=== PATIENT | male | born 1935 | race Caucasian/White ===

== ENCOUNTER 2016-05-30 09:28 | Inpatient (IN) | payer MEDICARE, BC ==
[~2016-05-30] VITALS: Ht 177.8 cm; Wt 96.6 kg
[~2016-05-30 09:28] MED LIST: ALLO100T PO; AMIO200T2 PO; ASPI81TA9 PO; BECL8.7A IH; BENZ0.5T PO; BENZ1TAB5 PO; BRIM5DRO3 EACHEYE; CARB1TAB2 PO; CARB1TAB44 PO; CIPR500T94 PO; DIGO125T PO; DOCU-27 PO; DOCU100C5 PO; DONE5TAB7 PO; DOXE1CAP PO; FLUT16SP NS; FURO20TA3 PO; LATA2.5D3 EACHEYE; LEVO75TA5 PO; LOVA20TA2 PO; MEMA28CA PO; MIDO10TA PO; MULT1TAB52 PO; NIAC500C PO; POLY17PO5 PO; ROPI1TAB2 PO; SODI650T PO; TAMS0.4C2 PO; WARF3TAB PO; WARF6TAB PO
--- NOTE | 2016-05-30 10:00 | PHYS DOC ---
General Chief Complaint: WEAKNESS/GENERALIZED Stated Complaint: WEAKNESS Time Seen by MD: 09:39 Source: patient, EMS, old records Exam Limitations: no limitations Problems: History of Present Illness Initial Comments Pt is 80/M to ED via EMS from [facility] for weakness. Pt states for the past week or longer he's had worsening productive cough (clear /foamy), increasing leg swelling, and V[place]LEGAS. This morning his legs felt very heavy and weak to him so he wanted to come for evaluation. He denies chest pain , fever/myalgias, n/v, SABA, or focal weakness. ED VS: 97.4, 60, 18, 109/61, 94% RA Timing/Duration: 1 week, getting worse Severity: moderate Modifying Factors: worse with movement, improves with rest Associated Symptoms: cough, malaise, shortness of breath, weakness Allergies: Coded Allergies: No Known Drug Allergies (Unverified , 03/07/16) Past Medical History Medical History: other (HTN, HLP, CKD 3, CHF, atrial fibrillation, prostate cancer, glaucoma, SHIKHA uses CPAP, Parkinson, gout, hypothyroid, dementia, DVT, sensorineural deafness, asthma, CAD, orthostatic hypotension, BPH, COPD, osteoarthritis, anemia) Surgical History: other (TURP, AICD, pacemaker, CABG x 2 2009) Social History Smoker: quit greater than 1 year Alcohol: none Drugs: none Review of Systems Constitutional: denies chills, denies diaphoresis, denies fever, malaise Respiratory: see HPI Cardiovascular: denies chest pain, edemadenies palpitations, denies syncope Gastrointestinal: constipationdenies diarrhea, denies nausea, denies vomiting Musculoskeletal: denies back pain, denies joint swelling, denies neck pain Psychiatric/Neurological: see HPIdenies headache Hematologic/Lymphatic: see HPI Physical Exam General Appearance: no apparent distress Ear, Nose, Throat: hearing grossly normal, normal ENT inspection, normal pharynx Neck: non-tender, supple Respiratory: chest non-tender, no respiratory distress, other (decreased BS at bases with rales, fair to good air movement) Cardiovascular: normal peripheral pulses, bradycardia Gastrointestinal: non tender, soft Back: no CVA tenderness, no vertebral tenderness Extremities: non-tender, other (3+ pitting LE edema) Neurologic/Psychiatric: carding doubler II-XII nml as tested, no motor/sensory deficits, alert, normal mood/affect, oriented x 3 Skin: normal color, warm/dry Orders, Labs, Meds EKG: paced 60 bpm PATIENT: DHAVAL THOMAS ACCOUNT: [id number] : 1935 LOCATION: ER AGE: 80 SEX: M EXAM STATUS: REG ER ORD. PHYSICIAN: TAVON GREY DO REASON: weakness PROCEDURE: PORTABLE CHEST 1V Portable chest, 05/30/2016: History: Weakness and congestion Comparison is made to a study from 03/09/2016. There has been a previous median sternotomy. A left-sided transvenous pacemaker remains in place with 3 leads extending into the heart. The heart is moderately enlarged. The pulmonary vascularity appears congested with loss of vascular margination. There are moderate bibasilar opacities obscuring the hemidiaphragms. The appearance suggests pleural fluid with underlying basilar atelectasis/infiltrate. The basilar opacities have worsened since 03/09/2016. IMPRESSION: Congestive heart size with worsening bilateral pleural effusions and bibasilar atelectasis/infiltrate. DICTATED AND SIGNED BY: FRANCES GRACIA MD DATE: 05/30/16 1037 CC: HAILEY DORANTES MD; TAVON GREY DO ~ PATIENT: DHAVAL THOMAS ACCOUNT: [id number] : 1935 LOCATION: ER AGE: 80 SEX: M EXAM STATUS: REG ER ORD. PHYSICIAN: TAVON GREY DO REASON: weakness PROCEDURE: HEAD WO CONTRAST CT of the head without contrast, 05/30/2016: History: Weakness Comparison is made to a study from 03/07/2016. There is moderate cerebral atrophy. The ventricles are within normal limits in size. There is no shift of the midline structures. There is no evidence of acute intracranial hemorrhage or mass effect. IMPRESSION: 1. Cerebral atrophy. 2. No acute intracranial abnormality is detected. PQRS Compliance Statement: One or more of the following individualized dose reduction techniques were utilized for this examination: 1. Automated exposure control 2. Adjustment of the mA and/or kV according to patient size 3. Use of iterative reconstruction technique DICTATED AND SIGNED BY: FRANCES GRACIA MD DATE: 05/30/16 1019 CC: HAILEY DORANTES MD; TAVON GREY DO ~ Pertinent Labs: WBC 3.7, Hb 11.7, plt 68, INR 2.2, Trop I 0.117, lactic acid 0.5, Na 146, BUN 56, Cr 3, magnesium 3.3 1054: Pt discussed with Dr Willard Cardiology who recommends lasix IV, admit to IM, consult. Dr Willard did see pt in ED prior to transfer up to [facility]. 1100: Dr Almonte accepts inpt/ICU admission. Will follow serial CE, kidney function. IMPRESSIONS: Acute on chronic congestive heart failure Elevated troponin Pancytopenia CKD Anticoagulation/therapeutic INR Generalized weakness Departure Time of Disposition: 12:00 Disposition: 09 ADMITTED INPATIENT Diagnosis: CHF, elevated troponin, pancytopenia, CKD, weaknes Condition: STABLE Additional Instructions: ICU admission TAVON Vieira DO May 30, 2016 10:00
[2016-05-30 10:06] LABS: BASO % 1 % (0-3); EOS # 0.2 x10^3/uL (0.0-0.7); EOS % 4 % (0-3); HEMATOCRIT 36.2 % (39.0-53.0); HEMOGLOBIN 11.7 g/dL (13.0-17.5); LYMPH # 0.5 x10^3/uL (1.0-4.8); LYMPH % 14 % (24-48); MEAN CORPUSCULAR HEMOGLOBIN 35 pg (25-35); MEAN CORPUSCULAR HGB CONC 32 g/dL (31-37); MEAN CORPUSCULAR VOLUME 109 fL (79-100); MONO # 0.3 x10^3/uL (0.0-1.1); MONO % 9 % (0-9); NEUT # 2.7 x10^3uL (1.8-7.7); NEUT % 72 % (31-73); PLATELET COUNT 68 x10^3/uL (140-400); RED BLOOD COUNT 3.33 x10^6/uL (4.30-5.70); RED CELL DISTRIBUTION WIDTH 18.7 % (11.5-14.5); WHITE BLOOD COUNT 3.7 x10^3/uL (4.0-11.0)
[2016-05-30 10:21] LABS: BACTERIA,URINE 0 /HPF (0-FEW); BILIRUBIN,URINE NEG (NEG); CLARITY,URINE CLEAR; COLOR,URINE YELLOW; GLUCOSE,URINE NEG (NEG); NITRITE,URINE NEG (NEG); RBC,URINE 0 /HPF (0-2); UROBILINOGEN,URINE 0.2 mg/dL (0.2 mg/dL); WBC,URINE 0 /HPF (0-4)
[2016-05-30 10:26] LABS: ALBUMIN 3.1 g/dL (3.4-5.0); ALBUMIN/GLOBULIN RATIO 0.9 (1.0-1.7); CALCIUM 8.5 mg/dL (8.5-10.1); GFR 20.2; POTASSIUM 4.6 mmol/L (3.5-5.1); TOTAL BILIRUBIN 0.8 mg/dL (0.2-1.0); TOTAL PROTEIN 6.5 g/dL (6.4-8.2)
--- NOTE | 2016-05-30 10:29 | RAD ---
CT of the head without contrast, 05/30/2016: History: Weakness Comparison is made to a study from 03/07/2016. There is moderate cerebral atrophy. The ventricles are within normal limits in size. There is no shift of the midline structures. There is no evidence of acute intracranial hemorrhage or mass effect. IMPRESSION: 1. Cerebral atrophy. 2. No acute intracranial abnormality is detected. PQRS Compliance Statement: One or more of the following individualized dose reduction techniques were utilized for this examination: 1. Automated exposure control 2. Adjustment of the mA and/or kV according to patient size 3. Use of iterative reconstruction technique
[2016-05-30 10:31] LABS: MAGNESIUM 3.3 mg/dL (1.8-2.4)
--- NOTE | 2016-05-30 10:38 | EKG ---
[address] [address] Test Date: 2016-05-30 Test Time: 09:40:16 Pat Name: DHAVAL THOMAS Department: Room: Gender: M [employer] Assistant: HERMELINDO : 1935 Requested By: TAVON GREY Order Number: [id number] Reading MD: Measurements Intervals [place] Rate: 60 P: MD: QRS: -170 QRSD: 26 T: -59 QT: 410 QTc: 410 Interpretive Statements IRREGULAR RHYTHM, NO P-WAVE FOUND ABNORMAL RIGHT SUPERIOR AXIS DEVIATION ST & T ABNORMALITY, CONSIDER INFERIOR ISCHEMIA OR LEFT VENTRICULAR STRAIN T ABNORMALITY IN ANTERIOR LEADS LATERAL LEADS ABNORMAL ECG RI6.01 Unconfirmed report No previous ECG available for comparison
--- NOTE | 2016-05-30 10:41 | RAD ---
Portable chest, 05/30/2016: History: Weakness and congestion Comparison is made to a study from 03/09/2016. There has been a previous median sternotomy. A left-sided transvenous pacemaker remains in place with 3 leads extending into the heart. The heart is moderately enlarged. The pulmonary vascularity appears congested with loss of vascular margination. There are moderate bibasilar opacities obscuring the hemidiaphragms. The appearance suggests pleural fluid with underlying basilar atelectasis/infiltrate. The basilar opacities have worsened since 03/09/2016. IMPRESSION: Congestive heart size with worsening bilateral pleural effusions and bibasilar atelectasis/infiltrate.
[2016-05-30] MEDS: IPRATRPIUM/ALBUTEROL 0.5/2.5MG 3 ML NEBU. NEB SCH ×3 (11:28→22:04)
[2016-05-30] MEDS ORDERED: FUROSEMIDE 40 MG/4 ML VIAL IVP ONE (11:30)
--- NOTE | 2016-05-30 12:17 | PDOC2 ---
CONSULT Date of Admission DATE: 05/30/16 TIME: 12:00 Reason for Consult: Congestive heart failure Referring Physician: Requesting provider: Ernesto Solo DO Primary provider: Krupa Del Toro MD Chief Complaint Legs swollen and weak History of Present Illness He has a history of ischemic cardiomyopathy with a biventricular pacemaker placement, chronic systolic congestive heart failure, coronary artery disease with coronary bypass surgery in 2009 X 2 in 2009, paroxysmal atrial fibrillation , hyperlipidemia, stage 3 chronic kidney disease, recurrent deep venous thrombosis on chronic anticoagulation, asthma and obstructive sleep apnea on CPAP. He has presently been residing in [place] in the assisted care unit. He states that he has been having increasing lower extremity edema. He is also been having profound weakness and paresthesias in his legs. Today he felt like he could not go to the dining room for breakfast. He had his breakfast brought to his room. He told the staff about the weakness in his legs and he was brought to the emergency room for further evaluation. He always has chronic mild ankle edema but this has been getting worse. He believes he has been taking all of his medications although the nurses give the medications to him. He has chronic dyspnea on exertion which he states is unchanged. He denies any chest discomfort, paroxysmal nocturnal dyspnea, orthopnea, palpitations, lightheadedness or syncope. When he presented to the emergency room, he was felt to be in congestive heart failure. Therefore, a Cardiology consultation was requested. Past Medical History Ischemic cardiomyopathy with a biventricular pacemaker placement, chronic systolic congestive heart failure, coronary artery disease with coronary bypass surgery in 2009 X 2 in 2009, paroxysmal atrial fibrillation, hyperlipidemia, stage 3 chronic kidney disease, recurrent deep venous thrombosis on chronic anticoagulation, asthma and obstructive sleep apnea on CPAP. Past Surgical History: CABG, Pacemaker Family History He does not know of any family history of premature coronary artery disease. Social History He is presently residing in [place] in the assisted care section. He quit smoking many years ago. He denies alcohol intake. Current Medications Current Medications Furosemide (Lasix) 20 mg 1X ONCE IVP Last administered on 05/30/16 11:28; Start 05/30/16 at 11:30; Stop 05/30/16 at 11:31; Status DC Albuterol/ Ipratropium (Duoneb) 3 ml RTQID NEB Last administered on 05/30/16 11:28; Start 05/30/16 at 12:00; Stop 05/31/16 at 11:59 Active Scripts Active Reported Fluticasone Propionate Nasal Walker (Fluticasone Propionate) 16 Gm Walker.susp 2 Spr NS DAILY LAST DOSE GIVEN: DATE: TIME: NEXT DOSE DUE: DATE: TIME: Coumadin (Warfarin Sodium) 6 Mg Tablet 1 Tab PO DAILY16 LAST DOSE GIVEN: DATE: TIME: NEXT DOSE DUE: DATE: TIME: Miralax (Polyethylene Glycol 3350) 17 Gm Powd.pack 1 Packet PO DAILY PRN LAST DOSE GIVEN: DATE: TIME: NEXT DOSE DUE: DATE: TIME: Qvar 40MCG Inhaler (Beclomethasone Dipropionate) 8.7 Gm Aer.w.adap 2 Puff IH BID LAST DOSE GIVEN: DATE: TIME: NEXT DOSE DUE: DATE: TIME: Namenda Xr (Memantine Hcl) 28 Mg Cap.spr.24 28 Mg PO HS LAST DOSE GIVEN: DATE: TIME: NEXT DOSE DUE: DATE: TIME: Sodium Bicarbonate 650 Mg Tablet 1 Tab PO BID LAST DOSE GIVEN: DATE: TIME: NEXT DOSE DUE: DATE: TIME: Docusate Sodium 100 Mg Capsule 1 Cap PO DAILY LAST DOSE GIVEN: DATE: TIME: NEXT DOSE DUE: DATE: TIME: Multivitamins (Multivitamin) 1 Each Tablet 1 Tab PO DAILY LAST DOSE GIVEN: DATE: TIME: NEXT DOSE DUE: DATE: TIME: Alphagan P (Brimonidine Tartrate) 5 Ml Drops 1 Drop EACHEYE BID LAST DOSE GIVEN: DATE: TIME: NEXT DOSE DUE: DATE: TIME: Donepezil Hcl 5 Mg Tablet 1 Tab PO HS LAST DOSE GIVEN: DATE: TIME: NEXT DOSE DUE: DATE: TIME: Benztropine Mesylate 0.5 Mg Tablet 1 Tab PO QODAY LAST DOSE GIVEN: DATE: TIME: NEXT DOSE DUE: DATE: TIME: Latanoprost 2.5 Ml Drops 1 Drop EACHEYE HS LAST DOSE GIVEN: DATE: TIME: NEXT DOSE DUE: DATE: TIME: Allopurinol 100 Mg Tablet 100 Mg PO BID LAST DOSE GIVEN: DATE: TIME: NEXT DOSE DUE: DATE: TIME: Benztropine Mesylate 1 Mg Tablet 1 Mg PO QODAY LAST DOSE GIVEN: DATE: TIME: NEXT DOSE DUE: DATE: TIME: Digoxin 125 Mcg Tablet 0.5 Tab PO DAILY LAST DOSE GIVEN: DATE: TIME: NEXT DOSE DUE: DATE: TIME: Levothyroxine Sodium 75 Mcg Tablet 75 Mcg PO DAILY LAST DOSE GIVEN: DATE: TIME: NEXT DOSE DUE: DATE: TIME: Amiodarone Hcl 200 Mg Tablet 200 Mg PO DAILY LAST DOSE GIVEN: DATE: TIME: NEXT DOSE DUE: DATE: TIME: Furosemide 20 Mg Tablet 40 Mg PO DAILY LAST DOSE GIVEN: DATE: TIME: NEXT DOSE DUE: DATE: TIME: Ropinirole Hcl 1 Mg Tablet 1 Mg PO TID LAST DOSE GIVEN: DATE: TIME: NEXT DOSE DUE: DATE: TIME: Carbidopa-Levo Er 50-200 Tab (Carbidopa/Levodopa) 1 Each Tablet.er 1 Each PO TID LAST DOSE GIVEN: DATE: TIME: NEXT DOSE DUE: DATE: TIME: Lovastatin 20 Mg Tablet 20 Mg PO HS LAST DOSE GIVEN: DATE: TIME: NEXT DOSE DUE: DATE: TIME: Midodrine Hcl 10 Mg Tablet 5 Mg PO TID HOLD FOR SYS BP>120 LAST DOSE GIVEN: DATE: TIME: NEXT DOSE DUE: DATE: TIME: Tamsulosin Hcl 0.4 Mg Cap.er.24h 0.4 Mg PO HS LAST DOSE GIVEN: DATE: TIME: NEXT DOSE DUE: DATE: TIME: Colace (Docusate Sodium) 100 Mg Capsule 100 Mg PO TID PRN LAST DOSE GIVEN: DATE: TIME: NEXT DOSE DUE: DATE: TIME: Allergies: Coded Allergies: No Known Drug Allergies (Unverified , 03/07/16) Review of System Review of 10 organ systems is as per the history of present illness, otherwise negative. General: Alert, Oriented X3, Cooperative, No acute distress HEENT: Atraumatic, EOMI, Mucous membr. moist/pink Lungs: Clear to auscultation, Normal air movement Heart: Regular rate, Normal S1, Normal S2, Other (2/6 systolic ejection murmur. ) Abdomen: Normal bowel sounds, Soft, No tenderness Extremities: No clubbing, No cyanosis, Normal pulses, Other ( 1+ bilateral pretibial edema with compression stockings in place.) Skin: No breakdown, No significant lesion Neuro: Normal speech, Strength at 5/5 X4 ext, Normal tone, Cranial nerves 3-12 NL Psych/Mental Status: Mental status NL, Mood NL VITALS Vital Signs Date Time Temp Pulse Resp B/P Pulse Ox O2 Delivery O2 Flow Rate FiO2 05/30/16 11:54 60 20 114/67 100 Room Air 3/30/17 09:28 97.4 Labs Laboratory Tests Test 05/30/16 09:54 05/30/16 09:55 White Blood Count 3.7x10^3/uL (4.0-11.0) Red Blood Count 3.33x10^6/uL (4.30-5.70) Hemoglobin 11.7g/dL (13.0-17.5) Hematocrit 36.2% (39.0-53.0) Mean Corpuscular Volume 109fL (79-100) Mean Corpuscular Hemoglobin 35pg (25-35) Mean Corpuscular Hemoglobin Concent 32g/dL (31-37) Red Cell Distribution Width 18.7% (11.5-14.5) Platelet Count 68x10^3/uL (140-400) Neutrophils (%) (Auto) 72% (31-73) Lymphocytes (%) (Auto) 14% (24-48) Monocytes (%) (Auto) 9% (0-9) Eosinophils (%) (Auto) 4% (0-3) Basophils (%) (Auto) 1% (0-3) Neutrophils # (Auto) 2.7x10^3uL (1.8-7.7) Lymphocytes # (Auto) 0.5x10^3/uL (1.0-4.8) Monocytes # (Auto) 0.3x10^3/uL (0.0-1.1) Eosinophils # (Auto) 0.2x10^3/uL (0.0-0.7) Basophils # (Auto) 0.0x10^3/uL (0.0-0.2) Prothrombin Time 22.5SEC (9.4-11.4) Prothromb Time International Ratio 2.2 (0.9-1.1) Activated Partial Thromboplast Time 32SEC (23-33) Sodium Level 146mmol/L (136-145) Potassium Level 4.6mmol/L (3.5-5.1) Chloride Level 111mmol/L (98-107) Carbon Dioxide Level 28mmol/L (21-32) Anion Gap 7 (6-14) Blood Urea Nitrogen 56mg/dL (8-26) Creatinine 3.0mg/dL (0.7-1.3) Estimated GFR (Cockcroft-Gault) 20.2 BUN/Creatinine Ratio 19 (6-20) Glucose Level 93mg/dL (70-99) Lactic Acid Level 0.5mmol/L (0.4-2.0) Calcium Level 8.5mg/dL (8.5-10.1) Magnesium Level 3.3mg/dL (1.8-2.4) Total Bilirubin 0.8mg/dL (0.2-1.0) Aspartate Amino Transf (AST/SGOT) 20U/L (15-37) Alanine Aminotransferase (ALT/SGPT) 7U/L (16-63) Alkaline Phosphatase 115U/L (46-116) Creatine Kinase 60U/L (39-308) Troponin I Quantitative 0.117ng/mL (0-0.055) RU-Jtt-V-Type Natriuretic Peptide 01451yr/mL (0-449) Total Protein 6.5g/dL (6.4-8.2) Albumin 3.1g/dL (3.4-5.0) Albumin/Globulin Ratio 0.9 (1.0-1.7) Urine Collection Type Unknown Urine Color Yellow Urine Clarity Clear Urine pH 6.5 Urine Specific [place] 1.010 Urine Protein Neg (NEG-TRACE) Urine Glucose (UA) Negmg/dL (NEG) Urine Ketones (Stick) Negmg/dL (NEG) Urine Blood Neg (NEG) Urine Nitrite Neg (NEG) Urine Bilirubin Neg (NEG) Urine Urobilinogen Dipstick 0.2mg/dL (0.2 mg/dL) Urine Leukocyte Esterase Neg (NEG) Urine RBC 0/HPF (0-2) Urine WBC 0/HPF (0-4) Urine Squamous Epithelial Cells None/LPF Urine Bacteria 0/HPF (0-FEW) Images ECHOCARDIOGRAM (03/07/2016): The left ventricle is moderately dilated. There is moderate concentric left ventricular hypertrophy. The left ventricular systolic function is moderately impaired with global hypokinesis. The estimated EF is 30-35%. Unable to determine LV diastolic function. There is a pacemaker or defibrillator lead seen in the right heart chambers. The left atrium is moderately dilated. There is mild aortic valve sclerosis. There is mild aortic and mitral regurgitation. There is moderate to severe tricuspid regurgitation. The estimated pulmonary artery pressure is 67 mmHg, which is consistent with severe pulmonary hypertension. The inferior vena cava is dilated and does not respond normally with respiration , which is consistent with severely elevated right atrial pressure. There is a left pleural effusion. CAROTID DUPLEX (03/07/2016): Moderate atherosclerotic plaquing at both carotid bifurcations with underlying luminal narrowing in the 0-50% diameter range bilaterally. LEXISCAN NUCLEAR STRESS TEST IMPRESSION (08/23/2015): Hemodynamic response: There was a blunted heart rate and a normal blood pressure response to stress. Arrhythmias: None. Stress ECG: Indeterminate due to the baseline abnormality. Myocardial perfusion: The left ventricle was dilated and there was a large, intense, fixed mid-distal inferior, apical and septal defect with no ischemia. Wall motion: Wall motion analysis revealed global hypokinesis. Ejection fraction: 30%. Compared to the report (images were not available for review) from the previous study performed on 01/30/2012, there was no significant change. Assessment/Plan CHF, acute on chronic, systolic. It appears as though he has decompensation of his congestive heart failure. I recommend he come into the hospital for treatment with intravenous diuretics. We will need to watch his renal function closely. Ischemic cardiomyopathy. He has moderate left ventricular systolic dysfunction. He has a prophylactic defibrillator in place. We will continue the present medications. He is not on beta-jossue or CHUY inhibitor due to chronic hypotension. Atrial flutter, typical. He has chronic atrial flutter. We have him on warfarin for stroke prevention. He is on amiodarone for rate control. Ventricular tachycardia, nonsustained. We will continue the patient on the amiodarone. He has not had any device discharges. He has a prophylactic defibrillator in place. Hypotension. Continue Midodrine. CKD 3-4. We will need to watch his renal function closely with the IV Lasix. Problems: NITZA VALLE Jr, MD May 30, 2016 12:17
[2016-05-30 12:26] VITALS: BP 118/67
[2016-05-30] MEDS ORDERED: POLYETHYLENE GLYCOL 3350 17 GM PACKET. PO PRN (14:45)
--- NOTE | 2016-05-30 15:39 | HP ---
ADMIT DATE: 05/30/2016 HISTORY OF PRESENT ILLNESS: The patient is an 80-year-old male patient, he came to the Emergency Room complaining of increasing lower extremity edema, profound weakness, paresthesias in his legs and today he felt like he could not go to the dining room for breakfast. He had his breakfast brought to his room. He told the staff about weakness in his legs and was brought to the Emergency Room for further evaluation. He apparently has chronic mild ankle edema, but this has been getting worse. He has also some blisters. He has chronic dyspnea on exertion, which has steadying changes, but he said he had cough, which is productive. Denied any chest pain. Denied any paroxysmal nocturnal dyspnea, palpitations, lightheadedness or syncope. He was evaluated in the Emergency Room and apparently was found to be in overt congestive heart failure. The heart size is moderately enlarged. Pulmonary vascularity appears congested with loss of vascular margination. There are moderate bibasilar opacities obscuring the hemidiaphragms. The appearance suggests pleural fluid with underlying basilar atelectasis/infiltrate. These have worsened since his last x-ray on 03/09/2016. He has had lab work, which showed that his troponin has elevated at 0.117. He is known to have pancytopenia that is chronic and was admitted to do 2 more sets of cardiac enzyme and consult the cardiology team to maximize medical treatment as he apparently is known to have chronic kidney disease with creatinine of 3. PAST MEDICAL HISTORY: Significant for hypertension, hyperlipidemia, has chronic kidney disease, congestive heart failure, gout, atrial fibrillation, prostate cancer, glaucoma and obstructive sleep apnea for which he uses CPAP. PAST SURGICAL HISTORY: Significant for transurethral resection of the prostate and automated implantable cardioverter defibrillator. He is also known to have coronary artery bypass graft surgery. FAMILY HISTORY: His father at the age of 84 because of Parkinson's disease and mother at age of 95 because of old age. He has 2 brothers, the oldest brother , the cause of that is unknown. The second brother is healthy. He has 2 sisters, one of them has lymphoma, the other one is relatively healthy. SOCIAL HISTORY: He is twice. He has a son and a daughter, who both live in [place]. He quit smoking 40 years ago. He drinks alcohol occasionally. He does not use drugs. 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 REVIEW OF SYSTEMS: The patient does have glaucoma and he has also sensorineural deafness, has occasional nosebleeds. Denied any nasal stuffiness and postnasal drip. Denied any sore throat, sore tongue, toothache, hoarseness of voice or difficulty swallowing. He denied any nausea, vomiting, diarrhea or constipation. Denied any hematemesis, melena or hematochezia. Denied any dysuria, frequency or hematuria. Did complain of nocturia. He denied any chest pain. Did complain of shortness of breath. Denied any orthopnea, paroxysmal nocturnal dyspnea. Does have cough with whitish sputum with blood. He denied any chills, rigors or fever. Denied any dizziness, lightheadedness or vertigo. ALLERGIES: He has no known drug allergies. 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 He is on benztropine 0.5 mg every other day, brimonidine for Alphagan 1 drop to both eyes twice a day, carbidopa/levodopa extended release 50/200 three times a day, digoxin 0.5 mg once a day, Colace 100 mg 3 times a day, Colace 1 capsule daily. He is on Aricept 5 mg at bedtime, Flonase 2 sprays to each nostril once a day, furosemide 40 mg daily, latanoprost 1 drop to both eyes at bedtime, levothyroxine sodium 75 mcg once a day, lovastatin 20 mg at bedtime, Namenda extended release 28 mg once a day, midodrine 5 mg 3 times a day, multivitamin 1 tablet once a day, polyethylene glycol 17 grams once a day, Requip 1 mg 3 times a day and sodium bicarbonate 650 mg p.o. b.i.d. He is also on Flomax 0.4 mg at bedtime and warfarin 6 mg once a day. OBJECTIVE: GENERAL: On arrival to the Emergency Room; the patient was resting, slightly propped up in bed, in no apparent respiratory distress. He was somewhat pale, but no jaundice, cyanosis or thyromegaly. No jugular venous distension. No limb edema. VITAL SIGNS: His heart rate was 60, blood pressure was 108/67, temperature was 97.4, respiratory rate was 18 and oxygen saturation was 95%. HEAD, EYES, EARS, NOSE AND THROAT: Showed normocephalic, atraumatic. NECK: Supple. HEART: Showed normal first and second heart sounds with no gallop, rub or murmur. CHEST: Clear to auscultation. No crepitation or rhonchi. ABDOMEN: Distended, soft, nontender. No guarding or rigidity. No organomegaly. All hernial orifices intact. Bowel sounds normal. NEUROLOGIC: He is awake, alert, responding appropriately. Cranial nerves intact. He moves extremities without difficulty. He states he ambulates with a walker. He has bilateral lower extremity edema. He apparently gained about 10 pounds. LABORATORY DATA: His lab work this morning showed a serum sodium 146, potassium 4.6, chloride 111, bicarbonate 28, anion gap of 7, BUN 56, creatinine 3, estimated GFR was 20 mL per minute. His glucose was 93, calcium was 8.5, magnesium was . Total bilirubin, AST, ALT, alkaline phosphatase were normal. His first set of cardiac enzymes showed troponin to be 0.017. His beta natriuretic peptide was 18,750, total protein was 6.5, albumin 3.1. His white cell count was 3700. His hemoglobin was 11.7, hematocrit 36, MCV 109 and platelet count of 68,000. His prothrombin time was 22.5, INR of 2.2, aPTT was 32. Urinalysis showed the urine was yellow, clear with a pH of 6.5, specific gravity of 1.010. The urine was negative for protein, glucose, ketones, blood, nitrite and leukocyte esterase. There are very few rbc's, no wbc's and no bacteria. He has had a CT scan of the head, which showed that there is moderate cerebral atrophy. The ventricles are within normal limits in size. There is no shift of midline structures. There is no evidence of acute intracranial hemorrhage or mass effect. ASSESSMENT AND PLAN: In summary, this is an 80-year-old male patient, who was admitted with what seems to be acute on chronic congestive heart failure. He has slightly elevated troponin. We will obviously do 2 more sets of cardiac enzyme. He is known to have ischemic cardiomyopathy with moderate left ventricular systolic dysfunction. His ejection fraction was 30% to 35%, ventricular tachycardia, nonsustained. He is on amiodarone. He has prophylactic defibrillator in place. Hypotension, continues midodrine. Chronic kidney disease stage . We will continue all his medication and I will repeat his lab works including two sets of cardiac enzyme and decide on further management accordingly. AYESHA REED MD DR: ALESSIA/yeni JOB#: [id number] / [id number]
[2016-05-30 15:45] VITALS: BP 112/68
[2016-05-30] MEDS ORDERED: WARFARIN 6 MG TABLET. PO SCH (16:00)
[2016-05-30 16:04] VITALS: BP 112/68
[2016-05-30] MEDS ORDERED: WARF3TAB PO (16:21)
[2016-05-30] MEDS: WARFARIN 1 MG TABLET. PO SCH (17:06)
[2016-05-30] MEDS: MIDODRINE 5 MG TABLET PO SCH (17:07)
[2016-05-30] MEDS: WARFARIN 2.5 MG TABLET. PO SCH (17:07)
[2016-05-30 19:00] VITALS: BP 119/66
[2016-05-30] MEDS: rOPINIRole 1 MG TABLET. PO SCH (20:49)
[2016-05-30] MEDS: ALLOPURINOL 100 MG TABLET. PO SCH (20:50)
[2016-05-30] MEDS ORDERED: TAMSULOSIN 0.4 MG CAP.ER.24H. PO SCH (21:00)
[2016-05-30] MEDS ORDERED: ATORVASTATIN CALCIUM 10 MG TABLET. PO SCH (21:00)
[2016-05-30] MEDS ORDERED: LATANOPROST 0.005% OPHTH SOLUTION 2.5ML BOTTLE. OU SCH (21:00)
[2016-05-30] MEDS: DONEPEZIL HCL 5 MG TABLET. PO SCH (21:00)
[2016-05-30] MEDS: BRIMONIDINE 0.2% OPHTH SOLUTION 5ML BOTTLE. OU SCH (21:01)
[2016-05-30] MEDS: SODIUM BICARBONATE 650 MG TABLET PO SCH (21:01)
[2016-05-30] MEDS: CARBIDOPA/LEVODOPA CR 50/200MG TABLET.SA PO SCH (21:01)
[2016-05-30 22:00] VITALS: BP 110/66
[2016-05-30 22:27] LABS: CALCIUM 8.5 mg/dL (8.5-10.1); CREATININE 3.2 mg/dL (0.7-1.3); GFR 18.7; POTASSIUM 4.8 mmol/L (3.5-5.1)
--- NOTE | 2016-05-30 22:51 | ACF ---
Admission Criteria Forms HEART FAILURE: COMMON COMPLICATIONS Clinical Indications for Inpatient Care (Place 'X' for any and all applicable criteria): Ongoing inpatient care may be indicated for heart failure with ANY ONE of the following (1)(2)(3)(4)(5): [ ]I. Ongoing need for care for primary condition requiring frequent therapy adjustments because of changes in cardiac function (eg, drug dosage changes for drugs that are renally metabolized) [ ]II. New-onset heart failure [ ]III. Heart failure with decreased urine output not responsive to attempts to optimize volume status [ ]IV. Acute cardiac ischemia causing or associated with failure [X]V. Complications of heart failure, including ANY ONE of the following: [ ]a) Pericardial effusion [X]b) Symptomatic pleural effusion [ ]c) O2 saturation <90% or PO2 < 60 mm Hg (8.0 kPa) on room air or require baseline supplemental O2 [ ]d) Tachypnea [ ]e) Dyspnea [ ]f) Syncope [ ]g) Change in mental status [ ]h) Acute renal insufficiency that is severe (reduction of more than 50% in estimated glomerular filtration rate from baseline) or progressive reduction of more than 25% in estimated glomerular filtration rate from baseline, with creatinine continuing to rise) [ ]i) Hemodynamic instability [ ]j) Anasarca [ ]k) Clinically significant metabolic abnormalities due to heart failure (eg, new-onset metabolic acidosis) Extended stay beyond goal length of stay for primary condition may be needed until ALL of the following are present(1)(3): [ ]a) Stable and effective diuretic regimen established (or patient on stable dialysis regimen if in chronic renal failure) [ ]b) Breathing comfortably at rest [ ]c) Saturation of arterial oxygen greater than 90% or at acceptable baseline [ ]d) Pulmonary edema absent or improved [ ]e) Hemodynamic stability [ ]f) Volume status acceptable on oral medication [ ]g) Peripheral or sacral edema absent or improved [ ]h) Renal function stable and manageable at a lower level of care [ ]i) Complications (eg, pleural effusion) resolved or manageable at a lower level of care [ ]j) Patient or caregiver has received written discharge instructions or educational material addressing activity level, diet, discharge medications, follow-up appointment, weight monitoring, and what to do if symptoms worsen The original [facility] content created by [employer] has been revised. The portions of the content which have been revised are identified through the use of italic text or in bold, and [facility] has neither reviewed nor approved the modified material.All other unmodified content is copyright [facility]. Please see references footnoted in the [facility] Admission Criteria Met?: Yes NEYDA MARCOS May 30, 2016 22:51
[2016-05-31 00:01] VITALS: BP 110/61
[2016-05-31 02:00] VITALS: BP 109/62
[2016-05-31 05:00] VITALS: BP 114/65
[2016-05-31] MEDS: MIDODRINE 5 MG TABLET PO SCH ×2 (05:42→08:05)
[2016-05-31] MEDS: IPRATRPIUM/ALBUTEROL 0.5/2.5MG 3 ML NEBU. NEB SCH ×2 (05:49→10:27)
[2016-05-31] MEDS ORDERED: LEVOTHYROXINE 75 MCG TABLET PO SCH (06:00)
[2016-05-31 06:40] LABS: BASO % 1 % (0-3); EOS # 0.1 x10^3/uL (0.0-0.7); EOS % 4 % (0-3); HEMATOCRIT 36.2 % (39.0-53.0); HEMOGLOBIN 11.7 g/dL (13.0-17.5); LYMPH # 0.6 x10^3/uL (1.0-4.8); LYMPH % 16 % (24-48); MEAN CORPUSCULAR HEMOGLOBIN 35 pg (25-35); MEAN CORPUSCULAR HGB CONC 32 g/dL (31-37); MEAN CORPUSCULAR VOLUME 109 fL (79-100); MONO # 0.3 x10^3/uL (0.0-1.1); MONO % 9 % (0-9); NEUT # 2.6 x10^3uL (1.8-7.7); NEUT % 71 % (31-73); PLATELET COUNT 66 x10^3/uL (140-400); RED BLOOD COUNT 3.33 x10^6/uL (4.30-5.70); RED CELL DISTRIBUTION WIDTH 18.9 % (11.5-14.5); WHITE BLOOD COUNT 3.6 x10^3/uL (4.0-11.0)
[2016-05-31 07:02] LABS: ALBUMIN 3.1 g/dL (3.4-5.0); ALBUMIN/GLOBULIN RATIO 0.9 (1.0-1.7); CALCIUM 8.7 mg/dL (8.5-10.1); GFR 20.2; POTASSIUM 4.3 mmol/L (3.5-5.1); TOTAL BILIRUBIN 0.7 mg/dL (0.2-1.0); TOTAL PROTEIN 6.5 g/dL (6.4-8.2)
[2016-05-31 07:45] VITALS: BP 112/62
[2016-05-31] MEDS: DONEPEZIL HCL 5 MG TABLET. PO SCH (08:03)
[2016-05-31] MEDS: BRIMONIDINE 0.2% OPHTH SOLUTION 5ML BOTTLE. OU SCH (08:03)
[2016-05-31] MEDS: SODIUM BICARBONATE 650 MG TABLET PO SCH (08:04)
[2016-05-31] MEDS: CARBIDOPA/LEVODOPA CR 50/200MG TABLET.SA PO SCH ×2 (08:04→14:11)
[2016-05-31] MEDS: rOPINIRole 1 MG TABLET. PO SCH ×2 (08:04→14:11)
[2016-05-31] MEDS: ALLOPURINOL 100 MG TABLET. PO SCH (08:05)
[2016-05-31] MEDS ORDERED: FLUTICASONE 50MCG/NASAL SPRAY 16GM BOTTLE. NS SCH (09:00)
[2016-05-31] MEDS ORDERED: DIGOXIN 125 MCG TABLET PO SCH (09:00)
[2016-05-31] MEDS ORDERED: AMIODARONE HCL 200 MG TABLET PO SCH (09:00)
[2016-05-31] MEDS ORDERED: DOCUSATE SODIUM 100 MG CAPSULE PO SCH (09:00)
[2016-05-31] MEDS ORDERED: MEMANTINE 10 MG TABLET. PO SCH (09:00)
[2016-05-31] MEDS ORDERED: MULTIVITAMIN with MINERAL TABLET. PO SCH (09:00)
--- NOTE | 2016-05-31 09:45 | PDOC ---
PROGRESS NOTES Diagnosis DIAGNOSIS 1. Acute CHF, systolic, improving 2. Ischemic cardiomyopathy s/p BiV ICD 3. Permanent atrial flutter, on amiodarone and chronic anticoagulation with warfarin 4. NSVT, stable 5. Hypotension, stable 6. CKD, stage 4 7. Weakness, multifactorial Assessment Mr. Magana is doing reasonably well this morning. He has diuresed appropriately with IV Lasix on admission. On examination, he does appear somewhat more euvolemic today, but continues to have noticable lower extremity pitting edema. This is a difficult situation as the patient has advanced renal failure, and his serum creatinine is up-trending with IV Lasix. Therefore, I have suggested that he go back to his home Lasix dose at this point. The patient would likely benefit from a nephrology evaluation. From a cardiac standpoint, I agree with continuing the rest of his medications as prescribed. He is currently not on an ACEI or BB due to prior hypotension. I do note that he is on amiodarone therapy , and I will defer to his primary advocacy director for management of his antiarrhythmic therapy. I would hold off on any cardiac diagnostic testing at this point. Agree with current plans of care. Subjective Mr. Magana is doing well this morning. He denies any chest pain or shortness of breath. He denies any palpitations or lightheadedness. Objective Vital Signs Date Time Temp Pulse Resp B/P Pulse Ox O2 Delivery O2 Flow Rate FiO2 05/31/16 08:05 80 05/31/16 07:45 18 112/62 96 Room Air 05/31/16 05:00 97.6 Intake and Output 05/31/16 07:00 Intake Total 1020 ml Output Total 1950 ml Balance -930 ml Intake Oral 1020 ml Output Urine Total 1950 ml Physical Exam Gen: AAOX3, no apparent distress HEENT: Normal Neck: Supple, no JVD Lungs: CTAB, no wheezes or crackles. Heart: Irregular, 2/6 systolic murmur, no rubs or gallops. Abd: Soft, nontender Ext: 1+ pitting edema Neuro: Generalized weakness. Review of Relevant I have reviewed the following items michael (where applicable) has been applied. Labs Laboratory Tests Test 05/30/16 09:54 05/30/16 09:55 05/30/16 12:53 3/30/17 16:05 White Blood Count 3.7x10^3/uL (4.0-11.0) Red Blood Count 3.33x10^6/uL (4.30-5.70) Hemoglobin 11.7g/dL (13.0-17.5) Hematocrit 36.2% (39.0-53.0) Mean Corpuscular Volume 109fL (79-100) Mean Corpuscular Hemoglobin 35pg (25-35) Mean Corpuscular Hemoglobin Concent 32g/dL (31-37) Red Cell Distribution Width 18.7% (11.5-14.5) Platelet Count 68x10^3/uL (140-400) Neutrophils (%) (Auto) 72% (31-73) Lymphocytes (%) (Auto) 14% (24-48) Monocytes (%) (Auto) 9% (0-9) Eosinophils (%) (Auto) 4% (0-3) Basophils (%) (Auto) 1% (0-3) Neutrophils # (Auto) 2.7x10^3uL (1.8-7.7) Lymphocytes # (Auto) 0.5x10^3/uL (1.0-4.8) Monocytes # (Auto) 0.3x10^3/uL (0.0-1.1) Eosinophils # (Auto) 0.2x10^3/uL (0.0-0.7) Basophils # (Auto) 0.0x10^3/uL (0.0-0.2) Prothrombin Time 22.5SEC (9.4-11.4) Prothromb Time International Ratio 2.2 (0.9-1.1) Activated Partial Thromboplast Time 32SEC (23-33) Sodium Level 146mmol/L (136-145) Potassium Level 4.6mmol/L (3.5-5.1) Chloride Level 111mmol/L (98-107) Carbon Dioxide Level 28mmol/L (21-32) Anion Gap 7 (6-14) Blood Urea Nitrogen 56mg/dL (8-26) Creatinine 3.0mg/dL (0.7-1.3) Estimated GFR (Cockcroft-Gault) 20.2 BUN/Creatinine Ratio 19 (6-20) Glucose Level 93mg/dL (70-99) Lactic Acid Level 0.5mmol/L (0.4-2.0) Calcium Level 8.5mg/dL (8.5-10.1) Magnesium Level 3.3mg/dL (1.8-2.4) Total Bilirubin 0.8mg/dL (0.2-1.0) Aspartate Amino Transf (AST/SGOT) 20U/L (15-37) Alanine Aminotransferase (ALT/SGPT) 7U/L (16-63) Alkaline Phosphatase 115U/L (46-116) Creatine Kinase 60U/L (39-308) Troponin I Quantitative 0.117ng/mL (0-0.055) 0.115ng/mL (0-0.055) WF-Efc-H-Type Natriuretic Peptide 36505uy/mL (0-449) Total Protein 6.5g/dL (6.4-8.2) Albumin 3.1g/dL (3.4-5.0) Albumin/Globulin Ratio 0.9 (1.0-1.7) Urine Collection Type Unknown Urine Color Yellow Urine Clarity Clear Urine pH 6.5 Urine Specific [place] 1.010 Urine Protein Neg (NEG-TRACE) Urine Glucose (UA) Negmg/dL (NEG) Urine Ketones (Stick) Negmg/dL (NEG) Urine Blood Neg (NEG) Urine Nitrite Neg (NEG) Urine Bilirubin Neg (NEG) Urine Urobilinogen Dipstick 0.2mg/dL (0.2 mg/dL) Urine Leukocyte Esterase Neg (NEG) Urine RBC 0/HPF (0-2) Urine WBC 0/HPF (0-4) Urine Squamous Epithelial Cells None/LPF Urine Bacteria 0/HPF (0-FEW) Nasal Screen MRSA (PCR) Negative (Negative) Test 05/30/16 22:00 05/31/16 05:48 Sodium Level 147mmol/L (136-145) 147mmol/L (136-145) Potassium Level 4.8mmol/L (3.5-5.1) 4.3mmol/L (3.5-5.1) Chloride Level 112mmol/L (98-107) 111mmol/L (98-107) Carbon Dioxide Level 28mmol/L (21-32) 27mmol/L (21-32) Anion Gap 7 (6-14) 9 (6-14) Blood Urea Nitrogen 57mg/dL (8-26) 54mg/dL (8-26) Creatinine 3.2mg/dL (0.7-1.3) 3.0mg/dL (0.7-1.3) Estimated GFR (Cockcroft-Gault) 18.7 20.2 Glucose Level 104mg/dL (70-99) 84mg/dL (70-99) Calcium Level 8.5mg/dL (8.5-10.1) 8.7mg/dL (8.5-10.1) Troponin I Quantitative 0.122ng/mL (0-0.055) White Blood Count 3.6x10^3/uL (4.0-11.0) Red Blood Count 3.33x10^6/uL (4.30-5.70) Hemoglobin 11.7g/dL (13.0-17.5) Hematocrit 36.2% (39.0-53.0) Mean Corpuscular Volume 109fL (79-100) Mean Corpuscular Hemoglobin 35pg (25-35) Mean Corpuscular Hemoglobin Concent 32g/dL (31-37) Red Cell Distribution Width 18.9% (11.5-14.5) Platelet Count 66x10^3/uL (140-400) Neutrophils (%) (Auto) 71% (31-73) Lymphocytes (%) (Auto) 16% (24-48) Monocytes (%) (Auto) 9% (0-9) Eosinophils (%) (Auto) 4% (0-3) Basophils (%) (Auto) 1% (0-3) Neutrophils # (Auto) 2.6x10^3uL (1.8-7.7) Lymphocytes # (Auto) 0.6x10^3/uL (1.0-4.8) Monocytes # (Auto) 0.3x10^3/uL (0.0-1.1) Eosinophils # (Auto) 0.1x10^3/uL (0.0-0.7) Basophils # (Auto) 0.0x10^3/uL (0.0-0.2) Prothrombin Time 23.5SEC (9.4-11.4) Prothromb Time International Ratio 2.3 (0.9-1.1) BUN/Creatinine Ratio 18 (6-20) Total Bilirubin 0.7mg/dL (0.2-1.0) Aspartate Amino Transf (AST/SGOT) 20U/L (15-37) Alanine Aminotransferase (ALT/SGPT) 9U/L (16-63) Alkaline Phosphatase 109U/L (46-116) Total Protein 6.5g/dL (6.4-8.2) Albumin 3.1g/dL (3.4-5.0) Albumin/Globulin Ratio 0.9 (1.0-1.7) Medications Current Medications Furosemide (Lasix) 20 mg 1X ONCE IVP Last administered on 05/30/16 11:28; Start 05/30/16 at 11:30; Stop 05/30/16 at 11:31; Status DC Albuterol/ Ipratropium (Duoneb) 3 ml RTQID NEB Last administered on 05/31/16 05:49; Start 05/30/16 at 12:00; Stop 05/31/16 at 11:59 Allopurinol (Zyloprim) 100 mg BID PO Last administered on 05/31/16 08:05; Start 05/30/16 at 21:00 Amiodarone HCl (Cordarone) 200 mg DAILY PO Last administered on 05/31/16 08:04 ; Start 05/31/16 at 09:00 Benztropine Mesylate (Cogentin) 0.5 mg QODAY PO ; Start 06/01/16 at 09:00 Benztropine Mesylate (Cogentin) 1 mg QODAY PO ; Start 06/01/16 at 09:00 Carbidopa/Levodopa (Sinemet Cr) 1 tab.sa TID PO Last administered on 05/31/16 08:04; Start 05/30/16 at 21:00 Digoxin (Lanoxin) 62.5 mcg DAILY PO Last administered on 05/31/16 08:04; Start 05/31/16 at 09:00 Docusate Sodium (Colace) 100 mg DAILY PO Last administered on 05/31/16 08:04; Start 05/31/16 at 09:00 Donepezil HCl (Aricept) 5 mg HS PO Last administered on 05/31/16 08:03; Start 05/30/16 at 21:00 Fluticasone Propionate (Flonase) 2 spray DAILY NS Last administered on 08:03; Start 05/31/16 at 09:00 Latanoprost (Xalatan) 1 drop HS OU Last administered on 05/30/16 21:01; Start 05/30/16 at 21:00 Levothyroxine Sodium (Synthroid) 75 mcg DAILY06 PO Last administered on 05:37; Start 05/31/16 at 06:00 Polyethylene Glycol (miraLAX) 17 gm PRN DAILY PRN PO CONSTIPATION Last administered on 05/31/16 08:03; Start 05/30/16 at 14:45 Ropinirole HCl (Requip) 1 mg TID PO Last administered on 05/31/16 08:04; Start 05/30/16 at 21:00 Sodium Bicarbonate 650 mg BID PO Last administered on 05/31/16 08:04; Start at 21:00 Tamsulosin HCl (Flomax) 0.4 mg HS PO Last administered on 05/30/16 20:49; Start 05/30/16 at 21:00 Warfarin Sodium (Coumadin) 6 mg DAILY16 PO ; Start 05/30/16 at 16:00; Stop 05/30 at 16:22; Status DC Brimonidine Tartrate (Alphagan) 1 drop BID OU Last administered on 05/31/16 08 :03; Start 05/30/16 at 21:00 Atorvastatin Calcium (Lipitor) 5 mg QHS PO Last administered on 05/30/16 20:50 ; Start 05/30/16 at 21:00 Memantine (Namenda) 10 mg BID PO Last administered on 05/31/16 08:04; Start at 09:00 Midodrine (Proamatine) 5 mg [id number] PO Last administered on 05/31/16 08:05; Start 05/30/16 at 18:00 Multivitamins/ Calcium (Thera-M Plus) 1 tab DAILY PO Last administered on 08:05; Start 05/31/16 at 09:00 Warfarin Sodium (Coumadin) 2.5 mg DAILY16 PO Last administered on 05/30/16 17: 06; Start 3/31/17 at 16:00; Stop 05/31/16 at 16:00; Status DC Warfarin Sodium (Coumadin) 1 mg DAILY16 PO ; Start 05/31/16 at 16:00; Stop 05/31 at 16:00; Status DC Warfarin Sodium (Coumadin) 1 mg DAILY16 PO Last administered on 05/30/16 17:06 ; Start 05/30/16 at 17:00 Warfarin Sodium (Coumadin) 2.5 mg DAILY16 PO Last administered on 05/30/16 17: 07; Start 05/30/16 at 17:00 Warfarin Sodium (Coumadin Per Physician) 1 each PRN DAILY PRN MC SEE COMMENTS; Start 05/30/16 at 17:15 Active Scripts Active Reported Coumadin (Warfarin Sodium) 3 Mg Tablet 3.5 Mg PO DAILY Fluticasone Propionate Nasal [place] (Fluticasone Propionate) 16 Gm [place].susp 2 Spr NS DAILY LAST DOSE GIVEN: DATE: TIME: NEXT DOSE DUE: DATE: TIME: Miralax (Polyethylene Glycol 3350) 17 Gm Powd.pack 1 Packet PO DAILY PRN LAST DOSE GIVEN: DATE: TIME: NEXT DOSE DUE: DATE: TIME: Qvar 40MCG Inhaler (Beclomethasone Dipropionate) 8.7 Gm Aer.w.adap 2 Puff IH BID LAST DOSE GIVEN: DATE: TIME: NEXT DOSE DUE: DATE: TIME: Namenda Xr (Memantine Hcl) 28 Mg Cap.spr.24 28 Mg PO HS LAST DOSE GIVEN: DATE: TIME: NEXT DOSE DUE: DATE: TIME: Sodium Bicarbonate 650 Mg Tablet 1 Tab PO BID LAST DOSE GIVEN: DATE: TIME: NEXT DOSE DUE: DATE: TIME: Docusate Sodium 100 Mg Capsule 1 Cap PO DAILY LAST DOSE GIVEN: DATE: TIME: NEXT DOSE DUE: DATE: TIME: Multivitamins (Multivitamin) 1 Each Tablet 1 Tab PO DAILY LAST DOSE GIVEN: DATE: TIME: NEXT DOSE DUE: DATE: TIME: Alphagan P (Brimonidine Tartrate) 5 Ml Drops 1 Drop EACHEYE BID LAST DOSE GIVEN: DATE: TIME: NEXT DOSE DUE: DATE: TIME: Donepezil Hcl 5 Mg Tablet 1 Tab PO HS LAST DOSE GIVEN: DATE: TIME: NEXT DOSE DUE: DATE: TIME: Benztropine Mesylate 0.5 Mg Tablet 1 Tab PO QODAY LAST DOSE GIVEN: DATE: TIME: NEXT DOSE DUE: DATE: TIME: Latanoprost 2.5 Ml Drops 1 Drop EACHEYE HS LAST DOSE GIVEN: DATE: TIME: NEXT DOSE DUE: DATE: TIME: Allopurinol 100 Mg Tablet 100 Mg PO BID LAST DOSE GIVEN: DATE: TIME: NEXT DOSE DUE: DATE: TIME: Benztropine Mesylate 1 Mg Tablet 1 Mg PO QODAY LAST DOSE GIVEN: DATE: TIME: NEXT DOSE DUE: DATE: TIME: Digoxin 125 Mcg Tablet 0.5 Tab PO DAILY LAST DOSE GIVEN: DATE: TIME: NEXT DOSE DUE: DATE: TIME: Levothyroxine Sodium 75 Mcg Tablet 75 Mcg PO DAILY LAST DOSE GIVEN: DATE: TIME: NEXT DOSE DUE: DATE: TIME: Amiodarone Hcl 200 Mg Tablet 200 Mg PO DAILY LAST DOSE GIVEN: DATE: TIME: NEXT DOSE DUE: DATE: TIME: Furosemide 20 Mg Tablet 40 Mg PO DAILY LAST DOSE GIVEN: DATE: TIME: NEXT DOSE DUE: DATE: TIME: Ropinirole Hcl 1 Mg Tablet 1 Mg PO TID LAST DOSE GIVEN: DATE: TIME: NEXT DOSE DUE: DATE: TIME: Carbidopa-Levo Er 50-200 Tab (Carbidopa/Levodopa) 1 Each Tablet.er 1 Each PO TID LAST DOSE GIVEN: DATE: TIME: NEXT DOSE DUE: DATE: TIME: Lovastatin 20 Mg Tablet 20 Mg PO HS LAST DOSE GIVEN: DATE: TIME: NEXT DOSE DUE: DATE: TIME: Midodrine Hcl 10 Mg Tablet 5 Mg PO TID HOLD FOR SYS BP>120 LAST DOSE GIVEN: DATE: TIME: NEXT DOSE DUE: DATE: TIME: Tamsulosin Hcl 0.4 Mg Cap.er.24h 0.4 Mg PO HS LAST DOSE GIVEN: DATE: TIME: NEXT DOSE DUE: DATE: TIME: Colace (Docusate Sodium) 100 Mg Capsule 100 Mg PO TID PRN LAST DOSE GIVEN: DATE: TIME: NEXT DOSE DUE: DATE: TIME: Vitals/I & O Vital Sign - Last 24 Hours 05/30/16 05/30/16 05/30/16 05/30/16 10:33 11:54 12:26 15:40 Temp 97.5 Pulse 60 60 60 Resp 18 20 22 B/P 108/67 114/67 118/67 Pulse Ox 95 100 98 97 O2 Delivery Room Air Room Air Room Air Room Air 05/30/16 05/30/16 05/30/16 05/30/16 15:45 16:04 17:07 19:00 Temp 97.5 97.9 97.4 Pulse 60 53 59 60 Resp 18 B/P 112/68 112/68 119/66 Pulse Ox 98 98 98 O2 Delivery Room Air Room Air Room Air 05/30/16 05/30/16 05/31/16 05/31/16 22:00 22:05 00:01 02:00 Pulse 60 60 60 Resp 18 B/P 110/66 110/61 109/62 Pulse Ox 98 O2 Delivery Room Air Room Air Room Air Room Air 05/31/16 05/31/16 05/31/16 05/31/16 05:00 05:42 05:50 07:45 Temp 97.6 Pulse 60 60 60 Resp 18 B/P 114/65 114/65 112/62 Pulse Ox 96 97 96 O2 Delivery Room Air Room Air Room Air 05/31/16 05/31/16 05/31/16 08:04 08:04 08:05 Pulse 80 90 80 Intake and Output 05/30/16 05/30/16 05/31/16 15:00 23:00 07:00 Intake Total 750 ml 270 ml Output Total 600 ml 900 ml 450 ml Balance -600 ml -150 ml -180 ml SURAJ RIVAS MD May 31, 2016 09:45
[2016-05-31] MEDS ORDERED: FUROSEMIDE 40 MG/4 ML VIAL IVP SCH (10:30)
[2016-05-31] MEDS ORDERED: FUROSEMIDE 40 MG TABLET PO SCH (11:15)
[2016-05-31] MEDS ORDERED: MAGNESIUM HYDROXIDE 2,400 MG/30 ML ORAL.SUSP. PO PRN (13:45)
[2016-05-31 15:16] VITALS: BP 111/68
[2016-05-31] MEDS ORDERED: WARFARIN 2.5 MG TABLET. PO SCH (16:00)
[2016-05-31] MEDS ORDERED: WARFARIN 1 MG TABLET. PO SCH (16:00)
[2016-05-31] MEDS: WARFARIN 2.5 MG TABLET. PO SCH (16:22)
[2016-05-31] MEDS: WARFARIN 1 MG TABLET. PO SCH (16:22)
--- NOTE | 2016-05-31 21:48 | DS ---
DATE OF DISCHARGE: 05/31/2016 HOSPITAL COURSE: This is an 80-year-old male patient who was admitted with acute on chronic congestive heart failure, left ventricular dysfunction. He is known to have ischemic cardiomyopathy with moderate left ventricular systolic dysfunction. Ejection fraction was only 30-35%. He has episodes of nonsustained ventricular tachycardia for which he has a biventricular pacemaker. He was started on IV Lasix at 40 mg daily. He basically did well and the patient himself said that he is now able to walk around and go back to his assisted living. He was seen by the custodian athletic equipment, who basically agreed with the plan and a decision was made to discharge him back to [facility] to continue on his current medications. PHYSICAL EXAMINATION: GENERAL: When I examined him this afternoon, he was resting, slightly propped up in bed, in no apparent respiratory distress, slightly pale, but not jaundiced, cyanosed. No lymphadenopathy or thyromegaly. No jugular venous distention. No limb edema. VITAL SIGNS: His heart rate was 59, blood pressure was 111/68, temperature was 98.4, respiratory rate was 18 and oxygen saturation was 96%. HEAD, EYES, EARS, NOSE AND THROAT: Showed normocephalic, atraumatic. NECK: Supple. HEART: Showed normal first and second heart sounds with no gallop, rub or murmur. CHEST: Clear to auscultation. No crepitation or rhonchi. ABDOMEN: Distended, soft, nontender. No guarding or rigidity. No organomegaly. Hernial orifices intact. Bowel sounds normal. NEUROLOGIC: He was awake, alert, responding appropriately. Cranial nerves intact. EXTREMITIES: He moves extremities without difficulty. He ambulates with a walker. LABORATORY DATA: This morning showed that his white cell count was 3600, hemoglobin 11.7, hematocrit 36.2, MCV 109 and platelet count of 66,000. His chemistry showed a serum sodium 147, potassium 4.3, chloride 111, bicarbonate 27, anion gap of 9, BUN 54, creatinine 3, estimated GFR was 20 mL per minute, his glucose was 84, calcium was 8.7. Total bilirubin, AST, ALT, alkaline phosphatase were normal. His total protein was 6.5, albumin 3.1. His TSH is extremely high at 148. His prothrombin time was 23.5, INR of 2.3. His urinalysis is unremarkable. His nasal screen for MRSA by PCR was negative. DISCHARGE MEDICATIONS: He was discharged back to assisted living to continue on allopurinol 100 mg twice a day, amiodarone 200 mg daily, beclomethasone dipropionate for QVAR 40 mcg 2 puffs twice a day, benztropine mesylate 1 mg every other day, benztropine mesylate 0.5 mg every other day, brimonidine tartrate for Alphagan one drop to both eyes twice a day, carbidopa/levodopa extended release 50/200 one tablet times a day, digoxin 125 mcg once a day, docusate sodium 100 mg 3 times a day, Aricept 5 mg at bedtime, Flonase 2 sprays to each nostril once a day, furosemide 40 mg once a day, latanoprost 1 drop to both eyes at bedtime, levothyroxine sodium 75 mcg once a day, lovastatin 20 mg tablet at bedtime, Namenda XR 28 mg once a day, midodrine 10 mg 3 times a day, multivitamin 1 tablet once a day, polyethylene glycol 17 grams once a day, ropinirole 1 mg 3 times a day, sodium bicarbonate 650 mg b.i.d. and Flomax 0.4 mg once a day and Coumadin 3.5 mg once a day. FINAL DISCHARGE DIAGNOSES: Acute congestive heart failure, systolic, improved with ischemic cardiomyopathy, status post biventricular implantable cardioverter defibrillator, permanent atrial fibrillation on amiodarone and chronic anticoagulation with warfarin, the INR is in therapeutic range; nonsustained ventricular tachycardia, stable; hypertension, stable; chronic kidney disease, stage 4; hypothyroidism on Synthroid 75 mcg. AYESHA REED MD DR: ALESSIA/yeni JOB#: [id number] / [id number]
[2016-06-01] MEDS ORDERED: FUROSEMIDE 40 MG TABLET PO SCH (09:00)
[2016-06-01] MEDS ORDERED: BENZTROPINE MESYLATE 1 MG TABLET PO SCH (09:00)
[2016-06-01] MEDS ORDERED: BENZTROPINE MESYLATE 0.5 MG TABLET PO SCH (09:00)
== END 2016-05-31 17:00 | disposition home or self-care (01) | DRG 291 ==
LOC: ER 09:28 → ICU 12:05
PROVIDERS: ADMIT Internal Medicine; ATTEND Internal Medicine
DX: I13.0 Hypertensive heart and chronic kidney disease with heart failure and stage 1 through stage 4 chronic kidney disease, or unspecified chronic kidney disease (principal); I50.23 Acute on chronic systolic (congestive) heart failure; D61.818 Other pancytopenia; I47.2 Ventricular tachycardia; I48.3 Typical atrial flutter; N18.4 Chronic kidney disease, stage 4 (severe); Z95.810 Presence of automatic (implantable) cardiac defibrillator; I25.10 Atherosclerotic heart disease of native coronary artery without angina pectoris; G47.33 Obstructive sleep apnea (adult) (pediatric); F03.90 Unspecified dementia, unspecified severity, without behavioral disturbance, psychotic disturbance, mood disturbance, and anxiety; E78.5 Hyperlipidemia, unspecified; E03.9 Hypothyroidism, unspecified; G20 Parkinson's disease; H40.9 Unspecified glaucoma; H90.5 Unspecified sensorineural hearing loss; I25.5 Ischemic cardiomyopathy; I48.0 Paroxysmal atrial fibrillation; I95.89 Other hypotension; J44.9 Chronic obstructive pulmonary disease, unspecified; I48.2 Chronic atrial fibrillation; I95.1 Orthostatic hypotension; M19.90 Unspecified osteoarthritis, unspecified site; J45.909 Unspecified asthma, uncomplicated; M10.9 Gout, unspecified; N40.0 Benign prostatic hyperplasia without lower urinary tract symptoms; Z79.01 Long term (current) use of anticoagulants; Z80.7 Family history of other malignant neoplasms of lymphoid, hematopoietic and related tissues; Z82.0 Family history of epilepsy and other diseases of the nervous system; Z85.46 Personal history of malignant neoplasm of prostate; Z87.891 Personal history of nicotine dependence; Z95.1 Presence of aortocoronary bypass graft
CPT/HCPCS: 36415; 70450; 71010; 80048; 80053; 81001; 82550; 83605; 83735; 83880; 84443; 84484; 85027; 85610; 85730; 87040; 87641; 93005; 94640; 96374; J1940; J7620; 99285-25

== ENCOUNTER 2016-06-15 20:58 | Emergency (ER) | payer MEDICARE, BC ==
[~2016-06-15] VITALS: Ht 177.8 cm; Wt 91.8 kg
[2016-06-15 21:01] VITALS: BP 111/68
--- NOTE | 2016-06-15 21:24 | PHYS DOC ---
General Chief Complaint: LACERATION/AVULSION Time Seen by MD: 21:15 Source: patient, EMS Problems: History of Present Illness Initial Comments Patient here by EMS after a fall. Patient states that he was seen earlier today , where he 1 $300 playing cards, and had 3 beers which she says is limited. He says when he got home he felt a little lightheaded and a little numb in a general sense, which she attributed to his beer, and apparently slipped on a rug and fell, landing on his left side. Reports no other antecedent symptoms prior to the fall other than feeling somewhat lightheaded. There is no syncopal type sensation. There's no chest pain shortness of breath or arrhythmia. There is no headache visual change or speech change. There is no focal extremity or neurologic plates other than a generalized feeling of being somewhat lightheaded and numb, in which he attributes to his excess beer. He did not hit his head when he fell. There is no loss of consciousness seizure activity or incontinence noted. He was unable to get up by himself, and so he called for assistance at the independent living facility where he lives. He actually did not want to come to the hospital, but facility insisted, and EMS was apparently called on his behalf. At this time, the patient has no complaints whatsoever. He denies any headache visual change or speech change. He has no neck or back pain. He's had no fever chills URI symptoms, shortness of breath, or chest pain. He says he has somewhat of a chronic cough but this is not acutely changed or different. No nausea vomiting today. There is no abdominal pain. There is no change amount or bladder habits and as noted, no calmness. He does have some skin tears over the left upper extremity but denies any other acute focal extremity or neurologic complaints. Other than being brought here for care tonight has been nothing done for this prior to arrival in the ER no factors noted increase or decrease any symptoms might have. Patient's past medical history is remarkable for AICD placement as well as pacemaker. He says he has CHF. He has a chronic cough as previous described. He says he is on Coumadin for past history of blood clots in the legs in the lung. He is a nonsmoker and an occasional user of ethanol. He gets about normally with a walker. He says his last tetanus shot was within the last several years. Allergies: Coded Allergies: No Known Drug Allergies (Unverified , 03/07/16) Past Medical History Medical History: deep vein thrombosis, heart disease, other Surgical History: pacemaker, other Social History Smoker: non-smoker Alcohol: occasionally Review of Systems All Other Systems: Reviewed and Negative Physical Exam General Appearance: WD/WN, no apparent distress Eyes: bilateral eye EOMI, bilateral eye PERRL, bilateral eye normal inspection Ear, Nose, Throat: normal ENT inspection, normal pharynx Neck: full range of motion, supple, normal inspection Respiratory: lungs clear, normal breath sounds, no respiratory distress Cardiovascular: regular rate, rhythm, no edema Gastrointestinal: non tender, soft, no organomegaly Back: no CVA tenderness, no vertebral tenderness Extremities: non-tender, no pedal edema, other Neurologic/Psychiatric: author II-XII nml as tested, no motor/sensory deficits, alert, normal mood/affect, oriented x 3 Skin: normal color Lymphatic: no adenopathy Comments Generally this is a moderately obese white male in no acute distress. Vitals are as noted. Pertinent findings on physical exam shows a head atraumatic normocephalic. Pupils are equal reactive light accommodation. Extra ocular movements are intact. Ears and throat are clear. The neck is supple without adenopathy or JVD. No meningeal signs. There is no bony cervical spine tenderness. Chest is clear to auscultation bilaterally. Vascular exam shows regular rate and rhythm without murmur. Abdomen is soft and nontender without masses or megaly. There is no perineal findings. Back shows no CVA tenderness. There is no bony thoracic or lumbar tenderness as well. Externally show no rashes cyanosis. His chronic discoloration the bilateral lower extremities under compression stockings. There is 1+ edema bilaterally. There is no asymmetry or signs of DVT. He does have some small skin tears over the lateral aspect of left forearm. He is not actively bleeding. He is awake alert oriented 4. Cranial nerves II through XII grossly intact. Strength 5 over 5 equal sites tested. There are no gross sensory deficits. He is initially not ambulated in the ER. Remainder of physical exam is clinically unremarkable. Orders, Labs, Meds Old charts note patient was recently admitted hospital in May of this year acute exacerbation of CHF. He was also admitted in March for a TIA. He been seen in the ER previously for renal failure with CHF as well as for nosebleed. I discussed with the patient at this time, his exam is really benign. He doesn' t have any factors that would suggest there is anything more than a simple mechanical slip and fall, he freely admits that he probably had one beer to many tonight. We will try to get him up on his feet, but he is able to get around appropriately using a walker or wheelchair support as he was home, think it's reasonable to send him home. The patient himself didn't want to come here in the first place, and have been noted to be only ambulate from the ambulance got to the bed without difficulty. He is quite comfortable with discharge at this time. He lives at independent living and will be able to summon help as needed. As noted, there is nothing to suggest this is anything other than a mechanical fall, he has no head hit or any high risk signs or symptoms suggest a neurologic injury. He does voice understanding need to follow-up with primary care or return to the ER sooner as needed if worsening anyway. We'll of course provide appropriate wound care instructions for him. He looks well, in no acute discomfort distress, okay for discharge home at this time. HANDY KENT MD Jun 15, 2016 21:24
== END 2016-06-15 21:56 | disposition home or self-care (01) ==
LOC: ER 20:58
DX: S51.812A Laceration without foreign body of left forearm, initial encounter (principal); R42 Dizziness and giddiness; I50.9 Heart failure, unspecified; Z86.718 Personal history of other venous thrombosis and embolism; Z95.810 Presence of automatic (implantable) cardiac defibrillator; Z95.0 Presence of cardiac pacemaker; W18.09XA Striking against other object with subsequent fall, initial encounter; Y93.89 Activity, other specified; Y92.89 Other specified places as the place of occurrence of the external cause; Y99.8 Other external cause status
CPT/HCPCS: 99284

== ENCOUNTER 2016-06-24 18:41 | Inpatient (IN) | payer MEDICARE, BC ==
[~2016-06-24] VITALS: Ht 177.8 cm; Wt 87.3 kg
--- NOTE | 2016-06-24 18:51 | ED.ADGEN ---
Past History Past Medical History: A-Fib, Anemia, CAD, CHF, Constipation, COPD, Dementia, DVT, High Cholesterol, Hypertension, Hypothyroid, Renal Disease, Other Past Surgical History: Coronary Bypass Surgery, Pacemaker Smoking: Non-smoker Alcohol Use: Occasionally Drug Use: None Adult General Chief Complaint Chief Complaint ".. Dr. Del Toro dropped me off at the front door.. she said I should come in and get checked out..." HPI HPI ` Patient is a 80 year old male who presents with above hx and complaints of increased dyspnea and weight gain. Pt. patient has long standing history of CHF with diastolic dysfunction. Patient's had 2 placements of cardiac pacers and defibrillators. Patient has undergone cardiac bypass. Patient has been diagnosed with end-stage cardiomyopathy and CHF. Patient also has diagnosis of chronic renal failure. Patient advised he has been compliant with his meds. Patient advised he has been compliant with his support stockings. Patient states current symptoms of dyspnea and generalized weakness and increased after gambling at the boats. Pt. states he won $ 500 last week. Pt. normally follows with Dr. Del Toro and Laxmi Stiles for his cardiology complaints. Review of Systems Review of Systems Constitutional: Denies fever or chills [] Eyes: Denies change in visual acuity, redness, or eye pain [] HENT: Denies nasal congestion or sore throat [] Respiratory: Complains of increased shortness of breath [] Cardiovascular: No additional information not addressed in HPI [] GI: Denies abdominal pain, nausea, vomiting, bloody stools or diarrhea [] : Denies dysuria or hematuria [] Musculoskeletal: Complains of generalized weakness Integument: Denies rash or skin lesions [] Neurologic: Denies headache, focal weakness or sensory changes [] Endocrine: Denies polyuria or polydipsia [] Family History Family History Noncontributory Current Medications Current Medications Current Medications Medications (Trade) Dose Ordered Sig/Gerry Start Time Stop Time Status Last Admin Dose Admin Aspirin (Jean Aspirin) 325 mg 1X ONCE 06/24/16 19:45 06/24/16 19:46 DC 06/24/16 19:45 325 MG Bumetanide (Bumex) 2.5 mg 1X ONCE 06/24/16 21:15 06/24/16 21:16 DC 06/24/16 21:15 2.5 MG Furosemide (Lasix) 40 mg 1X ONCE 06/24/16 21:15 06/24/16 21:16 DC 06/24/16 21:15 40 MG Ondansetron HCl (Zofran) 4 mg PRN Q4HRS PRN 06/24/16 21:15 06/25/16 21:14 See nursing for home meds Allergies Allergies Allergies Coded Allergies Type Severity Reaction Last Updated Verified No Known Drug Allergies 03/07/16 No Physical Exam Physical Exam Constitutional: Mild distress, non-toxic appearance. [] HENT: Normocephalic, atraumatic, bilateral external ears normal, oropharynx moist, no oral exudates, nose normal. Poor dentition Eyes: PERRLA, EOMI, conjunctiva normal, no discharge. [] Neck: Normal range of motion, no tenderness, supple, no stridor. JVD Cardiovascular: Irregular Heart rate and rhythm, no murmur. PMI to the left Lungs & Thorax: Bilateral breath sounds equal at apexes on auscultation. Findings of prior bypass surgery. Does have a pacer/defibrillator on left chest wall. Scattered wheezes and rhonchi. Basilar crackles. Abdomen: Bowel sounds normal, soft, no tenderness, no masses, no pulsatile masses. [] Skin: Warm, dry, no erythema, no rash. Poor turgor Back: No tenderness, no CVA tenderness. [] Extremities: No marked tenderness, no cyanosis, no clubbing, ROM intact, marked lower leg edema. [Some generalized weakness needs assistance in walking Neurologic: Alert and oriented X 3, normal motor function, normal sensory function, no focal deficits noted. [] Psychologic: Affect normal, judgement normal, mood normal. [] Current Patient Data Vital Signs Vital Signs Date Time Temp Pulse Resp B/P Pulse Ox O2 Delivery O2 Flow Rate FiO2 06/24/16 21:19 93 26 118/72 96 Nasal Cannula 2 06/24/16 19:23 97.5 Lab Results Laboratory Tests Test 06/24/16 19:28 06/24/16 19:55 White Blood Count 5.0x10^3/uL (4.0-11.0) Red Blood Count 3.41x10^6/uL (4.30-5.70) L Hemoglobin 11.9g/dL (13.0-17.5) L Hematocrit 36.9% (39.0-53.0) L Mean Corpuscular Volume 108fL (79-100) H Mean Corpuscular Hemoglobin 35pg (25-35) Mean Corpuscular Hemoglobin Concent 32g/dL (31-37) Red Cell Distribution Width 18.6% (11.5-14.5) H Platelet Count 63x10^3/uL (140-400) L Neutrophils (%) (Auto) 84% (31-73) H Lymphocytes (%) (Auto) 6% (24-48) L Monocytes (%) (Auto) 8% (0-9) Eosinophils (%) (Auto) 1% (0-3) Basophils (%) (Auto) 1% (0-3) Neutrophils # (Auto) 4.2x10^3uL (1.8-7.7) Lymphocytes # (Auto) 0.3x10^3/uL (1.0-4.8) L Monocytes # (Auto) 0.4x10^3/uL (0.0-1.1) Eosinophils # (Auto) 0.1x10^3/uL (0.0-0.7) Basophils # (Auto) 0.0x10^3/uL (0.0-0.2) Platelet Estimate Decreased (ADEQUATE) Anisocytosis Slight Macrocytosis Slight Ovalocytes Few Prothrombin Time 24.0SEC (9.4-11.4) H Prothrombin Time INR 2.3 (0.9-1.1) H PTT 30SEC (23-33) Sodium Level 146mmol/L (136-145) H Potassium Level 4.4mmol/L (3.5-5.1) Chloride Level 109mmol/L (98-107) H Carbon Dioxide Level 27mmol/L (21-32) Anion Gap 10 (6-14) Blood Urea Nitrogen 65mg/dL (8-26) H Creatinine 3.3mg/dL (0.7-1.3) H Estimated GFR (Cockcroft-Gault) 18.1 Glucose Level 130mg/dL (70-99) H Calcium Level 8.5mg/dL (8.5-10.1) Magnesium Level 3.3mg/dL (1.8-2.4) H Total Bilirubin 0.9mg/dL (0.2-1.0) Direct Bilirubin 0.4mg/dL (0.0-0.2) H Aspartate Amino Transferase (AST) 23U/L (15-37) Alanine Aminotransferase (ALT) 7U/L (16-63) L Alkaline Phosphatase 125U/L (46-116) H Creatine Kinase 86U/L (39-308) Creatine Kinase MB (Mass) 3.2ng/mL (0.0-3.6) Creatine Kinase MB Relative Index 3.7% (0-4) Troponin I Quantitative 0.169ng/mL (0-0.055) H HC-Xia-O-Type Natriuretic Peptide 14667nc/mL (0-449) H Total Protein 6.3g/dL (6.4-8.2) L Albumin 3.4g/dL (3.4-5.0) Lipase 84U/L (73-393) Lactic Acid Level 1.1mmol/L (0.4-2.0) EKG EKG I interpretation of EKG shows a accelerated paced junctional rhythm at 94 bpm. There is right axis deviation. There is marked conduction delay. (Large wide paced complexes) Radiology/Procedures Radiology/Procedures My interpretation of chest x-ray shows bilateral pleural effusions. Increased cephalization. Any joint changes. A few scattered air-fluid levels in the upper abdomen. Findings of bypass surgery. Findings of pacer. Findings of marked degenerative joint changes. [] Course & Med Decision Making Course & Med Decision Making Pertinent Labs and Imaging studies reviewed. (See chart for details) Pt. insistent if admitted, he wants to be admitted here. Refusing transfer to any other hospital. Discussed presentation, testing and tx. plan with Dr. Almonte- will accept pt for admission. Reviewed pt. code status again. Advised he will take meds, oxygen, but does not want any CPR, Compressions, Shocks, Intubations, Hemodialysis or any machines. We can give him meds, oxygen and IV's. No aggressive measures. [] Final Impression Final Impression 1. Acute on chronic heart failure and diastolic dysfunction 2. Thrombocytopenia 3. Hypernatremia 4. Acute on chronic renal failure -elevated BUN/creatinine and creatinine 5. Elevated troponin 6. Elevated magnesium 7. End-stage cardiomyopathy 8. History of hypertension 9. History of elevated cholesterol [] Problems: Dragon Disclaimer Dragon Disclaimer This electronic medical record was generated, in whole or in part, using a voice recognition dictation system. KIARA KO MD Jun 24, 2016 18:51
--- NOTE | 2016-06-24 19:38 | EKG ---
[address] [address] Test Date: 2016-06-24 Test Time: 19:36:57 Pat Name: DHAVAL THOMAS Department: Room: Gender: M General Surgeon: DARCI : 1935 Requested By: KIARA KO Order Number: [id number] Reading MD: Pantera Goodson Measurements Intervals [place] Rate: 94 P: [place]: QRS: 155 QRSD: 24 T: -61 QT: 254 QTc: 318 Interpretive Statements V-PACED RHYTHM Electronically Signed On 06-25-2016 15:57:59 CDT by Pantera Goodson
[2016-06-24] MEDS ORDERED: ASPIRIN 325 MG TABLET PO ONE (19:45)
[2016-06-24 19:46] LABS: BASO % 1 % (0-3); EOS # 0.1 x10^3/uL (0.0-0.7); EOS % 1 % (0-3); HEMATOCRIT 36.9 % (39.0-53.0); HEMOGLOBIN 11.9 g/dL (13.0-17.5); LYMPH # 0.3 x10^3/uL (1.0-4.8); LYMPH % 6 % (24-48); MEAN CORPUSCULAR HEMOGLOBIN 35 pg (25-35); MEAN CORPUSCULAR HGB CONC 32 g/dL (31-37); MEAN CORPUSCULAR VOLUME 108 fL (79-100); MONO # 0.4 x10^3/uL (0.0-1.1); MONO % 8 % (0-9); NEUT # 4.2 x10^3uL (1.8-7.7); NEUT % 84 % (31-73); PLATELET COUNT 63 x10^3/uL (140-400); RED BLOOD COUNT 3.41 x10^6/uL (4.30-5.70); RED CELL DISTRIBUTION WIDTH 18.6 % (11.5-14.5)
[2016-06-24 20:11] LABS: ALBUMIN 3.4 g/dL (3.4-5.0); CALCIUM 8.5 mg/dL (8.5-10.1); CREATININE 3.3 mg/dL (0.7-1.3); DIRECT BILIRUBIN 0.4 mg/dL (0.0-0.2); GFR 18.1; MAGNESIUM 3.3 mg/dL (1.8-2.4); POTASSIUM 4.4 mmol/L (3.5-5.1); TOTAL BILIRUBIN 0.9 mg/dL (0.2-1.0); TOTAL PROTEIN 6.3 g/dL (6.4-8.2)
[2016-06-24] MEDS ORDERED: FUROSEMIDE 40 MG/4 ML VIAL IVP ONE (21:15)
[2016-06-24] MEDS ORDERED: BUMETANIDE 2.5 MG/10 ML VIAL. IVP ONE (21:15)
[2016-06-24] MEDS ORDERED: ONDANSETRON PF 4 MG/2 ML VIAL. IV PRN (21:15)
--- NOTE | 2016-06-24 22:08 | NUR ---
The patient, DHAVAL THOMAS, 80 y/o, M admitted by AYESAH REED MD, was given written information regarding hospital policies, unit procedures and contact persons. MRSA swab collected and sent to lab per protocol due to patient living in [facility] at [place]. Call light within reach. Will CTM.
[2016-06-24 22:16] VITALS: BP 112/74
--- NOTE | 2016-06-24 22:37 | ACF ---
Admission Criteria Forms HEART FAILURE Clinical Indications for Admission to Inpatient Care (Place 'X' for any and all applicable criteria): Admission is indicated by ANY ONE of the following(1)(2)(3)(4): [ ]I. Severe electrolyte abnormalities requiring inpatient care(9) [ ]II. Hemodynamic instability [ ]III. Anasarca [ ]IV. Acute cardiac ischemia causing or associated with failure (Also use Angina or Myocardial Infarction as appropriate) [ ]V. Cardiac arrhythmias of immediate concern [ ]. Precipitating cause for acute decompensation (eg, pneumonia, pulmonary embolism) requires inpatient care [ ]VII. Pulmonary edema that is very severe (eg, mechanical ventilation needed, imminent or likely, need for 100% oxygen to keep oxygen saturation above 90%) [X]VIII. Inpatient admission required rather than observation care (Also use Heart Failure: Observation Care as appropriate) because of ANY ONE of the following: [ ]a) Pulmonary edema that is severe or worsening as indicated by ALL of the following: [ ]i) New need for oxygen therapy to keep oxygen saturation above 90% (or increased FiO2 need from baseline) [ ]ii) Has not improved sufficiently with emergency department or observation care IV diuretics or other heart failure treatments[C] [ ]b) Cognitive impairment that is severe or persistent [ ]c) Increased creatinine (new on laboratory test) with reduction of more than 50% in estimated glomerular filtration rate from baseline. [ ]d) Acute renal insufficiency (progressively (ongoing) rising creatinine (known from past laboratory test) with reduction of more than 25% in estimated glomerular filtration rate from baseline) [ ]e) Acute peripheral ischemia (eg, pulseless, cool, mottled, or cyanotic extremity) [X]f) Acute renal failure [ ]g) Supplemental O2 or respiratory treatment for >24 hr that are performable only in acute inpatient setting [ ]h) Pulmonary artery catheter monitoring [ ]i) Other condition, treatment or monitoring requiring inpatient admission [ ]IX. Contraindications and/or Inappropriate clinical situations for Observational Care in patients with Heart Failure, when ANY ONE of the following is required: [ ]a) Patient with High risk of cardiac embolism (e.g, patients with previous cardiac embolism, LVEF < 40%, age >75 and patients with prosthetic valve) 18 [ ]b) Patient with Moderate risk including DM patient, CAD and patient aged 65-75 [ ]c) Patient with any change in cardiac biomarker especially troponin should be managed as high risk in an inpatient setting 19 [ ]d) Physician judgement irrespective of ECG and other diagnostic findings 20 [ ]e) Patients with hyponatremia have high risk for mortality and require more extensive care and length of stay 21 [ ]f) Need for large volume diuresis 21 [ ]g) Presence of renal insufficiency or hypotension limiting speed of diuresis 21 [ ]h) Acute cardiac Ischemia in the elderly 21 [ ]i) Patients with a 30 day risk of mortality based on a multidimensional prognostic index (MPI) [J,]21 [ ]X. General contraindications and/or Inappropriate clinical situations for Observational Care in patients with Heart Failure, when ANY ONE of the following is required: [ ]a) Prediction of prolongation of LOS based on ANY ONE of the following may be considered as a contraindication for observational care 2, 3, 4, 5, 6, 7, 8 , 9, 10, 11 [ ]i) Age > 65 yrs. [ ]ii) Patient arriving by ambulance [ ]iii) Patient with high acuity [ ]iv) Patient requiring vital sign monitoring [ ]v) Patient on IV medication [ ]b) Systolic blood pressures 180mmHg 3,12 [ ]c) Patient with altered mental status including delirium and other alteration of consciousness, (3) [ ]d) Patient whose discharge disposition will be to a chcf home or rehabilitation home should not be managed in Emergency Department Observation Unit. CMS rule requires 3 days hospital stay before such placement.3,13 [ ]e) Patient with failure to thrive due to broad array of etiologies 3,16,17 [ ]f) Inability to ambulate 3,14 Extended stay beyond goal length of stay may be needed for(1)(3)(21)(25): [ ]a) Cardiac ischemia, confirmed or suspected as precipitant [ ]b) Cardiogenic shock or refractory pulmonary edema [ ]c) Acute kidney injury or renal failure [ ]d) Respiratory failure (eg, need for noninvasive or invasive mechanical ventilation) (23) [ ]e) Concomitant pneumonia or significant electrolyte abnormality (eg, severe hyponatremia) [ ]f) Newly diagnosed (new onset) atrial fibrillation [ ]g) Stage IV chronic kidney disease (estimated glomerular filtration rate of less than 30 mL/min/1.73m2 (0.50 mL/sec/1.73m2), and not previously on chronic dialysis The original [facility] content created by [facility] has been revised. The portions of the content which have been revised are identified through the use of italic text or in bold, and [facility] has neither reviewed nor approved the modified material. All other unmodified content is copyright [facility]. Please see references footnoted in the original [facility] edition 2016 Admission Criteria Met?: Yes NEYDA MARCOS. Jun 24, 2016 22:37
[2016-06-24 22:46] LABS: ANISOCYTOSIS SLIGHT; OVALOCYTES FEW; PLT ESTIMATE DECREASED (ADEQUATE)
[2016-06-24 23:58] LABS: BARBITURATES NEG (NEG); BENZODIAZEPINES NEG (NEG); CANNABINOIDS NEG (NEG); COCAINE NEG (NEG); METHADONE NEG (NEG); OPIATES NEG (NEG); PHENCYCLIDINE NEG (NEG)
[2016-06-25 00:07] LABS: AMPHETAMINE/METHAMPHETAMINE NEG (NEG); BILIRUBIN,URINE NEG (NEG); CLARITY,URINE CLEAR; COLOR,URINE YELLOW; GLUCOSE,URINE NEG (NEG)
[2016-06-25 00:08] LABS: BACTERIA,URINE 0 /HPF (0-FEW); HYALINE CASTS, URINE OCC /HPF; NITRITE,URINE NEG (NEG); RBC,URINE 0 /HPF (0-2); SQUAMOUS EPITHELIAL CELL,UR OCC /LPF; UROBILINOGEN,URINE 0.2 mg/dL (0.2 mg/dL); WBC,URINE RARE /HPF (0-4)
[2016-06-25 05:08] VITALS: BP 102/69
[2016-06-25] MEDS: LEVOTHYROXINE 75 MCG TABLET PO SCH (05:25)
[2016-06-25 06:54] LABS: BASO % 1 % (0-3); EOS # 0.1 x10^3/uL (0.0-0.7); EOS % 4 % (0-3); HEMATOCRIT 34.6 % (39.0-53.0); HEMOGLOBIN 11.4 g/dL (13.0-17.5); LYMPH # 0.4 x10^3/uL (1.0-4.8); LYMPH % 10 % (24-48); MEAN CORPUSCULAR HEMOGLOBIN 36 pg (25-35); MEAN CORPUSCULAR HGB CONC 33 g/dL (31-37); MEAN CORPUSCULAR VOLUME 109 fL (79-100); MONO # 0.4 x10^3/uL (0.0-1.1); MONO % 9 % (0-9); NEUT % 76 % (31-73); PLATELET COUNT 63 x10^3/uL (140-400); RED BLOOD COUNT 3.17 x10^6/uL (4.30-5.70); RED CELL DISTRIBUTION WIDTH 18.4 % (11.5-14.5); WHITE BLOOD COUNT 3.9 x10^3/uL (4.0-11.0)
[2016-06-25 07:06] LABS: ALBUMIN 3.2 g/dL (3.4-5.0); CALCIUM 8.4 mg/dL (8.5-10.1); CREATININE 3.4 mg/dL (0.7-1.3); GFR 17.5; POTASSIUM 4.1 mmol/L (3.5-5.1); TOTAL BILIRUBIN 0.8 mg/dL (0.2-1.0); TOTAL PROTEIN 6.4 g/dL (6.4-8.2)
[2016-06-25 08:00] VITALS: BP 115/76
--- NOTE | 2016-06-25 08:22 | RAD ---
Exam: PA and lateral chest radiograph History: Dyspnea, cough, congestion. Comparison: 05/30/2016. Findings: Cardiac silhouette remains enlarged. Median sternotomy wires are present. AICD by left subclavian approach is seen. Aortic atherosclerosis present. Small left and small-moderate right pleural effusions are seen, may be larger since previous study. Pulmonary vascularity is increased, compatible with ongoing congestive heart failure. Bibasilar parenchymal densities are seen, probably atelectasis, although it would be difficult to exclude airspace disease. Impression: Persistent congestive heart failure. Right greater than left pleural effusions.
[2016-06-25] MEDS: DOCUSATE SODIUM 100 MG CAPSULE PO SCH (08:30)
[2016-06-25] MEDS: SODIUM BICARBONATE 650 MG TABLET PO SCH ×2 (08:30→21:06)
[2016-06-25] MEDS: DIGOXIN 125 MCG TABLET PO SCH (08:31)
[2016-06-25] MEDS: AMIODARONE HCL 200 MG TABLET PO SCH (08:32)
[2016-06-25] MEDS: ALLOPURINOL 100 MG TABLET. PO SCH ×2 (08:32→21:07)
[2016-06-25] MEDS: MIDODRINE 5 MG TABLET PO SCH ×3 (08:32→17:30)
[2016-06-25] MEDS: CARBIDOPA/LEVODOPA CR 50/200MG TABLET.SA PO SCH ×3 (08:32→21:07)
[2016-06-25] MEDS: FLUTICASONE 50MCG/NASAL SPRAY 16GM BOTTLE. NS SCH (08:33)
[2016-06-25] MEDS: MEMANTINE 10 MG TABLET. PO SCH ×2 (08:45→21:07)
[2016-06-25] MEDS: rOPINIRole 1 MG TABLET. PO SCH ×3 (08:45→21:07)
[2016-06-25] MEDS ORDERED: FUROSEMIDE 40 MG TABLET PO SCH (09:00)
[2016-06-25] MEDS ORDERED: BRIMONIDINE 0.2% OPHTH SOLUTION 5ML BOTTLE. OU SCH (10:00)
[2016-06-25] MEDS ORDERED: FUROSEMIDE INJ 100 MG in IV NORMAL SALINE 100ML 90 ML IV PRN (10:00)
[2016-06-25 11:00] VITALS: BP 90/57
[2016-06-25] MEDS: BUDESONIDE 0.5 MG/2 ML NEBU NEB SCH ×2 (11:01→20:21)
--- NOTE | 2016-06-25 11:06 | NUR ---
I agree with assessment\documentation done and in progress today by SN Silver from [facility].
[2016-06-25 12:43] LABS: CALCIUM 8.4 mg/dL (8.5-10.1); CREATININE 3.4 mg/dL (0.7-1.3); GFR 17.5; POTASSIUM 4.2 mmol/L (3.5-5.1)
[2016-06-25 15:37] VITALS: BP 92/68
[2016-06-25] MEDS: WARFARIN 1 MG TABLET. PO SCH (16:13)
[2016-06-25] MEDS: WARFARIN 2.5 MG TABLET. PO SCH (16:14)
--- NOTE | 2016-06-25 16:18 | PDOC2 ---
CORINNE STILES WAX PU[employer]ER 06/25/16 1618: CONSULT Date of Admission DATE: 06/25/16 TIME: 16:04 Reason for Consult: Acute heart failure Problem List Problems Medical Problems: (1) Congestive heart failure Status: Acute History of Present Illness History of present illness - HPI This is a pleasant 80 year old male who presented to the emergency room with chief complaint of dyspnea and edema.He has a history of ischemic cardiomyopathy with a biventricular pacemaker placement, chronic systolic congestive heart failure, coronary artery disease with coronary bypass surgery in 2010 X 2 in 2010, chronic atrial fibrillation, hyperlipidemia, stage 4 chronic kidney disease, recurrent deep venous thrombosis on chronic anticoagulation, asthma and obstructive sleep apnea on CPAP. The last several weeks he noticed that his weight had been progressively increasing and this last 4 days he has had severe shortness of breath. His lower extremities have been more swollen but he states that his medications were adjusted after Dr. Tavera was trying to help him prevent going on dialysis. Positive PND, positive orthopnea with nonproductive cough. He denies any chest pain or palpitations. He is drinking tea and not much water he does not think he has been drinking more than normal. Over the last week he has missed his medications in the evening maybe once or twice when he did not stay tonight at [facility]. His diet has been fairly stable and he does not feel like there has been an increase in sodium. Past medical history Coronary arteriosclerosis in [place] artery Chronic systolic heart failure Cardiomyopathy - Biventricular automatic implantable cardioverter defibrillator in situ Nonsustained ventricular tachycardia - Chronic atrial fibrillation Hyperlipidemia - Chronic kidney disease stage 4 - Deep venous thrombosis - bilateral - right leg first then 3 years later left- on coumadin History of carcinoma - Prostate- had radiation Gout Family History Brother - Coronary artery bypass graft - Myocardial infarction - one brotherx2- another brother x1 Mother - Deep venous thrombosis Unspecified Relation - Deep venous thrombosis Social History 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 No apparent distress. SKIN: Warm and dry with normal skin turgor. Negative for pallor. No lesions or rashes noted. EYES: Conjunctiva are clear. Extraocular movements are intact. No xanthelasma. HEAD AND NECK: Oral mucosa is moist. There is no cyanosis. Neck is supple. Jugular venous pressure is flat. Carotid pulses are 2/2 bilaterally. No carotid bruits. There is no obvious thyromegaly. HEART: Regular rate and rhythm. Normal S1 and S2. No S3. No S4. Soft diastolic murmur LUNGS: Effort is good. There is symmetric expansion bilaterally. Crackles bilaterally. ABDOMEN: Normal active bowel sounds. Soft. Nontender. EXTREMITIES: No clubbing. No cyanosis. + edema of lower extremities. Palpable pedal pulses. MUSCULOSKELETAL: No kyphosis. No scoliosis. No localized tenderness or stiffness. Gait appears normal. NEUROLOGIC: Alert and oriented times three. Cranial nerves III-XII are grossly intact. Good motor tone and strength in the upper and lower extremities bilaterally. PSYCHOLOGIC: This is a pleasant patient with a normal affect. Procedure Documentation ECHOCARDIOGRAM 03/07/16: The left ventricule is moderately dilated. There is moderate concentric left ventricular hypertrophy. The left ventricular systolic function is moderately impaired with global hypokinesis. The estimated EF is 30-35%. Unable to determine LV diastolic function. There is a pacemaker or defibrillator lead seen in the right heart chambers. The left atrium is moderately dilated. There is mild aortic valve sclerosis. There is mild aortic and mitral regurgitation. There is moderate to severe tricuspid regurgitation. The estimated pulmonary artery pressure is 67 mmHg, which is consistent with severe pulmomary hypertension. The inferior vena cava is dilated and does not respond normally with respiration , which is consisten with severely elevated right atrial pressure. There is a left pleural effusion. CAROTID DUPLEX 03/07/16: Moderate atherosclerotic plaquing at both carotid bifurcations with underlying luminal narrowing in the 0-50% diameter range bilaterally. LEXISCAN NUCLEAR STRESS TEST IMPRESSION (08/23/2015): Hemodynamic response: There was a blunted heart rate and a normal blood pressure response to stress. Arrhythmias: None. Stress ECG: Indeterminate due to the baseline abnormality. Myocardial perfusion: The left ventricle was dilated and there was a large, intense, fixed mid-distal inferior, apical and septal defect with no ischemia. Wall motion: Wall motion analysis revealed global hypokinesis. Ejection fraction: 30%. Compared to the report (images were not available for review) from the previous study performed on 01/30/2012, there was no significant change. ECHOCARDIOGRAM IMPRESSION (07/11/2015):. The left ventricle is normal in size. There is moderate concentric left ventricular hypertrophy. There is severe left ventricular systolic dysfunction with an estimated ejection fraction of 20-25% with global hypokinesis. There is evidence of left ventricular pseudonormalization suggestive of stage II diastolic dysfunction. The right ventricle appears severely dilated with mildly reduced function. There is a pacemaker or defibrillator lead seen in the right heart chambers. The left atrium appears severely dilated. The right atrium appears mildly dilated. The aortic root appears mildly dilated at 3.8 cm. The proximal ascending aorta appears moderately dilated at 4 cm. There is mild aortic valve sclerosis. There is mild aortic and mitral regurgitation.T There is moderate tricuspid regurgitation. The estimated pulmonary artery systolic pressure is 44 mmHg, consistent with mild pulmonary hypertension. Compared to the report (images were not available for review) of the study dated 06/07/2014, the dilatation of the aortic root and proximal ascending aorta is a new finding. Assessment / Plan Acute on chronic congestive heart failure, systolic dysfunction EF 30 -35% 2016 and stage IV CKD - Start lasix gtt and follow labs and xray - He is very sensitive to increasing diuretics because of his history of orthostatic hypotension - monitor closely. He is not on beta jossue or CHUY/ARB due to low blood pressures. Coronary artery disease, status post revascularization S/P CABG x 2, PARIKH to left anterior descending on 03/08/09 Right coronary artery mid 60% stenosis. The patient is doing well without any angina. We will continue optimal medical therapy. Paroxysmal ventricular tachycardia - ICM s/p BiV/AICD placement Atrial fibrillation/flutter, chronic. Evaluated by EP. They recommended to leave him in atrial flutter with rate control. CHADS2 score is 3. He is on Warfarin. He is on digoxin and Amiodarone for rate control. His blood pressure has not been able to support beta jossue. Chronic kidney disease, Stage IV - Follows with renal - Dr Tavera - Avoid dehydration - drink plenty of water. Avoid Motrin, Ibprofen, Advil, Naprosyn or Alieve and take Tylenol for pain. Aggressive blood pressure control with goal of less than 130/85 mmHg.. Hyperlipidemia. His goal LDL is < 70 mg/dL. Continue statin therapy Current Medications Current Medications Aspirin (Jean Aspirin) 325 mg 1X ONCE PO Last administered on 06/24/16 19:45 ; Start 06/24/16 at 19:45; Stop 06/24/16 at 19:46; Status DC Bumetanide (Bumex) 2.5 mg 1X ONCE IVP Last administered on 06/24/16 21:15; Start 06/24/16 at 21:15; Stop 06/24/16 at 21:16; Status DC Furosemide (Lasix) 40 mg 1X ONCE IVP Last administered on 06/24/16 21:15; Start 06/24/16 at 21:15; Stop 06/24/16 at 21:16; Status DC Ondansetron HCl (Zofran) 4 mg PRN Q4HRS PRN IV NAUSEA/VOMITING; Start 06/24/16 at 21:15; Stop 06/25/16 at 21:14 Allopurinol (Zyloprim) 100 mg BID PO Last administered on 06/25/16 08:32; Start 06/25/16 at 09:00 Amiodarone HCl (Cordarone) 200 mg DAILY PO Last administered on 06/25/16 08:32 ; Start 06/25/16 at 09:00 Benztropine Mesylate (Cogentin) 0.5 mg QODAY PO ; Start 06/26/16 at 09:00 Benztropine Mesylate (Cogentin) 1 mg QODAY PO ; Start 06/26/16 at 09:00 Carbidopa/Levodopa (Sinemet Cr) 1 tab.sa TID PO Last administered on 06/25/16 13:27; Start 06/25/16 at 09:00 Digoxin (Lanoxin) 125 mcg DAILY PO Last administered on 06/25/16 08:31; Start 06/25/16 at 09:00 Docusate Sodium (Colace) 100 mg DAILY PO Last administered on 06/25/16 08:30; Start 06/25/16 at 09:00 Donepezil HCl (Aricept) 5 mg HS PO ; Start 06/25/16 at 21:00 Fluticasone Propionate (Flonase) 2 spray DAILY NS Last administered on 08:33; Start 06/25/16 at 09:00 Furosemide (Lasix) 40 mg DAILY PO Last administered on 06/25/16 08:34; Start 06/25/16 at 09:00; Stop 06/25/16 at 09:41; Status DC Latanoprost (Xalatan) 1 drop HS OU ; Start 06/25/16 at 21:00 Levothyroxine Sodium (Synthroid) 75 mcg DAILY06 PO Last administered on 05:25; Start 06/25/16 at 06:00 Polyethylene Glycol (miraLAX) 17 gm DAILY PRN PO CONSTIPATION; Start 06/24/16 at 23:30 Ropinirole HCl (Requip) 1 mg TID PO Last administered on 06/25/16 13:26; Start 06/25/16 at 09:00 Tamsulosin HCl (Flomax) 0.4 mg HS PO ; Start 06/25/16 at 21:00 Warfarin Sodium (Coumadin) 2.5 mg DAILY16 PO ; Start 06/25/16 at 16:00 Budesonide (Pulmicort) 0.5 mg RTBID NEB Last administered on 06/25/16 11:01; Start 06/25/16 at 08:00 Brimonidine Tartrate (Alphagan) 1 drop BID OU Last administered on 06/25/16 08 :45; Start 06/25/16 at 10:00; Stop 06/25/16 at 14:28; Status DC Atorvastatin Calcium (Lipitor) 5 mg HS PO HIGH CHOLESTEROL; Start 06/25/16 at 21 :00 Memantine (Namenda) 10 mg BID PO Last administered on 06/25/16 08:45; Start at 09:00 Midodrine (Proamatine) 5 mg TIDPC PO Last administered on 06/25/16 13:27; Start 06/25/16 at 09:00 Sodium Bicarbonate 650 mg BID PO ACIDOSIS Last administered on 06/25/16 08:30; Start 06/25/16 at 09:00 Warfarin Sodium (Coumadin) 1 mg DAILY16 PO ; Start 06/25/16 at 16:00 Warfarin Sodium 1 each 1 each PRN DAILY PRN MC SEE COMMENTS; Start 06/25/16 at 08:00 Furosemide/Sodium Chloride (Lasix/Iv Sodium Chloride 0.9% 100ml) 100 ml @ 0 mls/ hr CONT PRN IV SEE I/O RECORD; Start 06/25/16 at 10:00 Brimonidine Tartrate (Alphagan) 1 drop BID OU ; Start 06/25/16 at 14:28 Active Scripts Active Reported Coumadin (Warfarin Sodium) 3 Mg Tablet 3.5 Mg PO DAILY Fluticasone Propionate Nasal [place] (Fluticasone Propionate) 16 Gm [place].susp 2 Spr NS DAILY LAST DOSE GIVEN: DATE: TIME: NEXT DOSE DUE: DATE: TIME: Miralax (Polyethylene Glycol 3350) 17 Gm Powd.pack 1 Packet PO DAILY PRN LAST DOSE GIVEN: DATE: TIME: NEXT DOSE DUE: DATE: TIME: Qvar 40MCG Inhaler (Beclomethasone Dipropionate) 8.7 Gm Aer.w.adap 2 Puff IH BID LAST DOSE GIVEN: DATE: TIME: NEXT DOSE DUE: DATE: TIME: Namenda Xr (Memantine Hcl) 28 Mg Cap.spr.24 28 Mg PO HS LAST DOSE GIVEN: DATE: TIME: NEXT DOSE DUE: DATE: TIME: Sodium Bicarbonate 650 Mg Tablet 1 Tab PO BID LAST DOSE GIVEN: DATE: TIME: NEXT DOSE DUE: DATE: TIME: Docusate Sodium 100 Mg Capsule 1 Cap PO DAILY LAST DOSE GIVEN: DATE: TIME: NEXT DOSE DUE: DATE: TIME: Multivitamins (Multivitamin) 1 Each Tablet 1 Tab PO DAILY LAST DOSE GIVEN: DATE: TIME: NEXT DOSE DUE: DATE: TIME: Alphagan P (Brimonidine Tartrate) 5 Ml Drops 1 Drop EACHEYE BID LAST DOSE GIVEN: DATE: TIME: NEXT DOSE DUE: DATE: TIME: Donepezil Hcl 5 Mg Tablet 1 Tab PO HS LAST DOSE GIVEN: DATE: TIME: NEXT DOSE DUE: DATE: TIME: Benztropine Mesylate 0.5 Mg Tablet 1 Tab PO QODAY LAST DOSE GIVEN: DATE: TIME: NEXT DOSE DUE: DATE: TIME: Latanoprost 2.5 Ml Drops 1 Drop EACHEYE HS LAST DOSE GIVEN: DATE: TIME: NEXT DOSE DUE: DATE: TIME: Allopurinol 100 Mg Tablet 100 Mg PO BID LAST DOSE GIVEN: DATE: TIME: NEXT DOSE DUE: DATE: TIME: Benztropine Mesylate 1 Mg Tablet 1 Mg PO QODAY LAST DOSE GIVEN: DATE: TIME: NEXT DOSE DUE: DATE: TIME: Digoxin 125 Mcg Tablet 0.5 Tab PO DAILY LAST DOSE GIVEN: DATE: TIME: NEXT DOSE DUE: DATE: TIME: Levothyroxine Sodium 75 Mcg Tablet 75 Mcg PO DAILY LAST DOSE GIVEN: DATE: TIME: NEXT DOSE DUE: DATE: TIME: Amiodarone Hcl 200 Mg Tablet 200 Mg PO DAILY LAST DOSE GIVEN: DATE: TIME: NEXT DOSE DUE: DATE: TIME: Furosemide 20 Mg Tablet 40 Mg PO DAILY LAST DOSE GIVEN: DATE: TIME: NEXT DOSE DUE: DATE: TIME: Ropinirole Hcl 1 Mg Tablet 1 Mg PO TID LAST DOSE GIVEN: DATE: TIME: NEXT DOSE DUE: DATE: TIME: Carbidopa-Levo Er 50-200 Tab (Carbidopa/Levodopa) 1 Each Tablet.er 1 Each PO TID LAST DOSE GIVEN: DATE: TIME: NEXT DOSE DUE: DATE: TIME: Lovastatin 20 Mg Tablet 20 Mg PO HS LAST DOSE GIVEN: DATE: TIME: NEXT DOSE DUE: DATE: TIME: Midodrine Hcl 10 Mg Tablet 5 Mg PO TID HOLD FOR SYS BP>120 LAST DOSE GIVEN: DATE: TIME: NEXT DOSE DUE: DATE: TIME: Tamsulosin Hcl 0.4 Mg Cap.er.24h 0.4 Mg PO HS LAST DOSE GIVEN: DATE: TIME: NEXT DOSE DUE: DATE: TIME: Colace (Docusate Sodium) 100 Mg Capsule 100 Mg PO TID PRN LAST DOSE GIVEN: DATE: TIME: NEXT DOSE DUE: DATE: TIME: Allergies: Coded Allergies: No Known Drug Allergies (Unverified , 03/07/16) VITALS Vital Signs Date Time Temp Pulse Resp B/P Pulse Ox O2 Delivery O2 Flow Rate FiO2 06/25/16 15:37 98.5 91 22 92/68 98 Nasal Cannula 06/25/16 05:08 2.0 Labs Laboratory Tests Test 06/24/16 19:28 06/24/16 19:55 06/24/16 23:30 06/25/16 06:11 White Blood Count 5.0x10^3/uL (4.0-11.0) 3.9x10^3/uL (4.0-11.0) Red Blood Count 3.41x10^6/uL (4.30-5.70) 3.17x10^6/uL (4.30-5.70) Hemoglobin 11.9g/dL (13.0-17.5) 11.4g/dL (13.0-17.5) Hematocrit 36.9% (39.0-53.0) 34.6% (39.0-53.0) Mean Corpuscular Volume 108fL (79-100) 109fL (79-100) Mean Corpuscular Hemoglobin 35pg (25-35) 36pg (25-35) Mean Corpuscular Hemoglobin Concent 32g/dL (31-37) 33g/dL (31-37) Red Cell Distribution Width 18.6% (11.5-14.5) 18.4% (11.5-14.5) Platelet Count 63x10^3/uL (140-400) 63x10^3/uL (140-400) Neutrophils (%) (Auto) 84% (31-73) 76% (31-73) Lymphocytes (%) (Auto) 6% (24-48) 10% (24-48) Monocytes (%) (Auto) 8% (0-9) 9% (0-9) Eosinophils (%) (Auto) 1% (0-3) 4% (0-3) Basophils (%) (Auto) 1% (0-3) 1% (0-3) Neutrophils # (Auto) 4.2x10^3uL (1.8-7.7) 3.0x10^3uL (1.8-7.7) Lymphocytes # (Auto) 0.3x10^3/uL (1.0-4.8) 0.4x10^3/uL (1.0-4.8) Monocytes # (Auto) 0.4x10^3/uL (0.0-1.1) 0.4x10^3/uL (0.0-1.1) Eosinophils # (Auto) 0.1x10^3/uL (0.0-0.7) 0.1x10^3/uL (0.0-0.7) Basophils # (Auto) 0.0x10^3/uL (0.0-0.2) 0.0x10^3/uL (0.0-0.2) Platelet Estimate Decreased (ADEQUATE) Anisocytosis Slight Macrocytosis Slight Ovalocytes Few Prothrombin Time 24.0SEC (9.4-11.4) Prothromb Time International Ratio 2.3 (0.9-1.1) Activated Partial Thromboplast Time 30SEC (23-33) Sodium Level 146mmol/L (136-145) 145mmol/L (136-145) Potassium Level 4.4mmol/L (3.5-5.1) 4.1mmol/L (3.5-5.1) Chloride Level 109mmol/L (98-107) 109mmol/L (98-107) Carbon Dioxide Level 27mmol/L (21-32) 28mmol/L (21-32) Anion Gap 10 (6-14) 8 (6-14) Blood Urea Nitrogen 65mg/dL (8-26) 63mg/dL (8-26) Creatinine 3.3mg/dL (0.7-1.3) 3.4mg/dL (0.7-1.3) Estimated GFR (Cockcroft-Gault) 18.1 17.5 Glucose Level 130mg/dL (70-99) 84mg/dL (70-99) Calcium Level 8.5mg/dL (8.5-10.1) 8.4mg/dL (8.5-10.1) Magnesium Level 3.3mg/dL (1.8-2.4) Total Bilirubin 0.9mg/dL (0.2-1.0) 0.8mg/dL (0.2-1.0) Direct Bilirubin 0.4mg/dL (0.0-0.2) Aspartate Amino Transf (AST/SGOT) 23U/L (15-37) 21U/L (15-37) Alanine Aminotransferase (ALT/SGPT) 7U/L (16-63) 8U/L (16-63) Alkaline Phosphatase 125U/L (46-116) 111U/L (46-116) Creatine Kinase 86U/L (39-308) Creatine Kinase MB (Mass) 3.2ng/mL (0.0-3.6) Creatine Kinase MB Relative Index 3.7% (0-4) Troponin I Quantitative 0.169ng/mL (0-0.055) JN-Ssm-L-Type Natriuretic Peptide 06372yd/mL (0-449) Total Protein 6.3g/dL (6.4-8.2) 6.4g/dL (6.4-8.2) Albumin 3.4g/dL (3.4-5.0) 3.2g/dL (3.4-5.0) Lipase 84U/L (73-393) Thyroid Stimulating Hormone (TSH) 82.668uIU/mL (0.358-3.740) Lactic Acid Level 1.1mmol/L (0.4-2.0) Urine Collection Type Unknown Urine Color Yellow Urine Clarity Clear Urine pH 5.5 Urine Specific Jeff 1.010 Urine Protein 30 mg/dl (NEG-TRACE) Urine Glucose (UA) Negmg/dL (NEG) Urine Ketones (Stick) Negmg/dL (NEG) Urine Blood Neg (NEG) Urine Nitrite Neg (NEG) Urine Bilirubin Neg (NEG) Urine Urobilinogen Dipstick 0.2mg/dL (0.2 mg/dL) Urine Leukocyte Esterase Neg (NEG) Urine RBC 0/HPF (0-2) Urine WBC Rare/HPF (0-4) Urine Squamous Epithelial Cells Occ/LPF Urine Bacteria 0/HPF (0-FEW) Urine Hyaline Casts Occ/HPF Urine Opiates Screen Neg (NEG) Urine Methadone Screen Neg (NEG) Urine Barbiturates Neg (NEG) Urine Phencyclidine Screen Neg (NEG) Urine Amphetamine/Methamphetamine Neg (NEG) Urine Benzodiazepines Screen Neg (NEG) Urine Cocaine Screen Neg (NEG) Urine Cannabinoids Screen Neg (NEG) Urine Ethyl Alcohol Neg (NEG) BUN/Creatinine Ratio 19 (6-20) Albumin/Globulin Ratio 1.0 (1.0-1.7) Test 06/25/16 12:10 Sodium Level 145mmol/L (136-145) Potassium Level 4.2mmol/L (3.5-5.1) Chloride Level 109mmol/L (98-107) Carbon Dioxide Level 29mmol/L (21-32) Anion Gap 7 (6-14) Blood Urea Nitrogen 64mg/dL (8-26) Creatinine 3.4mg/dL (0.7-1.3) Estimated GFR (Cockcroft-Gault) 17.5 Glucose Level 95mg/dL (70-99) Calcium Level 8.4mg/dL (8.5-10.1) NITZA VALLE Jr, MD 06/27/16 0445: CONSULT Allergies: Coded Allergies: No Known Drug Allergies (Unverified , 03/07/16) Assessment/Plan The patient was seen by Corinne Stiles APRN, and I have reviewed her findings and plan and agree with above. Due to staffing constraints, we did not have an attending available on this day to see the patient. Problems: CORINNE STILES APRN Jun 25, 2016 16:18 NITZA VALLE Jr, MD Jun 27, 2016 04:45
[2016-06-25 19:58] VITALS: BP 104/61
--- NOTE | 2016-06-25 20:58 | HP ---
ADMIT DATE: 06/25/2016 HISTORY OF PRESENT ILLNESS: The patient is an 80-year-old male patient who came to the Emergency Room complaining of shortness of breath, bilateral lower limb edema and weight gain. He stated that he gained about 15 pounds. He also complained of what seemed to be orthopnea, although denied any paroxysmal nocturnal dyspnea. He was extensively evaluated and he apparently has slightly elevated troponin at 0.169. He also has chronic kidney disease creatinine of 2.3. His beta natriuretic peptide was 27,815. He continued to have marked hypothyroidism with TSH is high at 82.6. However, his prothrombin time and INR are within therapeutic range and was admitted for further adjustment to his medications and optimize his medical management and to consult to the [facility] for assistance in his management. PAST MEDICAL HISTORY: Significant for coronary atherosclerosis ___ arteries, chronic systolic congestive heart failure, ischemic cardiomyopathy, biventricular automatic implantable cardioverter distributor in place. He has nonsustained ventricular tachycardia, chronic atrial fibrillation, hyperlipidemia, chronic kidney disease, stage 4, has a history of bilateral lower extremity deep vein thrombosis, right leg was first and then 3 years later left Coumadin, has history of prostate cancer treated with radiation therapy has also history of gout. PAST SURGICAL HISTORY: Significant for transurethral resection of the prostate and automatic implantable cardioverter defibrillator placement. He is also known to have coronary bypass graft surgery. FAMILY HISTORY: His father at age of 84 because of Parkinson's disease and mother at age of 95 because of old age, has 2 brothers the oldest brother , the cause of that is unknown. The second brother is healthy. He has two sisters, one of them has lymphoma the other one is relatively healthy. SOCIAL HISTORY: He is twice. He has a son and a daughter, both of home living in [place]. He quit smoking 40 years ago. He drinks alcohol occasionally. He does not use drugs. 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 REVIEW OF SYSTEMS: The patient denied any blurring of vision, but he is known to have glaucoma. He also has sensorineural deafness and occasional nosebleed. He denied any nasal stuffiness or postnasal drip. Denied any sore throat, sore tongue, toothache, hoarseness of voice or difficulty swallowing. Denied any nausea, vomiting, diarrhea or constipation. Denied any hematemesis, melena or hematochezia. Denied any dysuria, frequency or hematuria. Did complain of shortness of breath, but denied any chest pain. Denied any orthopnea or paroxysmal nocturnal dyspnea. Does complain of cough with whitish to yellowish sputum. Denied any hemoptysis. Denied any chills, rigors, or fever. Denied any dizziness, lightheadedness, or vertigo. ALLERGIES: He has no known drug allergies. MEDICATIONS: He is currently on following medications: Allopurinol 100 mg twice a day, amiodarone 200 mg once a day, beclomethasone dipropionate QVAR 40 mcg inhaler 2 puffs twice a day, benztropine mesylate 1 mg every other day, benztropine mesylate 0.5 mg every other day, brimonidine tartrate for Alphagan 1 drop to both eyes twice a day, carbidopa/levodopa extended release 50-200 one tablet 3 times a day, digoxin 125 mcg once a day, docusate sodium 100 mg 3 times a day, docusate sodium 1 capsule once a day, Aricept 5 mg at bedtime, Flonase 2 sprays to each nostril once a day, furosemide 40 mg daily, latanoprost 1 drop to both eyes at bedtime, levothyroxine sodium 75 mcg once a day, lovastatin 20 mg at bedtime, Namenda extended release 28 mg once a day, midodrine 5 mg 3 times a day, multivitamin 1 tablet once a day, polyethylene glycol 17 grams in 8 ounces of water daily p.r.n. for constipation, Requip 1 mg 3 times a day, sodium bicarbonate 650 mg p.o. b.i.d., tamsulosin 0.4 mg at bedtime and warfarin 3.5 mg once a day. PHYSICAL EXAMINATION: GENERAL: On arrival to the Emergency Room, the patient was clearly tachypneic, pale, but no jaundice, cyanosis, or thyromegaly. No jugular distention with marked bilateral lower limb edema. VITAL SIGNS: His heart rate was 93, blood pressure was 126/82, temperature was 97.5, respiratory rate 26, and oxygen saturation was 96% on 2 liters of oxygen by nasal cannula. HEAD, EYES, EARS, NOSE AND THROAT: Showed normocephalic, atraumatic. NECK: Supple. HEART: Showed normal first and second heart sounds with no gallop, rub or murmur. CHEST: Shows central trachea, equal bilateral crepitation. I could not appreciate any rhonchi. ABDOMEN: Distended, soft, nontender. No guarding or rigidity. No organomegaly. Hernial orifices intact. Bowel sounds normal. NEUROLOGIC: He is awake, alert, very hard of hearing, but all cranial nerves intact. EXTREMITIES: He moves extremities without difficulty. LABORATORY DATA: While in the Emergency Room, he has had lab work done, which showed a white cell count of 5000, hemoglobin 11.9, hematocrit 37, MCV 108 and platelet count of 63,000 with normal manual differential. His prothrombin time was 24, INR of 2.3. His chemistry showed a serum sodium 146, potassium 4.4, chloride 109, bicarbonate 27, anion gap of 10, BUN 65, creatinine 3.3, estimated GFR was 18.1, glucose 130, calcium was 8.5, magnesium was 3.3. Total bilirubin, AST, ALT, alkaline phosphatase were normal. His beta natriuretic peptide was 27,815, total protein was 6.3, albumin 3.4. Serum lipase was 84. Urinalysis was essentially unremarkable and his toxic screen was negative. He has had a chest x-ray, which showed that the cardiac silhouette remains enlarged. Median sternotomy wires are present. AICD by the left subclavian approach is seen, aortic atherosclerosis present, [id number] right-sided pleural effusion are seen may be larger since previous study. Pulmonary vascularity is increased compatible with ongoing congestive heart failure, bibasilar parenchymal densities are seen, probably atelectasis, although it would be difficult to exclude airspace disease. ASSESSMENT AND PLAN: The patient was admitted to do 2 more sets of cardiac enzymes, consult the collection development librarian and was started on Lasix drip. We will monitor his lab works closely, daily weight, and decide on further management accordingly. It may be that it is time for the hemodialysis. Dr. Tavera is his negotiator sales and given multiple times that he has been admitted here and a stage 4 kidney disease as his estimated GFR was only 18.1, which is probably overestimated. AYESHA REED MD DR: ALESSIA/yeni JOB#: [id number] / [id number]
[2016-06-25] MEDS: BRIMONIDINE 0.2% OPHTH SOLUTION 5ML BOTTLE. OU SCH (21:06)
[2016-06-25] MEDS: LATANOPROST 0.005% OPHTH SOLUTION 2.5ML BOTTLE. OU SCH (21:06)
[2016-06-25] MEDS: TAMSULOSIN 0.4 MG CAP.ER.24H. PO SCH (21:07)
[2016-06-25] MEDS: DONEPEZIL HCL 5 MG TABLET. PO SCH (21:07)
[2016-06-25] MEDS: ATORVASTATIN CALCIUM 10 MG TABLET. PO SCH (21:07)
[2016-06-25 22:51] VITALS: BP 92/67
[2016-06-26 05:07] VITALS: BP 117/75
[2016-06-26] MEDS: LEVOTHYROXINE 75 MCG TABLET PO SCH (05:19)
[2016-06-26 06:35] LABS: BASO % 1 % (0-3); EOS # 0.1 x10^3/uL (0.0-0.7); EOS % 4 % (0-3); HEMATOCRIT 35.9 % (39.0-53.0); HEMOGLOBIN 11.8 g/dL (13.0-17.5); LYMPH # 0.4 x10^3/uL (1.0-4.8); LYMPH % 11 % (24-48); MEAN CORPUSCULAR HEMOGLOBIN 36 pg (25-35); MEAN CORPUSCULAR HGB CONC 33 g/dL (31-37); MEAN CORPUSCULAR VOLUME 109 fL (79-100); MONO # 0.3 x10^3/uL (0.0-1.1); MONO % 9 % (0-9); NEUT # 2.7 x10^3uL (1.8-7.7); NEUT % 76 % (31-73); PLATELET COUNT 63 x10^3/uL (140-400); RED BLOOD COUNT 3.29 x10^6/uL (4.30-5.70); RED CELL DISTRIBUTION WIDTH 18.7 % (11.5-14.5); WHITE BLOOD COUNT 3.6 x10^3/uL (4.0-11.0)
[2016-06-26 06:48] LABS: ALBUMIN 3.1 g/dL (3.4-5.0); ALBUMIN/GLOBULIN RATIO 0.9 (1.0-1.7); CALCIUM 8.5 mg/dL (8.5-10.1); CREATININE 3.3 mg/dL (0.7-1.3); GFR 18.1; MAGNESIUM 3.1 mg/dL (1.8-2.4); POTASSIUM 4.3 mmol/L (3.5-5.1); TOTAL BILIRUBIN 0.7 mg/dL (0.2-1.0); TOTAL PROTEIN 6.4 g/dL (6.4-8.2)
[2016-06-26] MEDS: BUDESONIDE 0.5 MG/2 ML NEBU NEB SCH ×2 (08:00→21:04)
--- NOTE | 2016-06-26 08:23 | PN ---
DATE: 06/25/2016 SUBJECTIVE: The patient is sitting comfortably in his chair in no apparent respiratory distress. On questioning him, he continues to complain of cough with whitish to yellowish sputum. Denied any chest pain, but did continue to complain of shortness breath, although he denied any orthopnea or paroxysmal nocturnal dyspnea. Denied any chills, rigors, or fever. PHYSICAL EXAMINATION: GENERAL: When I examined him this afternoon, he looked well and was less tachypneic than yesterday. He is mildly pale, but no jaundice, cyanosis, or thyromegaly. No jugular distention, but mild bilateral limb edema. VITAL SIGNS: His heart rate was 92, blood pressure was 115/76, temperature was 97.5, respiratory rate 22, and oxygen saturation was 99% on 2 liters of oxygen. HEENT: Showed normocephalic and atraumatic. NECK: Supple. HEART: Showed normal first and second heart sounds with no gallop, rub, or murmur. CHEST: Clear to auscultation. No crepitation or rhonchi. The chest shows central trachea, equal bilateral expansion and air entry. Vesicular sounds with bilateral basal crepitation. I could not appreciate any rhonchi. ABDOMEN: Distended, soft, and nontender. NEUROLOGIC: He was hard of hearing. Otherwise, his cranial nerves intact. He moves extremities without difficulty. His intake over the last 24 hours was 450 and output was 750. LABORATORY DATA: His lab work this morning showed a white cell count of 3900, hemoglobin 11.4, hematocrit 34.6, MCV 109, and platelet count of 63,000. His serum sodium was 145, potassium 4.2, chloride 109, bicarbonate 29, anion gap of 7, BUN 63, and creatinine 3.4. Estimated GFR was 17.5 mL per minute. His glucose was 95 and calcium was 8.5. Total bilirubin, AST, ALT, and alkaline phosphatase were normal. Total protein was 6.4 and albumin 3.2. His TSH is still high at 82, although much lower than the last admission. His prothrombin time was 24 and INR of 2.3. ASSESSMENT: 1. Acute on chronic congestive heart failure with an ejection fraction of 30-35%. 2. Stage 4 chronic kidney disease. 3. Coronary artery disease status post revascularization status post CABG x 2, paroxysmal ventricular tachycardia status post biventricular automated implantable cardioverter-defibrillator placement, atrial fibrillation flutter chronic, hyperlipidemia, and marked hypothyroidism. PLAN: Plan is to continue with Lasix drip. Continue to monitor his lab work and daily weight and decide on further management according to his response. AYESHA REED MD DR: ALESSIA/yeni JOB#: [id number] / [id number]
[2016-06-26] MEDS: MIDODRINE 5 MG TABLET PO SCH ×3 (09:00→16:54)
[2016-06-26] MEDS: FLUTICASONE 50MCG/NASAL SPRAY 16GM BOTTLE. NS SCH (09:01)
[2016-06-26] MEDS: BRIMONIDINE 0.2% OPHTH SOLUTION 5ML BOTTLE. OU SCH ×2 (09:06→20:41)
[2016-06-26] MEDS: SODIUM BICARBONATE 650 MG TABLET PO SCH ×2 (09:06→20:34)
[2016-06-26] MEDS: BENZTROPINE MESYLATE 1 MG TABLET PO SCH (09:07)
[2016-06-26] MEDS: BENZTROPINE MESYLATE 0.5 MG TABLET PO SCH (09:07)
[2016-06-26] MEDS: DOCUSATE SODIUM 100 MG CAPSULE PO SCH (09:08)
[2016-06-26] MEDS: DIGOXIN 125 MCG TABLET PO SCH (09:09)
[2016-06-26] MEDS: AMIODARONE HCL 200 MG TABLET PO SCH (09:09)
[2016-06-26] MEDS: rOPINIRole 1 MG TABLET. PO SCH ×3 (09:10→20:34)
[2016-06-26] MEDS: MEMANTINE 10 MG TABLET. PO SCH ×2 (09:10→20:34)
[2016-06-26] MEDS: CARBIDOPA/LEVODOPA CR 50/200MG TABLET.SA PO SCH ×3 (09:11→20:34)
[2016-06-26] MEDS: ALLOPURINOL 100 MG TABLET. PO SCH ×2 (09:11→20:34)
[2016-06-26] MEDS: POLYETHYLENE GLYCOL 3350 17 GM PACKET. PO PRN (09:12)
--- NOTE | 2016-06-26 09:57 | RAD ---
Exam: PA and lateral chest radiograph History: Congestive heart failure, cough. Comparison: 06/24/2016. Findings: Cardiac silhouette remains enlarged. AICD by left subclavian approach is unchanged. Median sternotomy wires are present. Small left and small-moderate right pleural effusions are fairly similar to previous study. Bibasilar densities are favored to be atelectasis. Pulmonary vascularity appears borderline. Impression: 1. Continued borderline congestive heart failure. 2. No interval change in bilateral pleural effusions.
[2016-06-26 10:46] VITALS: BP 108/69
[2016-06-26] MEDS: FUROSEMIDE INJ 100 MG in IV NORMAL SALINE 100ML 90 ML IV PRN (10:55)
--- NOTE | 2016-06-26 11:02 | NUR ---
Vitals taken and started Lasix drip at 5ml/hr per Dr. Willard.
--- NOTE | 2016-06-26 11:45 | PDOC ---
PROGRESS NOTES Diagnosis Problem Problems Medical Problems: (1) Congestive heart failure Status: Acute Assessment Problems Medical Problems: (1) Congestive heart failure Status: Acute CHF, acute on chronic, systolic. His symptoms are improving but not completely back to baseline. He received oral Lasix yesterday. His creatinine is slightly better today. I will start him on a Lasix infusion. We will need to watch his kidney function closely. He is not on the typical medications due to low blood pressures. Coronary artery disease. He is not having any angina. He is on warfarin due to his atrial fibrillation and therefore is not on aspirin. As above, he is not on beta-jossue due to low blood pressures. We will continue statin. Atrial fibrillation, chronic. Heart rates appear to be controlled with Digoxin only. We will continue warfarin for stroke prevention. Ventricular tachycardia, paroxysmal. He has a prophylactic defibrillator in place. He is on amiodarone. We will continue the amiodarone. Hypercholesterolemia. We will continue the patient on statin medication. Problems: Subjective We are seeing him for CHF. S: His shortness of breath is improved but not back to baseline. He still has a slight cough productive of whitish sputum. He denies chest pain, palpitations or syncope. He has trivial lower extremity edema which is chronic and unchanged Objective Vital Signs Date Time Temp Pulse Resp B/P Pulse Ox O2 Delivery O2 Flow Rate FiO2 06/26/16 10:46 97.4 82 18 108/69 92 Room Air 06/26/16 05:07 2.0 Intake and Output 06/26/16 07:00 Intake Total 1660 ml Output Total 1150 ml Balance 510 ml Intake Oral 1660 ml Output Urine Total 1150 ml Abdomen: Normal bowel sounds, Soft, No tenderness Heart: Normal S1, Normal S2 (Iirregular rate and rhythm.), No murmurs Extremities: No clubbing, No cyanosis, Normal pulses, Other (Trace bilateral pretibial edema.) General: Alert, Oriented X3, Cooperative, No acute distress HEENT: Atraumatic, EOMI, Mucous membr. moist/pink Lungs: Clear to auscultation, Normal air movement Neck: No JVD, +2 carotid pulse wo bruit Neuro: Normal speech, Strength at 5/5 X4 ext, Cranial nerves 3-12 NL Psych/Mental Status: Mental status NL, Mood NL Skin: No rashes, No breakdown Review of Relevant I have reviewed the following items michael (where applicable) has been applied. Labs Laboratory Tests Test 06/24/16 19:28 06/24/16 19:55 06/24/16 23:30 06/25/16 00:01 White Blood Count 5.0x10^3/uL (4.0-11.0) Red Blood Count 3.41x10^6/uL (4.30-5.70) Hemoglobin 11.9g/dL (13.0-17.5) Hematocrit 36.9% (39.0-53.0) Mean Corpuscular Volume 108fL (79-100) Mean Corpuscular Hemoglobin 35pg (25-35) Mean Corpuscular Hemoglobin Concent 32g/dL (31-37) Red Cell Distribution Width 18.6% (11.5-14.5) Platelet Count 63x10^3/uL (140-400) Neutrophils (%) (Auto) 84% (31-73) Lymphocytes (%) (Auto) 6% (24-48) Monocytes (%) (Auto) 8% (0-9) Eosinophils (%) (Auto) 1% (0-3) Basophils (%) (Auto) 1% (0-3) Neutrophils # (Auto) 4.2x10^3uL (1.8-7.7) Lymphocytes # (Auto) 0.3x10^3/uL (1.0-4.8) Monocytes # (Auto) 0.4x10^3/uL (0.0-1.1) Eosinophils # (Auto) 0.1x10^3/uL (0.0-0.7) Basophils # (Auto) 0.0x10^3/uL (0.0-0.2) Platelet Estimate Decreased (ADEQUATE) Anisocytosis Slight Macrocytosis Slight Ovalocytes Few Prothrombin Time 24.0SEC (9.4-11.4) Prothromb Time International Ratio 2.3 (0.9-1.1) Activated Partial Thromboplast Time 30SEC (23-33) Sodium Level 146mmol/L (136-145) Potassium Level 4.4mmol/L (3.5-5.1) Chloride Level 109mmol/L (98-107) Carbon Dioxide Level 27mmol/L (21-32) Anion Gap 10 (6-14) Blood Urea Nitrogen 65mg/dL (8-26) Creatinine 3.3mg/dL (0.7-1.3) Estimated GFR (Cockcroft-Gault) 18.1 Glucose Level 130mg/dL (70-99) Calcium Level 8.5mg/dL (8.5-10.1) Magnesium Level 3.3mg/dL (1.8-2.4) Total Bilirubin 0.9mg/dL (0.2-1.0) Direct Bilirubin 0.4mg/dL (0.0-0.2) Aspartate Amino Transf (AST/SGOT) 23U/L (15-37) Alanine Aminotransferase (ALT/SGPT) 7U/L (16-63) Alkaline Phosphatase 125U/L (46-116) Creatine Kinase 86U/L (39-308) Creatine Kinase MB (Mass) 3.2ng/mL (0.0-3.6) Creatine Kinase MB Relative Index 3.7% (0-4) Troponin I Quantitative 0.169ng/mL (0-0.055) XT-Xsq-H-Type Natriuretic Peptide 48199yk/mL (0-449) Total Protein 6.3g/dL (6.4-8.2) Albumin 3.4g/dL (3.4-5.0) Lipase 84U/L (73-393) Thyroid Stimulating Hormone (TSH) 82.668uIU/mL (0.358-3.740) Lactic Acid Level 1.1mmol/L (0.4-2.0) Urine Collection Type Unknown Urine Color Yellow Urine Clarity Clear Urine pH 5.5 Urine Specific [place] 1.010 Urine Protein 30 mg/dl (NEG-TRACE) Urine Glucose (UA) Negmg/dL (NEG) Urine Ketones (Stick) Negmg/dL (NEG) Urine Blood Neg (NEG) Urine Nitrite Neg (NEG) Urine Bilirubin Neg (NEG) Urine Urobilinogen Dipstick 0.2mg/dL (0.2 mg/dL) Urine Leukocyte Esterase Neg (NEG) Urine RBC 0/HPF (0-2) Urine WBC Rare/HPF (0-4) Urine Squamous Epithelial Cells Occ/LPF Urine Bacteria 0/HPF (0-FEW) Urine Hyaline Casts Occ/HPF Urine Opiates Screen Neg (NEG) Urine Methadone Screen Neg (NEG) Urine Barbiturates Neg (NEG) Urine Phencyclidine Screen Neg (NEG) Urine Amphetamine/Methamphetamine Neg (NEG) Urine Benzodiazepines Screen Neg (NEG) Urine Cocaine Screen Neg (NEG) Urine Cannabinoids Screen Neg (NEG) Urine Ethyl Alcohol Neg (NEG) Nasal Screen MRSA (PCR) Negative (Negative) Test 06/25/16 06:11 06/25/16 12:10 06/26/16 06:15 White Blood Count 3.9x10^3/uL (4.0-11.0) 3.6x10^3/uL (4.0-11.0) Red Blood Count 3.17x10^6/uL (4.30-5.70) 3.29x10^6/uL (4.30-5.70) Hemoglobin 11.4g/dL (13.0-17.5) 11.8g/dL (13.0-17.5) Hematocrit 34.6% (39.0-53.0) 35.9% (39.0-53.0) Mean Corpuscular Volume 109fL (79-100) 109fL (79-100) Mean Corpuscular Hemoglobin 36pg (25-35) 36pg (25-35) Mean Corpuscular Hemoglobin Concent 33g/dL (31-37) 33g/dL (31-37) Red Cell Distribution Width 18.4% (11.5-14.5) 18.7% (11.5-14.5) Platelet Count 63x10^3/uL (140-400) 63x10^3/uL (140-400) Neutrophils (%) (Auto) 76% (31-73) 76% (31-73) Lymphocytes (%) (Auto) 10% (24-48) 11% (24-48) Monocytes (%) (Auto) 9% (0-9) 9% (0-9) Eosinophils (%) (Auto) 4% (0-3) 4% (0-3) Basophils (%) (Auto) 1% (0-3) 1% (0-3) Neutrophils # (Auto) 3.0x10^3uL (1.8-7.7) 2.7x10^3uL (1.8-7.7) Lymphocytes # (Auto) 0.4x10^3/uL (1.0-4.8) 0.4x10^3/uL (1.0-4.8) Monocytes # (Auto) 0.4x10^3/uL (0.0-1.1) 0.3x10^3/uL (0.0-1.1) Eosinophils # (Auto) 0.1x10^3/uL (0.0-0.7) 0.1x10^3/uL (0.0-0.7) Basophils # (Auto) 0.0x10^3/uL (0.0-0.2) 0.0x10^3/uL (0.0-0.2) Sodium Level 145mmol/L (136-145) 145mmol/L (136-145) 145mmol/L (136-145) Potassium Level 4.1mmol/L (3.5-5.1) 4.2mmol/L (3.5-5.1) 4.3mmol/L (3.5-5.1) Chloride Level 109mmol/L (98-107) 109mmol/L (98-107) 108mmol/L (98-107) Carbon Dioxide Level 28mmol/L (21-32) 29mmol/L (21-32) 32mmol/L (21-32) Anion Gap 8 (6-14) 7 (6-14) 5 (6-14) Blood Urea Nitrogen 63mg/dL (8-26) 64mg/dL (8-26) 63mg/dL (8-26) Creatinine 3.4mg/dL (0.7-1.3) 3.4mg/dL (0.7-1.3) 3.3mg/dL (0.7-1.3) Estimated GFR (Cockcroft-Gault) 17.5 17.5 18.1 BUN/Creatinine Ratio 19 (6-20) 19 (6-20) Glucose Level 84mg/dL (70-99) 95mg/dL (70-99) 105mg/dL (70-99) Calcium Level 8.4mg/dL (8.5-10.1) 8.4mg/dL (8.5-10.1) 8.5mg/dL (8.5-10.1) Total Bilirubin 0.8mg/dL (0.2-1.0) 0.7mg/dL (0.2-1.0) Aspartate Amino Transf (AST/SGOT) 21U/L (15-37) 19U/L (15-37) Alanine Aminotransferase (ALT/SGPT) 8U/L (16-63) 7U/L (16-63) Alkaline Phosphatase 111U/L (46-116) 115U/L (46-116) Total Protein 6.4g/dL (6.4-8.2) 6.4g/dL (6.4-8.2) Albumin 3.2g/dL (3.4-5.0) 3.1g/dL (3.4-5.0) Albumin/Globulin Ratio 1.0 (1.0-1.7) 0.9 (1.0-1.7) Prothrombin Time 23.1SEC (9.4-11.4) Prothromb Time International Ratio 2.2 (0.9-1.1) Magnesium Level 3.1mg/dL (1.8-2.4) Troponin I Quantitative 0.143ng/mL (0-0.055) JG-Igc-L-Type Natriuretic Peptide 82364gf/mL (0-449) Microbiology 06/24/16 Blood Culture - Preliminary, Resulted NO GROWTH AFTER 1 DAY Medications Current Medications Aspirin (Jean Aspirin) 325 mg 1X ONCE PO Last administered on 06/24/16 19:45 ; Start 06/24/16 at 19:45; Stop 06/24/16 at 19:46; Status DC Bumetanide (Bumex) 2.5 mg 1X ONCE IVP Last administered on 06/24/16 21:15; Start 06/24/16 at 21:15; Stop 06/24/16 at 21:16; Status DC Furosemide (Lasix) 40 mg 1X ONCE IVP Last administered on 06/24/16 21:15; Start 06/24/16 at 21:15; Stop 06/24/16 at 21:16; Status DC Ondansetron HCl (Zofran) 4 mg PRN Q4HRS PRN IV NAUSEA/VOMITING; Start 06/24/16 at 21:15; Stop 06/25/16 at 21:14; Status DC Allopurinol (Zyloprim) 100 mg BID PO Last administered on 06/26/16 09:11; Start 06/25/16 at 09:00 Amiodarone HCl (Cordarone) 200 mg DAILY PO Last administered on 06/26/16 09:09 ; Start 06/25/16 at 09:00 Benztropine Mesylate (Cogentin) 0.5 mg QODAY PO Last administered on 06/26/16 09:07; Start 06/26/16 at 09:00 Benztropine Mesylate (Cogentin) 1 mg QODAY PO Last administered on 06/26/16 09 :07; Start 06/26/16 at 09:00 Carbidopa/Levodopa (Sinemet Cr) 1 tab.sa TID PO Last administered on 06/26/16 09:11; Start 06/25/16 at 09:00 Digoxin (Lanoxin) 125 mcg DAILY PO Last administered on 06/26/16 09:09; Start 06/25/16 at 09:00 Docusate Sodium (Colace) 100 mg DAILY PO Last administered on 06/26/16 09:08; Start 06/25/16 at 09:00 Donepezil HCl (Aricept) 5 mg HS PO Last administered on 06/25/16 21:07; Start 06/25/16 at 21:00 Fluticasone Propionate (Flonase) 2 spray DAILY NS Last administered on 09:01; Start 06/25/16 at 09:00 Furosemide (Lasix) 40 mg DAILY PO Last administered on 06/25/16 08:34; Start 06/25/16 at 09:00; Stop 06/25/16 at 09:41; Status DC Latanoprost (Xalatan) 1 drop HS OU Last administered on 06/25/16 21:06; Start 06/25/16 at 21:00 Levothyroxine Sodium (Synthroid) 75 mcg DAILY06 PO Last administered on 05:19; Start 06/25/16 at 06:00 Polyethylene Glycol (miraLAX) 17 gm DAILY PRN PO CONSTIPATION Last administered on 06/26/16 09:12; Start 06/24/16 at 23:30 Ropinirole HCl (Requip) 1 mg TID PO Last administered on 06/26/16 09:10; Start 06/25/16 at 09:00 Tamsulosin HCl (Flomax) 0.4 mg HS PO Last administered on 06/25/16 21:07; Start 06/25/16 at 21:00 Warfarin Sodium (Coumadin) 2.5 mg DAILY16 PO Last administered on 06/25/16 16: 14; Start 06/25/16 at 16:00 Budesonide (Pulmicort) 0.5 mg RTBID NEB Last administered on 06/25/16 20:21; Start 06/25/16 at 08:00 Brimonidine Tartrate (Alphagan) 1 drop BID OU Last administered on 06/25/16 08 :45; Start 06/25/16 at 10:00; Stop 06/25/16 at 14:28; Status DC Atorvastatin Calcium (Lipitor) 5 mg HS PO HIGH CHOLESTEROL Last administered on 06/25/16 21:07; Start 06/25/16 at 21:00 Memantine (Namenda) 10 mg BID PO Last administered on 06/26/16 09:10; Start at 09:00 Midodrine (Proamatine) 5 mg TIDPC PO Last administered on 06/26/16 09:00; Start 06/25/16 at 09:00 Sodium Bicarbonate 650 mg BID PO ACIDOSIS Last administered on 06/26/16 09:06; Start 06/25/16 at 09:00 Warfarin Sodium (Coumadin) 1 mg DAILY16 PO Last administered on 06/25/16 16:13 ; Start 06/25/16 at 16:00 Warfarin Sodium 1 each 1 each PRN DAILY PRN MC SEE COMMENTS; Start 06/25/16 at 08:00 Furosemide/Sodium Chloride (Lasix/Iv Sodium Chloride 0.9% 100ml) 100 ml @ 0 mls/ hr CONT PRN IV SEE I/O RECORD; Start 06/25/16 at 10:00; Stop 06/26/16 at 09:57 ; Status DC Brimonidine Tartrate 1 drop 1 drop BID OU Last administered on 06/26/16 09:06 ; Start 06/25/16 at 14:28 Furosemide/Sodium Chloride (Lasix/Iv Sodium Chloride 0.9% 100ml) 100 ml @ 0 mls/ hr CONT PRN IV SEE I/O RECORD Last administered on 06/26/16t 10:55; Start 06/26 at 10:00 Active Scripts Active Reported Coumadin (Warfarin Sodium) 3 Mg Tablet 3.5 Mg PO DAILY Fluticasone Propionate Nasal [place] (Fluticasone Propionate) 16 Gm [place].susp 2 Spr NS DAILY LAST DOSE GIVEN: DATE: TIME: NEXT DOSE DUE: DATE: TIME: Miralax (Polyethylene Glycol 3350) 17 Gm Powd.pack 1 Packet PO DAILY PRN LAST DOSE GIVEN: DATE: TIME: NEXT DOSE DUE: DATE: TIME: Qvar 40MCG Inhaler (Beclomethasone Dipropionate) 8.7 Gm Aer.w.adap 2 Puff IH BID LAST DOSE GIVEN: DATE: TIME: NEXT DOSE DUE: DATE: TIME: Namenda Xr (Memantine Hcl) 28 Mg Cap.spr.24 28 Mg PO HS LAST DOSE GIVEN: DATE: TIME: NEXT DOSE DUE: DATE: TIME: Sodium Bicarbonate 650 Mg Tablet 1 Tab PO BID LAST DOSE GIVEN: DATE: TIME: NEXT DOSE DUE: DATE: TIME: Docusate Sodium 100 Mg Capsule 1 Cap PO DAILY LAST DOSE GIVEN: DATE: TIME: NEXT DOSE DUE: DATE: TIME: Multivitamins (Multivitamin) 1 Each Tablet 1 Tab PO DAILY LAST DOSE GIVEN: DATE: TIME: NEXT DOSE DUE: DATE: TIME: Alphagan P (Brimonidine Tartrate) 5 Ml Drops 1 Drop EACHEYE BID LAST DOSE GIVEN: DATE: TIME: NEXT DOSE DUE: DATE: TIME: Donepezil Hcl 5 Mg Tablet 1 Tab PO HS LAST DOSE GIVEN: DATE: TIME: NEXT DOSE DUE: DATE: TIME: Benztropine Mesylate 0.5 Mg Tablet 1 Tab PO QODAY LAST DOSE GIVEN: DATE: TIME: NEXT DOSE DUE: DATE: TIME: Latanoprost 2.5 Ml Drops 1 Drop EACHEYE HS LAST DOSE GIVEN: DATE: TIME: NEXT DOSE DUE: DATE: TIME: Allopurinol 100 Mg Tablet 100 Mg PO BID LAST DOSE GIVEN: DATE: TIME: NEXT DOSE DUE: DATE: TIME: Benztropine Mesylate 1 Mg Tablet 1 Mg PO QODAY LAST DOSE GIVEN: DATE: TIME: NEXT DOSE DUE: DATE: TIME: Digoxin 125 Mcg Tablet 0.5 Tab PO DAILY LAST DOSE GIVEN: DATE: TIME: NEXT DOSE DUE: DATE: TIME: Levothyroxine Sodium 75 Mcg Tablet 75 Mcg PO DAILY LAST DOSE GIVEN: DATE: TIME: NEXT DOSE DUE: DATE: TIME: Amiodarone Hcl 200 Mg Tablet 200 Mg PO DAILY LAST DOSE GIVEN: DATE: TIME: NEXT DOSE DUE: DATE: TIME: Furosemide 20 Mg Tablet 40 Mg PO DAILY LAST DOSE GIVEN: DATE: TIME: NEXT DOSE DUE: DATE: TIME: Ropinirole Hcl 1 Mg Tablet 1 Mg PO TID LAST DOSE GIVEN: DATE: TIME: NEXT DOSE DUE: DATE: TIME: Carbidopa-Levo Er 50-200 Tab (Carbidopa/Levodopa) 1 Each Tablet.er 1 Each PO TID LAST DOSE GIVEN: DATE: TIME: NEXT DOSE DUE: DATE: TIME: Lovastatin 20 Mg Tablet 20 Mg PO HS LAST DOSE GIVEN: DATE: TIME: NEXT DOSE DUE: DATE: TIME: Midodrine Hcl 10 Mg Tablet 5 Mg PO TID HOLD FOR SYS BP>120 LAST DOSE GIVEN: DATE: TIME: NEXT DOSE DUE: DATE: TIME: Tamsulosin Hcl 0.4 Mg Cap.er.24h 0.4 Mg PO HS LAST DOSE GIVEN: DATE: TIME: NEXT DOSE DUE: DATE: TIME: Colace (Docusate Sodium) 100 Mg Capsule 100 Mg PO TID PRN LAST DOSE GIVEN: DATE: TIME: NEXT DOSE DUE: DATE: TIME: Vitals/I & O Vital Sign - Last 24 Hours 06/25/16 06/25/16 06/25/16 06/25/16 13:27 15:37 17:30 19:50 Temp 98.5 Pulse 93 91 91 Resp 22 B/P 90/57 92/68 92/68 Pulse Ox 98 O2 Delivery Nasal Cannula Room Air 06/25/16 06/25/16 06/25/16 06/26/16 19:58 20:22 22:51 05:07 Temp 97.4 97.4 97.5 Pulse 94 93 95 Resp 20 20 22 B/P 104/61 92/67 117/75 Pulse Ox 94 95 97 96 O2 Delivery Nasal Cannula Room Air Nasal Cannula Nasal Cannula O2 Flow Rate 2.0 2.0 2.0 06/26/16 06/26/16 06/26/16 06/26/16 09:00 09:09 09:09 10:46 Temp 97.4 Pulse 95 95 95 82 Resp 18 B/P 117/75 117/75 117/75 108/69 Pulse Ox 92 O2 Delivery Room Air Intake and Output 06/25/16 06/25/16 06/26/16 15:00 23:00 07:00 Intake Total 960 ml 600 ml 100 ml Output Total 500 ml 150 ml 500 ml Balance 460 ml 450 ml -400 ml NITZA VALLE Jr, MD Jun 26, 2016 11:45
[2016-06-26 15:38] VITALS: BP 112/77
[2016-06-26] MEDS: WARFARIN 1 MG TABLET. PO SCH (16:53)
[2016-06-26] MEDS: WARFARIN 2.5 MG TABLET. PO SCH (16:54)
--- NOTE | 2016-06-26 17:32 | NUR ---
Encouraging patient to get up to chair for meals and use walker when ambulating, he has done well today. Is currently in the chair eating dinner. Frustrated to not be going home but reminded him of IV Lasix and trying to remove fluid to help him feel better and breathe easier and he is understanding. Notified him there will be lab again in the morning and then could be reevaluated. IV pump cleared and documented, Lasix continues to infuse at 5ml/hr in LFA, site looks good. No BM this shift. PT has no complaints of pain or further needs, call light within reach.
[2016-06-26 20:13] VITALS: BP 105/71
[2016-06-26] MEDS: ATORVASTATIN CALCIUM 10 MG TABLET. PO SCH (20:34)
[2016-06-26] MEDS: TAMSULOSIN 0.4 MG CAP.ER.24H. PO SCH (20:34)
[2016-06-26] MEDS: DONEPEZIL HCL 5 MG TABLET. PO SCH (20:34)
[2016-06-26] MEDS: LATANOPROST 0.005% OPHTH SOLUTION 2.5ML BOTTLE. OU SCH (20:41)
[2016-06-26] MEDS ORDERED: BISACODYL 10 MG SUPP.RECT PR ONE (22:30)
[2016-06-26 23:53] VITALS: BP 100/72
[2016-06-27 05:18] VITALS: BP 108/76
[2016-06-27] MEDS: LEVOTHYROXINE 75 MCG TABLET PO SCH (05:44)
[2016-06-27 06:35] LABS: CALCIUM 8.8 mg/dL (8.5-10.1); GFR 20.2; POTASSIUM 4.5 mmol/L (3.5-5.1)
[2016-06-27] MEDS: MIDODRINE 5 MG TABLET PO SCH ×3 (08:15→16:32)
[2016-06-27] MEDS: SODIUM BICARBONATE 650 MG TABLET PO SCH ×2 (08:15→20:46)
[2016-06-27] MEDS: DOCUSATE SODIUM 100 MG CAPSULE PO SCH (08:15)
[2016-06-27] MEDS: AMIODARONE HCL 200 MG TABLET PO SCH (08:16)
[2016-06-27] MEDS: DIGOXIN 125 MCG TABLET PO SCH (08:18)
[2016-06-27] MEDS: MEMANTINE 10 MG TABLET. PO SCH ×2 (08:18→20:46)
[2016-06-27] MEDS: CARBIDOPA/LEVODOPA CR 50/200MG TABLET.SA PO SCH ×3 (08:19→20:45)
[2016-06-27] MEDS: rOPINIRole 1 MG TABLET. PO SCH ×3 (08:19→20:46)
[2016-06-27] MEDS: ALLOPURINOL 100 MG TABLET. PO SCH ×2 (08:19→20:46)
[2016-06-27] MEDS: POLYETHYLENE GLYCOL 3350 17 GM PACKET. PO PRN (08:20)
--- NOTE | 2016-06-27 08:22 | NUR ---
Patient sitting up in chair eating breakfast. IV Lasix drip completed, notified [employer]IDD[employer] ATTENDANT Winnie, will hold until seeing patient. Site flushed. Patient denies any pain, frustrated with not being able to get sputum up, has intermittent cough. Assessment completed. Oxygen off and denies being short of air. 1+ pitting edema bilaterally, will apply SUSI hose after breakfast. Denies further needs at this time, call light within reach. Addendum: 06/27/16 at 0858 by SAMI SUTHERLAND RN Legs have some small fluid filled blisters that are seeping. Not red or hot to touch. Going to take shower and will put SUSI hose on and monitor.
--- NOTE | 2016-06-27 08:47 | PN ---
DATE: 06/26/2016 SUBJECTIVE: The patient is resting, slightly propped up in bed, in no apparent distress. On questioning him, he denied any chest pain or shortness of breath. Cough is much less and feels generally much better. PHYSICAL EXAMINATION: GENERAL: When I examined him, he looked slightly pale, but no jaundice, cyanosis, lymphadenopathy, or thyromegaly. No jugular distension, no limb edema. VITAL SIGNS: Her heart rate was 82, blood pressure was 108/69, temperature was 97.4, respiratory rate was 18 and oxygen saturation was 93% on room air. HEENT: Showed normocephalic, atraumatic. NECK: Supple. HEART: Showed normal first and second heart sounds with no gallop, rub or murmur. CHEST: Clear to auscultation. No crepitation or rhonchi. ABDOMEN: Distended, soft, nontender. No guarding or rigidity. No organomegaly. Hernial orifices intact. Bowel sounds normal. NEUROLOGIC: He was awake, alert. All his cranial nerves are intact. He moves extremities without difficulty. His intake over the last 24 hours was 450, output 750. LABORATORY DATA: As of this morning showed a serum sodium of 145, potassium 4.3, chloride 108, bicarbonate 32, anion gap of 5, BUN 63, creatinine 3.3, estimated GFR was 18 mL per minute. His glucose 105, calcium was 8.5, magnesium was 3.1. Total bilirubin, AST, ALT, alkaline phosphatase were normal. His total protein was 6.4, albumin 3.1. His troponins are elevated; however, the patient himself is asymptomatic and has no chest pain. ASSESSMENT: 1. Acute on chronic systolic congestive heart failure. To continue with Lasix drip. 2. Coronary artery disease. The patient is asymptomatic with no evidence of angina. 3. Atrial fibrillation, chronic, on warfarin. 4. Ventricular tachycardia, paroxysmal. He has a prophylactic defibrillator in place. He is on amiodarone. 5. Hypercholesterolemia. Continue with statin. PLAN: Obviously to continue with Lasix drip. Continue with his Coumadin and monitor his prothrombin time, INR and adjust Coumadin to maintain INR between 2 to 2.5. As of this morning, his prothrombin time was 23.1, INR of 2.2. Continue strict intake and output. Repeat his labs tomorrow. AYESHA REED MD DR: Zay JOB#: [id number] / [id number]
--- NOTE | 2016-06-27 08:50 | PDOC ---
CORINNE STILES CURRICULUM ASSISTANT PRINCIPAL 06/27/16 0850: PROGRESS NOTES Diagnosis Problem Problems Medical Problems: (1) Congestive heart failure Status: Acute Assessment We are seeing the patient for congestive heart failure Acute on chronic congestive heart failure, systolic dysfunction EF 30 -35% 2016 by echocardiogram with stage IV CKD - Slowly improving with lasix gtt - continue 24 more hours. Follow labs and xray - He is very sensitive to increasing diuretics because of his history of orthostatic hypotension - monitor closely. He is not on beta jossue or CHUY/ARB due to low blood pressures. Coronary artery disease, status post revascularization S/P CABG x 2, PARIKH to left anterior descending on 03/08/09 Right coronary artery mid 60% stenosis. The patient is doing well without any angina. We will continue optimal medical therapy. Paroxysmal ventricular tachycardia - ICM s/p BiV/AICD placement Continue Amiodarone Atrial fibrillation/flutter, chronic. Evaluated by EP. They recommended to leave him in atrial flutter with rate control. CHADS2 score is 3. He is on Warfarin with theraputic INR. He is on digoxin for rate control. His blood pressure has not been able to support beta jossue. Chronic kidney disease, Stage IV - Follows with renal - Dr Tavera - Hyperlipidemia. His goal LDL is < 70 mg/dL. Continue statin therapy Problems: Subjective He is making slow progress. Continues to be short of breath when up in the room. Denies chest pain or palpitations. Objective Vital Signs Date Time Temp Pulse Resp B/P Pulse Ox O2 Delivery O2 Flow Rate FiO2 06/27/16 08:18 97 108/76 06/27/16 05:18 97.5 18 93 Nasal Cannula 2.0 Intake and Output 06/27/16 07:00 Intake Total 753.92 ml Output Total 1600 ml Balance -846.08 ml Intake Oral 660 ml IV Total 93.92 ml Output Urine Total 1600 ml # Bowel Movements 1 Abdomen: Normal bowel sounds, Soft, No tenderness Heart: Regular rate, Normal S1, Normal S2 Extremities: Other (+ edema) General: Alert, Oriented X3, Cooperative HEENT: EOMI, Mucous membr. moist/pink Lungs: Other (few crackles) Psych/Mental Status: Mental status NL, Mood NL Review of Relevant I have reviewed the following items michael (where applicable) has been applied. Labs Laboratory Tests Test 06/25/16 12:10 06/26/16 06:15 06/27/16 05:57 Sodium Level 145mmol/L (136-145) 145mmol/L (136-145) 146mmol/L (136-145) Potassium Level 4.2mmol/L (3.5-5.1) 4.3mmol/L (3.5-5.1) 4.5mmol/L (3.5-5.1) Chloride Level 109mmol/L (98-107) 108mmol/L (98-107) 108mmol/L (98-107) Carbon Dioxide Level 29mmol/L (21-32) 32mmol/L (21-32) 30mmol/L (21-32) Anion Gap 7 (6-14) 5 (6-14) 8 (6-14) Blood Urea Nitrogen 64mg/dL (8-26) 63mg/dL (8-26) 62mg/dL (8-26) Creatinine 3.4mg/dL (0.7-1.3) 3.3mg/dL (0.7-1.3) 3.0mg/dL (0.7-1.3) Estimated GFR (Cockcroft-Gault) 17.5 18.1 20.2 Glucose Level 95mg/dL (70-99) 105mg/dL (70-99) 82mg/dL (70-99) Calcium Level 8.4mg/dL (8.5-10.1) 8.5mg/dL (8.5-10.1) 8.8mg/dL (8.5-10.1) White Blood Count 3.6x10^3/uL (4.0-11.0) Red Blood Count 3.29x10^6/uL (4.30-5.70) Hemoglobin 11.8g/dL (13.0-17.5) Hematocrit 35.9% (39.0-53.0) Mean Corpuscular Volume 109fL (79-100) Mean Corpuscular Hemoglobin 36pg (25-35) Mean Corpuscular Hemoglobin Concent 33g/dL (31-37) Red Cell Distribution Width 18.7% (11.5-14.5) Platelet Count 63x10^3/uL (140-400) Neutrophils (%) (Auto) 76% (31-73) Lymphocytes (%) (Auto) 11% (24-48) Monocytes (%) (Auto) 9% (0-9) Eosinophils (%) (Auto) 4% (0-3) Basophils (%) (Auto) 1% (0-3) Neutrophils # (Auto) 2.7x10^3uL (1.8-7.7) Lymphocytes # (Auto) 0.4x10^3/uL (1.0-4.8) Monocytes # (Auto) 0.3x10^3/uL (0.0-1.1) Eosinophils # (Auto) 0.1x10^3/uL (0.0-0.7) Basophils # (Auto) 0.0x10^3/uL (0.0-0.2) Prothrombin Time 23.1SEC (9.4-11.4) 23.1SEC (9.4-11.4) Prothromb Time International Ratio 2.2 (0.9-1.1) 2.2 (0.9-1.1) BUN/Creatinine Ratio 19 (6-20) Magnesium Level 3.1mg/dL (1.8-2.4) 2.9mg/dL (1.8-2.4) Total Bilirubin 0.7mg/dL (0.2-1.0) Aspartate Amino Transf (AST/SGOT) 19U/L (15-37) Alanine Aminotransferase (ALT/SGPT) 7U/L (16-63) Alkaline Phosphatase 115U/L (46-116) Troponin I Quantitative 0.143ng/mL (0-0.055) NZ-Glh-L-Type Natriuretic Peptide 89747qu/mL (0-449) Total Protein 6.4g/dL (6.4-8.2) Albumin 3.1g/dL (3.4-5.0) Albumin/Globulin Ratio 0.9 (1.0-1.7) Microbiology 06/24/16 Blood Culture - Preliminary, Resulted NO GROWTH AFTER 2 DAYS Medications Current Medications Aspirin (Jean Aspirin) 325 mg 1X ONCE PO Last administered on 06/24/16t 19:45 ; Start 06/24/16 at 19:45; Stop 06/24/16 at 19:46; Status DC Bumetanide (Bumex) 2.5 mg 1X ONCE IVP Last administered on 06/24/16 21:15; Start 06/24/16 at 21:15; Stop 06/24/16 at 21:16; Status DC Furosemide (Lasix) 40 mg 1X ONCE IVP Last administered on 06/24/16 21:15; Start 06/24/16 at 21:15; Stop 06/24/16 at 21:16; Status DC Ondansetron HCl (Zofran) 4 mg PRN Q4HRS PRN IV NAUSEA/VOMITING; Start 06/24/16 at 21:15; Stop 06/25/16 at 21:14; Status DC Allopurinol (Zyloprim) 100 mg BID PO Last administered on 06/27/16 08:19; Start 06/25/16 at 09:00 Amiodarone HCl (Cordarone) 200 mg DAILY PO Last administered on 06/27/16 08:16 ; Start 06/25/16 at 09:00 Benztropine Mesylate (Cogentin) 0.5 mg QODAY PO Last administered on 06/26/16 09:07; Start 06/26/16 at 09:00 Benztropine Mesylate (Cogentin) 1 mg QODAY PO Last administered on 06/26/16 09 :07; Start 06/26/16 at 09:00 Carbidopa/Levodopa (Sinemet Cr) 1 tab.sa TID PO Last administered on 06/27/16 08:19; Start 06/25/16 at 09:00 Digoxin (Lanoxin) 125 mcg DAILY PO Last administered on 06/27/16 08:18; Start 06/25/16 at 09:00 Docusate Sodium (Colace) 100 mg DAILY PO Last administered on 06/27/16 08:15; Start 06/25/16 at 09:00 Donepezil HCl (Aricept) 5 mg HS PO Last administered on 06/26/16 20:34; Start 06/25/16 at 21:00 Fluticasone Propionate (Flonase) 2 spray DAILY NS Last administered on 09:01; Start 06/25/16 at 09:00 Furosemide (Lasix) 40 mg DAILY PO Last administered on 06/25/16 08:34; Start 06/25/16 at 09:00; Stop 06/25/16 at 09:41; Status DC Latanoprost (Xalatan) 1 drop HS OU Last administered on 06/26/16 20:41; Start 06/25/16 at 21:00 Levothyroxine Sodium (Synthroid) 75 mcg DAILY06 PO Last administered on 05:44; Start 06/25/16 at 06:00 Polyethylene Glycol (miraLAX) 17 gm DAILY PRN PO CONSTIPATION Last administered on 06/27/16 08:20; Start 06/24/16 at 23:30 Ropinirole HCl (Requip) 1 mg TID PO Last administered on 06/27/16 08:19; Start 06/25/16 at 09:00 Tamsulosin HCl (Flomax) 0.4 mg HS PO Last administered on 06/26/16 20:34; Start 06/25/16 at 21:00 Warfarin Sodium (Coumadin) 2.5 mg DAILY16 PO Last administered on 06/26/16 16: 54; Start 06/25/16 at 16:00 Budesonide (Pulmicort) 0.5 mg RTBID NEB Last administered on 06/26/16 21:04; Start 06/25/16 at 08:00 Brimonidine Tartrate (Alphagan) 1 drop BID OU Last administered on 06/25/16 08 :45; Start 06/25/16 at 10:00; Stop 06/25/16 at 14:28; Status DC Atorvastatin Calcium (Lipitor) 5 mg HS PO HIGH CHOLESTEROL Last administered on 06/26/16 20:34; Start 06/25/16 at 21:00 Memantine (Namenda) 10 mg BID PO Last administered on 06/27/16 08:18; Start at 09:00 Midodrine (Proamatine) 5 mg TIDPC PO Last administered on 06/27/16 08:15; Start 06/25/16 at 09:00 Sodium Bicarbonate 650 mg BID PO ACIDOSIS Last administered on 06/27/16 08:15; Start 06/25/16 at 09:00 Warfarin Sodium (Coumadin) 1 mg DAILY16 PO Last administered on 06/26/16 16:53 ; Start 06/25/16 at 16:00 Warfarin Sodium 1 each 1 each PRN DAILY PRN MC SEE COMMENTS; Start 06/25/16 at 08:00 Furosemide/Sodium Chloride (Lasix/Iv Sodium Chloride 0.9% 100ml) 100 ml @ 0 mls/ hr CONT PRN IV SEE I/O RECORD; Start 06/25/16 at 10:00; Stop 06/26/16 at 09:57 ; Status DC Brimonidine Tartrate 1 drop 1 drop BID OU Last administered on 06/26/16 20:41 ; Start 06/25/16 at 14:28 Furosemide/Sodium Chloride (Lasix/Iv Sodium Chloride 0.9% 100ml) 100 ml @ 0 mls/ hr CONT PRN IV SEE I/O RECORD Last administered on 06/26/16 10:55; Start 06/26 at 10:00 Bisacodyl (Dulcolax Supp) 10 mg 1X ONCE MD Last administered on 06/26/16 22: 29; Start 06/26/16 at 22:30; Stop 06/26/16 at 22:31; Status DC Active Scripts Active Reported Coumadin (Warfarin Sodium) 3 Mg Tablet 3.5 Mg PO DAILY Fluticasone Propionate Nasal Anthony (Fluticasone Propionate) 16 Gm Anthony.susp 2 Spr NS DAILY LAST DOSE GIVEN: DATE: TIME: NEXT DOSE DUE: DATE: TIME: Miralax (Polyethylene Glycol 3350) 17 Gm Powd.pack 1 Packet PO DAILY PRN LAST DOSE GIVEN: DATE: TIME: NEXT DOSE DUE: DATE: TIME: Qvar 40MCG Inhaler (Beclomethasone Dipropionate) 8.7 Gm Aer.w.adap 2 Puff IH BID LAST DOSE GIVEN: DATE: TIME: NEXT DOSE DUE: DATE: TIME: Namenda Xr (Memantine Hcl) 28 Mg Cap.spr.24 28 Mg PO HS LAST DOSE GIVEN: DATE: TIME: NEXT DOSE DUE: DATE: TIME: Sodium Bicarbonate 650 Mg Tablet 1 Tab PO BID LAST DOSE GIVEN: DATE: TIME: NEXT DOSE DUE: DATE: TIME: Docusate Sodium 100 Mg Capsule 1 Cap PO DAILY LAST DOSE GIVEN: DATE: TIME: NEXT DOSE DUE: DATE: TIME: Multivitamins (Multivitamin) 1 Each Tablet 1 Tab PO DAILY LAST DOSE GIVEN: DATE: TIME: NEXT DOSE DUE: DATE: TIME: Alphagan P (Brimonidine Tartrate) 5 Ml Drops 1 Drop EACHEYE BID LAST DOSE GIVEN: DATE: TIME: NEXT DOSE DUE: DATE: TIME: Donepezil Hcl 5 Mg Tablet 1 Tab PO HS LAST DOSE GIVEN: DATE: TIME: NEXT DOSE DUE: DATE: TIME: Benztropine Mesylate 0.5 Mg Tablet 1 Tab PO QODAY LAST DOSE GIVEN: DATE: TIME: NEXT DOSE DUE: DATE: TIME: Latanoprost 2.5 Ml Drops 1 Drop EACHEYE HS LAST DOSE GIVEN: DATE: TIME: NEXT DOSE DUE: DATE: TIME: Allopurinol 100 Mg Tablet 100 Mg PO BID LAST DOSE GIVEN: DATE: TIME: NEXT DOSE DUE: DATE: TIME: Benztropine Mesylate 1 Mg Tablet 1 Mg PO QODAY LAST DOSE GIVEN: DATE: TIME: NEXT DOSE DUE: DATE: TIME: Digoxin 125 Mcg Tablet 0.5 Tab PO DAILY LAST DOSE GIVEN: DATE: TIME: NEXT DOSE DUE: DATE: TIME: Levothyroxine Sodium 75 Mcg Tablet 75 Mcg PO DAILY LAST DOSE GIVEN: DATE: TIME: NEXT DOSE DUE: DATE: TIME: Amiodarone Hcl 200 Mg Tablet 200 Mg PO DAILY LAST DOSE GIVEN: DATE: TIME: NEXT DOSE DUE: DATE: TIME: Furosemide 20 Mg Tablet 40 Mg PO DAILY LAST DOSE GIVEN: DATE: TIME: NEXT DOSE DUE: DATE: TIME: Ropinirole Hcl 1 Mg Tablet 1 Mg PO TID LAST DOSE GIVEN: DATE: TIME: NEXT DOSE DUE: DATE: TIME: Carbidopa-Levo Er 50-200 Tab (Carbidopa/Levodopa) 1 Each Tablet.er 1 Each PO TID LAST DOSE GIVEN: DATE: TIME: NEXT DOSE DUE: DATE: TIME: Lovastatin 20 Mg Tablet 20 Mg PO HS LAST DOSE GIVEN: DATE: TIME: NEXT DOSE DUE: DATE: TIME: Midodrine Hcl 10 Mg Tablet 5 Mg PO TID HOLD FOR SYS BP>120 LAST DOSE GIVEN: DATE: TIME: NEXT DOSE DUE: DATE: TIME: Tamsulosin Hcl 0.4 Mg Cap.er.24h 0.4 Mg PO HS LAST DOSE GIVEN: DATE: TIME: NEXT DOSE DUE: DATE: TIME: Colace (Docusate Sodium) 100 Mg Capsule 100 Mg PO TID PRN LAST DOSE GIVEN: DATE: TIME: NEXT DOSE DUE: DATE: TIME: Vitals/I & O Vital Sign - Last 24 Hours 06/26/16 06/26/16 06/26/16 06/26/16 09:00 09:09 09:09 10:46 Temp 97.4 Pulse 95 95 95 82 Resp 18 B/P 117/75 117/75 117/75 108/69 Pulse Ox 92 O2 Delivery Room Air 06/26/16 06/26/16 06/26/16 06/26/16 11:40 13:26 15:38 16:54 Temp 97.6 Pulse 82 95 95 Resp 20 B/P 108/69 112/77 112/77 Pulse Ox 93 93 O2 Delivery Room Air Room Air 06/26/16 06/26/16 06/26/16 06/26/16 20:13 20:52 21:05 23:53 Temp 97.0 Pulse 96 96 Resp 18 20 B/P 105/71 100/72 Pulse Ox 94 97 95 O2 Delivery Room Air Room Air Nasal Cannula Nasal Cannula O2 Flow Rate 2.0 2.0 06/27/16 06/27/16 06/27/16 06/27/16 03:40 05:18 08:15 08:16 Temp 97.5 Pulse 96 97 97 97 Resp 18 18 B/P 108/76 108/76 108/76 Pulse Ox 93 O2 Delivery Nasal Cannula Nasal Cannula O2 Flow Rate 2.0 2.0 06/27/16 08:18 Pulse 97 B/P 108/76 Intake and Output 06/26/16 06/26/16 06/27/16 15:00 23:00 07:00 Intake Total 120 ml 372.92 ml 261 ml Output Total 250 ml 800 ml 550 ml Balance -130 ml -427.08 ml -289 ml NITZA VALLE Jr, MD 07/03/16 9027: PROGRESS NOTES Assessment The patient was seen by Corinne Stiles APRN. I have reviewed her findings and plan and agree with the above. Due to staffing constraints, we did not have an attending available on this day to see the patient. Problems: CORINNE STILES APRN Jun 27, 2016 08:50 NITZA VALLE Jr, MD July 03, 2016 18:43
--- NOTE | 2016-06-27 09:20 | NUR ---
PHILIP Zhou was here to see patient, will restart Lasix drip at 5ml/hr. Notified of legs seeping and will keep another day. Pt is short of breath after shower. Sitting in chair with legs elevated now.
[2016-06-27] MEDS: FUROSEMIDE INJ 100 MG in IV NORMAL SALINE 100ML 90 ML IV PRN (09:52)
[2016-06-27] MEDS: BRIMONIDINE 0.2% OPHTH SOLUTION 5ML BOTTLE. OU SCH ×2 (09:53→20:53)
[2016-06-27] MEDS: FLUTICASONE 50MCG/NASAL SPRAY 16GM BOTTLE. NS SCH (09:53)
[2016-06-27 11:13] VITALS: BP 101/70
[2016-06-27 14:06] VITALS: BP 102/66
[2016-06-27] MEDS: BUDESONIDE 0.5 MG/2 ML NEBU NEB SCH ×2 (16:27→21:24)
[2016-06-27] MEDS: WARFARIN 1 MG TABLET. PO SCH (16:30)
[2016-06-27] MEDS: WARFARIN 2.5 MG TABLET. PO SCH (16:31)
[2016-06-27 18:27] VITALS: BP 100/69
[2016-06-27] MEDS: ATORVASTATIN CALCIUM 10 MG TABLET. PO SCH (20:46)
[2016-06-27] MEDS: DONEPEZIL HCL 5 MG TABLET. PO SCH (20:46)
[2016-06-27] MEDS: TAMSULOSIN 0.4 MG CAP.ER.24H. PO SCH (20:46)
[2016-06-27] MEDS: LATANOPROST 0.005% OPHTH SOLUTION 2.5ML BOTTLE. OU SCH (20:53)
--- NOTE | 2016-06-27 21:21 | PN ---
DATE: 06/27/2016 SUBJECTIVE: The patient is resting slightly propped up in bed, in no apparent respiratory distress. He is awake, alert, denied any chest pain, denied any cough, phlegm or hemoptysis. He said he has not slept well last night because he continued to go to the bathroom as he is already on Lasix drip and apparently the slicing machine operator recommended that he stay one more day on Lasix drip. No mention of any hemodialysis yet. PHYSICAL EXAMINATION: GENERAL: When I saw him today, he looked well and was clearly in no apparent respiratory distress, slightly pale, but not jaundiced, cyanosed. No lymphadenopathy or thyromegaly. No jugular venous distention, but bilateral lower limb edema. VITAL SIGNS: His heart rate this afternoon was 99, blood pressure was 101/70, temperature was 97.5, respiratory rate was 20 and oxygen saturation was 96%. HEAD, EYES, EARS, NOSE AND THROAT: Showed normocephalic, atraumatic. NECK: Supple. HEART: Showed normal first and second heart sounds with no gallop, rub or murmur. CHEST: Clear to auscultation. No crepitation or rhonchi. ABDOMEN: Distended, soft, nontender. No guarding or rigidity. No organomegaly. All hernial orifices intact. Bowel sounds normal. NEUROLOGIC: He is awake, alert, responding appropriately. Cranial nerves are intact. He moves extremities without difficulty. He ambulates with walker. His intake was 750, output was 1600. LABORATORY DATA: As of yesterday showed a white cell count of 3600, hemoglobin 11.8, hematocrit 35.9, MCV 109 and platelet count of 63,000. His prothrombin time was 23.1, INR of 2.2. His chemistry this morning showed serum sodium 146, potassium 4.5, chloride 108, bicarbonate 30, anion gap of 8, BUN 62, creatinine 3, estimated GFR was 20 mL per minute. His glucose was 82. Calcium was 8.8, magnesium was 2.9. Total bilirubin, AST, ALT, alkaline phosphatase were normal. ASSESSMENT: Acute on chronic congestive heart failure due to left ventricular systolic dysfunction, ejection fraction of 30-35% with stage 4 chronic kidney disease, slowly improving with Lasix drip; coronary artery disease status post coronary artery bypass graft x 2, paroxysmal atrial fibrillation, rate controlled, well anticoagulated; ischemic cardiomyopathy, status post biventricular AICD placement, he continues to be on amiodarone; atrial fibrillation flutter, chronic, he is currently on Coumadin. He is on digoxin to control the heart rate. His blood pressure has not been able to support beta blockers, hyperlipidemia. PLAN: To continue with the Lasix drip. We will repeat his lab work again tomorrow and we will decide on further management accordingly. AYESHA REED MD DR: ALESSIA/yeni JOB#: [id number] / [id number]
[2016-06-27 22:40] VITALS: BP 106/68
[2016-06-28] MEDS: LEVOTHYROXINE 75 MCG TABLET PO SCH (05:01)
[2016-06-28] MEDS ORDERED: IV NORMAL SALINE 100ML 100 ML ONE ×2 (05:04→23:52)
[2016-06-28] MEDS ORDERED: FUROSEMIDE 100 MG/10 ML VIAL ONE ×2 (05:05→23:52)
[2016-06-28] MEDS: FUROSEMIDE INJ 100 MG in IV NORMAL SALINE 100ML 90 ML IV PRN (05:09)
[2016-06-28 05:30] VITALS: BP 102/70
[2016-06-28 06:13] LABS: BASO % 1 % (0-3); EOS # 0.1 x10^3/uL (0.0-0.7); EOS % 3 % (0-3); HEMATOCRIT 37.4 % (39.0-53.0); HEMOGLOBIN 12.1 g/dL (13.0-17.5); LYMPH # 0.4 x10^3/uL (1.0-4.8); LYMPH % 10 % (24-48); MEAN CORPUSCULAR HEMOGLOBIN 35 pg (25-35); MEAN CORPUSCULAR HGB CONC 32 g/dL (31-37); MEAN CORPUSCULAR VOLUME 109 fL (79-100); MONO # 0.3 x10^3/uL (0.0-1.1); MONO % 9 % (0-9); NEUT # 2.9 x10^3uL (1.8-7.7); NEUT % 78 % (31-73); PLATELET COUNT 66 x10^3/uL (140-400); RED BLOOD COUNT 3.42 x10^6/uL (4.30-5.70); RED CELL DISTRIBUTION WIDTH 18.6 % (11.5-14.5); WHITE BLOOD COUNT 3.8 x10^3/uL (4.0-11.0)
[2016-06-28 06:30] LABS: ALBUMIN 3.1 g/dL (3.4-5.0); ALBUMIN/GLOBULIN RATIO 0.9 (1.0-1.7); CALCIUM 8.5 mg/dL (8.5-10.1); GFR 20.2; POTASSIUM 4.5 mmol/L (3.5-5.1); TOTAL BILIRUBIN 0.7 mg/dL (0.2-1.0); TOTAL PROTEIN 6.5 g/dL (6.4-8.2)
[2016-06-28] MEDS: POLYETHYLENE GLYCOL 3350 17 GM PACKET. PO PRN (08:50)
[2016-06-28] MEDS: BENZTROPINE MESYLATE 1 MG TABLET PO SCH (08:51)
[2016-06-28] MEDS: AMIODARONE HCL 200 MG TABLET PO SCH (08:51)
[2016-06-28] MEDS: BENZTROPINE MESYLATE 0.5 MG TABLET PO SCH (08:51)
[2016-06-28] MEDS: DOCUSATE SODIUM 100 MG CAPSULE PO SCH (08:51)
[2016-06-28] MEDS: rOPINIRole 1 MG TABLET. PO SCH ×3 (08:51→20:38)
[2016-06-28] MEDS: MEMANTINE 10 MG TABLET. PO SCH ×2 (08:51→20:38)
[2016-06-28] MEDS: SODIUM BICARBONATE 650 MG TABLET PO SCH ×2 (08:51→20:36)
[2016-06-28] MEDS: ALLOPURINOL 100 MG TABLET. PO SCH ×2 (08:51→20:38)
[2016-06-28] MEDS: MIDODRINE 5 MG TABLET PO SCH ×3 (08:51→17:27)
[2016-06-28] MEDS: CARBIDOPA/LEVODOPA CR 50/200MG TABLET.SA PO SCH ×3 (08:52→20:38)
[2016-06-28] MEDS: BRIMONIDINE 0.2% OPHTH SOLUTION 5ML BOTTLE. OU SCH ×2 (08:52→20:36)
[2016-06-28] MEDS: DIGOXIN 125 MCG TABLET PO SCH (08:52)
[2016-06-28] MEDS: FLUTICASONE 50MCG/NASAL SPRAY 16GM BOTTLE. NS SCH (08:53)
[2016-06-28] MEDS: BUDESONIDE 0.5 MG/2 ML NEBU NEB SCH ×2 (11:08→20:32)
[2016-06-28 11:37] VITALS: BP 97/66
--- NOTE | 2016-06-28 13:16 | PDOC ---
CORINNE STILES TANKER SERVICE ATTENDANT 06/28/16 1316: PROGRESS NOTES Diagnosis Problem Problems Medical Problems: (1) Congestive heart failure Status: Acute Assessment We are seeing the patient for congestive heart failure Acute on chronic congestive heart failure, systolic dysfunction EF 30 -35% 2016 by echocardiogram with stage IV CKD - Slowly improving with lasix gtt - Crackles have improved but he is still feeling significantly short of breath with productive cough. Ambulate with PT and check O2 sats to assess oxygen needs. He is not on beta jossue or CHUY/ARB due to low blood pressures. . Coronary artery disease, status post revascularization S/P CABG x 2, PARIKH to left anterior descending on 03/08/09 Right coronary artery mid 60% stenosis. The patient is doing well without any angina. We will continue optimal medical therapy. Paroxysmal ventricular tachycardia - ICM s/p BiV/AICD placement Continue Amiodarone Atrial fibrillation/flutter, chronic. Evaluated by EP. They recommended to leave him in atrial flutter with rate control. CHADS2 score is 3. He is on Warfarin with theraputic INR. He is on digoxin for rate control. His blood pressure has not been able to support beta jossue. Chronic kidney disease, Stage IV - Follows with renal - Dr Tavera - He is open to dialysis if needed. Hyperlipidemia. His goal LDL is < 70 mg/dL. Continue statin therapy Problems: Subjective He has been trying to cough up thick yellow sputum. After last coughing episode the breathing was slight improved. But is wearing on him. He appears more frail today. Denies any chest pain or palpitations. He is getting up to ambulate with PT. Objective Vital Signs Date Time Temp Pulse Resp B/P Pulse Ox O2 Delivery O2 Flow Rate FiO2 06/28/16 13:07 98 97/66 06/28/16 11:37 97.4 22 100 Nasal Cannula 06/28/16 10:17 2.0 Intake and Output 06/28/16 07:00 Intake Total 1699.18 ml Output Total 2300 ml Balance -600.82 ml Intake Oral 1600 ml IV Total 99.18 ml Output Urine Total 2300 ml # Voids 1 Abdomen: Normal bowel sounds, Soft, No tenderness Heart: Regular rate, Normal S1, Normal S2, No murmurs Extremities: Other (+ edema) General: Alert, Oriented X3, Cooperative HEENT: EOMI, Mucous membr. moist/pink Lungs: Other (labored breathing, improved crackles ) Psych/Mental Status: Mental status NL, Mood NL Review of Relevant I have reviewed the following items michael (where applicable) has been applied. Labs Laboratory Tests Test 06/27/16 05:57 06/28/16 05:38 Prothrombin Time 23.1SEC (9.4-11.4) 24.1SEC (9.4-11.4) Prothromb Time International Ratio 2.2 (0.9-1.1) 2.4 (0.9-1.1) Sodium Level 146mmol/L (136-145) 144mmol/L (136-145) Potassium Level 4.5mmol/L (3.5-5.1) 4.5mmol/L (3.5-5.1) Chloride Level 108mmol/L (98-107) 108mmol/L (98-107) Carbon Dioxide Level 30mmol/L (21-32) 30mmol/L (21-32) Anion Gap 8 (6-14) 6 (6-14) Blood Urea Nitrogen 62mg/dL (8-26) 63mg/dL (8-26) Creatinine 3.0mg/dL (0.7-1.3) 3.0mg/dL (0.7-1.3) Estimated GFR (Cockcroft-Gault) 20.2 20.2 Glucose Level 82mg/dL (70-99) 84mg/dL (70-99) Calcium Level 8.8mg/dL (8.5-10.1) 8.5mg/dL (8.5-10.1) Magnesium Level 2.9mg/dL (1.8-2.4) White Blood Count 3.8x10^3/uL (4.0-11.0) Red Blood Count 3.42x10^6/uL (4.30-5.70) Hemoglobin 12.1g/dL (13.0-17.5) Hematocrit 37.4% (39.0-53.0) Mean Corpuscular Volume 109fL (79-100) Mean Corpuscular Hemoglobin 35pg (25-35) Mean Corpuscular Hemoglobin Concent 32g/dL (31-37) Red Cell Distribution Width 18.6% (11.5-14.5) Platelet Count 66x10^3/uL (140-400) Neutrophils (%) (Auto) 78% (31-73) Lymphocytes (%) (Auto) 10% (24-48) Monocytes (%) (Auto) 9% (0-9) Eosinophils (%) (Auto) 3% (0-3) Basophils (%) (Auto) 1% (0-3) Neutrophils # (Auto) 2.9x10^3uL (1.8-7.7) Lymphocytes # (Auto) 0.4x10^3/uL (1.0-4.8) Monocytes # (Auto) 0.3x10^3/uL (0.0-1.1) Eosinophils # (Auto) 0.1x10^3/uL (0.0-0.7) Basophils # (Auto) 0.0x10^3/uL (0.0-0.2) BUN/Creatinine Ratio 21 (6-20) Total Bilirubin 0.7mg/dL (0.2-1.0) Aspartate Amino Transf (AST/SGOT) 20U/L (15-37) Alanine Aminotransferase (ALT/SGPT) 7U/L (16-63) Alkaline Phosphatase 117U/L (46-116) Total Protein 6.5g/dL (6.4-8.2) Albumin 3.1g/dL (3.4-5.0) Albumin/Globulin Ratio 0.9 (1.0-1.7) Microbiology 06/24/16 Blood Culture - Preliminary, Resulted NO GROWTH AFTER 3 DAYS Medications Current Medications Aspirin (3DLT.com Aspirin) 325 mg 1X ONCE PO Last administered on 06/24/16 19:45 ; Start 06/24/16 at 19:45; Stop 06/24/16 at 19:46; Status DC Bumetanide (Bumex) 2.5 mg 1X ONCE IVP Last administered on 06/24/16 21:15; Start 06/24/16 at 21:15; Stop 06/24/16 at 21:16; Status DC Furosemide (Lasix) 40 mg 1X ONCE IVP Last administered on 06/24/16 21:15; Start 06/24/16 at 21:15; Stop 06/24/16 at 21:16; Status DC Ondansetron HCl (Zofran) 4 mg PRN Q4HRS PRN IV NAUSEA/VOMITING; Start 06/24/16 at 21:15; Stop 06/25/16 at 21:14; Status DC Allopurinol (Zyloprim) 100 mg BID PO Last administered on 06/28/16 08:51; Start 06/25/16 at 09:00 Amiodarone HCl (Cordarone) 200 mg DAILY PO Last administered on 06/28/16 08:51 ; Start 06/25/16 at 09:00 Benztropine Mesylate (Cogentin) 0.5 mg QODAY PO Last administered on 06/28/16 08:51; Start 06/26/16 at 09:00 Benztropine Mesylate (Cogentin) 1 mg QODAY PO Last administered on 06/28/16 08 :51; Start 06/26/16 at 09:00 Carbidopa/Levodopa (Sinemet Cr) 1 tab.sa TID PO Last administered on 06/28/16 13:07; Start 06/25/16 at 09:00 Digoxin (Lanoxin) 125 mcg DAILY PO Last administered on 06/28/16 08:52; Start 06/25/16 at 09:00 Docusate Sodium (Colace) 100 mg DAILY PO Last administered on 06/28/16 08:51; Start 06/25/16 at 09:00 Donepezil HCl (Aricept) 5 mg HS PO Last administered on 06/27/16 20:46; Start 06/25/16 at 21:00 Fluticasone Propionate (Flonase) 2 spray DAILY NS Last administered on 08:53; Start 06/25/16 at 09:00 Furosemide (Lasix) 40 mg DAILY PO Last administered on 06/25/16 08:34; Start 06/25/16 at 09:00; Stop 06/25/16 at 09:41; Status DC Latanoprost (Xalatan) 1 drop HS OU Last administered on 06/27/16 20:53; Start 06/25/16 at 21:00 Levothyroxine Sodium (Synthroid) 75 mcg DAILY06 PO Last administered on 05:01; Start 06/25/16 at 06:00 Polyethylene Glycol (miraLAX) 17 gm DAILY PRN PO CONSTIPATION Last administered on 06/28/16 08:50; Start 06/24/16 at 23:30 Ropinirole HCl (Requip) 1 mg TID PO Last administered on 06/28/16 13:07; Start 06/25/16 at 09:00 Tamsulosin HCl (Flomax) 0.4 mg HS PO Last administered on 06/27/16 20:46; Start 06/25/16 at 21:00 Warfarin Sodium (Coumadin) 2.5 mg DAILY16 PO Last administered on 06/27/16 16: 31; Start 06/25/16 at 16:00 Budesonide (Pulmicort) 0.5 mg RTBID NEB Last administered on 06/28/16 11:08; Start 06/25/16 at 08:00 Brimonidine Tartrate (Alphagan) 1 drop BID OU Last administered on 06/25/16 08 :45; Start 06/25/16 at 10:00; Stop 06/25/16 at 14:28; Status DC Atorvastatin Calcium (Lipitor) 5 mg HS PO HIGH CHOLESTEROL Last administered on 06/27/16 20:46; Start 06/25/16 at 21:00 Memantine (Namenda) 10 mg BID PO Last administered on 06/28/16 08:51; Start at 09:00 Midodrine (Proamatine) 5 mg TIDPC PO Last administered on 06/28/16 13:07; Start 06/25/16 at 09:00 Sodium Bicarbonate 650 mg BID PO ACIDOSIS Last administered on 06/28/16 08:51; Start 06/25/16 at 09:00 Warfarin Sodium (Coumadin) 1 mg DAILY16 PO Last administered on 06/27/16 16:30 ; Start 06/25/16 at 16:00 Warfarin Sodium 1 each 1 each PRN DAILY PRN MC SEE COMMENTS; Start 06/25/16 at 08:00 Furosemide/Sodium Chloride (Lasix/Iv Sodium Chloride 0.9% 100ml) 100 ml @ 0 mls/ hr CONT PRN IV SEE I/O RECORD; Start 06/25/16 at 10:00; Stop 06/26/16 at 09:57 ; Status DC Brimonidine Tartrate 1 drop 1 drop BID OU Last administered on 06/28/16 08:52 ; Start 06/25/16 at 14:28 Furosemide/Sodium Chloride (Lasix/Iv Sodium Chloride 0.9% 100ml) 100 ml @ 0 mls/ hr CONT PRN IV SEE I/O RECORD Last administered on 06/28/16 05:09; Start 06/26 at 10:00 Bisacodyl 10 mg 10 mg 1X ONCE [place] Last administered on 06/26/16 22:29; Start 06/26/16 at 22:30; Stop 06/26/16 at 22:31; Status DC Sodium Chloride (Iv Sodium Chloride 0.9% 100ml) 100 ml @ As Directed STK-MED ONCE .ROUTE ; Start 06/28/16 at 05:04; Stop 06/28/16 at 05:05; Status DC Furosemide (Lasix) 100 mg STK-MED ONCE .ROUTE ; Start 06/28/16 at 05:05; Stop at 05:06; Status DC Active Scripts Active Reported Coumadin (Warfarin Sodium) 3 Mg Tablet 3.5 Mg PO DAILY Fluticasone Propionate Nasal [place] (Fluticasone Propionate) 16 Gm [place].susp 2 Spr NS DAILY LAST DOSE GIVEN: DATE: TIME: NEXT DOSE DUE: DATE: TIME: Miralax (Polyethylene Glycol 3350) 17 Gm Powd.pack 1 Packet PO DAILY PRN LAST DOSE GIVEN: DATE: TIME: NEXT DOSE DUE: DATE: TIME: Qvar 40MCG Inhaler (Beclomethasone Dipropionate) 8.7 Gm Aer.w.adap 2 Puff IH BID LAST DOSE GIVEN: DATE: TIME: NEXT DOSE DUE: DATE: TIME: Namenda Xr (Memantine Hcl) 28 Mg Cap.spr.24 28 Mg PO HS LAST DOSE GIVEN: DATE: TIME: NEXT DOSE DUE: DATE: TIME: Sodium Bicarbonate 650 Mg Tablet 1 Tab PO BID LAST DOSE GIVEN: DATE: TIME: NEXT DOSE DUE: DATE: TIME: Docusate Sodium 100 Mg Capsule 1 Cap PO DAILY LAST DOSE GIVEN: DATE: TIME: NEXT DOSE DUE: DATE: TIME: Multivitamins (Multivitamin) 1 Each Tablet 1 Tab PO DAILY LAST DOSE GIVEN: DATE: TIME: NEXT DOSE DUE: DATE: TIME: Alphagan P (Brimonidine Tartrate) 5 Ml Drops 1 Drop EACHEYE BID LAST DOSE GIVEN: DATE: TIME: NEXT DOSE DUE: DATE: TIME: Donepezil Hcl 5 Mg Tablet 1 Tab PO HS LAST DOSE GIVEN: DATE: TIME: NEXT DOSE DUE: DATE: TIME: Benztropine Mesylate 0.5 Mg Tablet 1 Tab PO QODAY LAST DOSE GIVEN: DATE: TIME: NEXT DOSE DUE: DATE: TIME: Latanoprost 2.5 Ml Drops 1 Drop EACHEYE HS LAST DOSE GIVEN: DATE: TIME: NEXT DOSE DUE: DATE: TIME: Allopurinol 100 Mg Tablet 100 Mg PO BID LAST DOSE GIVEN: DATE: TIME: NEXT DOSE DUE: DATE: TIME: Benztropine Mesylate 1 Mg Tablet 1 Mg PO QODAY LAST DOSE GIVEN: DATE: TIME: NEXT DOSE DUE: DATE: TIME: Digoxin 125 Mcg Tablet 0.5 Tab PO DAILY LAST DOSE GIVEN: DATE: TIME: NEXT DOSE DUE: DATE: TIME: Levothyroxine Sodium 75 Mcg Tablet 75 Mcg PO DAILY LAST DOSE GIVEN: DATE: TIME: NEXT DOSE DUE: DATE: TIME: Amiodarone Hcl 200 Mg Tablet 200 Mg PO DAILY LAST DOSE GIVEN: DATE: TIME: NEXT DOSE DUE: DATE: TIME: Furosemide 20 Mg Tablet 40 Mg PO DAILY LAST DOSE GIVEN: DATE: TIME: NEXT DOSE DUE: DATE: TIME: Ropinirole Hcl 1 Mg Tablet 1 Mg PO TID LAST DOSE GIVEN: DATE: TIME: NEXT DOSE DUE: DATE: TIME: Carbidopa-Levo Er 50-200 Tab (Carbidopa/Levodopa) 1 Each Tablet.er 1 Each PO TID LAST DOSE GIVEN: DATE: TIME: NEXT DOSE DUE: DATE: TIME: Lovastatin 20 Mg Tablet 20 Mg PO HS LAST DOSE GIVEN: DATE: TIME: NEXT DOSE DUE: DATE: TIME: Midodrine Hcl 10 Mg Tablet 5 Mg PO TID HOLD FOR SYS BP>120 LAST DOSE GIVEN: DATE: TIME: NEXT DOSE DUE: DATE: TIME: Tamsulosin Hcl 0.4 Mg Cap.er.24h 0.4 Mg PO HS LAST DOSE GIVEN: DATE: TIME: NEXT DOSE DUE: DATE: TIME: Colace (Docusate Sodium) 100 Mg Capsule 100 Mg PO TID PRN LAST DOSE GIVEN: DATE: TIME: NEXT DOSE DUE: DATE: TIME: Vitals/I & O Vital Sign - Last 24 Hours 06/27/16 06/27/16 06/27/16 06/27/16 13:20 14:06 16:27 16:32 Temp 97.4 Pulse 99 97 97 Resp 20 B/P 101/70 102/66 102/66 Pulse Ox 94 92 O2 Delivery Room Air Room Air 06/27/16 06/27/16 06/27/16 06/27/16 18:27 20:00 21:25 22:40 Temp 97.4 97.5 Pulse 97 95 Resp 20 20 B/P 100/69 106/68 Pulse Ox 94 92 96 O2 Delivery Room Air Nasal Cannula Room Air Nasal Cannula O2 Flow Rate 2.0 2.0 06/28/16 06/28/16 06/28/16 06/28/16 05:30 08:00 08:51 08:51 Temp 97.9 Pulse 98 98 98 Resp 22 B/P 102/70 102/70 102/70 Pulse Ox 97 O2 Delivery Room Air Nasal Cannula O2 Flow Rate 2.0 06/28/16 06/28/16 06/28/16 06/28/16 08:52 10:17 11:08 11:37 Temp 97.4 Pulse 98 98 Resp 22 B/P 102/70 97/66 Pulse Ox 100 100 O2 Delivery Nasal Cannula Room Air Nasal Cannula O2 Flow Rate 2.0 06/28/16 13:07 Pulse 98 B/P 97/66 Intake and Output 06/27/16 06/27/16 06/28/16 15:00 23:00 07:00 Intake Total 720 ml 532.78 ml 446.4 ml Output Total 700 ml 850 ml 750 ml Balance 20 ml -317.22 ml -303.6 ml NITZA VALLE Jr, MD 07/03/16 0766: PROGRESS NOTES Assessment The patient was seen by Corinne Stiles APRN. I have reviewed her findings and plan and agree with the above. Due to staffing constraints, we did not have an attending available on this day to see the patient. Problems: CORINNE STILES APRN Jun 28, 2016 13:16 NITZA VALLE Jr, MD July 03, 2016 18:44
[2016-06-28] MEDS: GUAIFENESIN ER 600 MG TABLET.ER PO SCH ×2 (14:22→20:38)
[2016-06-28 15:57] VITALS: BP 112/76
[2016-06-28] MEDS ORDERED: FUROSEMIDE INJ 100 MG in IV NORMAL SALINE 100ML 90 ML IV PRN (16:00)
--- NOTE | 2016-06-28 16:30 | NUR ---
wound care patient seen per wound care consult. see wound assessment, patient has a skin tear to the right wrist, the wound has no drainage, recommendations of non-adherent gauze with tape, change every other day. patient has a red blanchable coccyx, recommendations of Calazime cream, prn. wound was cleaned and dressing applied. notified MARK Gentile about the POC, wound care will continue to f/u for possible changes.
--- NOTE | 2016-06-28 16:56 | RAD ---
Portable chest, 06/28/2016: History: Shortness of breath Comparison is made to a study from 06/26/2016. There has been a previous median sternotomy. A left-sided transvenous pacing device remains in place. The heart is enlarged. There are moderate ongoing bibasilar opacities compatible with pleural fluid. Underlying basilar atelectasis/infiltrate is greatest on the right. These basilar opacities have shown no improvement. The upper lung courtney are clear. IMPRESSION: Ongoing moderate bibasilar pleural effusions and underlying atelectasis/infiltrate, unchanged since 06/26/2016.
--- NOTE | 2016-06-28 17:22 | NUR ---
Increase Lasix drip to 7mg/hr per Dr. Almonte.
[2016-06-28] MEDS: WARFARIN 2.5 MG TABLET. PO SCH (17:26)
[2016-06-28] MEDS: WARFARIN 1 MG TABLET. PO SCH (17:26)
[2016-06-28 19:09] LABS: THYROXINE 5.6 ug/dL (4.5-12.0)
[2016-06-28 19:46] VITALS: BP 106/69
[2016-06-28] MEDS: DONEPEZIL HCL 5 MG TABLET. PO SCH (20:38)
[2016-06-28] MEDS: TAMSULOSIN 0.4 MG CAP.ER.24H. PO SCH (20:38)
[2016-06-28] MEDS: ATORVASTATIN CALCIUM 10 MG TABLET. PO SCH (20:38)
[2016-06-28] MEDS: LATANOPROST 0.005% OPHTH SOLUTION 2.5ML BOTTLE. OU SCH (20:44)
--- NOTE | 2016-06-29 01:44 | NUR ---
Nursing Note: 0904 IV Lasix and NS pulled under stocked med r/t system downtime.
[2016-06-29 03:00] VITALS: BP 103/71
[2016-06-29 06:28] VITALS: BP 108/72
[2016-06-29] MEDS: LEVOTHYROXINE 75 MCG TABLET PO SCH (06:32)
[2016-06-29 06:56] LABS: CALCIUM 8.7 mg/dL (8.5-10.1); CREATININE 3.1 mg/dL (0.7-1.3); GFR 19.4; POTASSIUM 4.3 mmol/L (3.5-5.1)
[2016-06-29 10:00] VITALS: BP 99/61
[2016-06-29] MEDS: FLUTICASONE 50MCG/NASAL SPRAY 16GM BOTTLE. NS SCH (10:06)
[2016-06-29] MEDS: BRIMONIDINE 0.2% OPHTH SOLUTION 5ML BOTTLE. OU SCH ×2 (10:06→21:00)
[2016-06-29] MEDS: MIDODRINE 5 MG TABLET PO SCH ×3 (10:06→16:46)
[2016-06-29] MEDS: SODIUM BICARBONATE 650 MG TABLET PO SCH ×2 (10:07→21:00)
[2016-06-29] MEDS: POLYETHYLENE GLYCOL 3350 17 GM PACKET. PO PRN (10:08)
[2016-06-29] MEDS: MEMANTINE 10 MG TABLET. PO SCH ×2 (10:08→20:59)
[2016-06-29] MEDS: rOPINIRole 1 MG TABLET. PO SCH ×3 (10:08→20:59)
[2016-06-29] MEDS: GUAIFENESIN ER 600 MG TABLET.ER PO SCH ×2 (10:09→21:00)
[2016-06-29] MEDS: ALLOPURINOL 100 MG TABLET. PO SCH ×2 (10:09→20:59)
[2016-06-29] MEDS: CARBIDOPA/LEVODOPA CR 50/200MG TABLET.SA PO SCH ×3 (10:09→20:59)
[2016-06-29] MEDS: DIGOXIN 125 MCG TABLET PO SCH (10:10)
[2016-06-29] MEDS: DOCUSATE SODIUM 100 MG CAPSULE PO SCH (10:10)
[2016-06-29] MEDS: AMIODARONE HCL 200 MG TABLET PO SCH (10:10)
[2016-06-29] MEDS: BUDESONIDE 0.5 MG/2 ML NEBU NEB SCH ×2 (10:46→20:51)
--- NOTE | 2016-06-29 12:03 | PN ---
DATE: 06/28/2016 SUBJECTIVE: The patient is resting, slightly propped up in bed, clearly still somewhat tachypneic and congested. Apparently, he has had an episode of cough this morning bringing up thick yellow sputum. He continued to clearly be fluid overloaded and I did speak with the Cardiology nurse practitioner the plan is to increase his Lasix to 7 mg per hour and see how he does tomorrow as he probably is nearing the time for hemodialysis. PHYSICAL EXAMINATION: GENERAL: When I examined him this afternoon, he was resting slightly propped up in bed, somewhat tachypneic, pale, but no jaundice, cyanosis, or thyromegaly. No jugular venous distention. No limb edema. VITAL SIGNS: His heart rate was 98, blood pressure was 97/66, temperature was 97.4, respiratory rate was 22, and oxygen saturation was 100% on 2 liters of oxygen by nasal cannula. HEENT: Showed normocephalic and atraumatic. NECK: Supple. HEART: Showed normal first and second heart sounds with no gallop, rub, or murmur. CHEST: Clear to auscultation. No crepitation or rhonchi. ABDOMEN: Distended, soft, and nontender. No guarding or rigidity. No organomegaly. Hernial orifices are intact. Bowel sounds normal. NEUROLOGIC: He was awake, alert, and responding appropriately. All his cranial nerves are intact. He moves extremities without difficulty. His intake over the last 24 hours was 750 and output was 1600. LABORATORY DATA: His lab work this morning showed a serum sodium 144, potassium 4.5, chloride 108, bicarbonate 30, anion gap of 6, BUN 63, creatinine 3, and estimated GFR was 20 mL per minute. His glucose was 84 and calcium was 8.5. Total bilirubin, AST, ALT, and alkaline phosphatase were normal. Total protein 6.5, albumin was 0.9, and free T4 was normal at 0.83. ASSESSMENT AND PLAN: 1. Acute on chronic congestive heart failure. 2. Left ventricular systolic dysfunction with ejection fraction of 35%. 3. Stage 4 chronic kidney disease 4. Coronary artery disease status post coronary artery bypass graft surgery x 2. 5. Paroxysmal atrial fibrillation, rate controlled, well anticoagulated. 6. Ischemic cardiomyopathy status post biventricular automated implantable cardioverter-defibrillator placement. Plan is to obviously continue with amiodarone for atrial flutter fibrillation. Continue with Coumadin. He is also on digoxin to control the heart rate. His blood pressure has not been able to support any beta blockers. 7. Hyperlipidemia. The plan is to increase the Lasix drip to 7 mg per hour. We will repeat his lab work tomorrow and chest x-ray and decide on further management accordingly. AYESHA REED MD DR: ALESSIA/yeni JOB#: [id number] / [id number]
--- NOTE | 2016-06-29 12:48 | NUR ---
Vineet from [facility] called to advise that PT's 06/28 PT lab 24.1 was actually 25.1, lab made correction to EMR
--- NOTE | 2016-06-29 15:00 | NUR ---
Increase Lasix Drip to 10cc/Hr per Dr. Almonte
[2016-06-29 15:15] VITALS: BP 104/68
[2016-06-29] MEDS: WARFARIN 2.5 MG TABLET. PO SCH (16:44)
[2016-06-29] MEDS: WARFARIN 1 MG TABLET. PO SCH (16:44)
[2016-06-29 19:00] VITALS: BP 107/70
[2016-06-29] MEDS ORDERED: FUROSEMIDE 100 MG/10 ML VIAL ONE (19:40)
[2016-06-29] MEDS ORDERED: IV NORMAL SALINE 100ML 100 ML ONE (19:40)
[2016-06-29] MEDS: TAMSULOSIN 0.4 MG CAP.ER.24H. PO SCH (20:59)
[2016-06-29] MEDS: DONEPEZIL HCL 5 MG TABLET. PO SCH (20:59)
[2016-06-29] MEDS: ATORVASTATIN CALCIUM 10 MG TABLET. PO SCH (20:59)
[2016-06-29] MEDS: LATANOPROST 0.005% OPHTH SOLUTION 2.5ML BOTTLE. OU SCH (21:00)
[2016-06-30 04:23] VITALS: BP 97/63
[2016-06-30] MEDS ORDERED: IV NORMAL SALINE 100ML 100 ML ONE ×2 (05:29→20:25)
[2016-06-30] MEDS ORDERED: FUROSEMIDE 100 MG/10 ML VIAL ONE ×2 (05:29→20:25)
[2016-06-30] MEDS: LEVOTHYROXINE 75 MCG TABLET PO SCH (05:34)
[2016-06-30 06:48] LABS: CALCIUM 8.8 mg/dL (8.5-10.1); CREATININE 3.1 mg/dL (0.7-1.3); GFR 19.4; MAGNESIUM 2.6 mg/dL (1.8-2.4); POTASSIUM 4.1 mmol/L (3.5-5.1)
[2016-06-30] MEDS: BENZTROPINE MESYLATE 1 MG TABLET PO SCH (08:21)
[2016-06-30] MEDS: GUAIFENESIN ER 600 MG TABLET.ER PO SCH ×2 (08:21→20:16)
[2016-06-30] MEDS: DOCUSATE SODIUM 100 MG CAPSULE PO SCH (08:21)
[2016-06-30] MEDS: AMIODARONE HCL 200 MG TABLET PO SCH (08:21)
[2016-06-30] MEDS: ALLOPURINOL 100 MG TABLET. PO SCH ×2 (08:21→20:16)
[2016-06-30] MEDS: MIDODRINE 5 MG TABLET PO SCH ×3 (08:21→16:47)
[2016-06-30] MEDS: DIGOXIN 125 MCG TABLET PO SCH (08:21)
[2016-06-30] MEDS: FLUTICASONE 50MCG/NASAL SPRAY 16GM BOTTLE. NS SCH (08:22)
[2016-06-30] MEDS: POLYETHYLENE GLYCOL 3350 17 GM PACKET. PO PRN (08:22)
[2016-06-30] MEDS: MEMANTINE 10 MG TABLET. PO SCH ×2 (08:22→20:15)
[2016-06-30] MEDS: BRIMONIDINE 0.2% OPHTH SOLUTION 5ML BOTTLE. OU SCH ×2 (08:22→20:18)
[2016-06-30] MEDS: CARBIDOPA/LEVODOPA CR 50/200MG TABLET.SA PO SCH ×3 (08:22→20:15)
[2016-06-30] MEDS: rOPINIRole 1 MG TABLET. PO SCH ×3 (08:23→20:15)
[2016-06-30] MEDS: SODIUM BICARBONATE 650 MG TABLET PO SCH ×2 (08:23→20:15)
[2016-06-30] MEDS: BENZTROPINE MESYLATE 0.5 MG TABLET PO SCH (08:24)
--- NOTE | 2016-06-30 09:29 | RAD ---
Two-view chest x-ray History: Worsening shortness of breath for days. Comparison: June 28, 2016. Findings: Again seen are bilateral pleural effusions and associated bibasilar lung consolidation or compressive atelectasis which is stable. No new parahilar pulmonary edema is seen. No pneumothorax is seen. Pacemaker and sternotomy are again noted. The heart size and mediastinum are stable. IMPRESSION: Stable bilateral pleural effusions and associated bibasilar lung infiltrates or compressive atelectasis.
[2016-06-30 10:26] VITALS: BP 97/70
[2016-06-30] MEDS: BUDESONIDE 0.5 MG/2 ML NEBU NEB SCH ×2 (10:26→20:28)
[2016-06-30] MEDS: NYSTATIN TOPICAL POWDER 15GM BOTTLE. TP SCH ×2 (11:58→20:17)
[2016-06-30 14:20] VITALS: BP 109/68
--- NOTE | 2016-06-30 16:00 | NUR ---
Pt's daughter Rylee Thomson requested a call from hospitalist, Dr. Almonte left voicemail message for pt's daugther.
[2016-06-30] MEDS: WARFARIN 2.5 MG TABLET. PO SCH (16:10)
[2016-06-30] MEDS: WARFARIN 1 MG TABLET. PO SCH (16:10)
--- NOTE | 2016-06-30 16:45 | NUR ---
Administer D5 at 50cc/Hr, pt will transfer to [facility] under the care of Dr. Avila tomorrow 07/[address] Almonte
[2016-06-30] MEDS: IV DEXTROSE 5% 1,000 ML IV SCH (17:18)
[2016-06-30 19:40] VITALS: BP 98/67
[2016-06-30] MEDS: DONEPEZIL HCL 5 MG TABLET. PO SCH (20:16)
[2016-06-30] MEDS: ATORVASTATIN CALCIUM 10 MG TABLET. PO SCH (20:16)
[2016-06-30] MEDS: TAMSULOSIN 0.4 MG CAP.ER.24H. PO SCH (20:16)
[2016-06-30] MEDS: LATANOPROST 0.005% OPHTH SOLUTION 2.5ML BOTTLE. OU SCH (20:17)
[2016-07-01] MEDS: LEVOTHYROXINE 75 MCG TABLET PO SCH (05:36)
[2016-07-01] MEDS ORDERED: IV NORMAL SALINE 100ML 0 ML ONE (05:42)
[2016-07-01] MEDS ORDERED: FUROSEMIDE 100 MG/10 ML VIAL ONE (05:43)
[2016-07-01 06:16] VITALS: BP 99/65
[2016-07-01 06:46] LABS: CALCIUM 8.7 mg/dL (8.5-10.1); GFR 20.2; POTASSIUM 3.9 mmol/L (3.5-5.1)
[2016-07-01] MEDS: POLYETHYLENE GLYCOL 3350 17 GM PACKET. PO PRN (08:33)
[2016-07-01] MEDS: SODIUM BICARBONATE 650 MG TABLET PO SCH ×2 (08:33→20:20)
[2016-07-01] MEDS: DOCUSATE SODIUM 100 MG CAPSULE PO SCH (08:34)
[2016-07-01] MEDS: CARBIDOPA/LEVODOPA CR 50/200MG TABLET.SA PO SCH ×3 (08:34→20:19)
[2016-07-01] MEDS: GUAIFENESIN ER 600 MG TABLET.ER PO SCH ×2 (08:34→20:19)
[2016-07-01] MEDS: DIGOXIN 125 MCG TABLET PO SCH (08:34)
[2016-07-01] MEDS: MEMANTINE 10 MG TABLET. PO SCH ×2 (08:34→20:18)
[2016-07-01] MEDS: ALLOPURINOL 100 MG TABLET. PO SCH ×2 (08:34→20:20)
[2016-07-01] MEDS: rOPINIRole 1 MG TABLET. PO SCH ×3 (08:34→20:18)
[2016-07-01] MEDS: MIDODRINE 5 MG TABLET PO SCH ×3 (08:35→17:08)
[2016-07-01] MEDS: FLUTICASONE 50MCG/NASAL SPRAY 16GM BOTTLE. NS SCH (08:35)
[2016-07-01] MEDS: BRIMONIDINE 0.2% OPHTH SOLUTION 5ML BOTTLE. OU SCH ×2 (08:35→20:22)
[2016-07-01] MEDS: AMIODARONE HCL 200 MG TABLET PO SCH (08:38)
[2016-07-01] MEDS: NYSTATIN TOPICAL POWDER 15GM BOTTLE. TP SCH ×2 (08:45→20:21)
--- NOTE | 2016-07-01 09:53 | PDOC ---
PROGRESS NOTES Diagnosis Problem Problems Medical Problems: (1) Congestive heart failure Status: Acute Assessment We are seeing the patient for congestive heart failure Acute on chronic congestive heart failure, systolic dysfunction EF 30 -35% 2016 by echocardiogram with stage IV CKD - Slowly improving with lasix gtt - He is not on beta jossue or CHUY/ARB due to low blood pressures. Coronary artery disease, status post revascularization S/P CABG x 2, PARIKH to left anterior descending on 03/08/09 Right coronary artery mid 60% stenosis. The patient is doing well without any angina. We will continue optimal medical therapy. Paroxysmal ventricular tachycardia - ICM s/p BiV/AICD placement Continue Amiodarone Atrial fibrillation/flutter, chronic. Evaluated by EP. They recommended to leave him in atrial flutter with rate control. CHADS2 score is 3. He is on Warfarin with theraputic INR. He is on digoxin for rate control. His blood pressure has not been able to support beta jossue. Chronic kidney disease, Stage IV - Follows with renal - Dr Tavera - He is open to dialysis if needed. Hyperlipidemia. His goal LDL is < 70 mg/dL. Continue statin therapy Problems: Subjective He is sleeping this morning and breathing is better than Friday. Objective Vital Signs Date Time Temp Pulse Resp B/P Pulse Ox O2 Delivery O2 Flow Rate FiO2 07/01/16 08:38 95 99/65 07/01/16 06:16 98.3 20 94 Nasal Cannula 2.0 Intake and Output 07/01/16 07:00 Intake Total 1359 ml Output Total 4200 ml Balance -2841 ml Intake Oral 1040 ml IV Total 319 ml Output Urine Total 4200 ml Abdomen: Normal bowel sounds, Soft, No tenderness Heart: Regular rate, Normal S1, Normal S2 Extremities: No tenderness/swelling, Other (improved edema) Lungs: Other (crackles right) Review of Relevant I have reviewed the following items michael (where applicable) has been applied. Labs Laboratory Tests Test 06/30/16 06:14 07/01/16 06:20 Prothrombin Time 29.0SEC (9.4-11.4) Prothromb Time International Ratio 2.8 (0.9-1.1) Sodium Level 148mmol/L (136-145) 148mmol/L (136-145) Potassium Level 4.1mmol/L (3.5-5.1) 3.9mmol/L (3.5-5.1) Chloride Level 107mmol/L (98-107) 107mmol/L (98-107) Carbon Dioxide Level 33mmol/L (21-32) 32mmol/L (21-32) Anion Gap 8 (6-14) 9 (6-14) Blood Urea Nitrogen 63mg/dL (8-26) 58mg/dL (8-26) Creatinine 3.1mg/dL (0.7-1.3) 3.0mg/dL (0.7-1.3) Estimated GFR (Cockcroft-Gault) 19.4 20.2 Glucose Level 90mg/dL (70-99) 94mg/dL (70-99) Calcium Level 8.8mg/dL (8.5-10.1) 8.7mg/dL (8.5-10.1) Magnesium Level 2.6mg/dL (1.8-2.4) Microbiology 06/24/16 Blood Culture - Final, Complete NO GROWTH AFTER 5 DAYS Medications Current Medications Aspirin (Skuid Aspirin) 325 mg 1X ONCE PO Last administered on 06/24/16 19:45 ; Start 06/24/16 at 19:45; Stop 06/24/16 at 19:46; Status DC Bumetanide (Bumex) 2.5 mg 1X ONCE IVP Last administered on 06/24/16 21:15; Start 06/24/16 at 21:15; Stop 06/24/16 at 21:16; Status DC Furosemide (Lasix) 40 mg 1X ONCE IVP Last administered on 06/24/16 21:15; Start 06/24/16 at 21:15; Stop 06/24/16 at 21:16; Status DC Ondansetron HCl (Zofran) 4 mg PRN Q4HRS PRN IV NAUSEA/VOMITING; Start 06/24/16 at 21:15; Stop 06/25/16 at 21:14; Status DC Allopurinol (Zyloprim) 100 mg BID PO Last administered on 07/01/16 08:34; Start 06/25/16 at 09:00 Amiodarone HCl (Cordarone) 200 mg DAILY PO Last administered on 07/01/16 08:38 ; Start 06/25/16 at 09:00 Benztropine Mesylate (Cogentin) 0.5 mg QODAY PO Last administered on 06/30/16 08:24; Start 06/26/16 at 09:00 Benztropine Mesylate (Cogentin) 1 mg QODAY PO Last administered on 06/30/16 08 :21; Start 06/26/16 at 09:00 Carbidopa/Levodopa (Sinemet Cr) 1 tab.sa TID PO Last administered on 07/01/16 08:34; Start 06/25/16 at 09:00 Digoxin (Lanoxin) 125 mcg DAILY PO Last administered on 07/01/16 08:34; Start 06/25/16 at 09:00 Docusate Sodium (Colace) 100 mg DAILY PO Last administered on 07/01/16 08:34; Start 06/25/16 at 09:00 Donepezil HCl (Aricept) 5 mg HS PO Last administered on 06/30/16 20:16; Start 06/25/16 at 21:00 Fluticasone Propionate (Flonase) 2 spray DAILY NS Last administered on 08:35; Start 06/25/16 at 09:00 Furosemide (Lasix) 40 mg DAILY PO Last administered on 06/25/16 08:34; Start 06/25/16 at 09:00; Stop 06/25/16 at 09:41; Status DC Latanoprost (Xalatan) 1 drop HS OU Last administered on 06/30/16 20:17; Start 06/25/16 at 21:00 Levothyroxine Sodium (Synthroid) 75 mcg DAILY06 PO Last administered on 05:36; Start 06/25/16 at 06:00 Polyethylene Glycol (miraLAX) 17 gm DAILY PRN PO CONSTIPATION Last administered on 07/01/16 08:33; Start 06/24/16 at 23:30 Ropinirole HCl (Requip) 1 mg TID PO Last administered on 07/01/16 08:34; Start 06/25/16 at 09:00 Tamsulosin HCl (Flomax) 0.4 mg HS PO Last administered on 06/30/16 20:16; Start 06/25/16 at 21:00 Warfarin Sodium (Coumadin) 2.5 mg DAILY16 PO Last administered on 06/30/16 16: 10; Start 06/25/16 at 16:00 Budesonide (Pulmicort) 0.5 mg RTBID NEB Last administered on 06/30/16 20:28; Start 06/25/16 at 08:00 Brimonidine Tartrate (Alphagan) 1 drop BID OU Last administered on 06/25/16 08 :45; Start 06/25/16 at 10:00; Stop 06/25/16 at 14:28; Status DC Atorvastatin Calcium (Lipitor) 5 mg HS PO HIGH CHOLESTEROL Last administered on 06/30/16 20:16; Start 06/25/16 at 21:00 Memantine (Namenda) 10 mg BID PO Last administered on 07/01/16 08:34; Start at 09:00 Midodrine (Proamatine) 5 mg TIDPC PO Last administered on 07/01/16 08:35; Start 06/25/16 at 09:00 Sodium Bicarbonate 650 mg BID PO ACIDOSIS Last administered on 07/01/16 08:33; Start 06/25/16 at 09:00 Warfarin Sodium (Coumadin) 1 mg DAILY16 PO Last administered on 06/30/16 16:10 ; Start 06/25/16 at 16:00 Warfarin Sodium 1 each 1 each PRN DAILY PRN MC SEE COMMENTS; Start 06/25/16 at 08:00 Furosemide/Sodium Chloride (Lasix/Iv Sodium Chloride 0.9% 100ml) 100 ml @ 0 mls/ hr CONT PRN IV SEE I/O RECORD; Start 06/25/16 at 10:00; Stop 06/26/16 at 09:57 ; Status DC Brimonidine Tartrate 1 drop 1 drop BID OU Last administered on 07/01/16 08:35; Start 06/25/16 at 14:28 Furosemide/Sodium Chloride (Lasix/Iv Sodium Chloride 0.9% 100ml) 100 ml @ 0 mls/ hr CONT PRN IV SEE I/O RECORD Last administered on 06/28/16 05:09; Start 06/26 at 10:00; Stop 06/28/16 at 16:01; Status DC Bisacodyl 10 mg 10 mg 1X ONCE VT Last administered on 4/26/17at 22:29; Start 06/26/16 at 22:30; Stop 06/26/16 at 22:31; Status DC Sodium Chloride (Iv Sodium Chloride 0.9% 100ml) 100 ml @ As Directed STK-MED ONCE .ROUTE ; Start 06/28/16 at 05:04; Stop 06/28/16 at 05:05; Status DC Furosemide (Lasix) 100 mg STK-MED ONCE .ROUTE ; Start 06/28/16 at 05:05; Stop at 05:06; Status DC Guaifenesin 1200 mg 1,200 mg BID PO Last administered on 07/01/16 08:34; Start 06/28/16 at 14:15 Furosemide 100 mg/ Sodium Chloride 100 ml @ 7 mls/hr CONT PRN IV SEE I/O RECORD ; Start 06/28/16 at 16:00; Stop 06/29/16 at 15:54; Status DC Sodium Chloride (Iv Sodium Chloride 0.9% 100ml) 100 ml @ As Directed STK-MED ONCE .ROUTE ; Start 06/28/16 at 23:52; Stop 06/29/16 at 01:39; Status DC Furosemide 100 mg 100 mg STK-MED ONCE .ROUTE ; Start 06/28/16 at 23:52; Stop at 01:39; Status DC Furosemide 100 mg/ Sodium Chloride 100 ml @ 10 mls/hr CONT PRN IV SEE I/O RECORD; Start 06/29/16 at 16:00 Sodium Chloride (Iv Sodium Chloride 0.9% 100ml) 100 ml @ As Directed STK-MED ONCE .ROUTE Last administered on 06/29/16 19:45; Start 06/29/16 at 19:40; Stop 06/29/16 at 19:41; Status DC Furosemide 100 mg 100 mg STK-MED ONCE .ROUTE Last administered on 06/29/16 19: 45; Start 06/29/16 at 19:40; Stop 06/29/16 at 19:41; Status DC Sodium Chloride (Iv Sodium Chloride 0.9% 100ml) 100 ml @ As Directed STK-MED ONCE .ROUTE Last administered on 06/30/16 05:34; Start 06/30/16 at 05:29; Stop 06/30/16 at 05:30; Status DC Furosemide (Lasix) 100 mg STK-MED ONCE .ROUTE Last administered on 06/30/16 05 :34; Start 06/30/16 at 05:29; Stop 06/30/16 at 05:30; Status DC Nystatin 1 cameron 1 cameron BID TP Last administered on 07/01/16 08:45; Start at 11:00 Dextrose 1,000 ml @ 50 mls/hr Q20H IV Last administered on 06/30/16 17:18; Start 06/30/16 at 17:00 Sodium Chloride (Iv Sodium Chloride 0.9% 100ml) 100 ml @ As Directed STK-MED ONCE .ROUTE Last administered on 06/30/16 20:25; Start 06/30/16 at 20:25; Stop 06/30/16 at 20:26; Status DC Furosemide 100 mg 100 mg STK-MED ONCE .ROUTE Last administered on 06/30/16 20: 25; Start 06/30/16 at 20:25; Stop 06/30/16 at 20:26; Status DC Sodium Chloride (Iv Sodium Chloride 0.9% 100ml) 0 ml @ As Directed STK-MED ONCE .ROUTE Last administered on 07/01/16 05:42; Start 07/01/16 at 05:42; Stop at 05:43; Status DC Furosemide (Lasix) 100 mg STK-MED ONCE .ROUTE Last administered on 07/01/16 05: 43; Start 07/01/16 at 05:43; Stop 07/01/16 at 05:44; Status DC Active Scripts Active Reported Coumadin (Warfarin Sodium) 3 Mg Tablet 3.5 Mg PO DAILY Fluticasone Propionate Nasal [place] (Fluticasone Propionate) 16 Gm [place].susp 2 Spr NS DAILY LAST DOSE GIVEN: DATE: TIME: NEXT DOSE DUE: DATE: TIME: Miralax (Polyethylene Glycol 3350) 17 Gm Powd.pack 1 Packet PO DAILY PRN LAST DOSE GIVEN: DATE: TIME: NEXT DOSE DUE: DATE: TIME: Qvar 40MCG Inhaler (Beclomethasone Dipropionate) 8.7 Gm Aer.w.adap 2 Puff IH BID LAST DOSE GIVEN: DATE: TIME: NEXT DOSE DUE: DATE: TIME: Namenda Xr (Memantine Hcl) 28 Mg Cap.spr.24 28 Mg PO HS LAST DOSE GIVEN: DATE: TIME: NEXT DOSE DUE: DATE: TIME: Sodium Bicarbonate 650 Mg Tablet 1 Tab PO BID LAST DOSE GIVEN: DATE: TIME: NEXT DOSE DUE: DATE: TIME: Docusate Sodium 100 Mg Capsule 1 Cap PO DAILY LAST DOSE GIVEN: DATE: TIME: NEXT DOSE DUE: DATE: TIME: Multivitamins (Multivitamin) 1 Each Tablet 1 Tab PO DAILY LAST DOSE GIVEN: DATE: TIME: NEXT DOSE DUE: DATE: TIME: Alphagan P (Brimonidine Tartrate) 5 Ml Drops 1 Drop EACHEYE BID LAST DOSE GIVEN: DATE: TIME: NEXT DOSE DUE: DATE: TIME: Donepezil Hcl 5 Mg Tablet 1 Tab PO HS LAST DOSE GIVEN: DATE: TIME: NEXT DOSE DUE: DATE: TIME: Benztropine Mesylate 0.5 Mg Tablet 1 Tab PO QODAY LAST DOSE GIVEN: DATE: TIME: NEXT DOSE DUE: DATE: TIME: Latanoprost 2.5 Ml Drops 1 Drop EACHEYE HS LAST DOSE GIVEN: DATE: TIME: NEXT DOSE DUE: DATE: TIME: Allopurinol 100 Mg Tablet 100 Mg PO BID LAST DOSE GIVEN: DATE: TIME: NEXT DOSE DUE: DATE: TIME: Benztropine Mesylate 1 Mg Tablet 1 Mg PO QODAY LAST DOSE GIVEN: DATE: TIME: NEXT DOSE DUE: DATE: TIME: Digoxin 125 Mcg Tablet 0.5 Tab PO DAILY LAST DOSE GIVEN: DATE: TIME: NEXT DOSE DUE: DATE: TIME: Levothyroxine Sodium 75 Mcg Tablet 75 Mcg PO DAILY LAST DOSE GIVEN: DATE: TIME: NEXT DOSE DUE: DATE: TIME: Amiodarone Hcl 200 Mg Tablet 200 Mg PO DAILY LAST DOSE GIVEN: DATE: TIME: NEXT DOSE DUE: DATE: TIME: Furosemide 20 Mg Tablet 40 Mg PO DAILY LAST DOSE GIVEN: DATE: TIME: NEXT DOSE DUE: DATE: TIME: Ropinirole Hcl 1 Mg Tablet 1 Mg PO TID LAST DOSE GIVEN: DATE: TIME: NEXT DOSE DUE: DATE: TIME: Carbidopa-Levo Er 50-200 Tab (Carbidopa/Levodopa) 1 Each Tablet.er 1 Each PO TID LAST DOSE GIVEN: DATE: TIME: NEXT DOSE DUE: DATE: TIME: Lovastatin 20 Mg Tablet 20 Mg PO HS LAST DOSE GIVEN: DATE: TIME: NEXT DOSE DUE: DATE: TIME: Midodrine Hcl 10 Mg Tablet 5 Mg PO TID HOLD FOR SYS BP>120 LAST DOSE GIVEN: DATE: TIME: NEXT DOSE DUE: DATE: TIME: Tamsulosin Hcl 0.4 Mg Cap.er.24h 0.4 Mg PO HS LAST DOSE GIVEN: DATE: TIME: NEXT DOSE DUE: DATE: TIME: Colace (Docusate Sodium) 100 Mg Capsule 100 Mg PO TID PRN LAST DOSE GIVEN: DATE: TIME: NEXT DOSE DUE: DATE: TIME: Vitals/I & O Vital Sign - Last 24 Hours 06/30/16 06/30/16 06/30/16 06/30/16 10:26 10:26 11:58 14:20 Temp 97.6 97.3 Pulse 99 70 100 Resp 20 20 B/P 97/70 109/68 Pulse Ox 94 94 97 O2 Delivery Room Air Room Air Room Air 06/30/16 06/30/16 06/30/16 06/30/16 16:47 19:40 19:51 20:30 Temp 97.8 Pulse 100 98 Resp 20 B/P 109/68 98/67 Pulse Ox 96 88 O2 Delivery Room Air Nasal Cannula Room Air O2 Flow Rate 2.0 06/30/16 07/01/16 07/01/16 07/01/16 23:00 06:16 08:34 08:35 Temp 98.3 Pulse 99 95 95 95 Resp 18 20 B/P 99/65 99/65 99/65 Pulse Ox 94 O2 Delivery Nasal Cannula O2 Flow Rate 2.0 07/01/16 08:38 Pulse 95 B/P 99/65 Intake and Output 06/30/16 06/30/16 07/01/16 15:00 23:00 07:00 Intake Total 600 ml 559 ml 200 ml Output Total 1400 ml 500 ml 2300 ml Balance -800 ml 59 ml -2100 ml CORINNE WARREN [employer] July 01, 2016 09:53
[2016-07-01 10:17] LABS: DIG 2.1 ng/dL (0.9-2.0)
[2016-07-01 10:41] VITALS: BP 95/63
[2016-07-01] MEDS ORDERED: LEVOTHYROXINE 100 MCG TABLET PO ONE (11:00)
[2016-07-01] MEDS: BUDESONIDE 0.5 MG/2 ML NEBU NEB SCH ×2 (11:03→21:08)
[2016-07-01] MEDS ORDERED: LEVOTHYROXINE 25 MCG TABLET. PO ONE (11:30)
[2016-07-01] MEDS: IV DEXTROSE 5% 1,000 ML IV SCH ×2 (11:36→12:44)
[2016-07-01 14:46] VITALS: BP 94/67
[2016-07-01] MEDS: WARFARIN 1 MG TABLET. PO SCH (17:07)
[2016-07-01] MEDS: WARFARIN 2.5 MG TABLET. PO SCH (17:08)
[2016-07-01] MEDS: FUROSEMIDE INJ 100 MG in IV NORMAL SALINE 100ML 90 ML IV PRN (18:26)
[2016-07-01 19:00] VITALS: BP 95/62
[2016-07-01] MEDS: LATANOPROST 0.005% OPHTH SOLUTION 2.5ML BOTTLE. OU SCH (20:18)
[2016-07-01] MEDS: TAMSULOSIN 0.4 MG CAP.ER.24H. PO SCH (20:19)
[2016-07-01] MEDS: DONEPEZIL HCL 5 MG TABLET. PO SCH (20:20)
[2016-07-01] MEDS: ATORVASTATIN CALCIUM 10 MG TABLET. PO SCH (20:20)
[2016-07-01 22:22] VITALS: BP 93/66
[2016-07-02 05:20] VITALS: BP 95/63
[2016-07-02] MEDS: FUROSEMIDE INJ 100 MG in IV NORMAL SALINE 100ML 90 ML IV PRN (06:00)
[2016-07-02] MEDS ORDERED: LEVOTHYROXINE 100 MCG TABLET PO SCH (06:00)
[2016-07-02 06:13] LABS: BASO % 1 % (0-3); EOS # 0.2 x10^3/uL (0.0-0.7); EOS % 5 % (0-3); HEMATOCRIT 37.8 % (39.0-53.0); HEMOGLOBIN 12.3 g/dL (13.0-17.5); LYMPH # 0.5 x10^3/uL (1.0-4.8); LYMPH % 13 % (24-48); MEAN CORPUSCULAR HEMOGLOBIN 35 pg (25-35); MEAN CORPUSCULAR HGB CONC 33 g/dL (31-37); MEAN CORPUSCULAR VOLUME 109 fL (79-100); MONO # 0.4 x10^3/uL (0.0-1.1); MONO % 10 % (0-9); NEUT # 2.6 x10^3uL (1.8-7.7); NEUT % 71 % (31-73); PLATELET COUNT 74 x10^3/uL (140-400); RED BLOOD COUNT 3.48 x10^6/uL (4.30-5.70); RED CELL DISTRIBUTION WIDTH 18.4 % (11.5-14.5); WHITE BLOOD COUNT 3.7 x10^3/uL (4.0-11.0)
[2016-07-02 06:31] LABS: ALBUMIN 3.1 g/dL (3.4-5.0); ALBUMIN/GLOBULIN RATIO 0.9 (1.0-1.7); CALCIUM 8.6 mg/dL (8.5-10.1); CREATININE 2.9 mg/dL (0.7-1.3); MAGNESIUM 2.2 mg/dL (1.8-2.4); POTASSIUM 3.9 mmol/L (3.5-5.1); TOTAL PROTEIN 6.4 g/dL (6.4-8.2)
[2016-07-02] MEDS: FLUTICASONE 50MCG/NASAL SPRAY 16GM BOTTLE. NS SCH (08:07)
[2016-07-02] MEDS: NYSTATIN TOPICAL POWDER 15GM BOTTLE. TP SCH (08:07)
[2016-07-02] MEDS: BRIMONIDINE 0.2% OPHTH SOLUTION 5ML BOTTLE. OU SCH (08:07)
[2016-07-02] MEDS: POLYETHYLENE GLYCOL 3350 17 GM PACKET. PO PRN (08:07)
[2016-07-02] MEDS: GUAIFENESIN ER 600 MG TABLET.ER PO SCH (08:08)
[2016-07-02] MEDS: SODIUM BICARBONATE 650 MG TABLET PO SCH (08:08)
[2016-07-02] MEDS: MEMANTINE 10 MG TABLET. PO SCH (08:09)
[2016-07-02] MEDS: CARBIDOPA/LEVODOPA CR 50/200MG TABLET.SA PO SCH ×2 (08:09→13:57)
[2016-07-02] MEDS: BENZTROPINE MESYLATE 1 MG TABLET PO SCH (08:09)
[2016-07-02] MEDS: DOCUSATE SODIUM 100 MG CAPSULE PO SCH (08:09)
[2016-07-02] MEDS: rOPINIRole 1 MG TABLET. PO SCH ×2 (08:09→13:57)
[2016-07-02] MEDS: DIGOXIN 125 MCG TABLET PO SCH (08:10)
[2016-07-02] MEDS: ALLOPURINOL 100 MG TABLET. PO SCH (08:10)
[2016-07-02] MEDS: MIDODRINE 5 MG TABLET PO SCH ×2 (08:11→12:40)
[2016-07-02] MEDS: AMIODARONE HCL 200 MG TABLET PO SCH (08:12)
[2016-07-02] MEDS: BENZTROPINE MESYLATE 0.5 MG TABLET PO SCH (08:17)
[2016-07-02 08:24] VITALS: BP 130/66
--- NOTE | 2016-07-02 09:08 | PN ---
DATE: 07/01/2016 PROBLEMS: 1. [id number] congestive heart failure with systolic dysfunction. 2. Stage 4 kidney disease. 3. Coronary artery disease. 4. Paroxysmal ventricular tachycardia have ICM. 5. Severe hypothyroidism. 6. Atrial flutter. 7. Hyperlipidemia. 8. Chronic kidney disease stage 4. 9. Macrocytic anemia. 10. Mildly digoxin toxic. SUBJECTIVE: An 80-year-old male who was admitted for shortness of breath, bilateral lower leg edema. I am assuming his care today. He has been cared for by Dr. Catrina Almonte. He has been on Lasix drip and still mildly tachypneic. He has been diuresing nicely according to, although his weight appears unchanged. OBJECTIVE: VITAL SIGNS: Blood pressure is 95/63, pulse 96, respirations 24, pulse ox is 98% on 2 liters. He is mildly tachypneic. His intake 1359, output 4200 with -2841 deficit. Not recorded weight today. HEENT: Tongue is slightly dry. NECK: Supple. LUNGS: With some crackles in the bases. CARDIOVASCULAR: Slightly irregular rhythm and rate. 2/6 systolic murmur. ABDOMEN: Large, mildly distended. Good bowel sounds, nontender. EXTREMITIES: With trace to 1+ edema. LABORATORY DATA: Again his TSH was 82.668. His digoxin level was 2.1. INR is 2.8. His sodium 148 today, BUN 58, creatinine 3.0 about the same. PLAN: Increase his levothyroxine to 100 mcg a day as 75 mcg as his home dose. He was seen by the tile grader. They will continue with Lasix drip for one more day. We will hold off on transferring him. We will continue to monitor and will let Cardiology know about this slightly elevated digoxin level. FERNANDO ALLEN DO DR: IDALMIS/yeni JOB#: [id number] / [id number]
[2016-07-02] MEDS: BUDESONIDE 0.5 MG/2 ML NEBU NEB SCH (09:51)
[2016-07-02 10:29] VITALS: BP 94/64
[2016-07-02] MEDS ORDERED: ATOR10TA60 PO (11:23)
[2016-07-02] MEDS ORDERED: BUDE0.5A IH (11:27)
[2016-07-02] MEDS ORDERED: FURO40TA4 IVP (11:34)
[2016-07-02] MEDS ORDERED: GUAI600T38 PO (11:36)
[2016-07-02] MEDS ORDERED: LEVO100T5 PO (11:39)
[2016-07-02] MEDS ORDERED: MEMA10TA PO (11:42)
[2016-07-02] MEDS ORDERED: NYST30PO9 TP (11:46)
--- NOTE | 2016-07-02 11:55 | PDOC ---
CORINNE STILES [employer] 07/02/16 1155: PROGRESS NOTES Diagnosis Problem Problems Medical Problems: (1) Congestive heart failure Status: Acute Assessment We are seeing the patient for congestive heart failure Acute on chronic congestive heart failure, systolic dysfunction EF 30 -35% 2016 by echocardiogram with stage IV CKD - His weight is down 26# and his breathing has significantly improved. He remains with 1+ pitting edema. Will plan to change Lasix drip to IV push so that we can change his status to acute skilled and continue to monitor. He is not on beta jossue or CHUY/ARB due to low blood pressure Coronary artery disease, status post revascularization S/P CABG x 2, PARIKH to left anterior descending on 03/08/09 Right coronary artery mid 60% stenosis. The patient is doing well without any angina. We will continue optimal medical therapy. Paroxysmal ventricular tachycardia - ICM s/p BiV/AICD placement Continue Amiodarone Atrial fibrillation/flutter, chronic. Evaluated by EP. They recommended to leave him in atrial flutter with rate control. CHADS2 score is 3. He is on Warfarin with theraputic INR. He is on digoxin for rate control. His blood pressure has not been able to support beta jossue. Chronic kidney disease, Stage IV - Follows with renal - Dr Tavera - He is open to dialysis if needed. GFR stayed stable this morning is 21 Hyperlipidemia. His goal LDL is < 70 mg/dL. Continue statin therapy Problems: Subjective His breathing is significantly better and his cough has improved. He continues to bring up sputum and this morning he reports was brown. His swelling has improved and he denies any chest pain or palpitations. He is using his walker when he is up in the room and his arms to feel slightly weak. Objective Vital Signs Date Time Temp Pulse Resp B/P Pulse Ox O2 Delivery O2 Flow Rate FiO2 07/02/16 10:29 97.7 96 20 94/64 92 Nasal Cannula 1.0 Intake and Output 07/02/16 07:00 Intake Total 2353.06 ml Output Total 3850 ml Balance -1496.94 ml Intake Oral 1070 ml IV Total 1283.06 ml Output Urine Total 3850 ml # Bowel Movements 1 Abdomen: Normal bowel sounds, Soft, No tenderness Heart: Regular rate, Normal S1, Normal S2 Extremities: Other (Plus one) General: Alert, Oriented X3, Cooperative HEENT: EOMI, Mucous membr. moist/pink Lungs: Clear to auscultation Psych/Mental Status: Mental status NL, Mood NL Review of Relevant I have reviewed the following items michael (where applicable) has been applied. Labs Laboratory Tests Test 07/01/16 06:20 07/02/16 05:47 Sodium Level 148mmol/L (136-145) 147mmol/L (136-145) Potassium Level 3.9mmol/L (3.5-5.1) 3.9mmol/L (3.5-5.1) Chloride Level 107mmol/L (98-107) 107mmol/L (98-107) Carbon Dioxide Level 32mmol/L (21-32) 36mmol/L (21-32) Anion Gap 9 (6-14) 4 (6-14) Blood Urea Nitrogen 58mg/dL (8-26) 58mg/dL (8-26) Creatinine 3.0mg/dL (0.7-1.3) 2.9mg/dL (0.7-1.3) Estimated GFR (Cockcroft-Gault) 20.2 21.0 Glucose Level 94mg/dL (70-99) 82mg/dL (70-99) Calcium Level 8.7mg/dL (8.5-10.1) 8.6mg/dL (8.5-10.1) Digoxin Level 2.1ng/dL (0.9-2.0) Digoxin Last Dose Date 07/01/16 Digoxin Last Dose Time 0900 White Blood Count 3.7x10^3/uL (4.0-11.0) Red Blood Count 3.48x10^6/uL (4.30-5.70) Hemoglobin 12.3g/dL (13.0-17.5) Hematocrit 37.8% (39.0-53.0) Mean Corpuscular Volume 109fL (79-100) Mean Corpuscular Hemoglobin 35pg (25-35) Mean Corpuscular Hemoglobin Concent 33g/dL (31-37) Red Cell Distribution Width 18.4% (11.5-14.5) Platelet Count 74x10^3/uL (140-400) Neutrophils (%) (Auto) 71% (31-73) Lymphocytes (%) (Auto) 13% (24-48) Monocytes (%) (Auto) 10% (0-9) Eosinophils (%) (Auto) 5% (0-3) Basophils (%) (Auto) 1% (0-3) Neutrophils # (Auto) 2.6x10^3uL (1.8-7.7) Lymphocytes # (Auto) 0.5x10^3/uL (1.0-4.8) Monocytes # (Auto) 0.4x10^3/uL (0.0-1.1) Eosinophils # (Auto) 0.2x10^3/uL (0.0-0.7) Basophils # (Auto) 0.0x10^3/uL (0.0-0.2) BUN/Creatinine Ratio 20 (6-20) Magnesium Level 2.2mg/dL (1.8-2.4) Total Bilirubin 1.0mg/dL (0.2-1.0) Aspartate Amino Transf (AST/SGOT) 19U/L (15-37) Alanine Aminotransferase (ALT/SGPT) 7U/L (16-63) Alkaline Phosphatase 110U/L (46-116) Total Protein 6.4g/dL (6.4-8.2) Albumin 3.1g/dL (3.4-5.0) Albumin/Globulin Ratio 0.9 (1.0-1.7) Microbiology 06/24/16 Blood Culture - Final, Complete NO GROWTH AFTER 5 DAYS Medications Current Medications Aspirin (Jean Aspirin) 325 mg 1X ONCE PO Last administered on 06/24/16 19:45 ; Start 06/24/16 at 19:45; Stop 06/24/16 at 19:46; Status DC Bumetanide (Bumex) 2.5 mg 1X ONCE IVP Last administered on 06/24/16 21:15; Start 06/24/16 at 21:15; Stop 06/24/16 at 21:16; Status DC Furosemide (Lasix) 40 mg 1X ONCE IVP Last administered on 06/24/16 21:15; Start 06/24/16 at 21:15; Stop 06/24/16 at 21:16; Status DC Ondansetron HCl (Zofran) 4 mg PRN Q4HRS PRN IV NAUSEA/VOMITING; Start 06/24/16 at 21:15; Stop 06/25/16 at 21:14; Status DC Allopurinol (Zyloprim) 100 mg BID PO Last administered on 07/02/16 08:10; Start 06/25/16 at 09:00 Amiodarone HCl (Cordarone) 200 mg DAILY PO Last administered on 07/02/16 08:12 ; Start 06/25/16 at 09:00 Benztropine Mesylate (Cogentin) 0.5 mg QODAY PO Last administered on 07/02/16 08:17; Start 06/26/16 at 09:00 Benztropine Mesylate (Cogentin) 1 mg QODAY PO Last administered on 07/02/16 08: 09; Start 06/26/16 at 09:00 Carbidopa/Levodopa (Sinemet Cr) 1 tab.sa TID PO Last administered on 07/02/16 08:09; Start 06/25/16 at 09:00 Digoxin (Lanoxin) 125 mcg DAILY PO Last administered on 07/02/16 08:10; Start 06/25/16 at 09:00 Docusate Sodium (Colace) 100 mg DAILY PO Last administered on 07/02/16 08:09; Start 06/25/16 at 09:00 Donepezil HCl (Aricept) 5 mg HS PO Last administered on 07/01/16 20:20; Start 06/25/16 at 21:00 Fluticasone Propionate (Flonase) 2 spray DAILY NS Last administered on 08:07; Start 06/25/16 at 09:00 Furosemide (Lasix) 40 mg DAILY PO Last administered on 06/25/16 08:34; Start 06/25/16 at 09:00; Stop 06/25/16 at 09:41; Status DC Latanoprost (Xalatan) 1 drop HS OU Last administered on 07/01/16 20:18; Start 06/25/16 at 21:00 Levothyroxine Sodium (Synthroid) 75 mcg DAILY06 PO Last administered on 05:36; Start 06/25/16 at 06:00; Stop 07/01/16 at 09:52; Status DC Polyethylene Glycol (miraLAX) 17 gm DAILY PRN PO CONSTIPATION Last administered on 07/02/16 08:07; Start 06/24/16 at 23:30 Ropinirole HCl (Requip) 1 mg TID PO Last administered on 07/02/16 08:09; Start 06/25/16 at 09:00 Tamsulosin HCl (Flomax) 0.4 mg HS PO Last administered on 07/01/16 20:19; Start 06/25/16 at 21:00 Warfarin Sodium (Coumadin) 2.5 mg DAILY16 PO Last administered on 07/01/16 17: 08; Start 06/25/16 at 16:00 Budesonide (Pulmicort) 0.5 mg RTBID NEB Last administered on 07/02/16 09:51; Start 06/25/16 at 08:00 Brimonidine Tartrate (Alphagan) 1 drop BID OU Last administered on 06/25/16 08 :45; Start 06/25/16 at 10:00; Stop 06/25/16 at 14:28; Status DC Atorvastatin Calcium (Lipitor) 5 mg HS PO HIGH CHOLESTEROL Last administered on 07/01/16 20:20; Start 06/25/16 at 21:00 Memantine (Namenda) 10 mg BID PO Last administered on 07/02/16 08:09; Start at 09:00 Midodrine (Proamatine) 5 mg TIDPC PO Last administered on 07/02/16 08:11; Start 06/25/16 at 09:00 Sodium Bicarbonate 650 mg BID PO ACIDOSIS Last administered on 07/02/16 08:08; Start 06/25/16 at 09:00 Warfarin Sodium (Coumadin) 1 mg DAILY16 PO Last administered on 07/01/16 17:07 ; Start 06/25/16 at 16:00 Warfarin Sodium 1 each 1 each PRN DAILY PRN MC SEE COMMENTS; Start 06/25/16 at 08:00 Furosemide/Sodium Chloride (Lasix/Iv Sodium Chloride 0.9% 100ml) 100 ml @ 0 mls/ hr CONT PRN IV SEE I/O RECORD; Start 06/25/16 at 10:00; Stop 06/26/16 at 09:57 ; Status DC Brimonidine Tartrate 1 drop 1 drop BID OU Last administered on 07/02/16 08:07; Start 06/25/16 at 14:28 Furosemide/Sodium Chloride (Lasix/Iv Sodium Chloride 0.9% 100ml) 100 ml @ 0 mls/ hr CONT PRN IV SEE I/O RECORD Last administered on 06/28/16 05:09; Start 06/26 at 10:00; Stop 06/28/16 at 16:01; Status DC Bisacodyl 10 mg 10 mg 1X ONCE NM Last administered on 06/26/16 22:29; Start 06/26/16 at 22:30; Stop 06/26/16 at 22:31; Status DC Sodium Chloride (Iv Sodium Chloride 0.9% 100ml) 100 ml @ As Directed STK-MED ONCE .ROUTE ; Start 06/28/16 at 05:04; Stop 06/28/16 at 05:05; Status DC Furosemide (Lasix) 100 mg STK-MED ONCE .ROUTE ; Start 06/28/16 at 05:05; Stop at 05:06; Status DC Guaifenesin 1200 mg 1,200 mg BID PO Last administered on 07/02/16 08:08; Start 06/28/16 at 14:15 Furosemide 100 mg/ Sodium Chloride 100 ml @ 7 mls/hr CONT PRN IV SEE I/O RECORD ; Start 06/28/16 at 16:00; Stop 06/29/16 at 15:54; Status DC Sodium Chloride (Iv Sodium Chloride 0.9% 100ml) 100 ml @ As Directed STK-MED ONCE .ROUTE ; Start 06/28/16 at 23:52; Stop 06/29/16 at 01:39; Status DC Furosemide 100 mg 100 mg STK-MED ONCE .ROUTE ; Start 06/28/16 at 23:52; Stop at 01:39; Status DC Furosemide 100 mg/ Sodium Chloride 100 ml @ 10 mls/hr CONT PRN IV SEE I/O RECORD Last administered on 07/02/16 06:00; Start 06/29/16 at 16:00; Stop at 10:08; Status DC Sodium Chloride (Iv Sodium Chloride 0.9% 100ml) 100 ml @ As Directed STK-MED ONCE .ROUTE Last administered on 06/29/16 19:45; Start 06/29/16 at 19:40; Stop 06/29/16 at 19:41; Status DC Furosemide 100 mg 100 mg STK-MED ONCE .ROUTE Last administered on 06/29/16 19: 45; Start 06/29/16 at 19:40; Stop 06/29/16 at 19:41; Status DC Sodium Chloride (Iv Sodium Chloride 0.9% 100ml) 100 ml @ As Directed STK-MED ONCE .ROUTE Last administered on 06/30/16 05:34; Start 06/30/16 at 05:29; Stop 06/30/16 at 05:30; Status DC Furosemide (Lasix) 100 mg STK-MED ONCE .ROUTE Last administered on 06/30/16 05 :34; Start 06/30/16 at 05:29; Stop 06/30/16 at 05:30; Status DC Nystatin 1 jordana 1 jordana BID TP Last administered on 07/02/16 08:07; Start at 11:00 Dextrose 1,000 ml @ 50 mls/hr Q20H IV Last administered on 06/30/16 17:18; Start 06/30/16 at 17:00; Stop 07/01/16 at 12:46; Status DC Sodium Chloride (Iv Sodium Chloride 0.9% 100ml) 100 ml @ As Directed STK-MED ONCE .ROUTE Last administered on 06/30/16 20:25; Start 06/30/16 at 20:25; Stop 06/30/16 at 20:26; Status DC Furosemide 100 mg 100 mg STK-MED ONCE .ROUTE Last administered on 06/30/16 20: 25; Start 06/30/16 at 20:25; Stop 06/30/16 at 20:26; Status DC Sodium Chloride (Iv Sodium Chloride 0.9% 100ml) 0 ml @ As Directed STK-MED ONCE .ROUTE Last administered on 07/01/16 05:42; Start 07/01/16 at 05:42; Stop at 05:43; Status DC Furosemide (Lasix) 100 mg STK-MED ONCE .ROUTE Last administered on 07/01/16 05: 43; Start 07/01/16 at 05:43; Stop 07/01/16 at 05:44; Status DC Levothyroxine Sodium (Synthroid) 100 mcg DAILY06 PO Last administered on 5/2/ 17at 05:59; Start 07/02/16 at 06:00 Levothyroxine Sodium (Synthroid) 25 mcg 1X ONCE PO ; Start 07/01/16 at 11:00; Stop 07/01/16 at 11:01; Status DC Levothyroxine Sodium (Synthroid) 25 mcg 1X ONCE PO Last administered on t 11:35; Start 07/01/16 at 11:30; Stop 07/01/16 at 11:31; Status DC Furosemide (Lasix) 40 mg TID IVP ; Start 07/02/16 at 12:00 Active Scripts Active Reported Nystatin 15 Gm Powder 1 Jordana TP BID Namenda (Memantine Hcl) 10 Mg Tablet 10 Mg PO BID Levothyroxine Sodium 100 Mcg Tablet 100 Mcg PO DAILY06 Mucinex (Guaifenesin) 600 Mg Tablet.er 1,200 Mg PO BID Furosemide 40 Mg Tablet 40 Mg IVP TID Budesonide 0.5 Mg/2 Ml Ampul.neb 0.5 Mg IH BID Atorvastatin Calcium 10 Mg Tablet 5 Mg PO QHS Coumadin (Warfarin Sodium) 3 Mg Tablet 3.5 Mg PO DAILY Fluticasone Propionate Nasal [place] (Fluticasone Propionate) 16 Gm [place].susp 2 Spr NS DAILY LAST DOSE GIVEN: DATE: TIME: NEXT DOSE DUE: DATE: TIME: Miralax (Polyethylene Glycol 3350) 17 Gm Powd.pack 1 Packet PO DAILY PRN LAST DOSE GIVEN: DATE: TIME: NEXT DOSE DUE: DATE: TIME: Qvar 40MCG Inhaler (Beclomethasone Dipropionate) 8.7 Gm Aer.w.adap 2 Puff IH BID LAST DOSE GIVEN: DATE: TIME: NEXT DOSE DUE: DATE: TIME: Sodium Bicarbonate 650 Mg Tablet 1 Tab PO BID LAST DOSE GIVEN: DATE: TIME: NEXT DOSE DUE: DATE: TIME: Multivitamins (Multivitamin) 1 Each Tablet 1 Tab PO DAILY LAST DOSE GIVEN: DATE: TIME: NEXT DOSE DUE: DATE: TIME: Alphagan P (Brimonidine Tartrate) 5 Ml Drops 1 Drop EACHEYE BID LAST DOSE GIVEN: DATE: TIME: NEXT DOSE DUE: DATE: TIME: Donepezil Hcl 5 Mg Tablet 1 Tab PO HS LAST DOSE GIVEN: DATE: TIME: NEXT DOSE DUE: DATE: TIME: Benztropine Mesylate 0.5 Mg Tablet 1 Tab PO QODAY LAST DOSE GIVEN: DATE: TIME: NEXT DOSE DUE: DATE: TIME: Latanoprost 2.5 Ml Drops 1 Drop EACHEYE HS LAST DOSE GIVEN: DATE: TIME: NEXT DOSE DUE: DATE: TIME: Allopurinol 100 Mg Tablet 100 Mg PO BID LAST DOSE GIVEN: DATE: TIME: NEXT DOSE DUE: DATE: TIME: Benztropine Mesylate 1 Mg Tablet 1 Mg PO QODAY LAST DOSE GIVEN: DATE: TIME: NEXT DOSE DUE: DATE: TIME: Digoxin 125 Mcg Tablet 0.5 Tab PO DAILY LAST DOSE GIVEN: DATE: TIME: NEXT DOSE DUE: DATE: TIME: Amiodarone Hcl 200 Mg Tablet 200 Mg PO DAILY LAST DOSE GIVEN: DATE: TIME: NEXT DOSE DUE: DATE: TIME: Ropinirole Hcl 1 Mg Tablet 1 Mg PO TID LAST DOSE GIVEN: DATE: TIME: NEXT DOSE DUE: DATE: TIME: Carbidopa-Levo Er 50-200 Tab (Carbidopa/Levodopa) 1 Each Tablet.er 1 Each PO TID LAST DOSE GIVEN: DATE: TIME: NEXT DOSE DUE: DATE: TIME: Midodrine Hcl 10 Mg Tablet 5 Mg PO TID HOLD FOR SYS BP>120 LAST DOSE GIVEN: DATE: TIME: NEXT DOSE DUE: DATE: TIME: Tamsulosin Hcl 0.4 Mg Cap.er.24h 0.4 Mg PO HS LAST DOSE GIVEN: DATE: TIME: NEXT DOSE DUE: DATE: TIME: Colace (Docusate Sodium) 100 Mg Capsule 100 Mg PO DAILY PRN LAST DOSE GIVEN: DATE: TIME: NEXT DOSE DUE: DATE: TIME: Vitals/I & O Vital Sign - Last 24 Hours 07/01/16 07/01/16 07/01/16 07/01/16 14:46 17:08 19:00 19:10 Temp 97.4 97.6 Pulse 98 98 98 Resp 20 18 B/P 94/67 94/67 95/62 Pulse Ox 94 94 O2 Delivery Room Air Room Air Nasal Cannula O2 Flow Rate 2.0 07/01/16 07/01/16 07/02/16 07/02/16 21:10 22:22 05:20 08:10 Temp 97.3 97.6 Pulse 96 97 70 Resp 20 20 B/P 93/66 95/63 130/66 Pulse Ox 92 98 95 O2 Delivery Room Air Nasal Cannula Nasal Cannula O2 Flow Rate 0.0 2.0 2.0 07/02/16 07/02/16 07/02/16 07/02/16 08:11 08:12 08:24 08:57 Temp 97.8 Pulse 70 70 70 Resp 20 B/P 130/66 130/66 130/66 Pulse Ox 99 O2 Delivery Room Air Room Air 07/02/16 07/02/16 09:51 10:29 Temp 97.7 Pulse 96 Resp 20 B/P 94/64 Pulse Ox 91 92 O2 Delivery Room Air Nasal Cannula O2 Flow Rate 1.0 Intake and Output 07/01/16 07/01/16 07/02/16 15:00 23:00 07:00 Intake Total 1194.48 ml 822.58 ml 336 ml Output Total 1100 ml 950 ml 1800 ml Balance 94.48 ml -127.42 ml -1464 ml NITZA VALLE Jr, MD 07/03/16 1844: PROGRESS NOTES Assessment The patient was seen by Corinne Stiels APRN. I have reviewed her findings and plan and agree with the above. Due to staffing constraints, we did not have an attending available on this day to see the patient. Problems: CORINNE STILES APRN July 02, 2016 11:55 NITZA VALLE Jr, MD July 03, 2016 18:44
[2016-07-02] MEDS: FUROSEMIDE 40 MG/4 ML VIAL IVP SCH ×2 (12:39→12:43)
--- NOTE | 2016-07-02 13:55 | NUR ---
Discharge: patient discharged as in patient and will be re-admitted as Swing Bed for PT/OT. Patient transferred to room 132. Patient ambulated to room with walker accompanied by staff. Patients family at bedside.
--- NOTE | 2016-07-02 20:29 | DS ---
DATE OF DISCHARGE: 07/02/2016 DISPOSITION: Swing bed status. DISCHARGE DIAGNOSES: 1. Acute on chronic systolic and diastolic heart failure 2. Coronary artery disease. 3. Paroxysmal of ventricular tachycardia. 4. Atrial fibrillation/flutter -- chronic. 5. Chronic kidney disease stage 4. 6. Hypothyroidism, currently not controlled, current TSH is 82. 7. Hyperlipidemia. 8. Microcytic anemia. 9. Slightly elevated digoxin level. 10. Long-term use of anticoagulants. 11. Hypernatremia secondary to Lasix. HOSPITAL COURSE: This is an 80-year-old male who was admitted with congestive heart failure. He is on Lasix drip during this hospital stay and had significant weight loss greater than 20 pounds. He became less and less short of breath and was also found to have a TSH still elevated at 82 and his levothyroxine was increased. PHYSICAL EXAMINATION: VITAL SIGNS: On the day of discharge, blood pressure 130/66, pulse 70, respirations 20 and pulse ox 99% on room air. GENERAL: Elderly male in no acute distress. He is much less tachypneic than yesterday. His color is good. HEENT: His tongue was moist. NECK: Supple. LUNGS: Clear in all courtney. CARDIOVASCULAR: Irregular rhythm and rate. ABDOMEN: Soft, nontender. EXTREMITIES: Just a trace of edema. LABORATORY DATA: His INR is 2.8 today. PLAN: The patient will be discharged to swing bed, medicines have been reconciled and we will keep an eye on his labs and also Cardiology saw him. FERNANDO ALLEN DO DR: IDALMIS/yeni JOB#: [id number] / [id number]
== END 2016-07-02 13:40 | disposition swing bed (61) | DRG 291 ==
LOC: ER 18:41 → 1 SOUTH 21:27
PROVIDERS: ADMIT Internal Medicine; ATTEND Internal Medicine
DX: I13.0 Hypertensive heart and chronic kidney disease with heart failure and stage 1 through stage 4 chronic kidney disease, or unspecified chronic kidney disease (principal); I50.43 Acute on chronic combined systolic (congestive) and diastolic (congestive) heart failure; N18.4 Chronic kidney disease, stage 4 (severe); E87.0 Hyperosmolality and hypernatremia; I48.92 Unspecified atrial flutter; I47.2 Ventricular tachycardia; N17.9 Acute kidney failure, unspecified; D50.9 Iron deficiency anemia, unspecified; D53.9 Nutritional anemia, unspecified; E03.9 Hypothyroidism, unspecified; E78.00 Pure hypercholesterolemia, unspecified; E78.5 Hyperlipidemia, unspecified; F03.90 Unspecified dementia, unspecified severity, without behavioral disturbance, psychotic disturbance, mood disturbance, and anxiety; G47.33 Obstructive sleep apnea (adult) (pediatric); I25.10 Atherosclerotic heart disease of native coronary artery without angina pectoris; I25.5 Ischemic cardiomyopathy; I48.0 Paroxysmal atrial fibrillation; I48.2 Chronic atrial fibrillation; J44.9 Chronic obstructive pulmonary disease, unspecified; J45.909 Unspecified asthma, uncomplicated; I95.1 Orthostatic hypotension; R63.4 Abnormal weight loss; D69.6 Thrombocytopenia, unspecified; M10.9 Gout, unspecified; T50.1X5A Adverse effect of loop [high-ceiling] diuretics, initial encounter; Z79.01 Long term (current) use of anticoagulants; Z80.7 Family history of other malignant neoplasms of lymphoid, hematopoietic and related tissues; Z82.0 Family history of epilepsy and other diseases of the nervous system; Z82.49 Family history of ischemic heart disease and other diseases of the circulatory system; Z85.46 Personal history of malignant neoplasm of prostate; Z86.718 Personal history of other venous thrombosis and embolism; Z87.891 Personal history of nicotine dependence; Z92.3 Personal history of irradiation; Z95.1 Presence of aortocoronary bypass graft; Z95.810 Presence of automatic (implantable) cardiac defibrillator; Z68.27 Body mass index [BMI] 27.0-27.9, adult
CPT/HCPCS: 36415; 71010; 71020; 80048; 80053; 80076; 80162; 81001; 82553; 82607; 82746; 83605; 83690; 83735; 83880; 84436; 84439; 84443; 84480; 84484; 85008; 85027; 85610; 85730; 87040; 87641; 93005; 94640; 94760; 96374; 96375; G0238; G0481; J1940; J7626; 97110; 97530; 97535; 99285-25

== ENCOUNTER 2016-07-02 11:57 | Inpatient (IN) | payer MEDICARE, BC ==
[~2016-07-02] VITALS: Ht 177.8 cm; Wt 87.3 kg
[~2016-07-02 11:57] MED LIST changes: +ASPI-612 PO; -ASPI81TA9 PO; +ATOR10TA60 PO; -BECL8.7A IH; +BECL8.7A7 IH; +BUDE0.5A11 IH; +DOCU-109 PO; -DOCU-27 PO; +DOCU100C28 PO; -DOCU100C5 PO; -FLUT16SP NS; +FLUT16SP21 NS; +FURO40TA4 PO; +GUAI600T47 PO; +LEVO100T5 PO; +MEMA10TA PO; +NYST15PO9 TP; -WARF3TAB PO; +WARF3TAB54 PO
[2016-07-02] MEDS ORDERED: POLYETHYLENE GLYCOL 3350 17 GM PACKET. PO PRN (15:00)
[2016-07-02 15:14] VITALS: BP 108/68
[2016-07-02] MEDS ORDERED: WARFARIN 2.5 MG TABLET. PO SCH ×2 (16:00)
[2016-07-02] MEDS ORDERED: WARFARIN 1 MG TABLET. PO SCH (16:00)
[2016-07-02] MEDS: MIDODRINE 5 MG TABLET PO SCH (17:37)
[2016-07-02 19:45] VITALS: BP 92/64
[2016-07-02] MEDS: BUDESONIDE 0.5 MG/2 ML NEBU NEB SCH (20:00)
[2016-07-02] MEDS: TAMSULOSIN 0.4 MG CAP.ER.24H. PO SCH (20:53)
[2016-07-02] MEDS: MEMANTINE 10 MG TABLET. PO SCH (20:54)
[2016-07-02] MEDS: DONEPEZIL HCL 5 MG TABLET. PO SCH (20:54)
[2016-07-02] MEDS: ALLOPURINOL 100 MG TABLET. PO SCH (20:54)
[2016-07-02] MEDS: FUROSEMIDE 40 MG/4 ML VIAL IVP SCH (20:54)
[2016-07-02] MEDS: ATORVASTATIN CALCIUM 10 MG TABLET. PO SCH (20:54)
[2016-07-02] MEDS: CARBIDOPA/LEVODOPA CR 50/200MG TABLET.SA PO SCH (20:55)
[2016-07-02] MEDS: BRIMONIDINE 0.2% OPHTH SOLUTION 5ML BOTTLE. OU SCH (20:56)
[2016-07-02] MEDS: rOPINIRole 1 MG TABLET. PO SCH (20:56)
[2016-07-02] MEDS: SODIUM BICARBONATE 650 MG TABLET PO SCH (20:56)
[2016-07-02] MEDS: LATANOPROST 0.005% OPHTH SOLUTION 2.5ML BOTTLE. OU SCH (20:56)
[2016-07-02] MEDS ORDERED: BECLOMETHASONE DIPROPIONATE IH SCH (21:00)
[2016-07-02] MEDS: NYSTATIN TOPICAL POWDER 15GM BOTTLE. TP SCH (21:14)
[2016-07-02 22:52] VITALS: BP 97/66
[2016-07-03 06:16] VITALS: BP 92/67
[2016-07-03] MEDS: LEVOTHYROXINE 100 MCG TABLET PO SCH (06:18)
[2016-07-03 07:17] LABS: ALBUMIN/GLOBULIN RATIO 0.9 (1.0-1.7); CALCIUM 8.6 mg/dL (8.5-10.1); CREATININE 2.9 mg/dL (0.7-1.3); POTASSIUM 3.9 mmol/L (3.5-5.1); TOTAL BILIRUBIN 0.9 mg/dL (0.2-1.0); TOTAL PROTEIN 6.3 g/dL (6.4-8.2)
[2016-07-03] MEDS: BUDESONIDE 0.5 MG/2 ML NEBU NEB SCH ×2 (08:00→21:34)
[2016-07-03] MEDS: AMIODARONE HCL 200 MG TABLET PO SCH (08:39)
[2016-07-03] MEDS: DIGOXIN 125 MCG TABLET PO SCH (08:40)
[2016-07-03] MEDS: ALLOPURINOL 100 MG TABLET. PO SCH ×2 (08:41→19:26)
[2016-07-03] MEDS: MIDODRINE 5 MG TABLET PO SCH ×3 (08:41→16:49)
[2016-07-03] MEDS: FUROSEMIDE 40 MG/4 ML VIAL IVP SCH ×2 (08:42→13:27)
[2016-07-03] MEDS: MEMANTINE 10 MG TABLET. PO SCH ×2 (08:42→19:25)
[2016-07-03] MEDS: BRIMONIDINE 0.2% OPHTH SOLUTION 5ML BOTTLE. OU SCH ×2 (08:43→19:27)
[2016-07-03] MEDS: FLUTICASONE 50MCG/NASAL SPRAY 16GM BOTTLE. NS SCH (08:43)
[2016-07-03] MEDS: SODIUM BICARBONATE 650 MG TABLET PO SCH ×2 (08:44→19:26)
[2016-07-03] MEDS: CARBIDOPA/LEVODOPA CR 50/200MG TABLET.SA PO SCH ×3 (08:45→19:25)
[2016-07-03] MEDS: BENZTROPINE MESYLATE 0.5 MG TABLET PO SCH (08:45)
[2016-07-03] MEDS: NYSTATIN TOPICAL POWDER 15GM BOTTLE. TP SCH ×2 (09:07→19:30)
[2016-07-03] MEDS: rOPINIRole 1 MG TABLET. PO SCH ×3 (09:08→19:27)
--- NOTE | 2016-07-03 13:09 | PDOC ---
PROGRESS NOTES Assessment CHF, acute on chronic, systolic. He is probably at his baseline at this point in time. He seems to be tolerating physical rehab in the swing unit. We should probably change his diuretic back to oral. He is not on beta-jossue or the other usual medications due to chronic low blood pressures. Coronary artery disease. He is not having any angina at this point time. We will continue the present medications. As above, no beta-jossue due to low blood pressures. Ventricular tachycardia, paroxysmal. He has not had any defibrillator discharges. We will continue him on amiodarone. Atrial fibrillation, chronic. His INR is therapeutic. We will continue warfarin. Problems: Subjective We are seeing him for CHF. S: He is now in the swing unit. He started physical rehab yesterday. Denies chest pain, shortness of breath at rest, palpitations, syncope or ankle edema. He does feel better. Objective Vital Signs Date Time Temp Pulse Resp B/P Pulse Ox O2 Delivery O2 Flow Rate FiO2 07/03/16 12:12 92/67 07/03/16 10:06 96 Room Air 07/03/16 08:41 67 07/03/16 06:16 98.3 18 2.0 Intake and Output 07/03/16 07:00 Intake Total 780 ml Balance 780 ml Intake Oral 780 ml # Voids 7 # Bowel Movements 2 Abdomen: Normal bowel sounds, Soft, No tenderness Heart: Normal S1, Normal S2 ( irregular rate and rhythm. 2/6 systolic ejection murmur.) Extremities: No clubbing, No cyanosis, No edema, Normal pulses General: Alert, Oriented X3, Cooperative, No acute distress HEENT: Atraumatic, EOMI, Mucous membr. moist/pink Lungs: Clear to auscultation, Other ( Decreased breath sounds at the bases bilaterally) Neck: No JVD, +2 carotid pulse wo bruit Neuro: Normal speech, Cranial nerves 3-12 NL Psych/Mental Status: Mental status NL, Mood NL Skin: No rashes, No breakdown Review of Relevant I have reviewed the following items michael (where applicable) has been applied. Labs Laboratory Tests Test 07/03/16 06:18 Prothrombin Time 30.5SEC (9.4-11.4) Prothromb Time International Ratio 3.0 (0.9-1.1) Sodium Level 148mmol/L (136-145) Potassium Level 3.9mmol/L (3.5-5.1) Chloride Level 107mmol/L (98-107) Carbon Dioxide Level 36mmol/L (21-32) Anion Gap 5 (6-14) Blood Urea Nitrogen 60mg/dL (8-26) Creatinine 2.9mg/dL (0.7-1.3) Estimated GFR (Cockcroft-Gault) 21.0 BUN/Creatinine Ratio 21 (6-20) Glucose Level 82mg/dL (70-99) Calcium Level 8.6mg/dL (8.5-10.1) Total Bilirubin 0.9mg/dL (0.2-1.0) Aspartate Amino Transf (AST/SGOT) 21U/L (15-37) Alanine Aminotransferase (ALT/SGPT) 7U/L (16-63) Alkaline Phosphatase 107U/L (46-116) CU-Bwi-[id number]-Type Natriuretic Peptide 32482vh/mL (0-449) Total Protein 6.3g/dL (6.4-8.2) Albumin 3.0g/dL (3.4-5.0) Albumin/Globulin Ratio 0.9 (1.0-1.7) Medications Current Medications Allopurinol (Zyloprim) 100 mg BID PO Last administered on 07/03/16 08:41; Start 07/02/16 at 21:00 Amiodarone HCl (Cordarone) 200 mg DAILY PO Last administered on 07/03/16 08:39 ; Start 07/03/16 at 09:00 Atorvastatin Calcium (Lipitor) 5 mg QHS PO Last administered on 07/02/16 20:54 ; Start 07/02/16 at 21:00 Benztropine Mesylate (Cogentin) 0.5 mg QODAY PO Last administered on 07/03/16 08:45; Start 07/03/16 at 09:00 Benztropine Mesylate (Cogentin) 1 mg QODAY PO ; Start 07/04/16 at 09:00 Budesonide (Pulmicort) 0.5 mg RTBID NEB Last administered on 07/03/16 08:00; Start 07/02/16 at 20:00 Carbidopa/Levodopa (Sinemet Cr) 1 tab.sa TID PO Last administered on 07/03/16 08:45; Start 07/02/16 at 21:00 Digoxin (Lanoxin) 125 mcg DAILY PO Last administered on 07/03/16 08:40; Start 07/03/16 at 09:00 Docusate Sodium (Colace) 100 mg PRN DAILY PRN PO CONSTIPATION; Start 07/02/16 at 15:00 Donepezil HCl (Aricept) 5 mg HS PO Last administered on 07/02/16 20:54; Start 07/02/16 at 21:00 Fluticasone Propionate (Flonase) 2 spray DAILY NS Last administered on 08:43; Start 07/03/16 at 09:00 Guaifenesin (Mucinex Er) 1,200 mg BID PO Last administered on 07/03/16 08:39; Start 07/02/16 at 21:00 Latanoprost (Xalatan) 1 drop HS OU Last administered on 07/02/16 20:56; Start 07/02/16 at 21:00 Levothyroxine Sodium (Synthroid) 100 mcg DAILY06 PO Last administered on 06:18; Start 07/03/16 at 06:00 Memantine (Namenda) 10 mg BID PO Last administered on 07/03/16 08:42; Start 07/02/16 at 21:00 Nystatin (Nystop) 1 jordana BID TP Last administered on 07/03/16 09:07; Start at 21:00 Polyethylene Glycol (miraLAX) 17 gm PRN DAILY PRN PO CONSTIPATION; Start at 15:00 Ropinirole HCl (Requip) 1 mg TID PO Last administered on 07/03/16 09:08; Start 07/02/16 at 21:00 Tamsulosin HCl (Flomax) 0.4 mg HS PO Last administered on 07/02/16 20:53; Start 07/02/16 at 21:00 Warfarin Sodium (Coumadin) 2.5 mg DAILY16 PO Last administered on 07/02/16 17: 37; Start 07/02/16 at 16:00; Stop 07/03/16 at 10:15; Status DC Non-Formulary Medication 2 puff BID IH ALLERGIES; Start 07/02/16 at 21:00; Status UNV Brimonidine Tartrate (Alphagan) 1 drop BID OU Last administered on 07/03/16 08: 43; Start 07/02/16 at 21:00 Midodrine (Proamatine) 5 mg TIDPC PO Last administered on 07/03/16 12:12; Start 07/02/16 at 17:30 Sodium Bicarbonate 650 mg BID PO Last administered on 07/03/16 08:44; Start 07/02/16 at 21:00 Furosemide (Lasix) 40 mg TID IVP Last administered on 07/03/16 08:42; Start 07/02/16 at 21:00 Warfarin Sodium (Coumadin Per Pharmacy) 1 each PRN DAILY PRN MC SEE COMMENTS Last administered on 07/03/16 10:19; Start 07/02/16 at 15:45 Warfarin Sodium (Coumadin) 1 mg DAILY16 PO Last administered on 07/02/16 17:37 ; Start 07/02/16 at 16:00; Stop 07/03/16 at 10:16; Status DC Warfarin Sodium (Coumadin Per Physician) 1 each PRN DAILY PRN MC SEE COMMENTS; Start 07/02/16 at 15:45; Status Cancel Warfarin Sodium (Coumadin) 2.5 mg DAILY16 PO ; Start 07/02/16 at 16:00; Status Cancel Warfarin Sodium (Coumadin) 3 mg 1X WARF ONCE PO ; Start 07/03/16 at 16:00; Stop 07/03/16 at 16:01 Active Scripts Active Reported Nystatin 15 Gm Powder 1 Jordana TP BID Namenda (Memantine Hcl) 10 Mg Tablet 10 Mg PO BID Levothyroxine Sodium 100 Mcg Tablet 100 Mcg PO DAILY06 Mucinex (Guaifenesin) 600 Mg Tablet.er 1,200 Mg PO BID Furosemide 40 Mg Tablet 40 Mg IVP TID Budesonide 0.5 Mg/2 Ml Ampul.neb 0.5 Mg IH BID Atorvastatin Calcium 10 Mg Tablet 5 Mg PO QHS Coumadin (Warfarin Sodium) 3 Mg Tablet 3.5 Mg PO DAILY Fluticasone Propionate Nasal [place] (Fluticasone Propionate) 16 Gm [place].susp 2 Spr NS DAILY LAST DOSE GIVEN: DATE: TIME: NEXT DOSE DUE: DATE: TIME: Miralax (Polyethylene Glycol 3350) 17 Gm Powd.pack 1 Packet PO DAILY PRN LAST DOSE GIVEN: DATE: TIME: NEXT DOSE DUE: DATE: TIME: Qvar 40MCG Inhaler (Beclomethasone Dipropionate) 8.7 Gm Aer.w.adap 2 Puff IH BID LAST DOSE GIVEN: DATE: TIME: NEXT DOSE DUE: DATE: TIME: Sodium Bicarbonate 650 Mg Tablet 1 Tab PO BID LAST DOSE GIVEN: DATE: TIME: NEXT DOSE DUE: DATE: TIME: Alphagan P (Brimonidine Tartrate) 5 Ml Drops 1 Drop EACHEYE BID LAST DOSE GIVEN: DATE: TIME: NEXT DOSE DUE: DATE: TIME: Donepezil Hcl 5 Mg Tablet 1 Tab PO HS LAST DOSE GIVEN: DATE: TIME: NEXT DOSE DUE: DATE: TIME: Benztropine Mesylate 0.5 Mg Tablet 1 Tab PO QODAY LAST DOSE GIVEN: DATE: TIME: NEXT DOSE DUE: DATE: TIME: Latanoprost 2.5 Ml Drops 1 Drop EACHEYE HS LAST DOSE GIVEN: DATE: TIME: NEXT DOSE DUE: DATE: TIME: Allopurinol 100 Mg Tablet 100 Mg PO BID LAST DOSE GIVEN: DATE: TIME: NEXT DOSE DUE: DATE: TIME: Benztropine Mesylate 1 Mg Tablet 1 Mg PO QODAY LAST DOSE GIVEN: DATE: TIME: NEXT DOSE DUE: DATE: TIME: Digoxin 125 Mcg Tablet 1 Tab PO DAILY LAST DOSE GIVEN: DATE: TIME: NEXT DOSE DUE: DATE: TIME: Amiodarone Hcl 200 Mg Tablet 200 Mg PO DAILY LAST DOSE GIVEN: DATE: TIME: NEXT DOSE DUE: DATE: TIME: Ropinirole Hcl 1 Mg Tablet 1 Mg PO TID LAST DOSE GIVEN: DATE: TIME: NEXT DOSE DUE: DATE: TIME: Carbidopa-Levo Er 50-200 Tab (Carbidopa/Levodopa) 1 Each Tablet.er 1 Each PO TID LAST DOSE GIVEN: DATE: TIME: NEXT DOSE DUE: DATE: TIME: Midodrine Hcl 10 Mg Tablet 5 Mg PO TID HOLD FOR SYS BP>120 LAST DOSE GIVEN: DATE: TIME: NEXT DOSE DUE: DATE: TIME: Tamsulosin Hcl 0.4 Mg Cap.er.24h 0.4 Mg PO HS LAST DOSE GIVEN: DATE: TIME: NEXT DOSE DUE: DATE: TIME: Colace (Docusate Sodium) 100 Mg Capsule 100 Mg PO DAILY PRN LAST DOSE GIVEN: DATE: TIME: NEXT DOSE DUE: DATE: TIME: Vitals/I & O Vital Sign - Last 24 Hours 07/02/16 07/02/16 07/02/16 07/02/16 14:57 15:14 17:37 19:45 Temp 97.6 97.4 Pulse 101 101 100 Resp 20 20 B/P 108/68 92/64 Pulse Ox 96 95 O2 Delivery Room Air Room Air Room Air 07/02/16 07/02/16 07/03/16 07/03/16 20:00 22:52 06:16 08:00 Temp 97.5 98.3 Pulse 99 97 Resp 20 18 B/P 97/66 92/67 Pulse Ox 96 100 O2 Delivery Nasal Cannula Room Air Nasal Cannula Room Air O2 Flow Rate 2.0 2.0 07/03/16 07/03/16 07/03/16 07/03/16 08:15 08:39 08:40 08:41 Pulse 97 97 67 B/P 92/67 O2 Delivery Room Air 07/03/16 07/03/16 10:06 12:12 B/P 92/67 Pulse Ox 96 O2 Delivery Room Air Intake and Output 07/02/16 07/02/16 07/03/16 15:00 23:00 07:00 Intake Total 480 ml 300 ml Balance 480 ml 300 ml NITZA VALLE Jr, MD July 03, 2016 13:09
[2016-07-03] MEDS ORDERED: WARFARIN 3 MG TABLET. PO ONE (16:00)
[2016-07-03 16:13] VITALS: BP 92/61
[2016-07-03] MEDS: DONEPEZIL HCL 5 MG TABLET. PO SCH (19:25)
[2016-07-03] MEDS: ATORVASTATIN CALCIUM 10 MG TABLET. PO SCH (19:26)
[2016-07-03] MEDS: TAMSULOSIN 0.4 MG CAP.ER.24H. PO SCH (19:26)
[2016-07-03 19:27] VITALS: BP 103/67
[2016-07-03] MEDS: LATANOPROST 0.005% OPHTH SOLUTION 2.5ML BOTTLE. OU SCH (19:27)
[2016-07-04] MEDS: LEVOTHYROXINE 100 MCG TABLET PO SCH (06:00)
[2016-07-04 07:28] LABS: CALCIUM 8.7 mg/dL (8.5-10.1); GFR 20.2; POTASSIUM 3.8 mmol/L (3.5-5.1)
[2016-07-04 07:41] VITALS: BP 102/73
[2016-07-04] MEDS: BRIMONIDINE 0.2% OPHTH SOLUTION 5ML BOTTLE. OU SCH ×2 (09:14→20:42)
[2016-07-04] MEDS: NYSTATIN TOPICAL POWDER 15GM BOTTLE. TP SCH ×2 (09:14→20:41)
[2016-07-04] MEDS: FLUTICASONE 50MCG/NASAL SPRAY 16GM BOTTLE. NS SCH (09:14)
[2016-07-04] MEDS: rOPINIRole 1 MG TABLET. PO SCH ×3 (09:15→20:41)
[2016-07-04] MEDS: FUROSEMIDE 40 MG TABLET PO SCH (09:15)
[2016-07-04] MEDS: DIGOXIN 125 MCG TABLET PO SCH (09:15)
[2016-07-04] MEDS: SODIUM BICARBONATE 650 MG TABLET PO SCH ×2 (09:15→20:41)
[2016-07-04] MEDS: CARBIDOPA/LEVODOPA CR 50/200MG TABLET.SA PO SCH ×3 (09:15→20:41)
[2016-07-04] MEDS: BENZTROPINE MESYLATE 1 MG TABLET PO SCH (09:15)
[2016-07-04] MEDS: ALLOPURINOL 100 MG TABLET. PO SCH ×2 (09:15→20:41)
[2016-07-04] MEDS: MIDODRINE 5 MG TABLET PO SCH ×3 (09:16→17:02)
[2016-07-04] MEDS: MEMANTINE 10 MG TABLET. PO SCH ×2 (09:16→20:41)
[2016-07-04] MEDS: AMIODARONE HCL 200 MG TABLET PO SCH (09:16)
--- NOTE | 2016-07-04 09:22 | PDOC ---
CORINNE STILES PATIENT ACCESS ASSOCIATE 07/04/16 0922: PROGRESS NOTES Assessment We are seeing the patient for heart failure Chronic congestive heart failure, systolic dysfunction EF 30 -35% 03/2016 and stage IV CKD - Back to baseline on oral lasix. - He is very sensitive to increasing diuretics because of his history of orthostatic hypotension - monitor closely. He is not on beta jossue or CHUY/ARB due to low blood pressures. Coronary artery disease, status post revascularization S/P CABG x 2, PARIKH to left anterior descending on 03/08/09 Right coronary artery mid 60% stenosis. The patient is doing well without any angina. We will continue optimal medical therapy. Paroxysmal ventricular tachycardia - ICM s/p BiV/AICD placement Atrial fibrillation/flutter, chronic. Evaluated by EP. They recommended to leave him in atrial flutter with rate control. CHADS2 score is 3. He is on Warfarin. He is on digoxin and Amiodarone for rate control. His blood pressure has not been able to support beta jossue. Chronic kidney disease, Stage IV - Follows with renal - Dr Tavera Hyperlipidemia. His goal LDL is < 70 mg/dL. Continue statin therapy Problems: Subjective Breathing is back to baseline and he is getting around the hallways and doing well. He denies any chest pain or palpitations. Objective Vital Signs Date Time Temp Pulse Resp B/P (MAP) Pulse Ox O2 Delivery O2 Flow Rate FiO2 07/04/16 07:41 97.6 98 20 102/73 (83) 98 Nasal Cannula 2.0 Intake and Output 07/04/16 06:59 Intake Total 1260 ml Balance 1260 ml Intake Oral 1260 ml # Voids 3 Abdomen: Normal bowel sounds, Soft, No hepatospenomegaly Heart: Regular rate, Normal S1, Normal S2 Extremities: Other (improved edema) General: Alert, Oriented X3, Cooperative HEENT: EOMI, Mucous membr. moist/pink Lungs: Clear to auscultation Psych/Mental Status: Mental status NL, Mood NL Review of Relevant I have reviewed the following items michael (where applicable) has been applied. Labs Laboratory Tests Test 07/03/16 06:18 07/04/16 05:50 Prothrombin Time 30.5 SEC (9.4-11.4) 33.4 SEC (9.4-11.4) Prothromb Time International Ratio 3.0 (0.9-1.1) 3.2 (0.9-1.1) Sodium Level 148 mmol/L (136-145) 148 mmol/L (136-145) Potassium Level 3.9 mmol/L (3.5-5.1) 3.8 mmol/L (3.5-5.1) Chloride Level 107 mmol/L (98-107) 106 mmol/L (98-107) Carbon Dioxide Level 36 mmol/L (21-32) 37 mmol/L (21-32) Anion Gap 5 (6-14) 5 (6-14) Blood Urea Nitrogen 60 mg/dL (8-26) 61 mg/dL (8-26) Creatinine 2.9 mg/dL (0.7-1.3) 3.0 mg/dL (0.7-1.3) Estimated GFR (Cockcroft-Gault) 21.0 20.2 BUN/Creatinine Ratio 21 (6-20) Glucose Level 82 mg/dL (70-99) 83 mg/dL (70-99) Calcium Level 8.6 mg/dL (8.5-10.1) 8.7 mg/dL (8.5-10.1) Total Bilirubin 0.9 mg/dL (0.2-1.0) Aspartate Amino Transf (AST/SGOT) 21 U/L (15-37) Alanine Aminotransferase (ALT/SGPT) 7 U/L (16-63) Alkaline Phosphatase 107 U/L (46-116) [id number]-[id number]-Type Natriuretic Peptide 58107 pg/mL (0-449) Total Protein 6.3 g/dL (6.4-8.2) Albumin 3.0 g/dL (3.4-5.0) Albumin/Globulin Ratio 0.9 (1.0-1.7) Medications Current Medications Allopurinol (Zyloprim) 100 mg BID PO Last administered on 07/03/16 19:26; Start 07/02/16 at 21:00 Amiodarone HCl (Cordarone) 200 mg DAILY PO Last administered on 07/03/16 08:39 ; Start 07/03/16 at 09:00 Atorvastatin Calcium (Lipitor) 5 mg QHS PO Last administered on 07/03/16 19:26 ; Start 07/02/16 at 21:00 Benztropine Mesylate (Cogentin) 0.5 mg QODAY PO Last administered on 07/03/16 08:45; Start 07/03/16 at 09:00 Benztropine Mesylate (Cogentin) 1 mg QODAY PO ; Start 07/04/16 at 09:00 Budesonide (Pulmicort) 0.5 mg RTBID NEB Last administered on 07/03/16 21:34; Start 07/02/16 at 20:00 Carbidopa/Levodopa (Sinemet Cr) 1 tab.sa TID PO Last administered on 07/03/16 19:25; Start 07/02/16 at 21:00 Digoxin (Lanoxin) 125 mcg DAILY PO Last administered on 07/03/16 08:40; Start 07/03/16 at 09:00 Docusate Sodium (Colace) 100 mg PRN DAILY PRN PO CONSTIPATION; Start 07/02/16 at 15:00 Donepezil HCl (Aricept) 5 mg HS PO Last administered on 07/03/16 19:25; Start 07/02/16 at 21:00 Fluticasone Propionate (Flonase) 2 spray DAILY NS Last administered on 08:43; Start 07/03/16 at 09:00 Guaifenesin (Mucinex Er) 1,200 mg BID PO Last administered on 07/03/16 19:26; Start 07/02/16 at 21:00 Latanoprost (Xalatan) 1 drop HS OU Last administered on 07/03/16 19:27; Start 07/02/16 at 21:00 Levothyroxine Sodium (Synthroid) 100 mcg DAILY06 PO Last administered on 06:00; Start 07/03/16 at 06:00 Memantine (Namenda) 10 mg BID PO Last administered on 07/03/16 19:25; Start 07/02/16 at 21:00 Nystatin (Nystop) 1 jordana BID TP Last administered on 07/03/16 19:30; Start at 21:00 Polyethylene Glycol (miraLAX) 17 gm PRN DAILY PRN PO CONSTIPATION; Start at 15:00 Ropinirole HCl (Requip) 1 mg TID PO Last administered on 07/03/16 19:27; Start 07/02/16 at 21:00 Tamsulosin HCl (Flomax) 0.4 mg HS PO Last administered on 07/03/16 19:26; Start 07/02/16 at 21:00 Warfarin Sodium (Coumadin) 2.5 mg DAILY16 PO Last administered on 07/02/16 17: 37; Start 07/02/16 at 16:00; Stop 07/03/16 at 10:15; Status DC Non-Formulary Medication 2 puff BID IH ALLERGIES; Start 07/02/16 at 21:00; Status UNV Brimonidine Tartrate (Alphagan) 1 drop BID OU Last administered on 07/03/16 19: 27; Start 07/02/16 at 21:00 Midodrine (Proamatine) 5 mg TIDPC PO Last administered on 07/03/16 16:49; Start 07/02/16 at 17:30 Sodium Bicarbonate 650 mg BID PO Last administered on 07/03/16 19:26; Start 07/02/16 at 21:00 Furosemide (Lasix) 40 mg TID IVP Last administered on 07/03/16 13:27; Start 07/02/16 at 21:00; Stop 07/03/16 at 13:53; Status DC Warfarin Sodium (Coumadin Per Pharmacy) 1 each PRN DAILY PRN MC SEE COMMENTS Last administered on 07/04/16 08:21; Start 07/02/16 at 15:45 Warfarin Sodium (Coumadin) 1 mg DAILY16 PO Last administered on 07/02/16 17:37 ; Start 07/02/16 at 16:00; Stop 07/03/16 at 10:16; Status DC Warfarin Sodium (Coumadin Per Physician) 1 each PRN DAILY PRN MC SEE COMMENTS; Start 07/02/16 at 15:45; Status Cancel Warfarin Sodium (Coumadin) 2.5 mg DAILY16 PO ; Start 07/02/16 at 16:00; Status Cancel Warfarin Sodium (Coumadin) 3 mg 1X WARF ONCE PO Last administered on 07/03/16 16:50; Start 07/03/16 at 16:00; Stop 07/03/16 at 16:02; Status DC Furosemide (Lasix) 40 mg DAILY PO ; Start 07/04/16 at 09:00 Warfarin Sodium (Coumadin) 2.5 mg 1X WARF ONCE PO ; Start 07/04/16 at 16:00; Stop 07/04/16 at 16:01 Active Scripts Active Reported Nystatin 15 Gm Powder 1 Jordana TP BID Namenda (Memantine Hcl) 10 Mg Tablet 10 Mg PO BID Levothyroxine Sodium 100 Mcg Tablet 100 Mcg PO DAILY06 Mucinex (Guaifenesin) 600 Mg Tablet.er 1,200 Mg PO BID Furosemide 40 Mg Tablet 40 Mg IVP TID Budesonide 0.5 Mg/2 Ml Ampul.neb 0.5 Mg IH BID Atorvastatin Calcium 10 Mg Tablet 5 Mg PO QHS Coumadin (Warfarin Sodium) 3 Mg Tablet 3.5 Mg PO DAILY Fluticasone Propionate Nasal [place] (Fluticasone Propionate) 16 Gm [place].susp 2 Spr NS DAILY LAST DOSE GIVEN: DATE: TIME: NEXT DOSE DUE: DATE: TIME: Miralax (Polyethylene Glycol 3350) 17 Gm Powd.pack 1 Packet PO DAILY PRN LAST DOSE GIVEN: DATE: TIME: NEXT DOSE DUE: DATE: TIME: Qvar 40MCG Inhaler (Beclomethasone Dipropionate) 8.7 Gm Aer.w.adap 2 Puff IH BID LAST DOSE GIVEN: DATE: TIME: NEXT DOSE DUE: DATE: TIME: Sodium Bicarbonate 650 Mg Tablet 1 Tab PO BID LAST DOSE GIVEN: DATE: TIME: NEXT DOSE DUE: DATE: TIME: Alphagan P (Brimonidine Tartrate) 5 Ml Drops 1 Drop EACHEYE BID LAST DOSE GIVEN: DATE: TIME: NEXT DOSE DUE: DATE: TIME: Donepezil Hcl 5 Mg Tablet 1 Tab PO HS LAST DOSE GIVEN: DATE: TIME: NEXT DOSE DUE: DATE: TIME: Benztropine Mesylate 0.5 Mg Tablet 1 Tab PO QODAY LAST DOSE GIVEN: DATE: TIME: NEXT DOSE DUE: DATE: TIME: Latanoprost 2.5 Ml Drops 1 Drop EACHEYE HS LAST DOSE GIVEN: DATE: TIME: NEXT DOSE DUE: DATE: TIME: Allopurinol 100 Mg Tablet 100 Mg PO BID LAST DOSE GIVEN: DATE: TIME: NEXT DOSE DUE: DATE: TIME: Benztropine Mesylate 1 Mg Tablet 1 Mg PO QODAY LAST DOSE GIVEN: DATE: TIME: NEXT DOSE DUE: DATE: TIME: Digoxin 125 Mcg Tablet 1 Tab PO DAILY LAST DOSE GIVEN: DATE: TIME: NEXT DOSE DUE: DATE: TIME: Amiodarone Hcl 200 Mg Tablet 200 Mg PO DAILY LAST DOSE GIVEN: DATE: TIME: NEXT DOSE DUE: DATE: TIME: Ropinirole Hcl 1 Mg Tablet 1 Mg PO TID LAST DOSE GIVEN: DATE: TIME: NEXT DOSE DUE: DATE: TIME: Carbidopa-Levo Er 50-200 Tab (Carbidopa/Levodopa) 1 Each Tablet.er 1 Each PO TID LAST DOSE GIVEN: DATE: TIME: NEXT DOSE DUE: DATE: TIME: Midodrine Hcl 10 Mg Tablet 5 Mg PO TID HOLD FOR SYS BP>120 LAST DOSE GIVEN: DATE: TIME: NEXT DOSE DUE: DATE: TIME: Tamsulosin Hcl 0.4 Mg Cap.er.24h 0.4 Mg PO HS LAST DOSE GIVEN: DATE: TIME: NEXT DOSE DUE: DATE: TIME: Colace (Docusate Sodium) 100 Mg Capsule 100 Mg PO DAILY PRN LAST DOSE GIVEN: DATE: TIME: NEXT DOSE DUE: DATE: TIME: Vitals/I & O Vital Sign - Last 24 Hours 07/03/16 07/03/16 07/03/16 07/03/16 10:06 12:12 16:13 16:49 Temp 97.5 Pulse 99 Resp 20 B/P (MAP) 92/67 92/61 (71) 92/61 Pulse Ox 96 95 O2 Delivery Room Air Room Air 07/03/16 07/03/16 07/03/16 07/04/16 19:27 20:00 21:36 07:41 Temp 97.4 97.6 Pulse 96 98 Resp 18 20 B/P (MAP) 103/67 (79) 102/73 (83) Pulse Ox 94 95 98 O2 Delivery Room Air Nasal Cannula Room Air Nasal Cannula O2 Flow Rate 2.0 2.0 Intake and Output 07/03/16 07/03/16 07/04/16 14:59 22:59 06:59 Intake Total 480 ml 580 ml 200 ml Balance 480 ml 580 ml 200 ml NITZA VALLE Jr, MD 07/06/16 1010: PROGRESS NOTES Assessment The patient was seen by Corinne Stiles APRN and I agree with her assessment and plan. Due to staffing constraints, we did not have an attending available on this day to see the patient. Problems: CORINNE STILES APRN July 04, 2016 09:22 NITZA VALLE Jr, MD July 06, 2016 10:10
[2016-07-04] MEDS: BUDESONIDE 0.5 MG/2 ML NEBU NEB SCH ×2 (12:25→21:42)
[2016-07-04] MEDS ORDERED: WARFARIN 2.5 MG TABLET. PO ONE (16:00)
[2016-07-04 18:41] VITALS: BP 99/61
[2016-07-04] MEDS: TAMSULOSIN 0.4 MG CAP.ER.24H. PO SCH (20:41)
[2016-07-04] MEDS: DONEPEZIL HCL 5 MG TABLET. PO SCH (20:41)
[2016-07-04] MEDS: ATORVASTATIN CALCIUM 10 MG TABLET. PO SCH (20:42)
[2016-07-04] MEDS: LATANOPROST 0.005% OPHTH SOLUTION 2.5ML BOTTLE. OU SCH (20:42)
[2016-07-05 05:10] VITALS: BP 91/57
[2016-07-05] MEDS: LEVOTHYROXINE 100 MCG TABLET PO SCH (05:29)
[2016-07-05] MEDS: BRIMONIDINE 0.2% OPHTH SOLUTION 5ML BOTTLE. OU SCH ×2 (07:59→20:29)
[2016-07-05] MEDS: MIDODRINE 5 MG TABLET PO SCH ×3 (07:59→18:07)
[2016-07-05] MEDS: SODIUM BICARBONATE 650 MG TABLET PO SCH ×2 (07:59→20:29)
[2016-07-05] MEDS: FLUTICASONE 50MCG/NASAL SPRAY 16GM BOTTLE. NS SCH (07:59)
[2016-07-05] MEDS: BENZTROPINE MESYLATE 0.5 MG TABLET PO SCH (08:00)
[2016-07-05] MEDS: FUROSEMIDE 40 MG TABLET PO SCH (08:01)
[2016-07-05] MEDS: AMIODARONE HCL 200 MG TABLET PO SCH (08:01)
[2016-07-05] MEDS: DIGOXIN 125 MCG TABLET PO SCH (08:01)
[2016-07-05] MEDS: rOPINIRole 1 MG TABLET. PO SCH ×3 (08:02→20:30)
[2016-07-05] MEDS: ALLOPURINOL 100 MG TABLET. PO SCH ×2 (08:02→20:28)
[2016-07-05] MEDS: CARBIDOPA/LEVODOPA CR 50/200MG TABLET.SA PO SCH ×3 (08:02→20:29)
[2016-07-05] MEDS: MEMANTINE 10 MG TABLET. PO SCH ×2 (08:02→20:28)
[2016-07-05] MEDS: NYSTATIN TOPICAL POWDER 15GM BOTTLE. TP SCH ×2 (08:03→20:30)
[2016-07-05] MEDS: BUDESONIDE 0.5 MG/2 ML NEBU NEB SCH ×2 (10:10→20:36)
[2016-07-05 11:17] VITALS: BP 97/67
[2016-07-05] MEDS ORDERED: WARFARIN 2 MG TABLET. PO ONE (16:00)
[2016-07-05 17:08] VITALS: BP 105/66
[2016-07-05] MEDS: ATORVASTATIN CALCIUM 10 MG TABLET. PO SCH (20:28)
[2016-07-05] MEDS: TAMSULOSIN 0.4 MG CAP.ER.24H. PO SCH (20:28)
[2016-07-05] MEDS: LATANOPROST 0.005% OPHTH SOLUTION 2.5ML BOTTLE. OU SCH (20:29)
[2016-07-05] MEDS: DONEPEZIL HCL 5 MG TABLET. PO SCH (20:29)
[2016-07-06] MEDS: LEVOTHYROXINE 100 MCG TABLET PO SCH (06:07)
[2016-07-06 08:00] VITALS: BP 87/53
[2016-07-06] MEDS: BENZTROPINE MESYLATE 1 MG TABLET PO SCH (08:32)
[2016-07-06] MEDS: FLUTICASONE 50MCG/NASAL SPRAY 16GM BOTTLE. NS SCH (08:32)
[2016-07-06] MEDS: ALLOPURINOL 100 MG TABLET. PO SCH ×2 (08:32→20:19)
[2016-07-06] MEDS: MEMANTINE 10 MG TABLET. PO SCH ×2 (08:32→20:19)
[2016-07-06] MEDS: SODIUM BICARBONATE 650 MG TABLET PO SCH ×2 (08:32→20:20)
[2016-07-06] MEDS: BRIMONIDINE 0.2% OPHTH SOLUTION 5ML BOTTLE. OU SCH ×2 (08:32→20:20)
[2016-07-06] MEDS: FUROSEMIDE 40 MG TABLET PO SCH (08:32)
[2016-07-06] MEDS: MIDODRINE 5 MG TABLET PO SCH ×3 (08:33→17:11)
[2016-07-06] MEDS: NYSTATIN TOPICAL POWDER 15GM BOTTLE. TP SCH ×2 (08:34→20:21)
[2016-07-06] MEDS: DIGOXIN 125 MCG TABLET PO SCH (08:34)
[2016-07-06] MEDS: CARBIDOPA/LEVODOPA CR 50/200MG TABLET.SA PO SCH ×3 (08:34→20:19)
[2016-07-06] MEDS: AMIODARONE HCL 200 MG TABLET PO SCH (08:34)
[2016-07-06] MEDS: rOPINIRole 1 MG TABLET. PO SCH ×3 (08:39→20:20)
[2016-07-06] MEDS: BUDESONIDE 0.5 MG/2 ML NEBU NEB SCH ×3 (11:36→20:31)
[2016-07-06] MEDS ORDERED: WARFARIN 2.5 MG TABLET. PO ONE (16:00)
[2016-07-06 16:25] VITALS: BP 99/64
[2016-07-06] MEDS: TAMSULOSIN 0.4 MG CAP.ER.24H. PO SCH (20:19)
[2016-07-06] MEDS: DONEPEZIL HCL 5 MG TABLET. PO SCH (20:19)
[2016-07-06] MEDS: LATANOPROST 0.005% OPHTH SOLUTION 2.5ML BOTTLE. OU SCH (20:20)
[2016-07-06] MEDS: ATORVASTATIN CALCIUM 10 MG TABLET. PO SCH (20:20)
[2016-07-07] MEDS: LEVOTHYROXINE 100 MCG TABLET PO SCH (05:42)
[2016-07-07 08:00] VITALS: BP 94/53
[2016-07-07] MEDS: DOCUSATE SODIUM 100 MG CAPSULE PO PRN (09:06)
[2016-07-07] MEDS: BENZTROPINE MESYLATE 1 MG TABLET PO SCH (09:06)
[2016-07-07] MEDS: FUROSEMIDE 40 MG TABLET PO SCH (09:07)
[2016-07-07] MEDS: MEMANTINE 10 MG TABLET. PO SCH ×2 (09:07→19:36)
[2016-07-07] MEDS: AMIODARONE HCL 200 MG TABLET PO SCH (09:07)
[2016-07-07] MEDS: ALLOPURINOL 100 MG TABLET. PO SCH ×2 (09:07→19:36)
[2016-07-07] MEDS: DIGOXIN 125 MCG TABLET PO SCH (09:09)
[2016-07-07] MEDS: CARBIDOPA/LEVODOPA CR 50/200MG TABLET.SA PO SCH ×3 (09:09→19:36)
[2016-07-07] MEDS: MIDODRINE 5 MG TABLET PO SCH ×3 (09:10→17:38)
[2016-07-07] MEDS: rOPINIRole 1 MG TABLET. PO SCH ×3 (09:50→19:35)
[2016-07-07] MEDS: BRIMONIDINE 0.2% OPHTH SOLUTION 5ML BOTTLE. OU SCH ×2 (09:50→19:37)
[2016-07-07] MEDS: FLUTICASONE 50MCG/NASAL SPRAY 16GM BOTTLE. NS SCH (09:51)
[2016-07-07] MEDS: BENZTROPINE MESYLATE 0.5 MG TABLET PO SCH (09:51)
[2016-07-07] MEDS: SODIUM BICARBONATE 650 MG TABLET PO SCH ×2 (09:51→19:35)
[2016-07-07] MEDS: NYSTATIN TOPICAL POWDER 15GM BOTTLE. TP SCH ×2 (09:52→19:35)
[2016-07-07] MEDS: BUDESONIDE 0.5 MG/2 ML NEBU NEB SCH ×2 (11:32→20:44)
[2016-07-07] MEDS ORDERED: WARFARIN 2.5 MG TABLET. PO ONE (16:00)
[2016-07-07 19:20] VITALS: BP 97/64
[2016-07-07] MEDS: LATANOPROST 0.005% OPHTH SOLUTION 2.5ML BOTTLE. OU SCH (19:35)
[2016-07-07] MEDS: ATORVASTATIN CALCIUM 10 MG TABLET. PO SCH (19:36)
[2016-07-07] MEDS: TAMSULOSIN 0.4 MG CAP.ER.24H. PO SCH (19:36)
[2016-07-07] MEDS: DONEPEZIL HCL 5 MG TABLET. PO SCH (19:36)
[2016-07-08 05:05] VITALS: BP 104/71
[2016-07-08] MEDS: LEVOTHYROXINE 100 MCG TABLET PO SCH (05:11)
[2016-07-08] MEDS: DIGOXIN 125 MCG TABLET PO SCH (08:13)
[2016-07-08] MEDS: FLUTICASONE 50MCG/NASAL SPRAY 16GM BOTTLE. NS SCH (08:13)
[2016-07-08] MEDS: AMIODARONE HCL 200 MG TABLET PO SCH (08:13)
[2016-07-08] MEDS: BRIMONIDINE 0.2% OPHTH SOLUTION 5ML BOTTLE. OU SCH ×2 (08:14→19:24)
[2016-07-08] MEDS: CARBIDOPA/LEVODOPA CR 50/200MG TABLET.SA PO SCH ×3 (08:14→19:24)
[2016-07-08] MEDS: MEMANTINE 10 MG TABLET. PO SCH ×2 (08:14→19:24)
[2016-07-08] MEDS: MIDODRINE 5 MG TABLET PO SCH ×3 (08:14→17:30)
[2016-07-08] MEDS: ALLOPURINOL 100 MG TABLET. PO SCH ×2 (08:14→19:24)
[2016-07-08] MEDS: NYSTATIN TOPICAL POWDER 15GM BOTTLE. TP SCH ×2 (08:14→19:24)
[2016-07-08] MEDS: SODIUM BICARBONATE 650 MG TABLET PO SCH ×2 (08:14→19:23)
[2016-07-08] MEDS: rOPINIRole 1 MG TABLET. PO SCH ×3 (08:14→19:24)
[2016-07-08] MEDS: FUROSEMIDE 40 MG TABLET PO SCH (08:14)
[2016-07-08] MEDS: BUDESONIDE 0.5 MG/2 ML NEBU NEB SCH ×2 (09:50→21:07)
[2016-07-08] MEDS ORDERED: WARFARIN 2.5 MG TABLET. PO ONE (16:00)
[2016-07-08 18:06] VITALS: BP 96/64
[2016-07-08] MEDS: LATANOPROST 0.005% OPHTH SOLUTION 2.5ML BOTTLE. OU SCH (19:24)
[2016-07-08] MEDS: ATORVASTATIN CALCIUM 10 MG TABLET. PO SCH (19:25)
[2016-07-08] MEDS: TAMSULOSIN 0.4 MG CAP.ER.24H. PO SCH (19:25)
[2016-07-08] MEDS: DONEPEZIL HCL 5 MG TABLET. PO SCH (19:25)
[2016-07-09 05:12] VITALS: BP 102/67
[2016-07-09] MEDS: LEVOTHYROXINE 100 MCG TABLET PO SCH (05:16)
[2016-07-09 07:38] VITALS: BP 100/73
[2016-07-09] MEDS: DIGOXIN 125 MCG TABLET PO SCH (07:41)
[2016-07-09] MEDS: FUROSEMIDE 40 MG TABLET PO SCH (07:41)
[2016-07-09] MEDS: MEMANTINE 10 MG TABLET. PO SCH (07:46)
[2016-07-09] MEDS: SODIUM BICARBONATE 650 MG TABLET PO SCH (07:47)
[2016-07-09] MEDS: rOPINIRole 1 MG TABLET. PO SCH ×2 (07:47→13:31)
[2016-07-09] MEDS: CARBIDOPA/LEVODOPA CR 50/200MG TABLET.SA PO SCH ×2 (07:48→13:31)
[2016-07-09] MEDS: BENZTROPINE MESYLATE 0.5 MG TABLET PO SCH (07:48)
[2016-07-09] MEDS: ALLOPURINOL 100 MG TABLET. PO SCH (07:48)
[2016-07-09] MEDS: AMIODARONE HCL 200 MG TABLET PO SCH (07:48)
[2016-07-09] MEDS: BRIMONIDINE 0.2% OPHTH SOLUTION 5ML BOTTLE. OU SCH (07:49)
[2016-07-09] MEDS: NYSTATIN TOPICAL POWDER 15GM BOTTLE. TP SCH (07:49)
[2016-07-09] MEDS: FLUTICASONE 50MCG/NASAL SPRAY 16GM BOTTLE. NS SCH (07:49)
[2016-07-09] MEDS: MIDODRINE 5 MG TABLET PO SCH ×3 (07:50→16:35)
[2016-07-09] MEDS: DOCUSATE SODIUM 100 MG CAPSULE PO PRN (08:50)
[2016-07-09] MEDS: BUDESONIDE 0.5 MG/2 ML NEBU NEB SCH (11:50)
--- NOTE | 2016-07-09 12:50 | DS ---
DATE OF DISCHARGE: 07/09/2016 HOSPITAL COURSE: The patient is an 80-year-old male patient who was admitted with increasing shortness of breath and marked bilateral lower limb edema. He was started initially on Lasix drip at 5 mg, was increased to 7 and eventually 10 mg and at that time, his serum sodium has risen to 148 and initially there was a plan for him to be transferred to [facility]; however, a decision was made to admit him to swing bed to continue medical treatment. 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 PHYSICAL EXAMINATION: GENERAL: When I examined today, he looked well and was clearly in no apparent respiratory distress, pale, but no jaundice, cyanosis, no thyromegaly. No jugular venous distention. No limb edema. VITAL SIGNS: His heart rate was 70, blood pressure was 100/73, temperature was 97.4, respiratory rate was 16 and oxygen saturation was 93% on room air. HEAD, EYES, EARS, NOSE AND THROAT: Showed normocephalic, atraumatic. NECK: Supple. HEART: Showed normal first and second heart sounds with no gallop, rub or murmur. CHEST: Clear to auscultation. No crepitation or rhonchi. ABDOMEN: Distended, soft, nontender. No guarding or rigidity. No organomegaly. All hernial orifices intact. Bowel sounds normal. NEUROLOGIC: He is awake, alert, responding appropriately. Cranial nerves are intact. He moves extremities without difficulty, ambulates with a walker. His intake was 780, no output was recorded. LABORATORY DATA: His most recent lab work was on 07/04/2016, at that time his serum sodium 148, potassium 3.8, chloride 106, bicarbonate 37, anion gap of 5, BUN 61, creatinine 3, estimated GFR was 20 mL per minute. His glucose was 83 and calcium was 8.7. As of this morning, his prothrombin time was 23.4, INR of 2.3. DISCHARGE MEDICATIONS: The patient was discharged home to continue on following medications: Allopurinol 100 mg twice a day, amiodarone 200 mg once a day, atorvastatin calcium 10 mg at bedtime, beclomethasone dipropionate or QVAR 40 mcg inhaler 2 puffs twice a day, benztropine mesylate 1 mg every other day, benztropine 0.5 mg every other day, brimonidine tartrate or [place] one drop to both eyes twice a day, budesonide 0.5 mg in 2 mL by nebulizer twice a day, carbidopa/levodopa extended release 50/200 one tablet 3 times a day, digoxin 125 mcg once a day, docusate sodium 100 mg once a day, Aricept 10 mg at bedtime, Flonase 2 sprays to each nostril once a day, furosemide 40 mg 3 times a day, guaifenesin or Mucinex 1200 mg twice a day, latanoprost 1 drop for both eyes at bedtime for glaucoma, levothyroxine sodium 100 mcg once a day, Namenda 10 mg twice a day, midodrine 5 mg 3 times a day, nystatin 15 gram powder applied topically twice a day, polyethylene glycol 17 grams in 8 ounces of water daily p.r.n. for constipation, ReQuip 1 mg 3 times a day, sodium bicarbonate 650 mg twice a day, tamsulosin 0.4 mg at bedtime and warfarin sodium 3 mg tablet p.o. daily. FINAL DISCHARGE DIAGNOSES: 1. Acute on chronic systolic congestive heart failure with an ejection fraction of 35%, back to baseline oral Lasix. 2. Coronary artery disease status post revascularization, status post CABG x 2, PARIKH to left anterior descending on 03/08/2009. Right coronary artery is with 60% stenosis. The patient is doing well without angina. To continue with medical therapy. 3. Paroxysmal ventricular tachycardia with ischemic cardiomyopathy, status post biventricular AICD placement, atrial fibrillation and flutter, chronic, evaluated by electrophysiologists. They have recommended to leave him in atrial flutter with rate control. His CHADS score is 3. He is on warfarin. He is on digoxin and amiodarone for rate control. His blood pressure has not been able support beta blockers. 4. Chronic kidney disease, stage 4. 5. Hyperlipidemia with his goal of LDL is less than 70. 6. Hypothyroidism. His TSH actually is extremely high, although improving. The most recent TSH was 82.6. AYESHA REED MD DR: ALESSIA/yeni JOB#: [id number] / [id number]
[2016-07-09 15:33] VITALS: BP 110/75
[2016-07-09] MEDS ORDERED: WARFARIN 2.5 MG TABLET. PO ONE (16:00)
[2016-07-09 16:35] VITALS: BP 110/75
== END 2016-07-09 16:45 | disposition home health service (06) | DRG 292 ==
LOC: LND 14:17
PROVIDERS: ADMIT Family Medicine; ATTEND Family Medicine
DX: I50.23 Acute on chronic systolic (congestive) heart failure (principal); I47.2 Ventricular tachycardia; I48.92 Unspecified atrial flutter; N18.4 Chronic kidney disease, stage 4 (severe); I48.2 Chronic atrial fibrillation; I25.5 Ischemic cardiomyopathy; I95.1 Orthostatic hypotension; I25.10 Atherosclerotic heart disease of native coronary artery without angina pectoris; E78.5 Hyperlipidemia, unspecified; E03.9 Hypothyroidism, unspecified; Z79.01 Long term (current) use of anticoagulants; Z95.1 Presence of aortocoronary bypass graft; Z95.810 Presence of automatic (implantable) cardiac defibrillator
CPT/HCPCS: 36415; 80048; 80053; 83880; 85610; 94640; 94760; J1940; J7626; 97110; 97116; 97530; 97535

== ENCOUNTER 2016-07-14 12:42 | Inpatient (IN) | payer MEDICARE, BC ==
[~2016-07-14] VITALS: Ht 177.8 cm; Wt 90.9 kg
--- NOTE | 2016-07-14 12:57 | PHYS DOC ---
General Chief Complaint: code stroke Stated Complaint: WEAKNESS Time Seen by MD: 12:46 Source: patient, EMS Exam Limitations: clinical condition Problems: History of Present Illness Initial Comments Pt is 80/M to ED via EMS from [facility] Code Stroke for leg weakness. EMS/pt reports he felt sudden onset leg weakness this morning, "I can't control my left leg." No headache/cp/sob/n/v, no lateralizing neurodeficits. Pt recently discharged from this facility swing bed admission with CHF and leg weakness. Pt states he was doing OK until this morning. Denies fall/trauma or other causative factor. Pt does have b/l leg weakness which appears to be symmetric and consistent with prior history of leg weakness. Afebrile, VSS on ED arrival. Pt has DNR Cardiology Dr Willard Nephrology Dr Tavera Timing/Duration: 1-3 hours Severity: severe Modifying Factors: worse with movement Associated Symptoms: weakness Allergies: Coded Allergies: No Known Drug Allergies (Unverified , 03/07/16) Past Medical History Medical History: deep vein thrombosis, heart disease, other (prostate cancer, gout, CHF (EF 35%), CAD (RCA 60% stenosis), PSVT, ischemic cardiomyopathy, atrial fibrillation/flutter, CKD Stage 4, HLP, hypothyroid) Surgical History: pacemaker, other (CABG x 2 2009, biventricular AICD pacer/ defib, TURP) Social History Smoker: quit greater than 1 year Alcohol: occasionally Drugs: none Review of Systems Constitutional: denies chills, denies diaphoresis, denies fever, malaise Respiratory: see HPI (these are chronic symptoms, no new ), cough, orthopnea, shortness of breath, denies wheezing Cardiovascular: denies chest pain, edema, denies palpitations, denies syncope Gastrointestinal: denies diarrhea, denies nausea, denies vomiting Musculoskeletal: denies back pain, denies joint swelling, denies neck pain Psychiatric/Neurological: see HPI Hematologic/Lymphatic: see HPI Physical Exam General Appearance: no apparent distress, obese (disheveled) Eyes: bilateral eye normal inspection, bilateral eye PERRL, bilateral eye EOMI Ear, Nose, Throat: hearing grossly normal, normal ENT inspection, normal pharynx, other (pt has chronic left facial hypotonicity, no new asymmetry) Neck: non-tender, supple Respiratory: other (coarse BS b/l slightly diminished at bases but good air movement no respiratory distress) Cardiovascular: normal peripheral pulses, irregularly irregular, other (3+ pitting LE edema with chronic skin changes) Gastrointestinal: non tender, soft Back: no CVA tenderness, no vertebral tenderness Extremities: normal range of motion, non-tender, no calf tenderness, pedal edema Neurologic/Psychiatric: cupboard builder II-XII nml as tested, no motor/sensory deficits, alert, normal mood/affect, oriented x 3 Skin: warm/dry (LE venous insuff skin changes as above) Orders, Labs, Meds EKG: V-paced/irregular PATIENT: DHAVAL THOMAS ACCOUNT: [id number] : 1935 LOCATION: ER AGE: 80 SEX: M EXAM STATUS: REG ER ORD. PHYSICIAN: TAVON GREY DO REASON: LLE weakness, dizziness, altered vision PROCEDURE: CT CODE STROKE HEAD WO CT head without contrast History: Left upper extremity weakness, dizziness. Comparison: 05/30/2016. Procedure: Axial images are obtained of the head from the skull base through the vertex without IV contrast. Findings: The ventricles and sulci are normal for the patient's age. No mass-effect, intracranial mass, midline shift, hemorrhage or obvious acute infarction is identified. Basilar cisterns are patent. Bone windows demonstrate no significant calvarial abnormality. The visualized paranasal sinuses appear clear. Mild bilateral periventricular white matter hypodensities likely chronic small vessel ischemic disease. Impression: 1. No acute intracranial process. [facility] physician called at time of dictation PQRS Compliance Statement: One or more of the following individualized dose reduction techniques were utilized for this examination: 1. Automated exposure control 2. Adjustment of the mA and/or kV according to patient size 3. Use of iterative reconstruction technique DICTATED AND SIGNED BY: REJI LINDSEY MD DATE: 07/14/161257 CC: HAILEY DORANTES MD; TAVON GREY DO ~ PATIENT: DHAVAL THOMAS ACCOUNT: [id number] : 1935 LOCATION: ER AGE: 80 SEX: M EXAM STATUS: REG ER ORD. PHYSICIAN: TAVON GREY DO REASON: LLE weak PROCEDURE: CHEST AP ONLY Examination: Single frontal view the chest History: History of code stroke Comparison: 06/30/2016 Findings: Left-sided cardiac pacer ACD is unchanged. Unchanged mild cardiomegaly. Mild prominent appearing bilateral interstitial lung markings with bibasal lung airspace opacity likely atelectasis or infiltrates grossly similar to prior exam. Probable small bilateral pleural effusions. Impression: Unchanged bibasal lung airspace opacities likely pneumonia or atelectasis with small bilateral pleural effusions grossly similar to prior exam. Probable mild congestive changes. DICTATED AND SIGNED BY: REJI LINDSEY MD DATE: 07/14/16 1310 CC: HAILEY DORANTES MD; TAVON GREY DO ~ Atelectasis most likely, no clinical evidence pneumonia. WBC 3.5, Hb 12.7, MCV 107, Plt 74, ESR 9, INR 2.8, BUN 63, Cr 3.2, lactic acid 1.1, Trop I 0.202, etoh < 10, BNP 69128, Digoxin 3.4 1538: I discussed pt with Dr Oreilly, adaptive physical education teacher for Dr Willard. He feels pt likely at his baseline, and while cardiac status contributes to pt weakness it is likely multifactorial with pt's comorbidities. Trop I elevation 2nd to renal disease. He recommends observation admission [facility], consult Cardiology adaptive physical education teacher to evaluate pt and titrate meds as needed. I discussed pt with Dr Almonte who accepts admission. IMPRESSIONS: Acute on Chronic Systolic Heart Failure Acute on Chronic Kidney Disease Elevated troponin I Generalized Weakness Digoxin toxicity Macrocytic anemia Thrombocytopenia Therapeutic INR longterm warfarin anticoagulation Departure Disposition: 09 ADMITTED INPATIENT Condition: STABLE TAVON GREY DO July 14, 2016 12:57
--- NOTE | 2016-07-14 13:06 | RAD ---
CT head without contrast History: Left upper extremity weakness, dizziness. Comparison: 05/30/2016. Procedure: Axial images are obtained of the head from the skull base through the vertex without IV contrast. Findings: The ventricles and sulci are normal for the patient's age. No mass-effect, intracranial mass, midline shift, hemorrhage or obvious acute infarction is identified. Basilar cisterns are patent. Bone windows demonstrate no significant calvarial abnormality. The visualized paranasal sinuses appear clear. Mild bilateral periventricular white matter hypodensities likely chronic small vessel ischemic disease. Impression: 1. No acute intracranial process. [facility] physician called at time of dictation PQRS Compliance Statement: One or more of the following individualized dose reduction techniques were utilized for this examination: 1. Automated exposure control 2. Adjustment of the mA and/or kV according to patient size 3. Use of iterative reconstruction technique
--- NOTE | 2016-07-14 13:14 | RAD ---
Examination: Single frontal view the chest History: History of code stroke Comparison: 06/30/2016 Findings: Left-sided cardiac pacer ACD is unchanged. Unchanged mild cardiomegaly. Mild prominent appearing bilateral interstitial lung markings with bibasal lung airspace opacity likely atelectasis or infiltrates grossly similar to prior exam. Probable small bilateral pleural effusions. Impression: Unchanged bibasal lung airspace opacities likely pneumonia or atelectasis with small bilateral pleural effusions grossly similar to prior exam. Probable mild congestive changes.
[2016-07-14 13:28] LABS: BASO % 1 % (0-3); EOS # 0.1 x10^3/uL (0.0-0.7); EOS % 3 % (0-3); HEMATOCRIT 38.8 % (39.0-53.0); HEMOGLOBIN 12.7 g/dL (13.0-17.5); LYMPH # 0.3 x10^3/uL (1.0-4.8); LYMPH % 9 % (24-48); MEAN CORPUSCULAR HEMOGLOBIN 35 pg (25-35); MEAN CORPUSCULAR HGB CONC 33 g/dL (31-37); MEAN CORPUSCULAR VOLUME 107 fL (79-100); MONO # 0.3 x10^3/uL (0.0-1.1); MONO % 8 % (0-9); NEUT # 2.8 x10^3uL (1.8-7.7); NEUT % 79 % (31-73); PLATELET COUNT 74 x10^3/uL (140-400); RED BLOOD COUNT 3.61 x10^6/uL (4.30-5.70); RED CELL DISTRIBUTION WIDTH 17.7 % (11.5-14.5); WHITE BLOOD COUNT 3.5 x10^3/uL (4.0-11.0)
[2016-07-14 13:50] LABS: ALBUMIN 3.3 g/dL (3.4-5.0); CALCIUM 8.7 mg/dL (8.5-10.1); CREATININE 3.2 mg/dL (0.7-1.3); GFR 18.7; POTASSIUM 4.2 mmol/L (3.5-5.1); TOTAL BILIRUBIN 0.9 mg/dL (0.2-1.0); TOTAL PROTEIN 6.7 g/dL (6.4-8.2)
--- NOTE | 2016-07-14 14:20 | EKG ---
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
--- NOTE | 2016-07-14 14:22 | EKG ---
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
[2016-07-14 14:32] LABS: BARBITURATES NEG (NEG); BENZODIAZEPINES NEG (NEG); CANNABINOIDS NEG (NEG); COCAINE NEG (NEG); METHADONE NEG (NEG); OPIATES NEG (NEG); PHENCYCLIDINE NEG (NEG)
[2016-07-14 14:33] LABS: AMPHETAMINE/METHAMPHETAMINE NEG (NEG)
[2016-07-14 14:36] LABS: SEDIMENTATION RATE 9 (0-15)
[2016-07-14 14:40] LABS: C REACTIVE PROTEIN 5.9 mg/L (0-3.3)
[2016-07-14 14:48] LABS: DIG 3.4 ng/dL (0.9-2.0)
[2016-07-14 15:52] LABS: BACTERIA,URINE 0 /HPF (0-FEW); BILIRUBIN,URINE NEG (NEG); CLARITY,URINE CLEAR; COLOR,URINE AMBER; GLUCOSE,URINE NEG (NEG); HYALINE CASTS, URINE OCC /HPF; NITRITE,URINE NEG (NEG); RBC,URINE 0 /HPF (0-2); SQUAMOUS EPITHELIAL CELL,UR OCC /LPF; UROBILINOGEN,URINE 2 mg/dL (0.2 mg/dL); WBC,URINE OCC /HPF (0-4)
[2016-07-14] MEDS ORDERED: ACETAMINOPHEN 325 MG TABLET PO PRN (16:00)
[2016-07-14] MEDS ORDERED: ONDANSETRON PF 4 MG/2 ML VIAL. IV PRN (16:00)
[2016-07-14 18:56] VITALS: BP 109/83
--- NOTE | 2016-07-14 18:59 | ACF ---
Admission Criteria Forms HEART FAILURE: COMMON COMPLICATIONS Clinical Indications for Inpatient Care (Place 'X' for any and all applicable criteria): Ongoing inpatient care may be indicated for heart failure with ANY ONE of the following (1)(2)(3)(4)(5): [ ]I. Ongoing need for care for primary condition requiring frequent therapy adjustments because of changes in cardiac function (eg, drug dosage changes for drugs that are renally metabolized) [ ]II. New-onset heart failure [ ]III. Heart failure with decreased urine output not responsive to attempts to optimize volume status [ ]IV. Acute cardiac ischemia causing or associated with failure [X]V. Complications of heart failure, including ANY ONE of the following: [ ]a) Pericardial effusion [ ]b) Symptomatic pleural effusion [ ]c) O2 saturation <90% or PO2 < 60 mm Hg (8.0 kPa) on room air or require baseline supplemental O2 [ ]d) Tachypnea [X]e) Dyspnea [ ]f) Syncope [ ]g) Change in mental status [ ]h) Acute renal insufficiency that is severe (reduction of more than 50% in estimated glomerular filtration rate from baseline) or progressive reduction of more than 25% in estimated glomerular filtration rate from baseline, with creatinine continuing to rise) [ ]i) Hemodynamic instability [ ]j) Anasarca [ ]k) Clinically significant metabolic abnormalities due to heart failure (eg, new-onset metabolic acidosis) Extended stay beyond goal length of stay for primary condition may be needed until ALL of the following are present(1)(3): [ ]a) Stable and effective diuretic regimen established (or patient on stable dialysis regimen if in chronic renal failure) [ ]b) Breathing comfortably at rest [ ]c) Saturation of arterial oxygen greater than 90% or at acceptable baseline [ ]d) Pulmonary edema absent or improved [ ]e) Hemodynamic stability [ ]f) Volume status acceptable on oral medication [ ]g) Peripheral or sacral edema absent or improved [ ]h) Renal function stable and manageable at a lower level of care [ ]i) Complications (eg, pleural effusion) resolved or manageable at a lower level of care [ ]j) Patient or caregiver has received written discharge instructions or educational material addressing activity level, diet, discharge medications, follow-up appointment, weight monitoring, and what to do if symptoms worsen The original [facility] content created by [employer] has been revised. The portions of the content which have been revised are identified through the use of italic text or in bold, and [facility] has neither reviewed nor approved the modified material.All other unmodified content is copyright [facility]. Please see references footnoted in the original [facility] edition 2016 Admission Criteria Met?: Yes SERG BATISTA July 14, 2016 18:59
[2016-07-14 19:24] VITALS: BP 104/78
--- NOTE | 2016-07-14 19:43 | NUR ---
The patient, DHAVAL THOMAS, 80 y/o, M admitted by AYESHA REED MD, was given written information regarding hospital policies, unit procedures and contact persons. Valuables were checked and left with patient at the bedside. Patient had dinner and made some phone calls. Patient stated that his medications haven't changed and he feels weak. No pain at this time, will continue to monitor.
[2016-07-14] MEDS ORDERED: DOCUSATE SODIUM 100 MG CAPSULE PO PRN (19:45)
[2016-07-14] MEDS ORDERED: POLYETHYLENE GLYCOL 3350 17 GM PACKET. PO PRN (19:45)
[2016-07-14] MEDS: BUDESONIDE 0.5 MG/2 ML NEBU IH SCH (20:15)
[2016-07-14] MEDS: DONEPEZIL HCL 10 MG TABLET PO SCH (20:23)
[2016-07-14] MEDS: TAMSULOSIN 0.4 MG CAP.ER.24H. PO SCH (20:23)
[2016-07-14] MEDS: ATORVASTATIN CALCIUM 10 MG TABLET. PO SCH (20:23)
[2016-07-14] MEDS: ALLOPURINOL 100 MG TABLET. PO SCH (20:23)
[2016-07-14] MEDS: rOPINIRole 1 MG TABLET. PO SCH (20:26)
[2016-07-14] MEDS: CARBIDOPA/LEVODOPA CR 50/200MG TABLET.SA PO SCH (20:29)
[2016-07-14] MEDS: MEMANTINE 10 MG TABLET. PO SCH (20:29)
--- NOTE | 2016-07-14 20:50 | NUR ---
Nursing note: Spoke with regarding home medications, new orders noted.
--- NOTE | 2016-07-14 20:51 | NUR ---
Previous shift called Consult to Dr. Locke. Addendum: 07/15/16 at 0001 by RAIZA BELLE RN KERA doctor spoke to [facility] Cardiology
[2016-07-14] MEDS: BRIMONIDINE 0.2% OPHTH SOLUTION 5ML BOTTLE. OU SCH (20:57)
[2016-07-14] MEDS: NYSTATIN TOPICAL POWDER 15GM BOTTLE. TP SCH (20:58)
[2016-07-14] MEDS: SODIUM BICARBONATE 650 MG TABLET PO SCH (20:58)
[2016-07-14] MEDS: LATANOPROST 0.005% OPHTH SOLUTION 2.5ML BOTTLE. OU SCH (20:58)
[2016-07-14] MEDS ORDERED: FUROSEMIDE 20 MG/2 ML VIAL IVP SCH (21:00)
[2016-07-14] MEDS ORDERED: BECLOMETHASONE DIPROPIONATE IH SCH (21:00)
[2016-07-14] MEDS ORDERED: FUROSEMIDE 40 MG TABLET PO SCH (21:00)
[2016-07-14 22:19] VITALS: BP 108/76
[2016-07-15 03:38] LABS: BASO % 1 % (0-3); EOS # 0.1 x10^3/uL (0.0-0.7); EOS % 3 % (0-3); HEMATOCRIT 35.1 % (39.0-53.0); HEMOGLOBIN 11.7 g/dL (13.0-17.5); LYMPH # 0.4 x10^3/uL (1.0-4.8); LYMPH % 13 % (24-48); MEAN CORPUSCULAR HEMOGLOBIN 36 pg (25-35); MEAN CORPUSCULAR HGB CONC 33 g/dL (31-37); MEAN CORPUSCULAR VOLUME 106 fL (79-100); MONO # 0.3 x10^3/uL (0.0-1.1); MONO % 9 % (0-9); NEUT # 2.4 x10^3uL (1.8-7.7); NEUT % 73 % (31-73); PLATELET COUNT 68 x10^3/uL (140-400); RED BLOOD COUNT 3.29 x10^6/uL (4.30-5.70); RED CELL DISTRIBUTION WIDTH 17.5 % (11.5-14.5); WHITE BLOOD COUNT 3.2 x10^3/uL (4.0-11.0)
[2016-07-15 04:20] LABS: ALBUMIN 3.1 g/dL (3.4-5.0); CALCIUM 8.6 mg/dL (8.5-10.1); CREATININE 2.9 mg/dL (0.7-1.3); POTASSIUM 4.2 mmol/L (3.5-5.1); TOTAL PROTEIN 6.3 g/dL (6.4-8.2)
[2016-07-15] MEDS: LEVOTHYROXINE 100 MCG TABLET PO SCH (05:18)
[2016-07-15 06:02] VITALS: BP 98/71
[2016-07-15] MEDS: MIDODRINE 5 MG TABLET PO SCH ×3 (06:02→17:44)
--- NOTE | 2016-07-15 08:53 | PDOC2 ---
CORINNE WARREN CORRESPONDENCE CLERK 07/15/16 0853: CONSULT Date of Admission DATE: 07/15/16 TIME: 08:45 Reason for Consult: Acute heart failure Problem List Problems Medical Problems: (1) Heart failure Status: Acute History of Present Illness This is a pleasant 80 year old male who presented to the emergency room with chief complaint of left leg weakness.He has a history of ischemic cardiomyopathy with a biventricular pacemaker placement, chronic systolic congestive heart failure, coronary artery disease with coronary bypass surgery in 2009 X 2 in 2009, chronic atrial fibrillation, hyperlipidemia, stage 4 chronic kidney disease, recurrent deep venous thrombosis on chronic anticoagulation, asthma and obstructive sleep apnea on CPAP. Discharged from [facility] rehab last week and was doing well until yesterday morning. Sudden onset could not lift left leg or walk. Thought he was having a stroke so came in for evaluation. His breathing has been unchanged and swelling remains chronic +1. Has developed a productive cough without fever or chills. He denies any chest pain or palpitations. He has not missed any of his mediation doses. Past medical history Coronary arteriosclerosis in [place] artery Chronic systolic heart failure Cardiomyopathy - Biventricular automatic implantable cardioverter defibrillator in situ Nonsustained ventricular tachycardia - Chronic atrial fibrillation Hyperlipidemia - Chronic kidney disease stage 4 - Deep venous thrombosis - bilateral - right leg first then 3 years later left- on coumadin History of carcinoma - Prostate- had radiation Gout Family History Brother - Coronary artery bypass graft - Myocardial infarction - one brotherx2- another brother x1 Mother - Deep venous thrombosis Unspecified Relation - Deep venous thrombosis Social History 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 No apparent distress. SKIN: Warm and dry with normal skin turgor. Negative for pallor. No lesions or rashes noted. EYES: Conjunctiva are clear. Extraocular movements are intact. No xanthelasma. HEAD AND NECK: Oral mucosa is moist. There is no cyanosis. Neck is supple. Jugular venous pressure is flat. Carotid pulses are 2/2 bilaterally. No carotid bruits. There is no obvious thyromegaly. HEART: Regular rate and rhythm. Normal S1 and S2. No S3. No S4. Soft diastolic murmur LUNGS: Effort is good. There is symmetric expansion bilaterally. few crackles ABDOMEN: Normal active bowel sounds. Soft. Nontender. EXTREMITIES: No clubbing. No cyanosis. +1 edema of lower extremities. Palpable pedal pulses. MUSCULOSKELETAL: No kyphosis. No scoliosis. No localized tenderness or stiffness. Gait appears normal. NEUROLOGIC: Alert and oriented times three. Cranial nerves III-XII are grossly intact. Good motor tone and strength in the upper and lower extremities bilaterally. PSYCHOLOGIC: This is a pleasant patient with a normal affect. Procedure Documentation ECHOCARDIOGRAM 03/07/16: The left ventricule is moderately dilated. There is moderate concentric left ventricular hypertrophy. The left ventricular systolic function is moderately impaired with global hypokinesis. The estimated EF is 30-35%. Unable to determine LV diastolic function. There is a pacemaker or defibrillator lead seen in the right heart chambers. The left atrium is moderately dilated. There is mild aortic valve sclerosis. There is mild aortic and mitral regurgitation. There is moderate to severe tricuspid regurgitation. The estimated pulmonary artery pressure is 67 mmHg, which is consistent with severe pulmomary hypertension. The inferior vena cava is dilated and does not respond normally with respiration , which is consisten with severely elevated right atrial pressure. There is a left pleural effusion. CAROTID DUPLEX 03/07/16: Moderate atherosclerotic plaquing at both carotid bifurcations with underlying luminal narrowing in the 0-50% diameter range bilaterally. LEXISCAN NUCLEAR STRESS TEST IMPRESSION (08/23/2015): Hemodynamic response: There was a blunted heart rate and a normal blood pressure response to stress. Arrhythmias: None. Stress ECG: Indeterminate due to the baseline abnormality. Myocardial perfusion: The left ventricle was dilated and there was a large, intense, fixed mid-distal inferior, apical and septal defect with no ischemia. Wall motion: Wall motion analysis revealed global hypokinesis. Ejection fraction: 30%. Compared to the report (images were not available for review) from the previous study performed on 01/30/2012, there was no significant change. ECHOCARDIOGRAM IMPRESSION (07/11/2015):. The left ventricle is normal in size. There is moderate concentric left ventricular hypertrophy. There is severe left ventricular systolic dysfunction with an estimated ejection fraction of 20-25% with global hypokinesis. There is evidence of left ventricular pseudonormalization suggestive of stage II diastolic dysfunction. The right ventricle appears severely dilated with mildly reduced function. There is a pacemaker or defibrillator lead seen in the right heart chambers. The left atrium appears severely dilated. The right atrium appears mildly dilated. The aortic root appears mildly dilated at 3.8 cm. The proximal ascending aorta appears moderately dilated at 4 cm. There is mild aortic valve sclerosis. There is mild aortic and mitral regurgitation.T There is moderate tricuspid regurgitation. The estimated pulmonary artery systolic pressure is 44 mmHg, consistent with mild pulmonary hypertension. Compared to the report (images were not available for review) of the study dated 06/07/2014, the dilatation of the aortic root and proximal ascending aorta is a new finding. Assessment / Plan Acute on chronic congestive heart failure, systolic dysfunction EF 30 -35% 2016 and stage IV CKD - His weight and BNP are at baseline from discharge. With his CKD he stays mildly decompensated. Follow labs and xray. He is not on beta jossue or CHUY/ARB due to low blood pressures. Elevated troponin - stable - baseline from CKD Coronary artery disease, status post revascularization S/P CABG x 2, PARIKH to left anterior descending on 03/08/09 Right coronary artery mid 60% stenosis. The patient is doing well without any angina. We will continue optimal medical therapy. Paroxysmal ventricular tachycardia - ICM s/p BiV/AICD placement. On amiodarone Atrial fibrillation/flutter, chronic. Evaluated by EP. They recommended to leave him in atrial flutter with rate control. CHADS2 score is 3. He is on Warfarin. He is on digoxin and Amiodarone for rate control. His blood pressure has not been able to support beta jossue. Will hold digoxin for 2 days then decrease. He is slight dig toxic Chronic kidney disease, Stage IV - Follows with renal - Dr Tavera - GFR stable at 21. Hyperlipidemia. His goal LDL is < 70 mg/dL. Continue statin therapy Current Medications Current Medications Ondansetron HCl (Zofran) 4 mg PRN Q4HRS PRN IV NAUSEA/VOMITING; Start 07/14/16 at 16:00; Stop 07/15/16 at 15:59 Acetaminophen (Tylenol) 650 mg PRN Q4HRS PRN PO FEVER; Start 07/14/16 at 16:00 ; Stop 07/15/16 at 15:59 Furosemide (Lasix) 20 mg BID92 IVP ; Start 07/14/16 at 21:00; Stop 07/14/16 at 21:00; Status DC Allopurinol (Zyloprim) 100 mg BID PO Last administered on 07/14/16 20:23; Start 07/14/16 at 21:00 Amiodarone HCl (Cordarone) 200 mg DAILY PO ; Start 07/15/16 at 09:00 Atorvastatin Calcium (Lipitor) 10 mg QHS PO Last administered on 07/14/16 20: 23; Start 07/14/16 at 21:00 Benztropine Mesylate (Cogentin) 0.5 mg QODAY PO ; Start 07/15/16 at 09:00 Benztropine Mesylate (Cogentin) 1 mg QODAY PO ; Start 07/16/16 at 09:00 Budesonide (Pulmicort) 0.5 mg BID IH Last administered on 07/14/16 20:15; Start 07/14/16 at 21:00 Carbidopa/Levodopa (Sinemet Cr) 1 tab.sa TID PO Last administered on 07/14/16 20:29; Start 07/14/16 at 21:00 Docusate Sodium (Colace) 100 mg PRN DAILY PRN PO CONSTIPATION; Start 07/14/16 at 19:45 Donepezil HCl (Aricept) 10 mg HS PO Last administered on 07/14/16 20:23; Start 07/14/16 at 21:00 Fluticasone Propionate (Flonase) 2 spray DAILY NS ; Start 07/15/16 at 09:00 Furosemide (Lasix) 40 mg TID PO ; Start 07/14/16 at 21:00; Stop 07/14/16 at 21: 00; Status DC Guaifenesin (Mucinex Er) 1,200 mg BID PO Last administered on 07/14/16 20:23; Start 07/14/16 at 21:00 Latanoprost (Xalatan) 1 drop HS OU ; Start 07/14/16 at 21:00 Levothyroxine Sodium (Synthroid) 100 mcg DAILY06 PO Last administered on 05:18; Start 07/15/16 at 06:00 Memantine (Namenda) 10 mg BID PO Last administered on 07/14/16 20:29; Start at 21:00 Nystatin (Nystop) 1 jordana BID TP ; Start 07/14/16 at 21:00 Polyethylene Glycol (miraLAX) 17 gm PRN DAILY PRN PO CONSTIPATION; Start at 19:45 Ropinirole HCl (Requip) 1 mg TID PO Last administered on 07/14/16 20:26; Start 07/14/16 at 21:00 Tamsulosin HCl (Flomax) 0.4 mg HS PO Last administered on 07/14/16 20:23; Start 07/14/16 at 21:00 Warfarin Sodium (Coumadin) 3 mg DAILY16 PO ; Start 07/15/16 at 16:00 Non-Formulary Medication 2 puff BID IH ; Start 07/14/16 at 21:00; Status UNV Brimonidine Tartrate (Alphagan) 1 drop BID OU ; Start 07/14/16 at 21:00 Midodrine (Proamatine) 5 mg [id number] PO Last administered on 07/15/16 06:02; Start 07/15/16 at 07:00 Sodium Bicarbonate 650 mg BID PO ; Start 07/14/16 at 21:00 Furosemide (Lasix) 20 mg BID92 IVP ; Start 07/15/16 at 09:00 Warfarin Sodium (Coumadin Per Physician) 1 each PRN DAILY PRN MC SEE COMMENTS; Start 07/15/16 at 08:45 Active Scripts Active Reported Nystatin 15 Gm Powder 1 [place] TP BID LAST DOSE GIVEN: DATE: TIME: NEXT DOSE DUE: DATE: TIME: Namenda (Memantine Hcl) 10 Mg Tablet 10 Mg PO BID LAST DOSE GIVEN: DATE: TIME: NEXT DOSE DUE: DATE: TIME: Levothyroxine Sodium 100 Mcg Tablet 100 Mcg PO DAILY06 LAST DOSE GIVEN: DATE: TIME: NEXT DOSE DUE: DATE: TIME: Mucinex (Guaifenesin) 600 Mg Tablet.er 1,200 Mg PO BID LAST DOSE GIVEN: DATE: TIME: NEXT DOSE DUE: DATE: TIME: Furosemide 40 Mg Tablet 40 Mg PO TID LAST DOSE GIVEN: DATE: TIME: NEXT DOSE DUE: DATE: TIME: Budesonide 0.5 Mg/2 Ml Ampul.neb 0.5 Mg IH BID LAST DOSE GIVEN: DATE: TIME: NEXT DOSE DUE: DATE: TIME: Atorvastatin Calcium 10 Mg Tablet 10 Mg PO QHS LAST DOSE GIVEN: DATE: TIME: NEXT DOSE DUE: DATE: TIME: Coumadin (Warfarin Sodium) 3 Mg Tablet 3 Mg PO DAILY LAST DOSE GIVEN: DATE: TIME: NEXT DOSE DUE: DATE: TIME: Fluticasone Propionate Nasal [place] (Fluticasone Propionate) 16 Gm [place].susp 2 Spr NS DAILY LAST DOSE GIVEN: DATE: TIME: NEXT DOSE DUE: DATE: TIME: Miralax (Polyethylene Glycol 3350) 17 Gm Powd.pack 1 Packet PO DAILY PRN LAST DOSE GIVEN: DATE: TIME: NEXT DOSE DUE: DATE: TIME: Qvar 40MCG Inhaler (Beclomethasone Dipropionate) 8.7 Gm Aer.w.adap 2 Puff IH BID LAST DOSE GIVEN: DATE: TIME: NEXT DOSE DUE: DATE: TIME: Sodium Bicarbonate 650 Mg Tablet 1 Tab PO BID LAST DOSE GIVEN: DATE: TIME: NEXT DOSE DUE: DATE: TIME: Alphagan P (Brimonidine Tartrate) 5 Ml Drops 1 Drop EACHEYE BID LAST DOSE GIVEN: DATE: TIME: NEXT DOSE DUE: DATE: TIME: Donepezil Hcl 5 Mg Tablet 2 Tab PO HS LAST DOSE GIVEN: DATE: TIME: NEXT DOSE DUE: DATE: TIME: Benztropine Mesylate 0.5 Mg Tablet 1 Tab PO QODAY LAST DOSE GIVEN: DATE: TIME: NEXT DOSE DUE: DATE: TIME: Latanoprost 2.5 Ml Drops 1 Drop EACHEYE HS LAST DOSE GIVEN: DATE: TIME: NEXT DOSE DUE: DATE: TIME: Allopurinol 100 Mg Tablet 100 Mg PO BID LAST DOSE GIVEN: DATE: TIME: NEXT DOSE DUE: DATE: TIME: Benztropine Mesylate 1 Mg Tablet 1 Mg PO QODAY LAST DOSE GIVEN: DATE: TIME: NEXT DOSE DUE: DATE: TIME: Digoxin 125 Mcg Tablet 1 Tab PO DAILY LAST DOSE GIVEN: DATE: TIME: NEXT DOSE DUE: DATE: TIME: Amiodarone Hcl 200 Mg Tablet 200 Mg PO DAILY LAST DOSE GIVEN: DATE: TIME: NEXT DOSE DUE: DATE: TIME: Ropinirole Hcl 1 Mg Tablet 1 Mg PO TID LAST DOSE GIVEN: DATE: TIME: NEXT DOSE DUE: DATE: TIME: Carbidopa-Levo Er 50-200 Tab (Carbidopa/Levodopa) 1 Each Tablet.er 1 Each PO TID LAST DOSE GIVEN: DATE: TIME: NEXT DOSE DUE: DATE: TIME: Midodrine Hcl 10 Mg Tablet 5 Mg PO TID HOLD FOR SYS BP>120 LAST DOSE GIVEN: DATE: TIME: NEXT DOSE DUE: DATE: TIME: Tamsulosin Hcl 0.4 Mg Cap.er.24h 0.4 Mg PO HS LAST DOSE GIVEN: DATE: TIME: NEXT DOSE DUE: DATE: TIME: Colace (Docusate Sodium) 100 Mg Capsule 100 Mg PO DAILY PRN LAST DOSE GIVEN: DATE: TIME: NEXT DOSE DUE: DATE: TIME: Allergies: Coded Allergies: No Known Drug Allergies (Unverified , 03/07/16) VITALS Vital Signs Date Time Temp Pulse Resp B/P (MAP) Pulse Ox O2 Delivery O2 Flow Rate FiO2 07/15/16 06:02 98.1 88 20 98/71 (80) 96 Room Air Labs Laboratory Tests Test 07/14/16 12:55 07/14/16 12:58 07/14/16 14:07 07/14/16 22:18 C-Reactive Protein 5.9 mg/L (0-3.3) CC-Gtn-L-Type Natriuretic Peptide 60026 pg/mL (0-449) Digoxin Level 3.4 ng/dL (0.9-2.0) Digoxin Last Dose Date 07/14/2016 Digoxin Last Dose Time 0700 White Blood Count 3.5 x10^3/uL (4.0-11.0) Red Blood Count 3.61 x10^6/uL (4.30-5.70) Hemoglobin 12.7 g/dL (13.0-17.5) Hematocrit 38.8 % (39.0-53.0) Mean Corpuscular Volume 107 fL (79-100) Mean Corpuscular Hemoglobin 35 pg (25-35) Mean Corpuscular Hemoglobin Concent 33 g/dL (31-37) Red Cell Distribution Width 17.7 % (11.5-14.5) Platelet Count 74 x10^3/uL (140-400) Neutrophils (%) (Auto) 79 % (31-73) Lymphocytes (%) (Auto) 9 % (24-48) Monocytes (%) (Auto) 8 % (0-9) Eosinophils (%) (Auto) 3 % (0-3) Basophils (%) (Auto) 1 % (0-3) Neutrophils # (Auto) 2.8 x10^3uL (1.8-7.7) Lymphocytes # (Auto) 0.3 x10^3/uL (1.0-4.8) Monocytes # (Auto) 0.3 x10^3/uL (0.0-1.1) Eosinophils # (Auto) 0.1 x10^3/uL (0.0-0.7) Basophils # (Auto) 0.0 x10^3/uL (0.0-0.2) Erythrocyte Sedimentation Rate 9 (0-15) Prothrombin Time 28.4 SEC (9.4-11.4) Prothromb Time International Ratio 2.8 (0.9-1.1) Activated Partial Thromboplast Time 32 SEC (23-33) Sodium Level 147 mmol/L (136-145) Potassium Level 4.2 mmol/L (3.5-5.1) Chloride Level 108 mmol/L (98-107) Carbon Dioxide Level 31 mmol/L (21-32) Anion Gap 8 (6-14) Blood Urea Nitrogen 63 mg/dL (8-26) Creatinine 3.2 mg/dL (0.7-1.3) Estimated GFR (Cockcroft-Gault) 18.7 BUN/Creatinine Ratio 20 (6-20) Glucose Level 98 mg/dL (70-99) Lactic Acid Level 1.1 mmol/L (0.4-2.0) Calcium Level 8.7 mg/dL (8.5-10.1) Total Bilirubin 0.9 mg/dL (0.2-1.0) Aspartate Amino Transf (AST/SGOT) 23 U/L (15-37) Alanine Aminotransferase (ALT/SGPT) 10 U/L (16-63) Alkaline Phosphatase 130 U/L (46-116) Creatine Kinase 59 U/L (39-308) Creatine Kinase MB (Mass) 1.8 ng/mL (0.0-3.6) Creatine Kinase MB Relative Index 3.1 % (0-4) Troponin I Quantitative 0.202 ng/mL (0-0.055) 0.210 ng/mL (0-0.055) Total Protein 6.7 g/dL (6.4-8.2) Albumin 3.3 g/dL (3.4-5.0) Albumin/Globulin Ratio 1.0 (1.0-1.7) Ethyl Alcohol Level < 10 mg/dL (0-10) Urine Collection Type Unknown Urine Color Kavitha Urine Clarity Clear Urine pH 6.0 Urine Specific [place] 1.010 Urine Protein 30 mg/dl (NEG-TRACE) Urine Glucose (UA) Neg mg/dL (NEG) Urine Ketones (Stick) Trace mg/dL (NEG) Urine Blood Neg (NEG) Urine Nitrite Neg (NEG) Urine Bilirubin Neg (NEG) Urine Urobilinogen Dipstick 2 mg/dL (0.2 mg/dL) Urine Leukocyte Esterase Neg (NEG) Urine RBC 0 /HPF (0-2) Urine WBC Occ /HPF (0-4) Urine Squamous Epithelial Cells Occ /LPF Urine Bacteria 0 /HPF (0-FEW) Urine Hyaline Casts Occ /HPF Urine Opiates Screen Neg (NEG) Urine Methadone Screen Neg (NEG) Urine Barbiturates Neg (NEG) Urine Phencyclidine Screen Neg (NEG) Urine Amphetamine/Methamphetamine Neg (NEG) Urine Benzodiazepines Screen Neg (NEG) Urine Cocaine Screen Neg (NEG) Urine Cannabinoids Screen Neg (NEG) Urine Ethyl Alcohol Neg (NEG) Test 07/15/16 03:15 White Blood Count 3.2 x10^3/uL (4.0-11.0) Red Blood Count 3.29 x10^6/uL (4.30-5.70) Hemoglobin 11.7 g/dL (13.0-17.5) Hematocrit 35.1 % (39.0-53.0) Mean Corpuscular Volume 106 fL (79-100) Mean Corpuscular Hemoglobin 36 pg (25-35) Mean Corpuscular Hemoglobin Concent 33 g/dL (31-37) Red Cell Distribution Width 17.5 % (11.5-14.5) Platelet Count 68 x10^3/uL (140-400) Neutrophils (%) (Auto) 73 % (31-73) Lymphocytes (%) (Auto) 13 % (24-48) Monocytes (%) (Auto) 9 % (0-9) Eosinophils (%) (Auto) 3 % (0-3) Basophils (%) (Auto) 1 % (0-3) Neutrophils # (Auto) 2.4 x10^3uL (1.8-7.7) Lymphocytes # (Auto) 0.4 x10^3/uL (1.0-4.8) Monocytes # (Auto) 0.3 x10^3/uL (0.0-1.1) Eosinophils # (Auto) 0.1 x10^3/uL (0.0-0.7) Basophils # (Auto) 0.0 x10^3/uL (0.0-0.2) Sodium Level 147 mmol/L (136-145) Potassium Level 4.2 mmol/L (3.5-5.1) Chloride Level 110 mmol/L (98-107) Carbon Dioxide Level 27 mmol/L (21-32) Anion Gap 10 (6-14) Blood Urea Nitrogen 62 mg/dL (8-26) Creatinine 2.9 mg/dL (0.7-1.3) Estimated GFR (Cockcroft-Gault) 21.0 BUN/Creatinine Ratio 21 (6-20) Glucose Level 78 mg/dL (70-99) Calcium Level 8.6 mg/dL (8.5-10.1) Total Bilirubin 1.0 mg/dL (0.2-1.0) Aspartate Amino Transf (AST/SGOT) 20 U/L (15-37) Alanine Aminotransferase (ALT/SGPT) 8 U/L (16-63) Alkaline Phosphatase 117 U/L (46-116) Troponin I Quantitative 0.204 ng/mL (0-0.055) SH-Ckn-C-Type Natriuretic Peptide 62884 pg/mL (0-449) Total Protein 6.3 g/dL (6.4-8.2) Albumin 3.1 g/dL (3.4-5.0) Albumin/Globulin Ratio 1.0 (1.0-1.7) SURAJ RIVAS MD 07/15/16 0934: CONSULT Allergies: Coded Allergies: No Known Drug Allergies (Unverified , 03/07/16) Images I have personally seen and examined patient, and agree with above. Briefly, Mr. Magana is a 80 yo M with a history of CAD s/p CABG in 2009, permanant atrial flutter rate controlled and on chronic anticoagulation with warfarin, recurrent DVTs, severe ischemic cardiomyopathy s/p BiV pacemaker, essential hypertension, hyperlipidemia, and chronic kidney disease who presented with a sudden onset of weakness in his left lower extremity. I do note that his most recent echocardiogram was earlier this year. This demonstrated severe LV systolic dysfunction with mild AI and MR, as well as moderate to severe TR, with evidence of underlying severe pulmonary hypertension. His most recent ischemic work up was last year, demonstrating evidence of prior infarct and underlying severe cardiomyopathy, but no inducible ischemia was appreciated. Patient was actually hospitalized earlier this month and was currently residing in a rehab facility. The patient denies any recent chest pain, and reports that his breathing may be slightly worse than baseline. He has not had any palpitations or lightheadedness. His work up has included basic labs demonstrated renal function at baseline, mildly elevated troponins with no significant delta change , and an elevated BNP in the setting of chronic kidney disease. I do note that he is being evaluated by Neurology. His CXR demonstrated evidence of mild pulmonary congestion. 14-point organ system ROS is negative other than as described above. FH and SH as above. Physical Exam: Gen: AAO X 3, NAD HEENT: Normal Neck: Elevated JVD, supple, no carotid bruits Lungs: CTAB, no wheezes or crackles Heart: Irregular, variable S1, +2 systolic murmur, no rubs or gallops Abd: Soft, nontender to palpation, + BS Ext: +1 pitting edema bilaterally Impression/plan: 1. Acute CHF, systolic 2. Severe ischemic cardiomyopathy, s/p BiV pacer 3. History of CAD s/p CABG 4. Permanent atrial flutter, rate controlled, chronic anticoagulation with warfarin 5. AI and MR 6. Pulmonary hypertension 7. Chronic kidney disease, stage 4 8. History of recurrent DVTs Mr. Magana presented with symptoms of left lower extremity weakness. Etiology of this is not completely clear at this point in time. The patient has not had any significant symptoms of angina. On examination, he does appear to be wet and in mild heart failure. This is a difficult case particular given his history of CKD. I do note that his troponins are mildly elevated without a significant delta, and BNP is elevated in the setting of renal insufficiency. I have taken the liberty of increasing his Lasix dose to 40 mg IV BID (was on 40 mg PO TID at home). Would continue to follow renal function and electrolytes closely. May be able to switch back to home diuretic regimen tomorrow. It may be reasonable to obtain lower extremity duplex studies to rule out DVT, although I do note that he has been chronically anticoagulated prior to admission. Would hold off on further cardiac diagnostic testing at this point in time. I agree with continuing the rest of his cardiac regimen. We will continue to follow along. Please call with any further questions. CORINNE WARREN APRN July 15, 2016 08:53 SURAJ RIVAS MD July 15, 2016 09:34
[2016-07-15] MEDS ORDERED: FUROSEMIDE 20 MG/2 ML VIAL IVP SCH (09:00)
--- NOTE | 2016-07-15 09:22 | NUR ---
Today only increase IV lasix to 40mg BID, then resume as 20mg BID tomorrow per A. Habib.
[2016-07-15] MEDS: BRIMONIDINE 0.2% OPHTH SOLUTION 5ML BOTTLE. OU SCH ×2 (09:58→20:47)
[2016-07-15] MEDS: rOPINIRole 1 MG TABLET. PO SCH ×3 (09:59→20:47)
[2016-07-15] MEDS: FLUTICASONE 50MCG/NASAL SPRAY 16GM BOTTLE. NS SCH (09:59)
[2016-07-15] MEDS: NYSTATIN TOPICAL POWDER 15GM BOTTLE. TP SCH ×2 (09:59→20:47)
[2016-07-15] MEDS: SODIUM BICARBONATE 650 MG TABLET PO SCH ×2 (09:59→20:48)
[2016-07-15] MEDS: ALLOPURINOL 100 MG TABLET. PO SCH ×2 (10:00→20:48)
[2016-07-15] MEDS: MEMANTINE 10 MG TABLET. PO SCH ×2 (10:00→20:48)
[2016-07-15] MEDS: CARBIDOPA/LEVODOPA CR 50/200MG TABLET.SA PO SCH ×3 (10:00→20:48)
[2016-07-15] MEDS: BENZTROPINE MESYLATE 0.5 MG TABLET PO SCH (10:00)
[2016-07-15] MEDS: AMIODARONE HCL 200 MG TABLET PO SCH (10:00)
[2016-07-15] MEDS: FUROSEMIDE 40 MG/4 ML VIAL IVP SCH ×2 (10:01→15:24)
[2016-07-15 11:35] VITALS: BP 91/64
[2016-07-15] MEDS: BUDESONIDE 0.5 MG/2 ML NEBU IH SCH ×2 (11:38→20:41)
--- NOTE | 2016-07-15 12:10 | CONS ---
DATE OF CONSULTATION: 07/15/2016 NEURO CONSULT REFERRING PHYSICIAN: Dr. Bethany Sesay. REASON FOR CONSULTATION: Severe weakness and tremors of the arms and hands. HISTORY OF PRESENT ILLNESS: This is an 80-year-old right-handed white male who was admitted yesterday morning with the chief complaints of increased weakness of the lower extremities. According to the patient, he has been recently discharged from hospital after he presented with weakness of the lower extremities and shortness of breath. He stated he woke up on Friday and all of a sudden he was unable to walk. He feels numbness as well confined to the distal lower extremities. He denies headaches, visual disturbances, nausea, vomiting, chest pain, or dysarthria, dysphagia, or vertigo. Initial nonenhanced head CT scan revealed no evidence of acute intracranial process, but consistent with chronic small vessel ischemic changes. The patient has had longstanding history of Parkinson disease and has been on medications since. His tremor has been addressed, but the patient stated that his symptoms of Parkinsonism have not been worsening. PAST MEDICAL HISTORY: Quite extensive for coronary artery disease, atrial fibrillation, hypertension, hyperlipidemia, deep venous thrombosis of the lower extremities, prostate cancer, gout, congestive heart failure, ischemic cardiomyopathy, chronic kidney disease stage 4 and hypothyroidism. PAST SURGICAL HISTORY: Significant for AICD placement, CABG x 2 in 2014 and TURP. SOCIAL HISTORY: The patient is single. He denies smoking, alcohol drinking, or illicit drug use. CURRENT MEDICATIONS: Cogentin 1 mg daily, warfarin 3 mg daily, Lasix 20 mg b.i.d., amiodarone 200 mg daily, midodrine 5 mg t.i.d., levothyroxine 100 mcg daily, tamsulosin 0.4 mg at bedtime, ropinirole 1 mg t.i.d., carbidopa/levodopa CR 50/200 one tablet t.i.d., donepezil 10 mg at bedtime, Lipitor 10 mg nightly, allopurinol 100 mg b.i.d., Tylenol and Zofran 4 mg q.4h. p.r.n. IV for nausea and vomiting. ALLERGIES: No known drug allergies. REVIEW OF SYSTEMS: A 10-point review of system was performed and is consistent with the history of present illness. PHYSICAL EXAMINATION: GENERAL: Well-developed, well-nourished white male, not in acute distress. He weighs 194 pounds. VITAL SIGNS: Blood pressure 108/76, respiratory rate 20, pulse is 88 irregular, oxygen saturation 96% on room air. HEENT: Normocephalic, atraumatic, otherwise unremarkable. NECK: Supple. Negative for carotid bruit, lymphadenopathy, JVD or thyromegaly. LUNGS: Diminished breath sounds throughout. CARDIOVASCULAR: Irregular regular rhythm, normal S1, S2. ABDOMEN: Soft. Bowel sounds positive. EXTREMITIES: A 3+ positive for pitting edema with chronic skin discoloration. NEUROLOGICAL: Mental Status: The patient is alert and oriented x 2. The speech is fluent. There is no language dysfunction. Memory, judgment, and abstract thinking is normal for his age. Memory: The patient recalls 2/3 immediately and 1/3 after 1 and 3 minutes. Judgment and abstract thinking are fair. The patient denies hallucination or delusion. CRANIAL NERVES: Visual courtney are full. The pupils are reactive to light and accommodation. The extraocular movements are intact. There is no nystagmus. There is no facial motor or sensory deficit. Hearing is intact bilaterally. The palate is elevated symmetrically. Sternocleidomastoid muscles are powerful bilaterally. The patient shrugs his shoulders symmetrically and protrudes his tongue in the midline without fasciculation or atrophy. MOTOR: No focal muscle bulk was seen. The tone is normal. The strength is 4/5 throughout. Sensory examination revealed diminished pinprick and light touch senses in patchy distributions in both lower extremities. Deep tendon reflexes were symmetric and hypoactive with absent Achilles responses. Gait not tested. The patient has mild resting and less postural and kinetic tremors of both upper extremities. The tone was normal. LABORATORY DATA: CBC revealed white blood cells of 3.2 thousand, hemoglobin 11.7, hematocrit 35.1, platelet count 68,000. Chemistry revealed sodium of 147, potassium 4.2, chloride 110, CO2 27, BUN 62 and a creatinine 2.9, glucose is 78. Troponin level is 0.204 with elevated NPB at 2060. IMPRESSION: 1. Sudden onset of weakness of the lower extremities, likely multifactorial. 2. Parkinson disease, stable presented with mild resting and postural tremors of the upper extremities. 3. Extensive medical problems include coronary artery disease; ischemic cardiomyopathy; atrial fibrillations, status post AICD; hyperlipidemia; chronic renal failure, stage 4; and hypothyroidism. RECOMMENDATIONS: 1. Cardiology consult for increased swelling of the lower extremities, probably patient need more Lasix. 2. Continue with current management for Parkinson's disease. 3. Continue with current management initiated by Dr. Sesay. 4. Add physical therapy as tolerated. M Derek RIVAS MD DR: HOME/yeni JOB#: [id number] / [id number]
--- NOTE | 2016-07-15 13:14 | HP ---
ADMIT DATE: 07/14/2016 REASON FOR ADMISSION: Left leg weakness. HISTORY OF PRESENT ILLNESS: This is an 80-year-old male who was just discharged from the swing bed status, I believe last , back to assisted living at [facility]. The patient stated that he woke up and yesterday he could not move his left leg and he could not lift it up, it was somewhat numb and he felt like he did not have any control of it. He stated his left arm was okay. He also had some transient double vision. He does have a history of a TIA in the past. He also reports that [place] the [place] after he was [place], which is one of the reasons why he was anxious to be discharged. PAST MEDICAL HISTORY: Coronary artery disease, chronic systolic heart failure with several admissions, cardiomyopathy, pulmonary hypertension, chronic atrial fibrillation, nonsustained ventricular tachycardia, chronic kidney disease stage 4, history of DVTs in the right leg first and 3 years later in the left, chronic anticoagulant therapy, history of prostate cancer, Parkinson disease, gout, COPD, weakness, hyperlipidemia, hypothyroidism. PAST SURGICAL HISTORY: Pacemaker, CABG x 2 in 2009, biventricular AICD, TURP. FAMILY HISTORY: Brother had coronary artery disease with myocardial infarction, mother had DVT and then another relation DVT. 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 He smoked 10 years and quit 20 years ago. Occasional alcohol. Occasional caffeine. REVIEW OF SYSTEMS: He is still having cough, occasional sputum production, double vision is resolved, generalized weakness, weight he states is unchanged. ALLERGIES: None. MEDICATIONS: Reviewed and are available on the MAY. OBJECTIVE: VITAL SIGNS: Blood pressure 98/71, pulse 89, temperature 98.1, and pulse ox was 95% on room air. Height 70 inches, weight 194.13 pounds. GENERAL: Somewhat debilitated 80-year-old and who is not in severe distress. HEENT: Hearing is intact. Eyes are clear. There is no double vision, nose was patent. Throat was clear. Tongue was moist. NECK: Supple. LUNGS: With very few crackles, otherwise clear. CARDIOVASCULAR: Irregular rhythm and rate with a 2/6 systolic murmur. ABDOMEN: Soft, nontender. EXTREMITIES: With venous stasis changes and 1+ edema. There were no tenderness in the calves or thighs and no cords. NEUROLOGIC: He has a fine tremor. The regional agronomist strength was equal. His left leg is a little bit weaker than the right, but he is able to lift it. Does not have foot drop. His reflexes were 1+/4. No numbness. Cranial nerves appear intact. LABORATORY DATA: Slightly low white count, hemoglobin 11.7, hematocrit 35.1, MCV 106. Chemistry 22,060. BNP, which is not new, elevated troponin 0.204, not new; mildly hypernatremic. BUN 62, creatinine 2.9 with a GFR of 21. His INR is 2.8. Digoxin level was 3.4. On the chest x-ray, again unchanged bibasilar lung airspace opacities, which states likely pneumonia; however, this has not changed in several months of chest x-rays. ASSESSMENT: 1. Transient episode of left-sided weakness, numbness in the left leg. 2. Digoxin toxic. 3. Cardiomyopathy. 4. Chronic systolic heart failure with ejection fraction of 30% to 35%. 5. Stage 4 kidney disease. His weight has not changed. 6. Elevated troponin, which is stable. 7. Coronary artery disease. 8. Atrial fibrillation, chronic. 9. Chronic use of anticoagulants. 10. Mild hypernatremia, from the Lasix. PLAN: Hold digoxin for at least 2 days, adjust the dose. PT and OT. He will be seen by Cardiology as well as Dr. Bronson, neurologist; monitor his kidney function, and diuresis also. FERNANDO ALLEN DO DR: IDALMIS/yeni JOB#: [id number] / [id number]
[2016-07-15] MEDS: WARFARIN 3 MG TABLET. PO SCH (16:17)
[2016-07-15 16:24] VITALS: BP 91/63
[2016-07-15 19:36] VITALS: BP 86/66
[2016-07-15] MEDS: TAMSULOSIN 0.4 MG CAP.ER.24H. PO SCH (20:47)
[2016-07-15] MEDS: LATANOPROST 0.005% OPHTH SOLUTION 2.5ML BOTTLE. OU SCH (20:47)
[2016-07-15] MEDS: ATORVASTATIN CALCIUM 10 MG TABLET. PO SCH (20:47)
[2016-07-15] MEDS: DONEPEZIL HCL 10 MG TABLET PO SCH (20:48)
[2016-07-15 21:00] VITALS: BP 113/71
--- NOTE | 2016-07-15 23:15 | NUR ---
Patient assessed, care plan reviewed, continue to monitor.
[2016-07-16] VITALS (7 sets, daily range): BP systolic 87–109; BP diastolic 56–79
[2016-07-16] MEDS: LEVOTHYROXINE 100 MCG TABLET PO SCH (06:10)
[2016-07-16 06:33] LABS: BASO % 1 % (0-3); EOS # 0.1 x10^3/uL (0.0-0.7); EOS % 3 % (0-3); HEMATOCRIT 35.8 % (39.0-53.0); HEMOGLOBIN 11.8 g/dL (13.0-17.5); LYMPH # 0.5 x10^3/uL (1.0-4.8); LYMPH % 14 % (24-48); MEAN CORPUSCULAR HEMOGLOBIN 35 pg (25-35); MEAN CORPUSCULAR HGB CONC 33 g/dL (31-37); MEAN CORPUSCULAR VOLUME 107 fL (79-100); MONO # 0.3 x10^3/uL (0.0-1.1); MONO % 8 % (0-9); NEUT # 2.6 x10^3uL (1.8-7.7); NEUT % 73 % (31-73); PLATELET COUNT 72 x10^3/uL (140-400); RED BLOOD COUNT 3.36 x10^6/uL (4.30-5.70); RED CELL DISTRIBUTION WIDTH 17.5 % (11.5-14.5); WHITE BLOOD COUNT 3.6 x10^3/uL (4.0-11.0)
[2016-07-16 06:48] LABS: ALBUMIN 3.1 g/dL (3.4-5.0); ALBUMIN/GLOBULIN RATIO 0.9 (1.0-1.7); CALCIUM 8.7 mg/dL (8.5-10.1); CREATININE 2.9 mg/dL (0.7-1.3); MAGNESIUM 2.7 mg/dL (1.8-2.4); POTASSIUM 4.2 mmol/L (3.5-5.1); TOTAL BILIRUBIN 0.9 mg/dL (0.2-1.0); TOTAL PROTEIN 6.4 g/dL (6.4-8.2)
[2016-07-16] MEDS: MIDODRINE 5 MG TABLET PO SCH ×3 (07:45→18:17)
[2016-07-16] MEDS: rOPINIRole 1 MG TABLET. PO SCH ×3 (08:28→22:34)
[2016-07-16] MEDS: FUROSEMIDE 20 MG/2 ML VIAL IVP SCH ×2 (08:28→15:35)
[2016-07-16] MEDS: MEMANTINE 10 MG TABLET. PO SCH ×2 (08:29→19:42)
[2016-07-16] MEDS: BRIMONIDINE 0.2% OPHTH SOLUTION 5ML BOTTLE. OU SCH ×2 (08:29→21:00)
[2016-07-16] MEDS: CARBIDOPA/LEVODOPA CR 50/200MG TABLET.SA PO SCH ×3 (08:29→19:42)
[2016-07-16] MEDS: AMIODARONE HCL 200 MG TABLET PO SCH (08:29)
[2016-07-16] MEDS: SODIUM BICARBONATE 650 MG TABLET PO SCH ×2 (08:29→19:41)
[2016-07-16] MEDS: BENZTROPINE MESYLATE 1 MG TABLET PO SCH (08:30)
[2016-07-16] MEDS: NYSTATIN TOPICAL POWDER 15GM BOTTLE. TP SCH ×2 (08:30→19:43)
[2016-07-16] MEDS: ALLOPURINOL 100 MG TABLET. PO SCH ×2 (08:30→19:42)
[2016-07-16] MEDS: FLUTICASONE 50MCG/NASAL SPRAY 16GM BOTTLE. NS SCH (08:31)
[2016-07-16] MEDS: BUDESONIDE 0.5 MG/2 ML NEBU IH SCH ×2 (09:34→20:25)
--- NOTE | 2016-07-16 09:57 | PDOC ---
CORINNE STILES PASTING MACHINE OFFBEARER 07/16/16 0957: PROGRESS NOTES Diagnosis Problem Problems Medical Problems: (1) Heart failure Status: Acute Assessment We are seeing the patient for heart failure Acute on chronic congestive heart failure, systolic dysfunction EF 30 -35% 2016 and stage IV CKD - Weigh daily and if weight is trending up will add metolazone and follow lab. If his GFR drops below 15 will do dialysis. He is not on beta jossue or CHUY/ARB due to low blood pressures. Dig toxicity - ? leg weakness - Stop all together. His heart rate is controlled off of medication. Elevated troponin - stable - baseline from CKD Coronary artery disease, status post revascularization S/P CABG x 2, PARIKH to left anterior descending on 03/08/09 Right coronary artery mid 60% stenosis. The patient is doing well without any angina. We will continue optimal medical therapy. Paroxysmal ventricular tachycardia - ICM s/p BiV/AICD placement. On amiodarone Atrial fibrillation/flutter, chronic. Evaluated by EP. They recommended to leave him in atrial flutter with rate control. CHADS2 score is 3. He is on Warfarin. He is on Amiodarone for rate control. His blood pressure has not been able to support beta jossue. Will hold digoxin for 2 days then decrease. He is slight dig toxic Chronic kidney disease, Stage IV - Follows with renal - Dr Tavera - GFR stable at 21. Hyperlipidemia. His goal LDL is < 70 mg/dL. Continue statin therapy Problems: Subjective Up in chair and legs feel back to normal. Breathing and swelling are at baseline. He denies chest pain or palpitations. Objective Vital Signs Date Time Temp Pulse Resp B/P (MAP) Pulse Ox O2 Delivery O2 Flow Rate FiO2 07/16/16 09:34 95 Room Air 07/16/16 08:29 89 104/73 07/16/16 06:17 97.4 07/15/16 19:36 16 Intake and Output 07/16/16 07:00 Intake Total 970 ml Output Total 1750 ml Balance -780 ml Intake Oral 970 ml Output Urine Total 1750 ml # Voids 4 Abdomen: Normal bowel sounds, Soft, No tenderness Heart: Regular rate, Other (irregular rhythm + systolic murmur) Extremities: Other (+ edema) General: Alert, Oriented X3, Cooperative HEENT: EOMI, Mucous membr. moist/pink Lungs: Clear to auscultation Psych/Mental Status: Mental status NL, Mood NL Review of Relevant I have reviewed the following items michael (where applicable) has been applied. Labs Laboratory Tests Test 07/14/16 12:55 07/14/16 12:58 07/14/16 14:07 07/14/16 17:25 C-Reactive Protein 5.9 mg/L (0-3.3) AS-Kml-N-Type Natriuretic Peptide 45180 pg/mL (0-449) Digoxin Level 3.4 ng/dL (0.9-2.0) Digoxin Last Dose Date 07/14/2016 Digoxin Last Dose Time 0700 White Blood Count 3.5 x10^3/uL (4.0-11.0) Red Blood Count 3.61 x10^6/uL (4.30-5.70) Hemoglobin 12.7 g/dL (13.0-17.5) Hematocrit 38.8 % (39.0-53.0) Mean Corpuscular Volume 107 fL (79-100) Mean Corpuscular Hemoglobin 35 pg (25-35) Mean Corpuscular Hemoglobin Concent 33 g/dL (31-37) Red Cell Distribution Width 17.7 % (11.5-14.5) Platelet Count 74 x10^3/uL (140-400) Neutrophils (%) (Auto) 79 % (31-73) Lymphocytes (%) (Auto) 9 % (24-48) Monocytes (%) (Auto) 8 % (0-9) Eosinophils (%) (Auto) 3 % (0-3) Basophils (%) (Auto) 1 % (0-3) Neutrophils # (Auto) 2.8 x10^3uL (1.8-7.7) Lymphocytes # (Auto) 0.3 x10^3/uL (1.0-4.8) Monocytes # (Auto) 0.3 x10^3/uL (0.0-1.1) Eosinophils # (Auto) 0.1 x10^3/uL (0.0-0.7) Basophils # (Auto) 0.0 x10^3/uL (0.0-0.2) Erythrocyte Sedimentation Rate 9 (0-15) Prothrombin Time 28.4 SEC (9.4-11.4) Prothromb Time International Ratio 2.8 (0.9-1.1) Activated Partial Thromboplast Time 32 SEC (23-33) Sodium Level 147 mmol/L (136-145) Potassium Level 4.2 mmol/L (3.5-5.1) Chloride Level 108 mmol/L (98-107) Carbon Dioxide Level 31 mmol/L (21-32) Anion Gap 8 (6-14) Blood Urea Nitrogen 63 mg/dL (8-26) Creatinine 3.2 mg/dL (0.7-1.3) Estimated GFR (Cockcroft-Gault) 18.7 BUN/Creatinine Ratio 20 (6-20) Glucose Level 98 mg/dL (70-99) Lactic Acid Level 1.1 mmol/L (0.4-2.0) Calcium Level 8.7 mg/dL (8.5-10.1) Total Bilirubin 0.9 mg/dL (0.2-1.0) Aspartate Amino Transf (AST/SGOT) 23 U/L (15-37) Alanine Aminotransferase (ALT/SGPT) 10 U/L (16-63) Alkaline Phosphatase 130 U/L (46-116) Creatine Kinase 59 U/L (39-308) Creatine Kinase MB (Mass) 1.8 ng/mL (0.0-3.6) Creatine Kinase MB Relative Index 3.1 % (0-4) Troponin I Quantitative 0.202 ng/mL (0-0.055) Total Protein 6.7 g/dL (6.4-8.2) Albumin 3.3 g/dL (3.4-5.0) Albumin/Globulin Ratio 1.0 (1.0-1.7) Ethyl Alcohol Level < 10 mg/dL (0-10) Urine Collection Type Unknown Urine Color Kavitha Urine Clarity Clear Urine pH 6.0 Urine Specific [place] 1.010 Urine Protein 30 mg/dl (NEG-TRACE) Urine Glucose (UA) Neg mg/dL (NEG) Urine Ketones (Stick) Trace mg/dL (NEG) Urine Blood Neg (NEG) Urine Nitrite Neg (NEG) Urine Bilirubin Neg (NEG) Urine Urobilinogen Dipstick 2 mg/dL (0.2 mg/dL) Urine Leukocyte Esterase Neg (NEG) Urine RBC 0 /HPF (0-2) Urine WBC Occ /HPF (0-4) Urine Squamous Epithelial Cells Occ /LPF Urine Bacteria 0 /HPF (0-FEW) Urine Hyaline Casts Occ /HPF Urine Opiates Screen Neg (NEG) Urine Methadone Screen Neg (NEG) Urine Barbiturates Neg (NEG) Urine Phencyclidine Screen Neg (NEG) Urine Amphetamine/Methamphetamine Neg (NEG) Urine Benzodiazepines Screen Neg (NEG) Urine Cocaine Screen Neg (NEG) Urine Cannabinoids Screen Neg (NEG) Urine Ethyl Alcohol Neg (NEG) Nasal Screen MRSA (PCR) Negative (Negative) Test 07/14/16 22:18 07/15/16 03:15 07/16/16 05:48 Troponin I Quantitative 0.210 ng/mL (0-0.055) 0.204 ng/mL (0-0.055) White Blood Count 3.2 x10^3/uL (4.0-11.0) 3.6 x10^3/uL (4.0-11.0) Red Blood Count 3.29 x10^6/uL (4.30-5.70) 3.36 x10^6/uL (4.30-5.70) Hemoglobin 11.7 g/dL (13.0-17.5) 11.8 g/dL (13.0-17.5) Hematocrit 35.1 % (39.0-53.0) 35.8 % (39.0-53.0) Mean Corpuscular Volume 106 fL (79-100) 107 fL (79-100) Mean Corpuscular Hemoglobin 36 pg (25-35) 35 pg (25-35) Mean Corpuscular Hemoglobin Concent 33 g/dL (31-37) 33 g/dL (31-37) Red Cell Distribution Width 17.5 % (11.5-14.5) 17.5 % (11.5-14.5) Platelet Count 68 x10^3/uL (140-400) 72 x10^3/uL (140-400) Neutrophils (%) (Auto) 73 % (31-73) 73 % (31-73) Lymphocytes (%) (Auto) 13 % (24-48) 14 % (24-48) Monocytes (%) (Auto) 9 % (0-9) 8 % (0-9) Eosinophils (%) (Auto) 3 % (0-3) 3 % (0-3) Basophils (%) (Auto) 1 % (0-3) 1 % (0-3) Neutrophils # (Auto) 2.4 x10^3uL (1.8-7.7) 2.6 x10^3uL (1.8-7.7) Lymphocytes # (Auto) 0.4 x10^3/uL (1.0-4.8) 0.5 x10^3/uL (1.0-4.8) Monocytes # (Auto) 0.3 x10^3/uL (0.0-1.1) 0.3 x10^3/uL (0.0-1.1) Eosinophils # (Auto) 0.1 x10^3/uL (0.0-0.7) 0.1 x10^3/uL (0.0-0.7) Basophils # (Auto) 0.0 x10^3/uL (0.0-0.2) 0.0 x10^3/uL (0.0-0.2) Sodium Level 147 mmol/L (136-145) 147 mmol/L (136-145) Potassium Level 4.2 mmol/L (3.5-5.1) 4.2 mmol/L (3.5-5.1) Chloride Level 110 mmol/L (98-107) 109 mmol/L (98-107) Carbon Dioxide Level 27 mmol/L (21-32) 29 mmol/L (21-32) Anion Gap 10 (6-14) 9 (6-14) Blood Urea Nitrogen 62 mg/dL (8-26) 62 mg/dL (8-26) Creatinine 2.9 mg/dL (0.7-1.3) 2.9 mg/dL (0.7-1.3) Estimated GFR (Cockcroft-Gault) 21.0 21.0 BUN/Creatinine Ratio 21 (6-20) 21 (6-20) Glucose Level 78 mg/dL (70-99) 77 mg/dL (70-99) Calcium Level 8.6 mg/dL (8.5-10.1) 8.7 mg/dL (8.5-10.1) Total Bilirubin 1.0 mg/dL (0.2-1.0) 0.9 mg/dL (0.2-1.0) Aspartate Amino Transf (AST/SGOT) 20 U/L (15-37) 20 U/L (15-37) Alanine Aminotransferase (ALT/SGPT) 8 U/L (16-63) 6 U/L (16-63) Alkaline Phosphatase 117 U/L (46-116) 122 U/L (46-116) TH-Gtl-W-Type Natriuretic Peptide 87013 pg/mL (0-449) Total Protein 6.3 g/dL (6.4-8.2) 6.4 g/dL (6.4-8.2) Albumin 3.1 g/dL (3.4-5.0) 3.1 g/dL (3.4-5.0) Albumin/Globulin Ratio 1.0 (1.0-1.7) 0.9 (1.0-1.7) Prothrombin Time 25.2 SEC (9.4-11.4) Prothromb Time International Ratio 2.5 (0.9-1.1) Magnesium Level 2.7 mg/dL (1.8-2.4) Microbiology 07/15/16 Gram Stain - Final, Complete Medications Current Medications Ondansetron HCl (Zofran) 4 mg PRN Q4HRS PRN IV NAUSEA/VOMITING; Start 07/14/16 at 16:00; Stop 07/15/16 at 15:59; Status DC Acetaminophen (Tylenol) 650 mg PRN Q4HRS PRN PO FEVER; Start 07/14/16 at 16:00 ; Stop 07/15/16 at 15:59; Status DC Furosemide (Lasix) 20 mg BID92 IVP ; Start 07/14/16 at 21:00; Stop 07/14/16 at 21:00; Status DC Allopurinol (Zyloprim) 100 mg BID PO Last administered on 07/16/16 08:30; Start 07/14/16 at 21:00 Amiodarone HCl (Cordarone) 200 mg DAILY PO Last administered on 07/16/16 08:29 ; Start 07/15/16 at 09:00 Atorvastatin Calcium (Lipitor) 10 mg QHS PO Last administered on 07/15/16 20: 47; Start 07/14/16 at 21:00 Benztropine Mesylate (Cogentin) 0.5 mg QODAY PO Last administered on 07/15/16 10:00; Start 07/15/16 at 09:00 Benztropine Mesylate (Cogentin) 1 mg QODAY PO Last administered on 07/16/16 08 :30; Start 07/16/16 at 09:00 Budesonide (Pulmicort) 0.5 mg BID IH Last administered on 07/16/16 09:34; Start 07/14/16 at 21:00 Carbidopa/Levodopa (Sinemet Cr) 1 tab.sa TID PO Last administered on 07/16/16 08:29; Start 07/14/16 at 21:00 Docusate Sodium (Colace) 100 mg PRN DAILY PRN PO CONSTIPATION; Start 07/14/16 at 19:45 Donepezil HCl (Aricept) 10 mg HS PO Last administered on 07/15/16 20:48; Start 07/14/16 at 21:00 Fluticasone Propionate (Flonase) 2 spray DAILY NS Last administered on 09:59; Start 07/15/16 at 09:00 Furosemide (Lasix) 40 mg TID PO ; Start 07/14/16 at 21:00; Stop 07/14/16 at 21: 00; Status DC Guaifenesin (Mucinex Er) 1,200 mg BID PO Last administered on 07/16/16 08:29; Start 07/14/16 at 21:00 Latanoprost (Xalatan) 1 drop HS OU Last administered on 07/15/16 20:47; Start 07/14/16 at 21:00 Levothyroxine Sodium (Synthroid) 100 mcg DAILY06 PO Last administered on 06:10; Start 07/15/16 at 06:00 Memantine (Namenda) 10 mg BID PO Last administered on 07/16/16 08:29; Start at 21:00 Nystatin (Nystop) 1 jordana BID TP Last administered on 07/16/16 08:30; Start at 21:00 Polyethylene Glycol (miraLAX) 17 gm PRN DAILY PRN PO CONSTIPATION; Start at 19:45 Ropinirole HCl (Requip) 1 mg TID PO Last administered on 07/16/16 08:28; Start 07/14/16 at 21:00 Tamsulosin HCl (Flomax) 0.4 mg HS PO Last administered on 07/15/16 20:47; Start 07/14/16 at 21:00 Warfarin Sodium (Coumadin) 3 mg DAILY16 PO Last administered on 07/15/16 16:17 ; Start 07/15/16 at 16:00 Non-Formulary Medication 2 puff BID IH ; Start 07/14/16 at 21:00; Status UNV Brimonidine Tartrate (Alphagan) 1 drop BID OU Last administered on 07/16/16 08 :29; Start 07/14/16 at 21:00 Midodrine (Proamatine) 5 mg [id number] PO Last administered on 07/16/16 07:45; Start 07/15/16 at 07:00 Sodium Bicarbonate 650 mg BID PO Last administered on 07/16/16 08:29; Start at 21:00 Furosemide (Lasix) 20 mg BID92 IVP ; Start 07/15/16 at 09:00; Stop 07/15/16 at 09:35; Status DC Warfarin Sodium (Coumadin Per Physician) 1 each PRN DAILY PRN MC SEE COMMENTS; Start 07/15/16 at 08:45 Furosemide (Lasix) 40 mg BID92 IVP Last administered on 07/15/16 15:24; Start 07/15/16 at 09:45; Stop 07/15/16 at 21:12; Status DC Furosemide (Lasix) 20 mg BID92 IVP Last administered on 07/16/16 08:28; Start 07/16/16 at 09:00 Active Scripts Active Reported Nystatin 15 Gm Powder 1 Jordana TP BID LAST DOSE GIVEN: DATE: TIME: NEXT DOSE DUE: DATE: TIME: Namenda (Memantine Hcl) 10 Mg Tablet 10 Mg PO BID LAST DOSE GIVEN: DATE: TIME: NEXT DOSE DUE: DATE: TIME: Levothyroxine Sodium 100 Mcg Tablet 100 Mcg PO DAILY06 LAST DOSE GIVEN: DATE: TIME: NEXT DOSE DUE: DATE: TIME: Mucinex (Guaifenesin) 600 Mg Tablet.er 1,200 Mg PO BID LAST DOSE GIVEN: DATE: TIME: NEXT DOSE DUE: DATE: TIME: Furosemide 40 Mg Tablet 40 Mg PO TID LAST DOSE GIVEN: DATE: TIME: NEXT DOSE DUE: DATE: TIME: Budesonide 0.5 Mg/2 Ml Ampul.neb 0.5 Mg IH BID LAST DOSE GIVEN: DATE: TIME: NEXT DOSE DUE: DATE: TIME: Atorvastatin Calcium 10 Mg Tablet 10 Mg PO QHS LAST DOSE GIVEN: DATE: TIME: NEXT DOSE DUE: DATE: TIME: Coumadin (Warfarin Sodium) 3 Mg Tablet 3 Mg PO DAILY LAST DOSE GIVEN: DATE: TIME: NEXT DOSE DUE: DATE: TIME: Fluticasone Propionate Nasal Layton (Fluticasone Propionate) 16 Gm Layton.susp 2 Spr NS DAILY LAST DOSE GIVEN: DATE: TIME: NEXT DOSE DUE: DATE: TIME: Miralax (Polyethylene Glycol 3350) 17 Gm Powd.pack 1 Packet PO DAILY PRN LAST DOSE GIVEN: DATE: TIME: NEXT DOSE DUE: DATE: TIME: Qvar 40MCG Inhaler (Beclomethasone Dipropionate) 8.7 Gm Aer.w.adap 2 Puff IH BID LAST DOSE GIVEN: DATE: TIME: NEXT DOSE DUE: DATE: TIME: Sodium Bicarbonate 650 Mg Tablet 1 Tab PO BID LAST DOSE GIVEN: DATE: TIME: NEXT DOSE DUE: DATE: TIME: Alphagan P (Brimonidine Tartrate) 5 Ml Drops 1 Drop EACHEYE BID LAST DOSE GIVEN: DATE: TIME: NEXT DOSE DUE: DATE: TIME: Donepezil Hcl 5 Mg Tablet 2 Tab PO HS LAST DOSE GIVEN: DATE: TIME: NEXT DOSE DUE: DATE: TIME: Benztropine Mesylate 0.5 Mg Tablet 1 Tab PO QODAY LAST DOSE GIVEN: DATE: TIME: NEXT DOSE DUE: DATE: TIME: Latanoprost 2.5 Ml Drops 1 Drop EACHEYE HS LAST DOSE GIVEN: DATE: TIME: NEXT DOSE DUE: DATE: TIME: Allopurinol 100 Mg Tablet 100 Mg PO BID LAST DOSE GIVEN: DATE: TIME: NEXT DOSE DUE: DATE: TIME: Benztropine Mesylate 1 Mg Tablet 1 Mg PO QODAY LAST DOSE GIVEN: DATE: TIME: NEXT DOSE DUE: DATE: TIME: Amiodarone Hcl 200 Mg Tablet 200 Mg PO DAILY LAST DOSE GIVEN: DATE: TIME: NEXT DOSE DUE: DATE: TIME: Ropinirole Hcl 1 Mg Tablet 1 Mg PO TID LAST DOSE GIVEN: DATE: TIME: NEXT DOSE DUE: DATE: TIME: Carbidopa-Levo Er 50-200 Tab (Carbidopa/Levodopa) 1 Each Tablet.er 1 Each PO TID LAST DOSE GIVEN: DATE: TIME: NEXT DOSE DUE: DATE: TIME: Midodrine Hcl 10 Mg Tablet 5 Mg PO TID HOLD FOR SYS BP>120 LAST DOSE GIVEN: DATE: TIME: NEXT DOSE DUE: DATE: TIME: Tamsulosin Hcl 0.4 Mg Cap.er.24h 0.4 Mg PO HS LAST DOSE GIVEN: DATE: TIME: NEXT DOSE DUE: DATE: TIME: Colace (Docusate Sodium) 100 Mg Capsule 100 Mg PO DAILY PRN LAST DOSE GIVEN: DATE: TIME: NEXT DOSE DUE: DATE: TIME: Vitals/I & O Vital Sign - Last 24 Hours 07/15/16 07/15/16 07/15/16 07/15/16 10:00 11:35 11:39 13:17 Temp 97.2 Pulse 89 89 89 Resp 20 B/P (MAP) 108/76 91/64 (73) 91/64 Pulse Ox 97 98 O2 Delivery Room Air Room Air 07/15/16 07/15/16 07/15/16 07/15/16 16:24 17:44 19:36 20:00 Temp 97.8 Pulse 94 94 93 Resp 18 16 B/P (MAP) 91/63 (72) 91/63 86/66 (73) Pulse Ox 95 96 O2 Delivery Room Air Room Air Room Air 07/15/16 07/15/16 07/16/16 07/16/16 20:43 21:00 03:00 06:17 Temp 97.4 Pulse 94 88 B/P (MAP) 113/71 (85) 98/76 (83) 98/79 (85) Pulse Ox 96 94 O2 Delivery Room Air Room Air Room Air Room Air 07/16/16 07/16/16 07/16/16 07/16/16 07:45 08:29 08:49 09:34 Pulse 89 89 B/P (MAP) 104/73 104/73 Pulse Ox 95 O2 Delivery Room Air Room Air Intake and Output 07/15/16 07/15/16 07/16/16 15:00 23:00 07:00 Intake Total 480 ml 490 ml Output Total 200 ml 1100 ml 450 ml Balance 280 ml -610 ml -450 ml NITZA VALLE Jr, MD 07/17/16 0554: PROGRESS NOTES Assessment The patient was seen by Corinne Stiles APRN and I have reviewed her findings and plan and agree with above. Due to staffing constraints, we did not have an attending available on this day to see the patient. Problems: CORINNE STILES APRN July 16, 2016 09:57 NITZA VALLE Jr, MD July 17, 2016 05:54
[2016-07-16] MEDS: DOXYCYCLINE HYCLATE 100 MG TABLET PO SCH ×2 (12:10→19:42)
--- NOTE | 2016-07-16 13:37 | DS ---
DATE OF DISCHARGE: 07/16/2016 DISCHARGE DIAGNOSES: 1. Digoxin toxicity with left-sided weakness, which has resolved. 2. Cardiomyopathy. 3. Acute on chronic systolic heart failure. 4. Elevated troponin. 5. Chronic atrial fibrillation. 6. Coronary artery disease. 7. Mild hypernatremia. 8. Chronic use of anticoagulants. 9. Acute bronchitis versus acute on chronic bronchitis. HOSPITAL COURSE: An 80-year-old male with multiple chronic medical problems who presented to the Emergency Room after experiencing some weakness in his left leg where he could not lift it up. He was found to have a digoxin level of 3.4 and his digoxin was held. He goes in and out of systolic heart failure and he has severe chronic kidney disease stage 5, but he had responded nicely to the Lasix and to the discontinuation of digoxin. He was started on doxycycline for the green sputum, and was deemed that he could benefit from residential services back at [place]. PHYSICAL EXAMINATION: VITAL SIGNS: On day of discharge, blood pressure was 113/71, pulse 94, temperature 97.8. GENERAL: The patient is alert. Color is somewhat pale. Tongue was moist. NECK: Supple. LUNGS: Clear without crackles. CARDIOVASCULAR: Irregular rhythm and rate with a 2/6 systolic murmur. EXTREMITIES: With 1+ edema. Disposition is to [facility]. He will have his blood work monitored. He will not continue on digoxin. He will go back on his Lasix 40 t.i.d. and will continue to have his kidney function monitored. For medication, see [facility]. FERNANDO ALLEN DO DR: IDALMIS/yeni JOB#: [id number] / [id number]
[2016-07-16] MEDS: WARFARIN 3 MG TABLET. PO SCH (15:30)
[2016-07-16] MEDS: LATANOPROST 0.005% OPHTH SOLUTION 2.5ML BOTTLE. OU SCH (19:41)
[2016-07-16] MEDS: ATORVASTATIN CALCIUM 10 MG TABLET. PO SCH (19:42)
[2016-07-16] MEDS: DONEPEZIL HCL 10 MG TABLET PO SCH (19:42)
[2016-07-16] MEDS: TAMSULOSIN 0.4 MG CAP.ER.24H. PO SCH (19:42)
--- NOTE | 2016-07-16 22:13 | PN ---
DATE: SUBJECTIVE: The patient complains of intermittent numbness of the left leg and foot. OBJECTIVE: GENERAL: Well-developed, well-nourished white male, not in acute distress. VITAL SIGNS: Blood pressure 104/73, respiratory rate 18, pulse is 89 and oxygen saturation is 94% on room air. HEENT: Normocephalic, atraumatic, otherwise unremarkable. NECK: Supple. Negative for carotid bruit, lymphadenopathy or thyromegaly. LUNGS: With diminished breath sounds. CARDIOVASCULAR: Regular rhythm, normal S1, S2. ABDOMEN: Soft. Bowel sounds positive. EXTREMITIES: There is 1+ pitting edema with skin discoloration. NEUROLOGICAL EXAM: Mental Status: The patient is alert and oriented x 3. Speech is fluent. There is no language dysfunction. Cranial nerves are intact. Motor Examination: No focal muscle bulk was seen. The tone is normal. The strength is 4/5 throughout. The patient had mild resting and postural tremor of the hands. The tone is normal. Sensory examination revealed diminished pinprick and light touch senses in patchy distributions in both distal lower extremities. Deep tendon reflexes are symmetric with absent Achilles responses. Gait: The stance is steady. The tandem gait is abnormal. LABORATORY DATA: CBC revealed white blood cells of 3600, hemoglobin 11.8, hematocrit 35.8 and platelet count 72,000. Chemistry revealed sodium of 147, potassium 4.2, chloride 109, CO2 of 29, BUN 62, creatinine 2.9 and glucose is 77. IMPRESSION: 1. Parkinson's disease -- stable with mild resting tremor. 2. Generalized weakness. 3. Weakness of the lower extremities associated with numbness and paresthesia, rule out peripheral neuropathy versus lumbosacral radiculopathy. 4. Extensive medical problems include coronary artery disease status post AICD placement, hypertension, hyperlipidemia and ischemic cardiomyopathy. RECOMMENDATIONS: 1. Continue with current managements. 2. Physical therapy. 3. Follow up in [facility]. The patient needs EMG/NCS is to rule out peripheral neuropathy versus lumbosacral radiculopathy. M Derek RIVAS MD DR: HOME/yeni JOB#: [id number] / [id number]
--- NOTE | 2016-07-17 01:00 | NUR ---
Pt denies complaints at this time, able to verbalize POC. Able to transport self with SBA using roller walker to bathroom without difficulty. No SOA. Will continue to monitor.
[2016-07-17 05:03] VITALS: BP 95/65
[2016-07-17] MEDS: LEVOTHYROXINE 100 MCG TABLET PO SCH (05:42)
[2016-07-17 06:18] LABS: HEMATOCRIT 35.8 % (39.0-53.0); HEMOGLOBIN 11.7 g/dL (13.0-17.5); RED BLOOD COUNT 3.35 x10^6/uL (4.30-5.70); RED CELL DISTRIBUTION WIDTH 17.3 % (11.5-14.5); WHITE BLOOD COUNT 3.2 x10^3/uL (4.0-11.0)
[2016-07-17 06:34] LABS: ALBUMIN 3.1 g/dL (3.4-5.0); ALBUMIN/GLOBULIN RATIO 0.9 (1.0-1.7); ALK PHOS 123 U/L (46-116); ALT (SGPT) < 6 U/L (16-63); ANION GAP 6 (6-14); AST (SGOT) 18 U/L (15-37); BLOOD UREA NITROGEN 62 mg/dL (8-26); BUN/CREATININE RATIO 21 (6-20); CALCIUM 8.5 mg/dL (8.5-10.1); CARBON DIOXIDE 31 mmol/L (21-32); CHLORIDE 109 mmol/L (98-107); CREATININE 2.9 mg/dL (0.7-1.3); GLUCOSE 84 mg/dL (70-99); MAGNESIUM 2.5 mg/dL (1.8-2.4); SODIUM 146 mmol/L (136-145); TOTAL BILIRUBIN 0.8 mg/dL (0.2-1.0); TOTAL PROTEIN 6.4 g/dL (6.4-8.2)
[2016-07-17] MEDS: MIDODRINE 5 MG TABLET PO SCH ×2 (07:02→12:28)
[2016-07-17] MEDS: FUROSEMIDE 20 MG/2 ML VIAL IVP SCH ×2 (07:57→14:00)
[2016-07-17] MEDS: CARBIDOPA/LEVODOPA CR 50/200MG TABLET.SA PO SCH ×2 (07:58→13:58)
[2016-07-17] MEDS: DOXYCYCLINE HYCLATE 100 MG TABLET PO SCH (07:58)
[2016-07-17] MEDS: AMIODARONE HCL 200 MG TABLET PO SCH (07:58)
[2016-07-17] MEDS: NYSTATIN TOPICAL POWDER 15GM BOTTLE. TP SCH (07:58)
[2016-07-17] MEDS: MEMANTINE 10 MG TABLET. PO SCH (07:58)
[2016-07-17] MEDS: BENZTROPINE MESYLATE 1 MG TABLET PO SCH (07:58)
[2016-07-17] MEDS: ALLOPURINOL 100 MG TABLET. PO SCH (07:58)
[2016-07-17] MEDS: SODIUM BICARBONATE 650 MG TABLET PO SCH (07:59)
[2016-07-17] MEDS: FLUTICASONE 50MCG/NASAL SPRAY 16GM BOTTLE. NS SCH (07:59)
[2016-07-17] MEDS: BENZTROPINE MESYLATE 0.5 MG TABLET PO SCH (08:00)
[2016-07-17] MEDS ORDERED: LEVOTHYROXINE 25 MCG TABLET. PO ONE (08:30)
[2016-07-17] MEDS: rOPINIRole 1 MG TABLET. PO SCH ×2 (08:33→13:58)
[2016-07-17] MEDS: BUDESONIDE 0.5 MG/2 ML NEBU IH SCH (09:40)
--- NOTE | 2016-07-17 10:07 | PDOC ---
SUBJECTIVE Subjective: He is feeling better. His last week. However he did not sleep well. He still on oxygen Exam Constitutional: Denies fever or chills Eyes: Denies change in visual acuity HENT: Denies nasal congestion or sore throat Respiratory: Denies cough but has chronic shortness of breath Cardiovascular: Denies chest pain and has chronic edema GI: Denies abdominal pain, nausea, vomiting, bloody stools or diarrhea : Denies dysuria Musculoskeletal: Denies back pain or joint pain Integument: Denies rash Neurologic: Denies headache, focal weakness or sensory changes Endocrine: Denies polyuria or polydipsia Lymphatic: Denies swollen glands Psychiatric: Denies depression or anxiety OBJECTIVE Vital Signs Vital Signs Date Time Temp Pulse Resp B/P (MAP) Pulse Ox O2 Delivery O2 Flow Rate FiO2 07/17/16 07:58 98 07/17/16 07:02 95/65 07/17/16 05:03 97.8 20 92 Room Air Physical Exam Constitutional:, no acute distress, non-toxic appearance. Frail HENT: Normocephalic, atraumatic, bilateral external ears normal, oropharynx moist, no oral exudates, nose normal. Eyes: NAIMA, EOMI, conjunctiva normal, no discharge. Neck: Normal range of motion, no tenderness, supple, no stridor. Cardiovascular: JVP not elevated. No carotid bruit. Nor precordial pulsations or heaves. S1 N,S2N. No murmurs. No rubs or clicks. Thorax and Lungs: NOrmal respiration. Normal chest expansion. Normal to percuss. Equal breath sounds. No crackles. Occasional expiratory wheeze. Abdomen: Bowel sounds normal, soft, no tenderness, no masses, no pulsatile masses. Skin: Warm, dry, no erythema, no rash. Back: No tenderness, no CVA tenderness. Extremities: Intact distal pulses, no tenderness, no cyanosis, no clubbing, ROM intact, mild left more than right edema. There is hyperpigmentation Neurologic: Alert and oriented X 3, normal motor function, normal sensory function, no focal deficits noted. Psychologic: Affect normal, judgement normal, mood normal. Lab Laboratory Tests Test 07/17/16 05:45 White Blood Count 3.2 x10^3/uL (4.0-11.0) L Red Blood Count 3.35 x10^6/uL (4.30-5.70) L Hemoglobin 11.7 g/dL (13.0-17.5) L Hematocrit 35.8 % (39.0-53.0) L Mean Corpuscular Volume 107 fL (79-100) H Mean Corpuscular Hemoglobin 35 pg (25-35) Mean Corpuscular Hemoglobin Concent 33 g/dL (31-37) Red Cell Distribution Width 17.3 % (11.5-14.5) H Platelet Count 70 x10^3/uL (140-400) L Prothrombin Time 25.7 SEC (9.4-11.4) H Prothrombin Time INR 2.5 (0.9-1.1) H Sodium Level 146 mmol/L (136-145) H Potassium Level 4.0 mmol/L (3.5-5.1) Chloride Level 109 mmol/L (98-107) H Carbon Dioxide Level 31 mmol/L (21-32) Anion Gap 6 (6-14) Blood Urea Nitrogen 62 mg/dL (8-26) H Creatinine 2.9 mg/dL (0.7-1.3) H Estimated GFR (Cockcroft-Gault) 21.0 BUN/Creatinine Ratio 21 (6-20) H Glucose Level 84 mg/dL (70-99) Calcium Level 8.5 mg/dL (8.5-10.1) Magnesium Level 2.5 mg/dL (1.8-2.4) H Total Bilirubin 0.8 mg/dL (0.2-1.0) Aspartate Amino Transferase (AST) 18 U/L (15-37) Alanine Aminotransferase (ALT) < 6 U/L (16-63) L Alkaline Phosphatase 123 U/L (46-116) H Total Protein 6.4 g/dL (6.4-8.2) Albumin 3.1 g/dL (3.4-5.0) L Albumin/Globulin Ratio 0.9 (1.0-1.7) L MEDICATIONS Medications Current Medications Medications (Trade) Dose Ordered Sig/Gerry Start Time Stop Time Status Last Admin Dose Admin Acetaminophen (Tylenol) 650 mg PRN Q4HRS PRN 07/14/16 16:00 07/15/16 15:59 DC Allopurinol (Zyloprim) 100 mg BID 07/14/16 21:00 07/17/16 07:58 100 MG Amiodarone HCl (Cordarone) 200 mg DAILY 07/15/16 09:00 07/17/16 07:58 200 MG Atorvastatin Calcium (Lipitor) 10 mg QHS 07/14/16 21:00 07/16/16 19:42 10 MG Benztropine Mesylate (Cogentin) 1 mg QODAY 07/16/16 09:00 07/17/16 07:58 1 MG Brimonidine Tartrate (Alphagan) 1 drop BID 07/14/16 21:00 07/16/16 08:29 1 DROP Budesonide (Pulmicort) 0.5 mg BID 07/14/16 21:00 07/16/16 20:25 0.5 MG Carbidopa/Levodopa (Sinemet Cr) 1 tab.sa TID 07/14/16 21:00 07/17/16 07:58 1 TAB.SA Docusate Sodium (Colace) 100 mg PRN DAILY PRN 07/14/16 19:45 Donepezil HCl (Aricept) 10 mg HS 07/14/16 21:00 07/16/16 19:42 10 MG Doxycycline Hyclate (Vibra-Tab) 100 mg BID 07/16/16 10:45 07/17/16 07:58 100 MG Fluticasone Propionate (Flonase) 2 spray DAILY 07/15/16 09:00 07/17/16 07:59 2 SPRAY Furosemide (Lasix) 20 mg [id number] 07/16/16 09:00 07/17/16 07:57 20 MG Guaifenesin (Mucinex Er) 1,200 mg BID 07/14/16 21:00 07/17/16 07:58 1,200 MG Latanoprost (Xalatan) 1 drop HS 07/14/16 21:00 07/16/16 19:41 1 DROP Levothyroxine Sodium (Synthroid) 25 mcg 1X ONCE 07/17/16 08:30 07/17/16 08:31 DC 07/17/16 08:33 25 MCG Memantine (Namenda) 10 mg BID 07/14/16 21:00 07/17/16 07:58 10 MG Midodrine (Proamatine) 5 mg [id number] 07/15/16 07:00 07/17/16 07:02 5 MG Non-Formulary Medication 2 puff BID 07/14/16 21:00 UNV Nystatin (Nystop) 1 cameron BID 07/14/16 21:00 07/17/16 07:58 1 CAMERON Ondansetron HCl (Zofran) 4 mg PRN Q4HRS PRN 07/14/16 16:00 07/15/16 15:59 DC Polyethylene Glycol (miraLAX) 17 gm PRN DAILY PRN 07/14/16 19:45 Ropinirole HCl (Requip) 1 mg TID 07/14/16 21:00 07/17/16 08:33 1 MG Sodium Bicarbonate 650 mg BID 07/14/16 21:00 07/17/16 07:59 650 MG Tamsulosin HCl (Flomax) 0.4 mg HS 07/14/16 21:00 07/16/16 19:42 0.4 MG Warfarin Sodium (Coumadin Per Physician) 1 each PRN DAILY PRN 07/15/16 08:45 Warfarin Sodium (Coumadin) 3 mg DAILY16 07/15/16 16:00 07/16/16 15:30 3 MG PLAN Plan Digitoxicity: The patient came with a digoxin level of 3.4. This is the likely cause office weakness. His CT did not show any acute strokes. Cardiomyopathy: Severe, ischemic. The patient has extremely low blood pressures and will not be able to tolerate beta blockers or Carmine inhibitors. Atrial fibrillation: Chronic. The patient is anticoagulated. He is on amiodarone. Chronic renal disease: The patient's creatinine is 2.9 which is slightly better from his admission of 3.2. His GFR is 21%. Malnutrition: The patient has a albumin of 3.1. Congestive heart failure: Chronic. Elevated BNP could be secondary to the severe renal dysfunction. Hypothyroidism: The patient's TSH is 8.23. Recommendations per Dr. Sesay Coronary disease: The patient is status post CABG 2. His last catheter was in 2009. He denies any angina. Elevated troponin: Flat likely secondary to kidney disease. Hyperlipidemia: Continue statin therapy. Chronic hypotension: Continue Midodrin History of paroxysmal ventricle tachycardia: The patient is status post ICD placement. Automatic intracardiac defibrillator in situ: This is a bi-V device. He's had a generator change. We will recheck his digoxin level, and it is less than 2.0 [place] be discharged back to [place]. He can resume his normal diuretics ALCIRA WEBER MD July 17, 2016 10:07
[2016-07-17 10:10] LABS: DIG 2.7 ng/dL (0.9-2.0)
[2016-07-17 10:46] VITALS: BP 94/63
[2016-07-17] MEDS: BRIMONIDINE 0.2% OPHTH SOLUTION 5ML BOTTLE. OU SCH (12:25)
--- NOTE | 2016-07-17 14:16 | NUR ---
Discharge: IV removed without complications, catheter tip n-tact. All belongings with patient. Copy of chart sent with patient. Patient assisted off unit via wheelchair accompanied by [facility] transport and [employer]. Report called to Armida at 1415 . Reviewed current symptoms, past medical history, labs, follow-up, orders, ect.
[2016-07-18] MEDS ORDERED: LEVOTHYROXINE 125 MCG TABLET PO SCH (06:00)
== END 2016-07-17 14:05 | DRG 292 ==
LOC: ER 12:42 → ICU 16:32 → 1 SOUTH 07-16 18:37
PROVIDERS: ADMIT Internal Medicine; ATTEND Internal Medicine
DX: I50.23 Acute on chronic systolic (congestive) heart failure (principal); I13.0 Hypertensive heart and chronic kidney disease with heart failure and stage 1 through stage 4 chronic kidney disease, or unspecified chronic kidney disease; E87.0 Hyperosmolality and hypernatremia; I47.2 Ventricular tachycardia; I48.92 Unspecified atrial flutter; N18.5 Chronic kidney disease, stage 5; E46 Unspecified protein-calorie malnutrition; R53.1 Weakness; T46.0X5A Adverse effect of cardiac-stimulant glycosides and drugs of similar action, initial encounter; E78.5 Hyperlipidemia, unspecified; E03.9 Hypothyroidism, unspecified; G20 Parkinson's disease; I25.5 Ischemic cardiomyopathy; G47.33 Obstructive sleep apnea (adult) (pediatric); I25.10 Atherosclerotic heart disease of native coronary artery without angina pectoris; I27.2 Other secondary pulmonary hypertension; I48.2 Chronic atrial fibrillation; J44.9 Chronic obstructive pulmonary disease, unspecified; D53.9 Nutritional anemia, unspecified; D69.6 Thrombocytopenia, unspecified; J45.909 Unspecified asthma, uncomplicated; I95.89 Other hypotension; M10.9 Gout, unspecified; J20.9 Acute bronchitis, unspecified; Z66 Do not resuscitate; Z79.01 Long term (current) use of anticoagulants; Z82.49 Family history of ischemic heart disease and other diseases of the circulatory system; Z85.46 Personal history of malignant neoplasm of prostate; Z86.718 Personal history of other venous thrombosis and embolism; Z86.73 Personal history of transient ischemic attack (TIA), and cerebral infarction without residual deficits; Z95.1 Presence of aortocoronary bypass graft; Z95.810 Presence of automatic (implantable) cardiac defibrillator; Z87.891 Personal history of nicotine dependence; Z68.28 Body mass index [BMI] 28.0-28.9, adult; Y92.89 Other specified places as the place of occurrence of the external cause
CPT/HCPCS: 36415; 70450; 71010; 80053; 80162; 81001; 82553; 83605; 83735; 83880; 84443; 84484; 85027; 85610; 85651; 85730; 86140; 87070; 87205; 87641; 93005; 94640; 94760; G0480; G0481; J1940; J7626; 97110; 97530; 99285-25